=== PATIENT | male | born 1935 | race Caucasian/White ===

== ENCOUNTER 2016-06-30 10:50 | Emergency (ER) | payer MEDICARE, OTHER ==
[~2016-06-30] VITALS: Wt 84.5 kg
[~2016-06-30 10:50] MED LIST: AMLO-147 PO; ATOR80TA75 PO; BIMA2.5D BOTH EYES; CARV25TA79 PO; CITROMA PO; CLOP75TA27 PO; GLYB5TAB3 PO; ISOS40TA15 PO; LANT3I SC; LISI20TA11 PO; NAPR-688 PO; POLY17PO6 PO; REPA2TAB8 PO; SITA100T8 PO; TAMS-14 PO
[2016-06-30] MEDS ORDERED: morphine 2 MG INJ IV STA (13:06)
[2016-06-30] MEDS ORDERED: ONDANSETRON 4 MG INJ IV STA (13:06)
[2016-06-30 13:45] LABS: ADD SCAN DIFF NO
[2016-06-30 13:47] LABS: BASOPHILS % 0.5 % (0.0-2.0); EOSINOPHILS # 0.3 10^3/ul (0.0-0.5); EOSINOPHILS % 4.3 % (0.0-7.0); HEMATOCRIT 39.4 % (42.0-52.0); HEMOGLOBIN 12.3 g/dl (14.0-18.0); LYMPHOCYTES % 26.3 % (15.0-51.0); MEAN CORPUSCULAR HEMOGLOBIN 29.1 pg (29.0-33.0); MEAN CORPUSCULAR HGB CONC 31.2 g/dl (32.0-37.0); MEAN CORPUSCULAR VOLUME 93.4 fl (82.0-101.0); MEAN PLATELET VOLUME 11.1 fl (7.4-10.4); MONOCYTE # 0.8 10^3/ul (0.3-0.9); MONOCYTES % 9.8 % (0.0-11.0); NEUTROPHIL # 4.5 10^3/ul (1.6-7.5); NEUTROPHILS % 58.7 % (39.0-77.0); PLATELET COUNT 240 10^3/UL (140-415); RED BLOOD COUNT 4.22 10^6/ul (4.70-6.10); RED CELL DISTRIBUTION WIDTH 14.3 % (11.5-14.5); WHITE BLOOD COUNT 7.7 10^3/ul (4.8-10.8)
[2016-06-30] MEDS ORDERED: NOVO3I SC (13:54)
[2016-06-30] MEDS ORDERED: FURO-110 PO (13:54)
[2016-06-30 14:05] LABS: ALBUMIN 3.4 g/dl (3.3-4.9); ALBUMIN/GLOBULIN RATIO 0.85; BILIRUBIN,INDIRECT 0.1 mg/dl (0-1.1); BILIRUBIN,TOTAL 0.1 mg/dl (0.2-1.3); CALCIUM 8.7 mg/dl (8.4-10.2); CREATININE 3.29 mg/dl (0.61-1.24); TOTAL PROTEIN 7.4 g/dl (6.1-8.1)
[2016-06-30 14:06] LABS: POTASSIUM 4.3 mmol/L (3.5-5.1)
--- NOTE | 2016-06-30 14:38 | RADRPT ---
PROCEDURE: CT Abdomen and Pelvis without contrast. CLINICAL INDICATION: Right lower quadrant pain with nausea and vomiting. TECHNIQUE: CT scan of the abdomen and pelvis without contrast was performed on a multidetector hig h-resolution CT scanner. The patient was scanned without intravenous contrast. Coronal and sagittal reformatted images were obtained from the axial source images. Images were reviewed on a high-resol [employer] PACS workstation. The total exam CTDI equals 16.33 mGy and the total exam DLP equals 998.05 mG y-cm. One or more of the following dose reduction techniques were used: Automated exposure control. Adjustment of the mA and/or kV according to patient size. Use of iterative reconstruction technique. COMPARISON: CT abdomen and pelvis 08/17/2014 FINDINGS: CT abdomen: The lung bases are remarkable for mild fibrotic changes in the periphery of the lungs, not significa ntly changed. The heart size is mildly enlarged without pericardial thickening or effusion. AICD de vice is in place. The liver is normal in size and density without focal mass or intrahepatic biliary dilatation. The spleen is normal in size and homogeneous in density. The stomach is partially collapsed, but is daina ssly unremarkable. The pancreas as visualized is normal. The gallbladder is unremarkable. There is no evidence for biliary dilatation. The adrenal glands are symmetric and normal. The kidneys are symmetrically unremarkable as well. No renal calculus or obstructive uropathy or mass lesion is see n. The aorta is of normal caliber. Aortic vascular calcifications are present. There is no retroperit guerrero lymphadenopathy. The leon hepatis region is clear. There are scattered colonic diverticula without evidence of acute diverticulitis. CT pelvis: There is a left inguinal hernia containing a portion of the proximal sigmoid colon without bowel obs truction or strangulation. There is a small fat containing right inguinal hernia. The small bowel lo ops situated within the pelvis are unremarkable. There is a normal appendix. There is moderate prost atomegaly with median lobe hypertrophy. The pelvic sidewalls and inguinal regions are clear. The s igmoid colon and rectum are remarkable for sigmoid diverticulosis. No mass, lymphadenopathy, or jesenia e fluid is seen. No acute inflammation is seen. The surrounding osseous structures are remarkable for degenerative spondylosis of the spine. No osteolytic or osteoblastic lesion is detected. IMPRESSION: 1. No mass, lymphadenopathy, or focal acute inflammatory process is identified. 2. Left inguinal hernia containing portion of the proximal sigmoid colon without evidence of bowel obstruction or strangulation. 3. Scattered colonic diverticula without evidence of acute diverticulitis. 4. Moderate prostatomegaly with median lobe hypertrophy. 5. Diffuse atherosclerosis. 6. Fat containing small right inguinal hernia. RPTAT: BB .Emir Beard MD, Date Time Electronically viewed and signed by .Emir Beard MD, on 06/30/2016 14:38 .O/
--- NOTE | 2016-06-30 14:40 | ERA ---
ER Documentation Chief Complaint Date/Time DATE: 06/30/16 TIME: 14:39 Chief Complaint RLQ PAIN 1 WEEK WITH N/V HPI This is an 81-year-old male who is here for right lower quadrant pain off and on for the past week. Family states he has had this pain before on several occasions. The patient has no nausea vomiting diarrhea no fever. No radiation of pain. Says sometimes when he urinates the pain gets worse or starts. He has no hematuria or dysuria. No pain in the back no chest pain or shortness of breath. Described as sharp and nonradiating ROS All systems reviewed and are negative except as per history of present illness. Medications Home Meds Active Scripts Naproxen* (Naproxen*) 500 Mg Tablet, 500 MG PO BID Y for PAIN, #14 TAB Prov:CAROLINE ODEN DO 04/14/15 Magnesium Citrate* (Citroma*) 300 Ml Soln, 300 ML PO ONCE, #1 BOTTLE Prov:CAROLINE ODEN DO 04/14/15 Polyethylene Glycol* (Miralax*) 17 Gm Powd.pack, 17 GM PO DAILY, #7 Prov:CAROLINE ODEN DO 04/14/15 Clopidogrel Bisulfate (Clopidogrel) 75 Mg Tab, 75 MG PO DAILY for 30 Days Prov:SHREE HAYES MD 05/19/14 Tamsulosin Hcl* (Flomax*) 0.4 Mg Capsr, 0.4 MG PO HS for 30 Days Prov:SHREE HAYES MD 05/19/14 Reported Medications Insulin Aspart* (Novolog Insulin Pen*) 100 Unit/Ml Soln, 0-10 SC .SLIDING SCALE AC, EA 06/30/16 Furosemide* (Lasix*) 20 Mg Tablet, 20 MG PO DAILY, TAB 06/30/16 Isosorbide Dinitrate* (Isordil*) 40 Mg Tablet, 40 MG PO BID, TAB 08/17/14 Insulin Glargine* (Lantus*) 100 Unit/Ml Soln, 40 UNIT SC HS, EA 08/17/14 Atorvastatin* (Atorvastatin*) 80 Mg Tablet, 80 MG PO HS, TAB 05/18/14 Bimatoprost* (Lumigan*) 0.01%-2.5 Ml Opht Drops, 1 DROP BOTH EYES HS, EA 05/18/14 Carvedilol* (Carvedilol*) 25 Mg Tablet, 25 MG PO BID, TAB 05/18/14 Repaglinide* (Repaglinide*) 2 Mg Tablet, 2 MG PO AC BREAKFAST DINNER, TAB 05/18/14 Discontinued Reported Medications Glyburide* (Glyburide*) 5 Mg Tablet, 5 MG PO BID, TAB 08/17/14 Amlodipine Besylate* (Amlodipine Besylate*) 10 Mg Tablet, 10 MG PO DAILY, TAB 08/17/14 Lisinopril* (Lisinopril*) 20 Mg Tablet, 20 MG PO DAILY, TAB 05/18/14 Sitagliptin* (Januvia*) 100 Mg Tablet, 100 MG PO daily 12/12/12 Allergies Allergies: Coded Allergies: No Known Allergy (Verified , 08/17/14) PMhx/Soc History of Surgery: No Anesthesia Reaction: No Hx Neurological Disorder: No Hx Respiratory Disorders: No Hx Cardiac Disorders: No Hx Psychiatric Problems: No Hx Miscellaneous Medical Probl: Yes Hx Alcohol Use: No Hx Substance Use: No Hx Tobacco Use: No Smoking Status: Never smoker FmHx Family History: No coronary disease Physical Exam Vitals Vital Signs Date Time Temp Pulse Resp B/P Pulse Ox O2 Delivery O2 Flow Rate FiO2 06/30/16 10:57 98.0 75 18 194/102 99 Physical Exam Const: Well-developed, well-nourished Head: Atraumatic, normocephalic Eyes: Normal Conjunctiva, PERRLA, EOMI, normal sclera, no nystagmus ENT: Normal External Ears, Nose and Mouth, moist mucus membranes. Neck: Full range of motion. No meningismus, no lymphadenopathy. Resp: Clear to auscultation bilaterally, no wheezing, rhonchi, rales Cardio: Regular rate and rhythm, no murmurs, S1 S2 present Abd: Soft, very mild right lower quadrant tenderness, most of the pain is located in the right inguinal region, non distended. Normal bowel sounds, no guarding or rebound, no pulsitile abdominal masses or bruits Skin: No petechiae or rashes, no ecchymosis , no maculopapular rash Back: No midline or flank tenderness Ext: No cyanosis, or edema, FROM x 4, normal inspection, neurovascularly intact x 4 Neur: Awake and alert, STR 5/5 x 4, sensation intact x 4, no focal findings, cerebellum intact Psych: Normal Mood and Affect Result Diagram: 06/30/16 1323 06/30/16 1323 Results 24 hrs Laboratory Tests Test 06/30/16 13:23 White Blood Count 7.710^3/ul Red Blood Count 4.2210^6/ul Hemoglobin 12.3g/dl Hematocrit 39.4% Mean Corpuscular Volume 93.4fl Mean Corpuscular Hemoglobin 29.1pg Mean Corpuscular Hemoglobin Concent 31.2g/dl Red Cell Distribution Width 14.3% Platelet Count 48812^3/UL Mean Platelet Volume 11.1fl Neutrophils % 58.7% Lymphocytes % 26.3% Monocytes % 9.8% Eosinophils % 4.3% Basophils % 0.5% Nucleated Red Blood Cells % 0.0/100WBC Neutrophils # 4.510^3/ul Lymphocytes # 2.010^3/ul Monocytes # 0.810^3/ul Eosinophils # 0.310^3/ul Basophils # 0.010^3/ul Nucleated Red Blood Cells # 0.010^3/ul Sodium Level 139mmol/L Potassium Level 4.3mmol/L Chloride Level 108mmol/L Carbon Dioxide Level 24mmol/L Anion Gap 11 Blood Urea Nitrogen 38mg/dl Creatinine 3.29mg/dl Glucose Level 102mg/dl Calcium Level 8.7mg/dl Total Bilirubin 0.1mg/dl Direct Bilirubin 0.00mg/dl Indirect Bilirubin 0.1mg/dl Aspartate Amino Transf (AST/SGOT) 20IU/L Alanine Aminotransferase (ALT/SGPT) 34IU/L Alkaline Phosphatase 125IU/L Total Protein 7.4g/dl Albumin 3.4g/dl Globulin 4.00g/dl Albumin/Globulin Ratio 0.85 Lipase 145U/L Current Medications Medications (Trade) Dose Ordered Sig/Lurdes Route PRN Reason Start Time Stop Time Status Last Admin Dose Admin Morphine Sulfate (morphine) 2 mg ONCE STAT IV 06/30/16 13:06 06/30/16 13:09 DC 06/30/16 13:36 Ondansetron HCl (Zofran Inj) 4 mg ONCE STAT IV 06/30/16 13:06 06/30/16 13:09 DC 06/30/16 13:36 Procedures/MDM Patient has chronic renal insufficiency with a baseline creatinine 3.1 PROCEDURE: CT Abdomen and Pelvis without contrast. CLINICAL INDICATION: Right lower quadrant pain with nausea and vomiting. TECHNIQUE: CT scan of the abdomen and pelvis without contrast was performed on a multidetector high-resolution CT scanner. The patient was scanned without intravenous contrast. Coronal and sagittal reformatted images were obtained from the axial source images. Images were reviewed on a high-resolution PACS workstation. The total exam CTDI equals 16.33 mGy and the total exam DLP equals 998.05 mGy-cm. One or more of the following dose reduction techniques were used: Automated exposure control. Adjustment of the mA and/or kV according to patient size. Use of iterative reconstruction technique. COMPARISON: CT abdomen and pelvis 08/17/2014 FINDINGS: CT abdomen: The lung bases are remarkable for mild fibrotic changes in the periphery of the lungs, not significantly changed. The heart size is mildly enlarged without pericardial thickening or effusion. AICD device is in place. The liver is normal in size and density without focal mass or intrahepatic biliary dilatation. The spleen is normal in size and homogeneous in density. The stomach is partially collapsed, but is grossly unremarkable. The pancreas as visualized is normal. The gallbladder is unremarkable. There is no evidence for biliary dilatation. The adrenal glands are symmetric and normal. The kidneys are symmetrically unremarkable as well. No renal calculus or obstructive uropathy or mass lesion is seen. The aorta is of normal caliber. Aortic vascular calcifications are present. There is no retroperitoneal lymphadenopathy. The leon hepatis region is clear. There are scattered colonic diverticula without evidence of acute diverticulitis. CT pelvis: There is a left inguinal hernia containing a portion of the proximal sigmoid colon without bowel obstruction or strangulation. There is a small fat containing right inguinal hernia. The small bowel loops situated within the pelvis are unremarkable. There is a normal appendix. There is moderate prostatomegaly with median lobe hypertrophy. The pelvic sidewalls and inguinal regions are clear. The sigmoid colon and rectum are remarkable for sigmoid diverticulosis. No mass, lymphadenopathy, or free fluid is seen. No acute inflammation is seen. The surrounding osseous structures are remarkable for degenerative spondylosis of the spine. No osteolytic or osteoblastic lesion is detected. IMPRESSION: 1. No mass, lymphadenopathy, or focal acute inflammatory process is identified. 2. Left inguinal hernia containing portion of the proximal sigmoid colon without evidence of bowel obstruction or strangulation. 3. Scattered colonic diverticula without evidence of acute diverticulitis. 4. Moderate prostatomegaly with median lobe hypertrophy. 5. Diffuse atherosclerosis. 6. Fat containing small right inguinal hernia. RPTAT: BB .Emir Beard MD, Date Time Electronically viewed and signed by .Emir Beard MD, on 06/30/2016 14:38 .O/ CC: ETELVINA NEGRO DO We will refer the patient to general surgery and provide him some pain meds. I think his pain is from his hernia Departure Diagnosis: Primary Impression: Right inguinal hernia Additional Impression: Abdominal pain Qualified Code: R10.31 - Right lower quadrant abdominal pain Condition: Stable ETELVINA NEGRO DO June 30, 2016 14:40
[2016-06-30] MEDS ORDERED: HYDR-906 PO (14:51)
[2016-06-30 15:17] VITALS: BP 180/98; PULSE 75; RESP 17; TEMP 98.4
[2016-06-30 15:47] LABS: ADD UMIC YES; URINE BILIRUBIN (Dip) NEGATIVE (NEGATIVE); URINE BLOOD (Dip) 1+ (NEGATIVE); URINE COLOR LT. YELLOW (YELLOW); URINE GLUCOSE (Dip) NEGATIVE (NEGATIVE); URINE KETONES (Dip) NEGATIVE (NEGATIVE); URINE LEUKOCYTE ESTERASE (Dip) NEGATIVE (NEGATIVE); URINE NITRITE (Dip) NEGATIVE (NEGATIVE); URINE TOTAL PROTEIN (Dip) 2+ (NEGATIVE); URINE UROBILINOGEN (Dip) 0.2 E.U./dL (0.1-1.0)
== END 2016-06-30 15:23 | disposition home or self-care (01) ==
LOC: E/R 10:50
DX: K40.90 Unilateral inguinal hernia, without obstruction or gangrene, not specified as recurrent (principal); R11.2 Nausea with vomiting, unspecified; Z79.4 Long term (current) use of insulin; Z79.01 Long term (current) use of anticoagulants
CPT/HCPCS: 74176; 80053; 81001; 83690; 85025; 96374; 96375; 99285; J2270; J2405

== ENCOUNTER 2017-02-28 10:06 | Emergency (ER) | END 2017-02-28 16:16 | disposition short-term general hospital (02) ==

== ENCOUNTER 2017-07-15 04:08 | Emergency (ER) | END 2017-07-15 08:27 | disposition home or self-care (01) ==

== ENCOUNTER 2017-09-12 11:04 | Inpatient (IN) | END 2017-09-18 16:20 | disposition home or self-care (01) | DRG 286 ==

== ENCOUNTER 2018-01-19 00:05 | Emergency (ER) | END 2018-01-19 03:34 | disposition home or self-care (01) ==

== ENCOUNTER 2018-02-19 22:26 | Emergency (ER) | payer MEDICARE, OTHER ==
[~2018-02-19] VITALS: Ht 175.3 cm; Wt 72.0 kg
[~2018-02-19 22:26] MED LIST changes: -AMLO-147 PO; +ATOR-2 PO; -ATOR80TA75 PO; -BIMA2.5D BOTH EYES; -CARV25TA79 PO; -CITROMA PO; +DOCU-216 PO; +FAMO20TA18 PO; +FURO40TA4 PO; -GLYB5TAB3 PO; +INSU100I33 SC; +ISOS10TA2 PO; -ISOS40TA15 PO; -LANT3I SC; -LISI20TA11 PO; -NAPR-688 PO; -POLY17PO6 PO; -REPA2TAB8 PO; -SITA100T8 PO
[2018-02-19 22:31] VITALS: BP 173/81; PULSE 88; RESP 20; Ht 175.3 cm; Wt 72.0 kg
== END 2018-02-20 00:04 | disposition left against medical advice (07) ==
LOC: E/R 22:26
DX: Z53.21 Procedure and treatment not carried out due to patient leaving prior to being seen by health care provider (principal)

== ENCOUNTER 2018-04-25 14:09 | Inpatient (IN) | payer MEDICARE, OTHER ==
[~2018-04-25] VITALS: Ht 175.3 cm; Wt 71.1 kg
[2018-04-25] MEDS ORDERED: morphine 2 MG INJ IV STA (15:13)
[2018-04-25] MEDS ORDERED: ALBUTEROL 0.5% (NEB) 2.5 MG/0.5 ML AMP NEB STA (15:13)
[2018-04-25] MEDS ORDERED: IPRATROPIUM (NEB) 0.5 MG/2.5 ML AMP NEB STA (15:13)
[2018-04-25] MEDS ORDERED: ONDANSETRON 4 MG INJ IV STA (15:13)
[2018-04-25] MEDS ORDERED: APIX2.5T PO (15:27)
[2018-04-25] MEDS ORDERED: CARV3.1260 PO (15:27)
[2018-04-25] MEDS ORDERED: ASPI81TA52 PO (15:27)
[2018-04-25] MEDS ORDERED: FAMO20TA18 PO (15:27)
[2018-04-25] MEDS ORDERED: TAMS0.4C2 PO (15:28)
[2018-04-25] MEDS ORDERED: FURO40TA4 PO (15:28)
--- NOTE | 2018-04-25 15:37 | ERD ---
ER Documentation Chief Complaint Chief Complaint SOB WITH COUGH/FEVER & DIFFICULTY SLEEPING FLAT, DIALYSIS T, R, & SAT HPI This is an 83-year-old male with a history of end-stage renal disease on hemodialysis every Thursday and Thursday. The patient a full run of dialysis yesterday. His bookmaker map is Dr. Sanchez. The patient has a pacemaker placed and is on Eliquis. He also has a known history of congestive heart failure. The patient indicates that weeks he has been experiencing a dry cough. His symptoms have progressively worsened. He indicates that yesterday evening he developed shortness of breath while lying supine. He also indicated he had a tactile fever with shaking and chills. He states his symptoms improve when he sits upright. He also complains of mild abdominal pain. He states the pain is more prominent of the right upper quadrant does not radiate to his back. This is also been present for the past 3 weeks. There is no alleviating or exacerbating factors to the abdominal pain. He had a previous hernia repair for surgical history CABG. The patient is been compliant with all his medications. No recent travel. No recent hospitalizations. ROS All systems reviewed and are negative except as per history of present illness. Medications Home Meds Reported Medications Insulin Glargine,Hum.rec.anlog (Basaglar Kwikpen U-100) 100 Unit/1 Ml Insuln.pen, 0 SC QHS, EA SLIDING SCALE 04/25/18 Furosemide* (Furosemide*) 40 Mg Tablet, 40 MG PO BID, TAB 04/25/18 Tamsulosin Hcl* (Tamsulosin Hcl*) 0.4 Mg Cap.er.24h, 0.4 MG PO DAILY, CAP 04/25/18 Famotidine* (Famotidine*) 20 Mg Tablet, 20 MG PO BID, #60 TAB 04/25/18 Aspirin (Low Dose Aspirin) 81 Mg Tablet., 81 MG PO DAILY, #30 TAB 04/25/18 Carvedilol* (Carvedilol*) 3.125 Mg Tablet, 3.125 MG PO BID, #60 TAB 04/25/18 Apixaban* (Eliquis*) 2.5 Mg Tablet, 2.5 MG PO BID, TAB 04/25/18 Discontinued Reported Medications Atorvastatin* (Atorvastatin*) 80 Mg Tablet, 80 MG PO HS, TAB 05/18/14 Discontinued Scripts Insulin Glargine,Hum.rec.anlog (Basaglar Kwikpen U-100) 100 Unit/1 Ml Insuln.pen, 6 UNIT SC DAILY for 30 Days, EA Prov:HAI SHEA MD- 09/18/17 Famotidine* (Famotidine*) 20 Mg Tablet, 10 MG PO DAILY for 90 Days, #90 TAB Prov:HAI SHEA 09/18/17 Docusate Sodium (Dok) 100 Mg Capsule, 100 MG PO BID for 30 Days, #60 CAP Prov:HAI SHEA 09/18/17 Furosemide* (Furosemide*) 40 Mg Tablet, 40 MG PO BID DIURETICS for 90 Days, #180 TAB Prov:HAI SHEA 09/18/17 Isosorbide Dinitrate* (Isordil*) 10 Mg Tablet, 10 MG PO BID for 90 Days, #180 TAB Prov:HAI SEHA 09/18/17 Clopidogrel Bisulfate (Clopidogrel) 75 Mg Tab, 75 MG PO DAILY for 30 Days Prov:SHREE HAYES MD 05/19/14 Tamsulosin Hcl* (Flomax*) 0.4 Mg Capsr, 0.4 MG PO HS for 30 Days Prov:SHREE HAYES MD 05/19/14 Allergies Allergies: Coded Allergies: No Known Allergy (Verified , 04/25/18) PMhx/Soc History of Surgery: Yes (CABG,abd hernia repair,Permacath insertion Right chest) Anesthesia Reaction: No Hx Neurological Disorder: Yes (Neuropathy,CVA w/ mild right side deficit) Hx Respiratory Disorders: No Hx Cardiac Disorders: Yes (HTN,CHF,AMI) Hx Psychiatric Problems: No Hx Miscellaneous Medical Probl: Yes (diabetes,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 Well-nourished. HEENT:Normocephalic. Atraumatic.Pupils were equal round reactive to light. Moist mucous membranes.No tonsillar exudates. Neck: No nuchal rigidity. No lymphadenopathy. No posterior cervical spine tenderness or step-offs. Respiratory: Not using accessory muscles of respiration.Lungs were clear to auscultation bilaterally. No rhonchi. No rales. Mild wheezing bilaterally Cardiovascular: Regular rate regular rhythm.No murmurs. No rubs were appreciated.S1, S2 normal. Distal pulses are palpable 2+ bilaterally. GI: Abdomen was soft. Right upper quadrant tenderness with negative Trimble sign. Non Distended. No pulsatile abdominal masses or bruits. No rebound. No guarding. Bowel sounds were present and normal. Muscle skeletal: Full range of motion of both the upper and lower extremities bilaterally.Normal muscle tone.No assymetrical calf tenderness or swelling. Skin: No petechia, no purpura. No lesions on the palms or the soles of the feet. No maculopapular rash. NEURO: Patient was alert, awake, orientated x3.No facial droop. Gait observed and normal with no ataxia.Speech had regular rate and rhythm. No focal neurological deficits. Result Diagram: 04/25/18 1525 04/25/18 1525 Results 24 hrs Laboratory Tests Test 04/25/18 15:25 04/25/18 16:15 White Blood Count 5.8 10^3/ul Red Blood Count 3.82 10^6/ul Hemoglobin 11.8 g/dl Hematocrit 36.8 % Mean Corpuscular Volume 96.3 fl Mean Corpuscular Hemoglobin 30.9 pg Mean Corpuscular Hemoglobin Concent 32.1 g/dl Red Cell Distribution Width 16.4 % Platelet Count 166 10^3/UL Mean Platelet Volume 11.5 fl Immature Granulocytes % 0.300 % Neutrophils % 73.3 % Lymphocytes % 12.5 % Monocytes % 10.1 % Eosinophils % 3.3 % Basophils % 0.5 % Nucleated Red Blood Cells % 0.0 /100WBC Immature Granulocytes # 0.020 10^3/ul Neutrophils # 4.2 10^3/ul Lymphocytes # 0.7 10^3/ul Monocytes # 0.6 10^3/ul Eosinophils # 0.2 10^3/ul Basophils # 0.0 10^3/ul Nucleated Red Blood Cells # 0.0 10^3/ul Prothrombin Time 16.8 Sec Prothrombin Time Ratio 1.3 INR International Normalized Ratio 1.35 Activated Partial Thromboplast Time 34.2 Sec Sodium Level 138 mmol/L Potassium Level 4.3 mmol/L Chloride Level 98 mmol/L Carbon Dioxide Level 29 mmol/L Anion Gap 11 Blood Urea Nitrogen 37 mg/dl Creatinine 3.57 mg/dl Est Glomerular Filtrat Rate mL/min mL/min Glucose Level 278 mg/dl Calcium Level 9.2 mg/dl Total Bilirubin 0.5 mg/dl Direct Bilirubin 0.00 mg/dl Indirect Bilirubin 0.5 mg/dl Aspartate Amino Transf (AST/SGOT) 19 IU/L Alanine Aminotransferase (ALT/SGPT) 15 IU/L Alkaline Phosphatase 162 IU/L Creatine Kinase 32 IU/L Creatine Kinase Index 1.5 Creatinine Kinase MB (Mass) 0.48 ng/ml Troponin I 0.044 ng/ml B-Type Natriuretic Peptide 28213 PG/ML Total Protein 7.9 g/dl Albumin 3.8 g/dl Globulin 4.10 g/dl Albumin/Globulin Ratio 0.92 Lipase 156 U/L Urine Color PHAN Urine Clarity SLIGHTLY CLOUDY Urine pH 7.0 Urine Specific [place] 1.016 Urine Ketones NEGATIVE mg/dL Urine Nitrite NEGATIVE mg/dL Urine Bilirubin NEGATIVE mg/dL Urine Urobilinogen 2+ mg/dL Urine Leukocyte Esterase NEGATIVE Efren/ul Urine Microscopic RBC 5 /HPF Urine Microscopic WBC 3 /HPF Urine Hemoglobin NEGATIVE mg/dL Urine Glucose 2+ mg/dL Urine Total Protein 3+ mg/dl Current Medications Medications Dose Sig/Lurdes Start Time Status Last (Trade) Ordered Route PRN Stop Time Admin Dose Reason Admin Albuterol 10 mg ONCE STAT 04/25/18 DC 04/25/18 (Proventil NEB 15:13 16:05 0.5% (Neb)) 04/25/18 15:16 Ipratropium 0.5 mg ONCE STAT 04/25/18 DC 04/25/18 Superior NEB 15:13 16:05 (Atrovent 04/25/18 15:16 0.02% (Neb)) Morphine 2 mg ONCE STAT 04/25/18 DC 04/25/18 Sulfate IV 15:13 15:34 (morphine) 04/25/18 15:16 Ondansetron 4 mg ONCE STAT 04/25/18 DC 04/25/18 HCl (Zofran IV 15:13 15:34 Inj) 04/25/18 15:16 Azithromycin 250 ml @ ONCE STAT 04/25/18 DC 04/25/18 250 mls/hr IV 16:33 17:59 04/25/18 17:32 Ceftriaxone 50 ml @ ONCE STAT 04/25/18 DC 04/25/18 Sodium 100 mls/hr IVPB 16:33 17:16 04/25/18 17:02 Ibuprofen 800 mg ONCE ONCE 04/25/18 DC 04/25/18 (Motrin) PO 17:00 17:15 04/25/18 17:01 1,000 mg ONCE STAT 04/25/18 DC 04/25/18 Acetaminophen PO 16:33 17:16 (Tylenol 04/25/18 16:43 Tab) Furosemide 40 mg ONCE ONCE 04/25/18 DC 04/25/18 (Lasix) IV 17:00 17:16 04/25/18 17:01 Procedures/[facility] The patient presented to the emergency department with dyspnea. My differential diagnosis included but was not limited to upper airway obstruction, CHF, pulmonary embolism, cardiac ischemia, pneumonia, pneumothorax, anemia, drug overdose, pulmonary edema, COPD or asthma. The patient was placed on leasing manager continuous pulse oximetry and IV access was established by nursing staff. 12 Lead EKG tracing ordered and reviewed by myself showed: Normal sinus rhythm of 88 bpm and no arrhythmia. SC interval normal. QRS duration normal. No ST segment elevation No ST segment depression. No changes consistent with acute ischemia. I obtained a chest radiograph due to the patient's physical exam findings which was reviewed by the radiologist and indicated following: Diffuse coarse reticular nodular and interstitial markings with bibasilar confluent infiltrate and small effusions. Rule out failure versus pneumonia. Patient was febrile when he arrived. He received blood cultures and urine cultures. There is no evidence of urinary tract infection. He was treated for community-acquired pneumonia given azithromycin and ceftriaxone. The patient also complained of abdominal pain that was localized to the right upper quadrant therefore obtained an ultrasound of the gallbladder. There is no evidence of cholecystitis However I also felt the patient's symptoms could be result of congestive heart failure. He did receive IV Lasix and continue continuous nebulizer treatments of albuterol and Atrovent with significant improvement of his symptoms. He will be admitted under the care of his primary care physician Dr. Shea. I spoke with Dr. Roberson who kindly came to the bedside to evaluate the patient as she was taking call for Dr. Shea. 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
[2018-04-25] MEDS ORDERED: INSU100I33 SC (15:43)
[2018-04-25] MEDS ORDERED: ACETAMINOPHEN 500 MG TAB PO STA (16:33)
[2018-04-25] MEDS ORDERED: AZITHROMYCIN 500MG/NS (PMX) 250 ML IV STA (16:33)
[2018-04-25] MEDS ORDERED: CEFTRIAXONE 1 GM/50 ML (PMX) 50 ML IVPB STA (16:33)
[2018-04-25] MEDS ORDERED: FUROSEMIDE 40 MG INJ IV ONE (17:00)
[2018-04-25] MEDS ORDERED: IBUPROFEN 800 MG TAB PO ONE (17:00)
[2018-04-25] MEDS ORDERED: ACETAMINOPHEN 325 MG TAB PO PRN (17:30)
[2018-04-25] MEDS ORDERED: ONDANSETRON 4 MG INJ IV PRN (17:30)
[2018-04-25 18:26] VITALS: PULSE 77
[2018-04-25 18:27] VITALS: BP 122/60; PULSE 77; RESP 18
--- NOTE | 2018-04-25 18:29 | HP ---
Date/Time of Note Date/Time of Note DATE: 04/25/18 TIME: 18:29 Assessment/Plan VTE Prophylaxis SCD applied (from Nsg): Yes Pharmacological prophylaxis: apixaban Lines/Catheters IV Catheter Type (from Nrsg): Saline Lock Assessment/Plan Problems: (1) Pneumonia Status: Acute Comment: Check blood cultures , procalcitonin level and start IV antibiotics. Qualifiers: Pneumonia type: due to unspecified organism Laterality: bilateral Lung location: unspecified part of lung Qualified Codes: J18.9 - Pneumonia, unspecified organism (2) Congestive heart failure (CHF) Status: Chronic Comment: Check serial troponins, change furosemide to 40mg IV bid, monitor proBNP . Check 2D echo and call his last scourer in am. Qualifiers: Heart failure type: combined systolic and diastolic Heart failure chroni city: acute Qualified Codes: I50.41 - Acute combined systolic (congestive) and diastolic (congestive) heart failure (3) Chronic kidney disease Status: Chronic Comment: Patient just got dialysis on Thursday. Due for his next hemodialysis on Thursday but apprears to be fluid overloaded. Contact Dr. Sanchez in am. (4) Diabetes mellitus Status: Chronic Comment: ADA diet . Use LOOKK for coverage. Result Diagram: 04/25/18 1525 04/25/18 1525 Results 24hrs Laboratory Tests Test 04/25/18 15:25 04/25/18 16:15 White Blood Count 5.8 # Red Blood Count 3.82 L Hemoglobin 11.8 L Hematocrit 36.8 L Mean Corpuscular Volume 96.3 Mean Corpuscular Hemoglobin 30.9 Mean Corpuscular Hemoglobin Concent 32.1 Red Cell Distribution Width 16.4 H Platelet Count 166 Mean Platelet Volume 11.5 H Immature Granulocytes % 0.300 Neutrophils % 73.3 Lymphocytes % 12.5 L Monocytes % 10.1 Eosinophils % 3.3 Basophils % 0.5 Nucleated Red Blood Cells % 0.0 Immature Granulocytes # 0.020 Neutrophils # 4.2 Lymphocytes # 0.7 L Monocytes # 0.6 Eosinophils # 0.2 Basophils # 0.0 Nucleated Red Blood Cells # 0.0 Prothrombin Time 16.8 #H Prothrombin Time Ratio 1.3 INR International Normalized Ratio 1.35 Activated Partial Thromboplast Time 34.2 Sodium Level 138 Potassium Level 4.3 Chloride Level 98 Carbon Dioxide Level 29 Anion Gap 11 Blood Urea Nitrogen 37 H Creatinine 3.57 H Est Glomerular Filtrat Rate mL/min Glucose Level 278 H Calcium Level 9.2 Total Bilirubin 0.5 Direct Bilirubin 0.00 Indirect Bilirubin 0.5 Aspartate Amino Transf (AST/SGOT) 19 Alanine Aminotransferase (ALT/SGPT) 15 Alkaline Phosphatase 162 H Creatine Kinase 32 Creatine Kinase Index 1.5 Creatinine Kinase MB (Mass) 0.48 Troponin I 0.044 B-Type Natriuretic Peptide 14203 H Total Protein 7.9 Albumin 3.8 Globulin 4.10 H Albumin/Globulin Ratio 0.92 Lipase 156 Urine Color PHAN Urine Clarity SLIGHTLY CLOUDY A Urine pH 7.0 Urine Specific [place] 1.016 Urine Ketones NEGATIVE Urine Nitrite NEGATIVE Urine Bilirubin NEGATIVE Urine Urobilinogen 2+ H Urine Leukocyte Esterase NEGATIVE Urine Microscopic RBC 5 Urine Microscopic WBC 3 Urine Hemoglobin NEGATIVE Urine Glucose 2+ H Urine Total Protein 3+ H HPI/ROS Admit Date/Time Admit Date/Time Apr 25, 2018 at 17:28 Hx of Present Illness 83 year old with chronic renal failure on hemodialysis , and Thursday presents with progressive cough for 1 week and shortness of breath over the past day. Patient was noted to have fever of 100.3 on arrival in the ER. His proBNP was elevated and his chest xays shows bilateral basilar consolidation vs effusion. He is admitted for pneumonia and chf exacerbation. Patient also complains of right upper quadrant pain increase with cough. Abdominal ultrasound shows nonobstructive gallstone, sludge and moderate right pleural effusion. Other medical problems include coronary artery disease with ischemic cardiomyopathy, status post myocardial infarction, status post pacemaker and AICD placement, temporal arteritis diagnosed in 03/2014, hypertension, type 2 diabetes, end stage renal failure, cervical spondylosis, history of CVA, peripheral neuropathy, chronic rhinitis, benign prostatic hypertrophy. PMH/Family/Social Past Medical History Medical History: congestive heart failure, coronary artery disease, diabetes, high cholesterol, hypertension Medications Current Medications Ondansetron HCl (Zofran Inj) 4 mg ER BRIDGE PRN IV NAUSEA/VOMITING; Start 04/25/18 at 17:30; Stop 04/26/18 at 17:29 Acetaminophen (Tylenol Tab) 650 mg ER BRIDGE PRN PO .MILD PAIN 1-3 OR TEMP; Start 04/25/18 at 17:30; Stop 04/26/18 at 17:29 Coded Allergies: No Known Allergy (Verified , 04/25/18) Past Surgical History Past Surgical Hx: coronary bypass surgery, other (pacemaker and AICD placement) Family History Significant Family History: cancer Social History Alcohol Use: rarely Smoking Status: Current every day smoker Drug Use: none Exam/Review of Systems Vital Signs Vitals Vital Signs Date Temp Pulse Resp B/P (MAP) Pulse Ox O2 O2 Flow FiO2 Time Delivery Rate 04/25/18 98.5 77 18 122/60 97 18:27 (80) 04/25/18 Room Air 2.0 17:42 Nasal Cannula 04/25/18 28 16:09 Exam Constitutional: alert, oriented Head: normocephalic, atraumatic ENMT: nl external ears & nose Neck: supple Respiratory: diminished breath sounds Cardiovascular: regular rate and rhythm Gastrointestinal: soft, bowel sounds, tender Musculoskeletal: nl extremities to inspection SHREE HAEYS MD Apr 25, 2018 18:29
[2018-04-25] MEDS: FUROSEMIDE 40 MG INJ IV SCH (19:00)
[2018-04-25 19:55] VITALS: BP 125/69; PULSE 72; RESP 20
[2018-04-25 20:00] VITALS: PULSE 75; Ht 175.3 cm; Wt 71.1 kg
[2018-04-25] MEDS ORDERED: DEXTROSE 50% 50 ML SYRINGE IV PRN ×2 (21:30)
[2018-04-25] MEDS ORDERED: GLUCOSE GEL 15 GRAM TUBE PO PRN ×2 (21:30)
[2018-04-25] MEDS ORDERED: GLUCOSE GEL 15 GRAM TUBE BUCCAL PRN (21:30)
[2018-04-25] MEDS ORDERED: GLUCAGON 1 MG INJ IM PRN (21:30)
[2018-04-25] MEDS: APIXABAN 5 MG TABLET PO SCH (21:34)
[2018-04-25] MEDS: FAMOTIDINE 20 MG TAB PO SCH (21:34)
[2018-04-25 23:34] VITALS: BP 133/65; PULSE 75; RESP 20
[2018-04-26] VITALS (26 sets, daily range): BP systolic 135–166; BP diastolic 65–86; PULSE 68–99; RESP 16–20
[2018-04-26] MEDS: ACCU-CHEK XX SCH (02:00)
[2018-04-26] MEDS: PIPER-TAZO 2.25 GM (PMX) 50 ML IVPB SCH ×3 (05:19→21:11)
[2018-04-26] MEDS: FUROSEMIDE 40 MG INJ IV SCH (05:20)
[2018-04-26] MEDS: INSULIN ASPART [NOVOLOG] 3 ML PEN SC SCH ×4 (07:39→21:00)
[2018-04-26] MEDS: ASPIRIN (EC) 81 MG TAB PO SCH (08:35)
[2018-04-26] MEDS: TAMSULOSIN (SR) 0.4 MG CAP PO SCH (08:35)
[2018-04-26] MEDS: APIXABAN 5 MG TABLET PO SCH ×2 (08:36→20:58)
--- NOTE | 2018-04-26 08:54 | PN ---
DATE: 04/26/2018 SUBJECTIVE: The patient complains of cough, shortness of breath. OBJECTIVE: VITAL SIGNS: T-max 100.3, now 97.5, pulse 75, respirations 20, blood pressure 135/67, oxygen saturat ion 92% on 2 liter nasal cannula oxygen. GENERAL: Well-developed, ill-appearing male in no acute distress, sitting up in bed. CHEST: Decreased breath sounds bilaterally with diffuse rhonchi and expiratory wheeze and crackles. HEART: Regular rate and rhythm. ABDOMEN: Soft, nontender. EXTREMITIES: No cyanosis, clubbing. There is 1+ bilateral lower extremity edema. LABORATORY DATA: Sedimentation rate is 49. White blood cell count 3.6, hemoglobin 11.1, hematocrit 35.4, blood sugar 140, creatinine 4.09, BUN of 41. Sodium 141, potassium 4.9, chloride 96, bicarbona te 32. Brain natriuretic peptide of 51,400. Albumin of 3.0. ASSESSMENT AND PLAN: 1. Congestive heart failure, acute on chronic combined. The patient will need probably dialysis tod ay and will have nephrology assist in this. We will not give IV diuretics as the patient has end-sta ge renal disease. 2. End-stage renal disease. The patient was dialyzed on Thursday, but seems to be in heart failure at this point. We will have nephrology evaluate the patient and likely get dialysis today. 3. Diabetes. Continue sliding scale. 4. Pneumonia. We will continue the patient on IV antibiotics, breathing treatments, supplemental ox ygen as the patient likely has pneumonitis superimposed on congestive heart failure. Dictated By: HAI CHRISTIANSON MD SR/NTS Conf#: [id number] DID#: [id number] CC: NATASHA SCHNEIDER MD; HAI CHRISTIANSON MD;*EndCC*
--- NOTE | 2018-04-26 10:55 | CONS ---
Assessment/Plan Assessment/Plan Problems: (1) ESRD (end stage renal disease) on dialysis Comment: Due to mild CHF, will do dialysis today, not Tues (2) Coronary arteriosclerosis Status: Chronic Comment: s/p CABG w Iscemic CM (3) Hypertension Status: Chronic Comment: controlled (4) Congestive heart failure (CHF) Status: Chronic Comment: mild.. exac by PNA.. so will dialyze today for UF Qualifiers: Qualified Codes: I50.41 - Acute combined systolic (congestive) and diastolic (congestive) heart failure (5) Diabetes mellitus Status: Chronic Comment: per Darrick (6) Pneumonia Status: Acute Comment: on abx...CXR noted Qualifiers: Qualified Codes: J18.9 - Pneumonia, unspecified organism Consultation Date/Type/Reason Admit Date/Time Apr 25, 2018 at 17:28 Type of Consult Nephrology Date/Time of Note DATE: 04/26/18 TIME: 10:47 Hx of Present Illness This gentleman has ESRD due to DM/HTN, and has been on dialysis for approx 6 months. He dialyzes q TTS, last dialysis 2d ago. He was admitted with cough, SOB and fever, and found on CXR to have fluid overload + PNA. He has been cultured, and placed on abx. Renal consult is requested for cont inued ESRD care. Co morbidities include ASHD, s/p CABG w Ischemic CM, in addition to DM, HTN Constitutional: no complaints Eyes: no complaints Respiratory: cough Cardiovascular: chest pain (denies any) Gastrointestinal: no complaints Genitourinary: no complaints Musculoskeletal: no complaints Past Medical History Home Meds Reported Medications Insulin Glargine,Hum.rec.anlog (Basaglar Kwikpen U-100) 100 Unit/1 Ml Insuln.pen, 0 SC QHS, EA SLIDING SCALE 04/25/18 Furosemide* (Furosemide*) 40 Mg Tablet, 40 MG PO BID, TAB 04/25/18 Tamsulosin Hcl* (Tamsulosin Hcl*) 0.4 Mg Cap.er.24h, 0.4 MG PO DAILY, CAP 04/25/18 Famotidine* (Famotidine*) 20 Mg Tablet, 20 MG PO BID, #60 TAB 04/25/18 Aspirin (Low Dose Aspirin) 81 Mg Tablet.dr, 81 MG PO DAILY, #30 TAB 04/25/18 Carvedilol* (Carvedilol*) 3.125 Mg Tablet, 3.125 MG PO BID, #60 TAB 04/25/18 Apixaban* (Eliquis*) 2.5 Mg Tablet, 2.5 MG PO BID, TAB 04/25/18 Discontinued Reported Medications Atorvastatin* (Atorvastatin*) 80 Mg Tablet, 80 MG PO HS, TAB 05/18/14 Discontinued Scripts Insulin Glargine,Hum.rec.anlog (Basaglar Kwikpen U-100) 100 Unit/1 Ml Insuln.pen, 6 UNIT SC DAILY for 30 Days, EA Prov:HAI CHRISTIANSON 09/18/17 Famotidine* (Famotidine*) 20 Mg Tablet, 10 MG PO DAILY for 90 Days, #90 TAB Prov:HAI CHRISTIANSON 09/18/17 Docusate Sodium (Dok) 100 Mg Capsule, 100 MG PO BID for 30 Days, #60 CAP Prov:HAI CHRISTIANSON 09/18/17 Furosemide* (Furosemide*) 40 Mg Tablet, 40 MG PO BID DIURETICS for 90 Days, #180 TAB Prov:HAI CHRISTIANSON 09/18/17 Isosorbide Dinitrate* (Isordil*) 10 Mg Tablet, 10 MG PO BID for 90 Days, #180 TAB Prov:HAI CHRISTIANSON 09/18/17 Clopidogrel Bisulfate (Clopidogrel) 75 Mg Tab, 75 MG PO DAILY for 30 Days Prov:SHREE HAYES MD 05/19/14 Tamsulosin Hcl* (Flomax*) 0.4 Mg Capsr, 0.4 MG PO HS for 30 Days Prov:SHREE HAYES MD 05/19/14 Medications Current Medications Ondansetron HCl (Zofran Inj) 4 mg ER BRIDGE PRN IV NAUSEA/VOMITING; Start 04/25/18 at 17:30; Stop 04/26/18 at 17:29 Acetaminophen (Tylenol Tab) 650 mg ER BRIDGE PRN PO .MILD PAIN 1-3 OR TEMP; Start 04/25/18 at 17:30; Stop 04/26/18 at 17:29 Apixaban (Eliquis) 2.5 mg BID PO Last administered on 04/26/18at 08:36; Admin Dose 2.5 MG; Start 04/25/18 at 21:00 Aspirin (Halfprin) 81 mg DAILY PO Last administered on 04/26/18at 08:35; Admin Dose 81 MG; Start 04/26/18 at 09:00 Carvedilol (Coreg) 3.125 mg BID PO Last administered on 04/26/18at 08:35; Admin Dose 3.125 MG; Start 04/25/18 at 21:00 Famotidine (Pepcid) 20 mg HS PO Last administered on 04/25/18at 21:34; Admin Dose 20 MG; Start 04/25/18 at 21:00 Tamsulosin HCl (Flomax) 0.4 mg DAILY PO Last administered on 04/26/18at 08:35; Admin Dose 0.4 MG; Start 04/26/18 at 09:00 Furosemide (Lasix) 40 mg BID DIURETICS IV Last administered on 04/26/18at 05:20; Admin Dose 40 MG; Start 04/25/18 at 19:00 Diagnostic Test (Pha) (Accu-Chek) 1 ea 02 XX ; Start 04/26/18 at 02:00 Insulin Aspart (Novolog Insulin Pen) NOVOLOG *MODERATE* ALGORITHM WITH MEALS BEDTIME SC ; Start 04/26/18 at 08:00 Miscellaneous Information 1 ea NOTE XX ; Start 04/25/18 at 21:30 Glucose (Glutose) 15 gm Q15M PRN PO DECREASED GLUCOSE; Start 04/25/18 at 21:30 Glucose (Glutose) 22.5 gm Q15M PRN PO DECREASED GLUCOSE; Start 04/25/18 at 21:30 Dextrose (D50w Syringe) 25 ml Q15M PRN IV DECREASED GLUCOSE; Start 04/25/18 at 21:30 Dextrose (D50w Syringe) 50 ml Q15M PRN IV DECREASED GLUCOSE; Start 04/25/18 at 21:30 Glucagon (Glucagen) 1 mg Q15M PRN IM DECREASED GLUCOSE; Start 04/25/18 at 21:30 Glucose (Glutose) 15 gm Q15M PRN BUCCAL DECREASED GLUCOSE; Start 04/25/18 at 21:30 Piperacillin Sod/ Tazobactam Sod 50 ml @ 100 mls/hr Q8 IVPB Last administered on 04/26/18at 05:19; Admin Dose 100 MLS/HR; Start 04/26/18 at 06:00 Allergies: Coded Allergies: No Known Allergy (Verified , 04/25/18) Past Surgical History Past Surgical Hx: coronary bypass surgery, other (pacemaker and AICD placement) Social History Alcohol Use: rarely Smoking Status: Former smoker Drug Use: none Exam/Review of Systems Vital Signs Vitals Vital Signs Date Temp Pulse Resp B/P (MAP) Pulse Ox O2 O2 Flow FiO2 Time Delivery Rate 04/26/18 75 08:55 04/26/18 97.5 20 135/67 92 Nasal 08:04 (89) Cannula 04/26/18 2.0 04:00 04/25/18 28 16:09 Intake and Output 04/25/18 04/25/18 04/26/18 1515:00 23:00 07:00 IntakeIntake Total 50 ml 170 ml BalanceBalance 50 ml 170 ml Exam Constitutional: alert, oriented Psych: no complaints Head: normocephalic, atraumatic Eyes: nl conjunctiva ENMT: nl external ears & nose Neck: supple, non-tender Respiratory: congested cough, diminished breath sounds (at the bases) Cardiovascular: regular rate and rhythm Gastrointestinal: soft, nl liver, spleen Extremities: edema (1-2+ bilat.. has fxn AVF in his RUE) Skin: nl turgor Labs Result Diagram: 04/26/18 0453 04/26/18 0453 Results 24hrs Laboratory Tests Test 04/25/18 15:25 04/25/18 16:15 04/25/18 21:42 04/25/18 23:31 White Blood Count 5.8 # Red Blood Count 3.82 L Hemoglobin 11.8 L Hematocrit 36.8 L Mean Corpuscular 96.3 Volume Mean Corpuscular 30.9 Hemoglobin Mean Corpuscular 32.1 Hemoglobin Concen t Red Cell 16.4 H Distribution Width Platelet Count 166 Mean Platelet 11.5 H Volume Immature 0.300 Granulocytes % Neutrophils % 73.3 Lymphocytes % 12.5 L Monocytes % 10.1 Eosinophils % 3.3 Basophils % 0.5 Nucleated Red 0.0 Blood Cells % Immature 0.020 Granulocytes # Neutrophils # 4.2 Lymphocytes # 0.7 L Monocytes # 0.6 Eosinophils # 0.2 Basophils # 0.0 Nucleated Red 0.0 Blood Cells # Prothrombin Time 16.8 #H Prothrombin Time 1.3 Ratio INR International 1.35 Normalized Ratio Activated 34.2 Partial Thrombopl ast Time Sodium Level 138 Potassium Level 4.3 Chloride Level 98 Carbon Dioxide 29 Level Anion Gap 11 Blood Urea 37 H Nitrogen Creatinine 3.57 H Est Glomerular Filtrat Rate mL/min Glucose Level 278 H Calcium Level 9.2 Total Bilirubin 0.5 Direct Bilirubin 0.00 Indirect 0.5 Bilirubin Aspartate Amino 19 Transf (AST/SGOT) Alanine 15 Aminotransferase (ALT/SGPT) Alkaline 162 H Phosphatase Creatine Kinase 32 Creatine Kinase 1.5 Index Creatinine Kinase 0.48 MB (Mass) Troponin I 0.044 0.083 B-Type 40332 H Natriuretic Peptide Total Protein 7.9 Albumin 3.8 Globulin 4.10 H Albumin/Globulin 0.92 Ratio Lipase 156 Urine Color PHAN Urine Clarity SLIGHTLY CLOUDY A Urine pH 7.0 Urine Specific 1.016 [place] Urine Ketones NEGATIVE Urine Nitrite NEGATIVE Urine Bilirubin NEGATIVE Urine 2+ H Urobilinogen Urine Leukocyte NEGATIVE Esterase Urine Microscopic 5 RBC Urine Microscopic 3 WBC Urine Hemoglobin NEGATIVE Urine Glucose 2+ H Urine Total 3+ H Protein Bedside Glucose 186 Test 04/26/18 04:53 04/26/18 07:38 White Blood Count 3.6 #L Red Blood Count 3.62 L Hemoglobin 11.1 L Hematocrit 35.4 L Mean Corpuscular 97.8 Volume Mean Corpuscular 30.7 Hemoglobin Mean Corpuscular 31.4 L Hemoglobin Concen t Red Cell 16.7 H Distribution Width Platelet Count 148 Mean Platelet 11.0 H Volume Immature 0.300 Granulocytes % Neutrophils % 53.5 Lymphocytes % 22.4 Monocytes % 13.3 H Eosinophils % 9.7 H Basophils % 0.8 Nucleated Red 0.0 Blood Cells % Immature 0.010 Granulocytes # Neutrophils # 1.9 Lymphocytes # 0.8 Monocytes # 0.5 Eosinophils # 0.4 Basophils # 0.0 Nucleated Red 0.0 Blood Cells # Erythrocyte 49 H Sedimentation Rate Sodium Level 141 Potassium Level 4.9 Chloride Level 96 L Carbon Dioxide 32 H Level Anion Gap 13 Blood Urea 41 H Nitrogen Creatinine 4.09 H Est Glomerular Filtrat Rate mL/min Glucose Level 140 # Calcium Level 9.0 Total Bilirubin 0.3 Direct Bilirubin 0.00 Indirect 0.3 Bilirubin Aspartate Amino 14 L Transf (AST/SGOT) Alanine 21 Aminotransferase (ALT/SGPT) Alkaline 126 H Phosphatase Troponin I 0.080 B-Type 56865 H Natriuretic Peptide Total Protein 6.3 # Albumin 3.0 L Globulin 3.30 H Albumin/Globulin 0.90 Ratio Bedside Glucose 126 Medications Medications Current Medications Ondansetron HCl (Zofran Inj) 4 mg ER BRIDGE PRN IV NAUSEA/VOMITING; Start 04/25/18 at 17:30; Stop 04/26/18 at 17:29 Acetaminophen (Tylenol Tab) 650 mg ER BRIDGE PRN PO .MILD PAIN 1-3 OR TEMP; Start 04/25/18 at 17:30; Stop 04/26/18 at 17:29 Apixaban (Eliquis) 2.5 mg BID PO Last administered on 04/26/18at 08:36; Admin Dose 2.5 MG; Start 04/25/18 at 21:00 Aspirin (Halfprin) 81 mg DAILY PO Last administered on 04/26/18at 08:35; Admin Dose 81 MG; Start 04/26/18 at 09:00 Carvedilol (Coreg) 3.125 mg BID PO Last administered on 04/26/18at 08:35; Admin Dose 3.125 MG; Start 04/25/18 at 21:00 Famotidine (Pepcid) 20 mg HS PO Last administered on 04/25/18at 21:34; Admin Dos e 20 MG; Start 04/25/18 at 21:00 Tamsulosin HCl (Flomax) 0.4 mg DAILY PO Last administered on 04/26/18at 08:35; Admin Dose 0.4 MG; Start 04/26/18 at 09:00 Furosemide (Lasix) 40 mg BID DIURETICS IV Last administered on 04/26/18at 05:20; Admin Dose 40 MG; Start 04/25/18 at 19:00 Diagnostic Test (Pha) (Accu-Chek) 1 ea 02 XX ; Start 04/26/18 at 02:00 Insulin Aspart (Novolog Insulin Pen) NOVOLOG *MODERATE* ALGORITHM WITH MEALS BEDTIME SC ; Start 04/26/18 at 08:00 Miscellaneous Information 1 ea NOTE XX ; Start 04/25/18 at 21:30 Glucose (Glutose) 15 gm Q15M PRN PO DECREASED GLUCOSE; Start 04/25/18 at 21:30 Glucose (Glutose) 22.5 gm Q15M PRN PO DECREASED GLUCOSE; Start 04/25/18 at 21:30 Dextrose (D50w Syringe) 25 ml Q15M PRN IV DECREASED GLUCOSE; Start 04/25/18 at 21:30 Dextrose (D50w Syringe) 50 ml Q15M PRN IV DECREASED GLUCOSE; Start 04/25/18 at 21:30 Glucagon (Glucagen) 1 mg Q15M PRN IM DECREASED GLUCOSE; Start 04/25/18 at 21:30 Glucose (Glutose) 15 gm Q15M PRN BUCCAL DECREASED GLUCOSE; Start 04/25/18 at 21:30 Piperacillin Sod/ Tazobactam Sod 50 ml @ 100 mls/hr Q8 IVPB Last administered on 04/26/18at 05:19; Admin Dose 100 MLS/HR; Start 04/26/18 at 06:00 DAVONTE MIKE MD Apr 26, 2018 10:55
[2018-04-26] MEDS: FAMOTIDINE 20 MG TAB PO SCH (20:58)
[2018-04-27] VITALS (10 sets, daily range): BP systolic 130–158; BP diastolic 63–72; PULSE 74–88; RESP 17–19
[2018-04-27] MEDS: ACCU-CHEK XX SCH (02:00)
[2018-04-27] MEDS: PIPER-TAZO 2.25 GM (PMX) 50 ML IVPB SCH ×3 (05:54→20:45)
[2018-04-27] MEDS: INSULIN ASPART [NOVOLOG] 3 ML PEN SC SCH ×4 (07:50→20:45)
--- NOTE | 2018-04-27 08:06 | PN ---
DATE: 04/27/2018 SUBJECTIVE: The patient is feeling a little bit better, but complains of abdominal pain. The patien t has not had a bowel movement in 3 days. No nausea and appetite is good. OBJECTIVE: VITAL SIGNS: Temperature 98.0, pulse 74, respirations 18, blood pressure 143/64, oxygen saturation 9 6% on 2 liter nasal cannula oxygen. I's and O's; 3000 mL removed by ultrafiltration hemodialysis. CHEST: Diffuse rhonchi with decreased breath sounds at bilateral bases, crackles and scant wheeze. HEART: Regular rate and rhythm. ABDOMEN: Moderate tenderness to palpation in the lower abdomen. No masses palpable. Normoactive he wel sounds. LABORATORY DATA: Sodium 141, potassium 4.3, chloride 98, bicarbonate 31, BUN of 31, creatinine 3.74, glucose 132, magnesium 2.1, phosphorus 4.8. Brain natriuretic peptide 38,500, hemoglobin of 10.9, h ematocrit 34.6, platelets 148. White blood cell count 4.6. ASSESSMENT AND PLAN: 1. Congestive heart failure, acute on chronic combined heart failure/coronary disease/ischemic cardi omyopathy/hypertension. The patient improved clinically with yesterday's removal of 3000 mL. Unclea r if patient will receive hemodialysis ultrafiltration again today, but will defer to Dr. Renuka dickey nephrology. 2. Pneumonitis. The patient is now afebrile. We will continue with antibiotics, supplemental oxyge n, breathing treatments. 3. Abdominal pain, unclear etiology. We will do an abdominal ultrasound to evaluate further. The p atient has not had a bowel movement in 3 days, but does not seem to be related to that, but will foll ow. 4. Diabetes, stable. Continue with sliding scale and diet. Dictated By: HAI CHRISTIANSON MD SR/NTS Conf#: [id number] DID#: [id number] CC: HAI CHRISTIANSON MD; NATASHA SCHNEIDER MD;*End*
[2018-04-27] MEDS: TAMSULOSIN (SR) 0.4 MG CAP PO SCH (09:01)
[2018-04-27] MEDS: APIXABAN 5 MG TABLET PO SCH ×2 (09:01→20:44)
[2018-04-27] MEDS: DOCUSATE SODIUM 100 MG CAP PO SCH ×2 (09:01→20:45)
[2018-04-27] MEDS: ASPIRIN (EC) 81 MG TAB PO SCH (09:01)
--- NOTE | 2018-04-27 10:21 | CONS ---
Assessment/Plan Assessment/Plan Assessment/Plan (Daily) 1. CKD with next hd planned tomm 2. Pneumonia 3. DM 4. ASHD today without clinical chf Consultation Date/Type/Reason Admit Date/Time Apr 25, 2018 at 17:28 Initial Consult Date Date/Time of Note DATE: 04/27/18 TIME: 10:19 24 HR Interval Summary Constitutional: other (daughter at bedside) Detailed Summary Respiratory: cough (is less but still productive) Cardiovascular: No chest pain Gastrointestinal: no complaints Genitourinary: no complaints Exam/Review of Systems Exam Vitals Vital Signs Date Temp Pulse Resp B/P (MAP) Pulse Ox O2 O2 Flow FiO2 Time Delivery Rate 04/27/18 75 08:32 04/27/18 Nasal 2.0 07:56 Cannula 04/27/18 98.0 18 143/64 96 04:12 (90) 04/25/18 28 16:09 Intake and Output 04/26/18 04/26/18 04/27/18 1515:00 23:00 07:00 IntakeIntake Total 50 ml 50 ml OutputOutput Total 200 ml 3400 ml BalanceBalance -200 ml -3350 ml 50 ml Neck: No jvd Respiratory: diminished breath sounds (with rhonchi present and no rales) Cardiovascular: regular rate and rhythm, S3 Gastrointestinal: soft Extremities: No edema Results Result Diagram: 04/27/18 0518 04/27/18 0518 Results 24hrs Laboratory Tests Test 04/26/18 11:42 04/26/18 16:58 04/26/18 21:02 04/27/18 05:18 Bedside Glucose 161 111 170 White Blood Count 4.6 #L Red Blood Count 3.57 L Hemoglobin 10.9 L Hematocrit 34.6 L Mean Corpuscular 96.9 Volume Mean Corpuscular 30.5 Hemoglobin Mean Corpuscular 31.5 L Hemoglobin Concent Red Cell 16.5 H Distribution Width Platelet Count 148 Mean Platelet Volume 10.8 H Immature 0.200 Granulocytes % Neutrophils % 48.7 Lymphocytes % 24.5 Monocytes % 21.4 H Eosinophils % 4.1 Basophils % 1.1 Nucleated Red Blood 0.0 Cells % Immature 0.010 Granulocytes # Neutrophils # 2.2 Lymphocytes # 1.1 Monocytes # 1.0 H Eosinophils # 0.2 Basophils # 0.1 Nucleated Red Blood 0.0 Cells # Sodium Level 141 Potassium Level 4.3 Chloride Level 98 Carbon Dioxide Level 31 Anion Gap 12 Blood Urea Nitrogen 31 H Creatinine 3.74 H Est Glomerular Filtrat Rate mL/min Glucose Level 132 Calcium Level 8.7 Phosphorus Level 4.8 Magnesium Level 2.1 B-Type Natriuretic 47039 H Peptide Test 04/27/18 07:45 Bedside Glucose 112 Medications Medication Current Medications Apixaban (Eliquis) 2.5 mg BID PO Last administered on 04/27/18 09:01; Admin Dose 2.5 MG; Start 04/25/18 at 21:00 Aspirin (Halfprin) 81 mg DAILY PO Last administered on 04/27/18 09:01; Admin Dose 81 MG; Start 04/26/18 at 09:00 Carvedilol (Coreg) 3.125 mg BID PO Last administered on 04/27/18 09:09; Admin Dose 3.125 MG; Start 04/25/18 at 21:00 Famotidine (Pepcid) 20 mg HS PO Last administered on 04/26/18at 20:58; Admin Dose 20 MG; Start 04/25/18 at 21:00 Tamsulosin HCl (Flomax) 0.4 mg DAILY PO Last administered on 04/27/18 09:01; Admin Dose 0.4 MG; Start 04/26/18 at 09:00 Diagnostic Test (Pha) (Accu-Chek) 1 ea 02 XX ; Start 04/26/18 at 02:00 Insulin Aspart (Novolog Insulin Pen) NOVOLOG *MODERATE* ALGORITHM WITH MEALS BEDTIME SC Last administered on 04/26/18at 11:48; Admin Dose 2 UNIT; Start 04/26/18 at 08:00 Miscellaneous Information 1 ea NOTE XX ; Start 04/25/18 at 21:30 Glucose (Glutose) 15 gm Q15M PRN PO DECREASED GLUCOSE; Start 04/25/18 at 21:30 Glucose (Glutose) 22.5 gm Q15M PRN PO DECREASED GLUCOSE; Start 04/25/18 at 21:30 Dextrose (D50w Syringe) 25 ml Q15M PRN IV DECREASED GLUCOSE; Start 04/25/18 at 21:30 Dextrose (D50w Syringe) 50 ml Q15M PRN IV DECREASED GLUCOSE; Start 04/25/18 at 21:30 Glucagon (Glucagen) 1 mg Q15M PRN IM DECREASED GLUCOSE; Start 04/25/18 at 21:30 Glucose (Glutose) 15 gm Q15M PRN BUCCAL DECREASED GLUCOSE; Start 04/25/18 at 21:30 Piperacillin Sod/ Tazobactam Sod 50 ml @ 100 mls/hr Q8 IVPB Last administered on 04/27/18at 05:54; Admin Dose 100 MLS/HR; Start 04/26/18 at 06:00 Docusate Sodium (Colace) 100 mg BID PO Last administered on 04/27/18at 09:01; Admin Dose 100 MG; Start 04/27/18 at 09:00 NAIDA COHN MD Apr 27, 2018 10:21
[2018-04-27] MEDS ORDERED: PENDING SANTYL ORDER FOR WOUND CARE XX PRN (11:00)
[2018-04-27] MEDS: FAMOTIDINE 20 MG TAB PO SCH (20:45)
[2018-04-28] VITALS (25 sets, daily range): BP systolic 117–156; BP diastolic 45–74; PULSE 74–168; RESP 17–19
[2018-04-28] MEDS: ACCU-CHEK XX SCH (02:00)
[2018-04-28] MEDS: PIPER-TAZO 2.25 GM (PMX) 50 ML IVPB SCH ×3 (05:37→21:28)
[2018-04-28] MEDS: INSULIN ASPART [NOVOLOG] 3 ML PEN SC SCH ×4 (08:05→20:18)
[2018-04-28] MEDS: APIXABAN 5 MG TABLET PO SCH ×2 (08:36→20:13)
[2018-04-28] MEDS: TAMSULOSIN (SR) 0.4 MG CAP PO SCH (08:36)
[2018-04-28] MEDS: DOCUSATE SODIUM 100 MG CAP PO SCH ×2 (08:36→20:12)
[2018-04-28] MEDS: ASPIRIN (EC) 81 MG TAB PO SCH (08:37)
--- NOTE | 2018-04-28 08:52 | PN ---
DATE: 04/28/2018 SUBJECTIVE: The patient is feeling a little bit better, with less cough and shortness of breath but does have some back pain when sitting in the bed but better when he sits up in the chair. OBJECTIVE: VITAL SIGNS: Temperature 97.7, pulse 75, respirations 18, blood pressure 145/69, oxygen saturation i s 100% on 2 liter nasal cannula oxygen. GENERAL: Well-developed, well-nourished male, in no acute distress, sitting up in bed. LUNGS: Bilateral coarse rhonchi with basilar crackles. HEART: Regular rate and rhythm. ABDOMEN: Soft, nontender. EXTREMITIES: No cyanosis or clubbing. Trace bilateral lower extremity edema. LABORATORY DATA: Sodium 142, potassium 5.3, chloride 100, bicarbonate 29, BUN of 47, creatinine 5.02 , glucose 158. Phosphorus 5.9, magnesium 2.3, hemoglobin 11.4, hematocrit 36.3, platelets of 155. W gladis blood cell count 4.9. IMPRESSION AND PLAN: 1. 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 We will continue with current treatment plan. The patient will receive d ialysis today to get more fluid off. 2. Pneumonia, improved. We will continue with supplemental oxygen, antibiotics and breathing treatm ents. 3. Diabetes, stable. Continue with medicines and diet. 4. End-stage renal disease, stable. The patient is to receive dialysis today. Dictated By: HAI CHRISTIANSON MD SR/NTS Conf#: [id number] DID#: [id number] CC: ELIZABETH ISSA MD;*EndCC*
--- NOTE | 2018-04-28 10:10 | CONS ---
Assessment/Plan Assessment/Plan Assessment/Plan (Daily) 1. CKD now being dialyzed. 2. Pneumonia clinically improved, cxr ordered 3. ASHD, without angina 4. Elev P, P binder ordered 5. DC ? tomm, with po abx and next HD Sat pending course Consultation Date/Type/Reason Admit Date/Time Apr 25, 2018 at 17:28 Initial Consult Date Date/Time of Note DATE: 04/28/18 TIME: 10:08 24 HR Interval Summary Subjective hx not possible: other (daughter in room, he is breathing better today, less cough and not sob) Detailed Summary Cardiovascular: No chest pain Gastrointestinal: no complaints Genitourinary: no complaints Exam/Review of Systems Exam Vitals Vital Signs Date Temp Pulse Resp B/P (MAP) Pulse Ox O2 O2 Flow FiO2 Time Delivery Rate 04/28/18 97.7 75 18 145/69 100 07:08 (94) 04/27/18 Nasal 2.0 19:46 Cannula 04/25/18 28 16:09 Intake and Output 04/27/18 04/27/18 04/28/18 1515:00 23:00 07:00 IntakeIntake Total 600 ml 450 ml BalanceBalance 600 ml 450 ml Neck: No jvd Respiratory: diminished breath sounds (few rhonchi bilat) Cardiovascular: regular rate and rhythm Gastrointestinal: soft Extremities: No edema Results Result Diagram: 04/28/18 0534 04/28/18 0534 Results 24hrs Laboratory Tests Test 04/27/18 11:56 04/27/18 17:26 04/27/18 20:43 04/28/18 05:34 Bedside Glucose 158 179 144 White Blood Count 4.9 Red Blood Count 3.72 L Hemoglobin 11.4 L Hematocrit 36.3 L Mean Corpuscular 97.6 Volume Mean Corpuscular 30.6 Hemoglobin Mean Corpuscular 31.4 L Hemoglobin Concent Red Cell 16.7 H Distribution Width Platelet Count 155 Mean Platelet Volume 11.1 H Immature 0.200 Granulocytes % Neutrophils % 48.3 Lymphocytes % 23.3 Monocytes % 17.1 H Eosinophils % 10.5 H Basophils % 0.6 Nucleated Red Blood 0.0 Cells % Immature 0.010 Granulocytes # Neutrophils # 2.4 Lymphocytes # 1.1 Monocytes # 0.8 Eosinophils # 0.5 Basophils # 0.0 Nucleated Red Blood 0.0 Cells # Sodium Level 142 Potassium Level 5.3 H Chloride Level 100 Carbon Dioxide Level 29 Anion Gap 13 Blood Urea Nitrogen 47 #H Creatinine 5.02 H Est Glomerular Filtrat Rate mL/min Glucose Level 158 Calcium Level 8.9 Phosphorus Level 5.9 H Magnesium Level 2.3 Test 04/28/18 08:00 Bedside Glucose 144 Medications Medication Current Medications Apixaban (Eliquis) 2.5 mg BID PO Last administered on 04/28/18 08:36; Admin Dose 2.5 MG; Start 04/25/18 at 21:00 Aspirin (Halfprin) 81 mg DAILY PO Last administered on 04/28/18at 08:37; Admin Dose 81 MG; Start 04/26/18 at 09:00 Carvedilol (Coreg) 3.125 mg BID PO Last administered on 04/28/18 08:37; Admin Dose 3.125 MG; Start 04/25/18 at 21:00 Famotidine (Pepcid) 20 mg HS PO Last administered on 04/27/18at 20:45; Admin Dose 20 MG; Start 04/25/18 at 21:00 Tamsulosin HCl (Flomax) 0.4 mg DAILY PO Last administered on 04/28/18at 08:36; Admin Dose 0.4 MG; Start 04/26/18 at 09:00 Diagnostic Test (Pha) (Accu-Chek) 1 ea 02 XX ; Start 04/26/18 at 02:00 Insulin Aspart (Novolog Insulin Pen) NOVOLOG *MODERATE* ALGORITHM WITH MEALS BEDTIME SC Last administered on 04/28/18at 08:05; Admin Dose 2 UNIT; Start 04/26/18 at 08:00 Miscellaneous Information 1 ea NOTE XX ; Start 04/25/18 at 21:30 Glucose (Glutose) 15 gm Q15M PRN PO DECREASED GLUCOSE; Start 04/25/18 at 21:30 Glucose (Glutose) 22.5 gm Q15M PRN PO DECREASED GLUCOSE; Start 04/25/18 at 21:30 Dextrose (D50w Syringe) 25 ml Q15M PRN IV DECREASED GLUCOSE; Start 04/25/18 at 21:30 Dextrose (D50w Syringe) 50 ml Q15M PRN IV DECREASED GLUCOSE; Start 04/25/18 at 21:30 Glucagon (Glucagen) 1 mg Q15M PRN IM DECREASED GLUCOSE; Start 04/25/18 at 21:30 Glucose (Glutose) 15 gm Q15M PRN BUCCAL DECREASED GLUCOSE; Start 04/25/18 at 21:30 Piperacillin Sod/ Tazobactam Sod 50 ml @ 100 mls/hr Q8 IVPB Last administered on 04/28/18at 05:37; Admin Dose 100 MLS/HR; Start 04/26/18 at 06:00 Docusate Sodium (Colace) 100 mg BID PO Last administered on 04/28/18at 08:36; Admin Dose 100 MG; Start 04/27/18 at 09:00 Miscellaneous Information (Pending Santyl Order For Wound Care) This patient bray... PRN PRN XX WOUND CARE; Start 04/27/18 at 11:00 NAIDA COHN MD Apr 28, 2018 10:10
[2018-04-28] MEDS: CALCIUM ACETATE 667 MG CAP PO SCH ×2 (11:45→17:17)
[2018-04-28] MEDS: FAMOTIDINE 20 MG TAB PO SCH (20:12)
[2018-04-29] VITALS (11 sets, daily range): BP systolic 134–176; BP diastolic 57–79; PULSE 73–80; RESP 19–20
[2018-04-29] MEDS: ACCU-CHEK XX SCH (02:00)
[2018-04-29] MEDS: PIPER-TAZO 2.25 GM (PMX) 50 ML IVPB SCH ×3 (05:51→21:49)
[2018-04-29] MEDS: INSULIN ASPART [NOVOLOG] 3 ML PEN SC SCH ×4 (07:44→20:52)
[2018-04-29] MEDS: CALCIUM ACETATE 667 MG CAP PO SCH ×3 (08:14→17:30)
[2018-04-29] MEDS: DOCUSATE SODIUM 100 MG CAP PO SCH ×2 (08:14→20:53)
[2018-04-29] MEDS: APIXABAN 5 MG TABLET PO SCH ×2 (08:14→20:53)
[2018-04-29] MEDS: TAMSULOSIN (SR) 0.4 MG CAP PO SCH (08:15)
[2018-04-29] MEDS: ASPIRIN (EC) 81 MG TAB PO SCH (08:15)
--- NOTE | 2018-04-29 08:45 | PN ---
DATE: 04/29/2018 SUBJECTIVE: The patient feels very weak. Cough is slightly better. No chest pain, no abdominal pain . OBJECTIVE: VITAL SIGNS: Temperature 97.5, pulse 74, respirations 19, blood pressure 176/79, oxygen saturation 9 9% on 2 liter nasal cannula oxygen. GENERAL: Well-developed, ill-appearing male in no acute distress, sitting up in bed. LUNGS: Bilateral rhonchi, decreased minimally with cough and slight crackles in the bases. HEART: Regular rate and rhythm. ABDOMEN: Soft, nontender. EXTREMITIES: Trace bilateral lower extremity edema. NEUROLOGIC: Nonfocal. LABORATORY DATA: Sodium 140, potassium 3.8, chloride 96, bicarbonate 31, BUN 32, creatinine 4.11, bl ood sugar of 102, calcium of 8.7, hemoglobin of 11.3, hematocrit 34.8, platelets 151 and white blood cell count 4.6. Chest x-ray dated 04/28/2018 shows cardiomegaly with calcified atherosclerosis in th e aorta, central pulmonary vascular congestion and interstitial prominence in both lungs. Stable pat archie infiltrates in both lungs with small to moderate bilateral pleural effusions and hypoinflated dwayne gs. ASSESSMENT AND PLAN 1. Acute on chronic combined congestive heart failure/ischemic cardiomyopathy/coronary artery diseas e/hypertension slightly improved and the patient received dialysis yesterday. We will continue with current measures and adjust meds as necessary. No need for dialysis today as patient had this yester day. 2. Pneumonia, improved. Patient continues to remain weak, coughing and on oxygen. We will continue with IV antibiotics and if patient continues to improve, possible discharge in the next day or two. 3. Diabetes, stable. Continue with sliding scale and diet. 4. End-stage renal disease, improved status post dialysis yesterday. The patient may need 1 more di alysis prior to discharge, but he is scheduled for his routine on Thursday if he is out of the hospit al by then. Dictated By: HAI CHRISTIANSON MD SR/NTS Conf#: [id number] DID#: [id number] CC: NATASHA SCHNEIDER MD;*EndCC*
--- NOTE | 2018-04-29 10:52 | CONS ---
Assessment/Plan Assessment/Plan Assessment/Plan (Daily) 1. CKD with next HD planned tomm 2. Clinically improved-CHF/Pneumonia- last cxr noted 3. ASHD, stable Consultation Date/Type/Reason Admit Date/Time Apr 25, 2018 at 17:28 Initial Consult Date Date/Time of Note DATE: 04/29/18 TIME: 10:50 Detailed Summary Respiratory: cough (is less); No shortness of breath Cardiovascular: No chest pain Gastrointestinal: No pain Exam/Review of Systems Exam Vitals Vital Signs Date Temp Pulse Resp B/P (MAP) Pulse Ox O2 O2 Flow FiO2 Time Delivery Rate 04/29/18 Nasal 2.0 07:50 Cannula 04/29/18 97.5 74 19 176/79 99 07:40 (111) 04/25/18 28 16:09 Intake and Output 04/28/18 04/28/18 04/29/18 1515:00 23:00 07:00 IntakeIntake Total 400 ml 200 ml OutputOutput Total 1900 ml BalanceBalance -1900 ml 400 ml 200 ml Neck: No jvd Respiratory: diminished breath sounds (few rhonchi bilat) Cardiovascular: regular rate and rhythm Gastrointestinal: soft Extremities: No edema Results Result Diagram: 04/29/18 0502 04/29/18 0502 Results 24hrs Laboratory Tests Test 04/28/18 11:42 04/28/18 17:16 04/28/18 20:17 04/29/18 05:02 Bedside Glucose 116 241 H 125 White Blood Count 4.6 L Red Blood Count 3.67 L Hemoglobin 11.3 L Hematocrit 34.8 L Mean Corpuscular 94.8 Volume Mean Corpuscular 30.8 Hemoglobin Mean Corpuscular 32.5 Hemoglobin Concent Red Cell 16.2 H Distribution Width Platelet Count 151 Mean Platelet Volume 11.2 H Immature 0.200 Granulocytes % Neutrophils % 45.9 Lymphocytes % 27.2 Monocytes % 14.9 H Eosinophils % 11.2 H Basophils % 0.6 Nucleated Red Blood 0.0 Cells % Immature 0.010 Granulocytes # Neutrophils # 2.1 Lymphocytes # 1.3 Monocytes # 0.7 Eosinophils # 0.5 Basophils # 0.0 Nucleated Red Blood 0.0 Cells # Sodium Level 140 Potassium Level 3.8 Chloride Level 96 L Carbon Dioxide Level 31 Anion Gap 13 Blood Urea Nitrogen 32 #H Creatinine 4.11 H Est Glomerular Filtrat Rate mL/min Glucose Level 102 # Calcium Level 8.7 Test 04/29/18 07:41 Bedside Glucose 92 Medications Medication Current Medications Apixaban (Eliquis) 2.5 mg BID PO Last administered on 04/29/18at 08:14; Admin Dose 2.5 MG; Start 04/25/18 at 21:00 Aspirin (Halfprin) 81 mg DAILY PO Last administered on 04/29/18at 08:15; Admin Dose 81 MG; Start 04/26/18 at 09:00 Carvedilol (Coreg) 3.125 mg BID PO Last administered on 04/29/18at 08:15; Admin Dose 3.125 MG; Start 04/25/18 at 21:00 Famotidine (Pepcid) 20 mg HS PO Last administered on 04/28/18at 20:12; Admin Dose 20 MG; Start 04/25/18 at 21:00 Tamsulosin HCl (Flomax) 0.4 mg DAILY PO Last administered on 04/29/18at 08:15; Admin Dose 0.4 MG; Start 04/26/18 at 09:00 Diagnostic Test (Pha) (Accu-Chek) 1 ea 02 XX ; Start 04/26/18 at 02:00 Insulin Aspart (Novolog Insulin Pen) NOVOLOG *MODERATE* ALGORITHM WITH MEALS BEDTIME SC Last administered on 04/28/18at 17:45; Admin Dose 6 UNIT; Start 04/26/18 at 08:00 Miscellaneous Information 1 ea NOTE XX ; Start 04/25/18 at 21:30 Glucose (Glutose) 15 gm Q15M PRN PO DECREASED GLUCOSE; Start 04/25/18 at 21:30 Glucose (Glutose) 22.5 gm Q15M PRN PO DECREASED GLUCOSE; Start 04/25/18 at 21:30 Dextrose (D50w Syringe) 25 ml Q15M PRN IV DECREASED GLUCOSE; Start 04/25/18 at 21:30 Dextrose (D50w Syringe) 50 ml Q15M PRN IV DECREASED GLUCOSE; Start 04/25/18 at 21:30 Glucagon (Glucagen) 1 mg Q15M PRN IM DECREASED GLUCOSE; Start 04/25/18 at 21:30 Glucose (Glutose) 15 gm Q15M PRN BUCCAL DECREASED GLUCOSE; Start 04/25/18 at 21:30 Piperacillin Sod/ Tazobactam Sod 50 ml @ 100 mls/hr Q8 IVPB Last administered on 04/29/18at 05:51; Admin Dose 100 MLS/HR; Start 04/26/18 at 06:00 Docusate Sodium (Colace) 100 mg BID PO Last administered on 04/29/18at 08:14; Admin Dose 100 MG; Start 04/27/18 at 09:00 Miscellaneous Information (Pending Santyl Order For Wound Care) This patient bray... PRN PRN XX WOUND CARE; Start 04/27/18 at 11:00 Calcium Acetate (Phoslo) 667 mg WITH MEALS PO Last administered on 04/29/18at 08:14; Admin Dose 667 MG; Start 04/28/18 at 12:00 NAIDA COHN MD Apr 29, 2018 10:52
[2018-04-29] MEDS: FAMOTIDINE 20 MG TAB PO SCH (20:53)
[2018-04-30] VITALS (24 sets, daily range): BP systolic 118–175; BP diastolic 62–90; PULSE 74–80; RESP 18–20
[2018-04-30] MEDS: ACCU-CHEK XX SCH (02:00)
[2018-04-30] MEDS: PIPER-TAZO 2.25 GM (PMX) 50 ML IVPB SCH ×3 (05:49→22:11)
[2018-04-30] MEDS: CALCIUM ACETATE 667 MG CAP PO SCH ×3 (07:43→17:21)
[2018-04-30] MEDS: INSULIN ASPART [NOVOLOG] 3 ML PEN SC SCH ×4 (07:45→21:00)
--- NOTE | 2018-04-30 09:04 | PN ---
DATE: 04/30/2018 SUBJECTIVE: The patient still has significant shortness of breath, weakness and cough, no chest pain , no abdominal pain. OBJECTIVE: VITAL SIGNS: Temperature 98.3, pulse 74, respirations 20, blood pressure 164/74, oxygen saturation 1 00% on 2 liter nasal cannula oxygen. GENERAL: Well-developed, ill-appearing male sitting up in bed with mild respiratory distress. CHEST: Diffuse rhonchi with crackles bilaterally. LUNGS: Increased from yesterday. HEART: Regular rate and rhythm. ABDOMEN: Soft, nontender. EXTREMITIES: Trace edema. LABORATORY DATA: Brain natriuretic peptide 40,200, hemoglobin 12.6, hematocrit 38.4, white blood marli l count 4.7, platelets 171. IMPRESSION AND PLAN: 1. Acute on chronic combined congestive heart failure/coronary disease/ischemic cardiomyopathy/hyper tension. The patient seems to be worse today with increased brain natriuretic peptide and increased crackles on examination. The patient is to get ultrafiltration with hemodialysis today. Hopefully, this will improve his overall condition. The patient will likely need dialysis over the weekend as w ell for further removal of fluid as congestive heart failure seems to be worsening. We will continue with blood pressure medications and adjust as necessary. 2. Pneumonitis stable, but symptomatically patient is more short of breath, but likely related to th e heart failure. We will continue with IV antibiotics, supplemental oxygen, and breathing treatments . 3. Diabetes, stable. Continue with sliding scale and diet. 4. End-stage renal disease. The patient is to receive dialysis today. Dictated By: HAI CHRISTIANSON MD SR/NTS Conf#: [id number] DID#: [id number] CC: HAI CHRISTIANSON MD; NATASHA SCHNEIDER MD;*EndCC*
--- NOTE | 2018-04-30 10:03 | CONS ---
Assessment/Plan Assessment/Plan Assessment/Plan 1. CKD, now n being HD, next HD Thursday (OP HD tts) 2. CHF resolving 3. Pneumonia improving 4. BP inc, will rev meds again Consultation Date/Type/Reason Admit Date/Time Apr 25, 2018 at 17:28 Type of Consult Nephrology Date/Time of Note DATE: 04/30/18 TIME: 10:01 Respiratory: cough (is less); No shortness of breath Cardiovascular: No chest pain Gastrointestinal: no complaints Genitourinary: no complaints Exam/Review of Systems Vital Signs Vitals Vital Signs Date Temp Pulse Resp B/P (MAP) Pulse Ox O2 O2 Flow FiO2 Time Delivery Rate 04/30/18 79 08:00 04/30/18 98.3 20 164/74 100 07:31 (104) 04/29/18 Nasal 2.0 20:00 Cannula Intake and Output 04/29/18 04/29/18 04/30/18 1414:59 22:59 06:59 IntakeIntake Total 470 ml 350 ml BalanceBalance 470 ml 350 ml Exam Neck: No jvd Respiratory: diminished breath sounds, other (few rhonchi bilat) Cardiovascular: regular rate and rhythm; No S3 Gastrointestinal: soft Extremities: No edema Labs Result Diagram: 04/30/18 0514 04/30/18 0514 Results 24hrs Laboratory Tests Test 04/29/18 11:25 04/29/18 17:21 04/29/18 20:51 04/30/18 05:14 Bedside Glucose 127 172 178 White Blood Count 4.7 L Red Blood Count 4.09 L Hemoglobin 12.6 L Hematocrit 38.4 L Mean Corpuscular 93.9 Volume Mean Corpuscular 30.8 Hemoglobin Mean Corpuscular 32.8 Hemoglobin Concent Red Cell 16.0 H Distribution Width Platelet Count 171 Mean Platelet Volume 11.4 H Immature 0.400 Granulocytes % Neutrophils % 49.2 Lymphocytes % 26.9 Monocytes % 15.8 H Eosinophils % 7.1 H Basophils % 0.6 Nucleated Red Blood 0.0 Cells % Immature 0.020 Granulocytes # Neutrophils # 2.3 Lymphocytes # 1.3 Monocytes # 0.7 Eosinophils # 0.3 Basophils # 0.0 Nucleated Red Blood 0.0 Cells # Sodium Level 140 Potassium Level 4.3 Chloride Level 98 Carbon Dioxide Level 24 Anion Gap 18 H Blood Urea Nitrogen 44 #H Creatinine 5.26 H Est Glomerular Filtrat Rate mL/min Glucose Level 159 Calcium Level 9.2 Phosphorus Level 4.9 Magnesium Level 2.1 B-Type Natriuretic 87909 H Peptide Test 04/30/18 07:39 Bedside Glucose 185 Medications Medications Current Medications Apixaban (Eliquis) 2.5 mg BID PO Last administered on 04/29/18at 20:53; Admin Dose 2.5 MG; Start 04/25/18 at 21:00 Aspirin (Halfprin) 81 mg DAILY PO Last administered on 04/29/18at 08:15; Admin Dose 81 MG; Start 04/26/18 at 09:00 Carvedilol (Coreg) 3.125 mg BID PO Last administered on 04/29/18at 20:55; Admin Dose 3.125 MG; Start 04/25/18 at 21:00 Famotidine (Pepcid) 20 mg HS PO Last administered on 04/29/18at 20:53; Admin Dose 20 MG; Start 04/25/18 at 21:00 Tamsulosin HCl (Flomax) 0.4 mg DAILY PO Last administered on 04/29/18at 08:15; Admin Dose 0.4 MG; Start 04/26/18 at 09:00 Diagnostic Test (Pha) (Accu-Chek) 1 ea 02 XX ; Start 04/26/18 at 02:00 Insulin Aspart (Novolog Insulin Pen) NOVOLOG *MODERATE* ALGORITHM WITH MEALS BEDTIME SC Last administered on 04/30/18at 07:45; Admin Dose 4 UNIT; Start 04/26/18 at 08:00 Miscellaneous Information 1 ea NOTE XX ; Start 04/25/18 at 21:30 Glucose (Glutose) 15 gm Q15M PRN PO DECREASED GLUCOSE; Start 04/25/18 at 21:30 Glucose (Glutose) 22.5 gm Q15M PRN PO DECREASED GLUCOSE; Start 04/25/18 at 21:30 Dextrose (D50w Syringe) 25 ml Q15M PRN IV DECREASED GLUCOSE; Start 04/25/18 at 21:30 Dextrose (D50w Syringe) 50 ml Q15M PRN IV DECREASED GLUCOSE; Start 04/25/18 at 21:30 Glucagon (Glucagen) 1 mg Q15M PRN IM DECREASED GLUCOSE; Start 04/25/18 at 21:30 Glucose (Glutose) 15 gm Q15M PRN BUCCAL DECREASED GLUCOSE; Start 04/25/18 at 21:30 Piperacillin Sod/ Tazobactam Sod 50 ml @ 100 mls/hr Q8 IVPB Last administered on 04/30/18at 05:49; Admin Dose 100 MLS/HR; Start 04/26/18 at 06:00 Docusate Sodium (Colace) 100 mg BID PO Last administered on 04/29/18at 20:53; Admin Dose 100 MG; Start 04/27/18 at 09:00 [facility] This patient bray... PRN PRN XX WOUND CARE; Start 04/27/18 at 11:00 Calcium Acetate (Phoslo) 667 mg WITH MEALS PO Last administered on 04/30/18at 07:43; Admin Dose 667 MG; Start 04/28/18 at 12:00 NAIDA COHN MD Apr 30, 2018 10:03
[2018-04-30] MEDS: APIXABAN 5 MG TABLET PO SCH ×2 (14:08→20:41)
[2018-04-30] MEDS: DOCUSATE SODIUM 100 MG CAP PO SCH ×2 (14:08→20:41)
[2018-04-30] MEDS: ASPIRIN (EC) 81 MG TAB PO SCH (14:09)
[2018-04-30] MEDS: TAMSULOSIN (SR) 0.4 MG CAP PO SCH (14:11)
[2018-04-30] MEDS: AMLODIPINE 2.5 MG TAB PO SCH ×2 (14:16→20:42)
[2018-04-30] MEDS: FAMOTIDINE 20 MG TAB PO SCH (20:41)
[2018-05-01] VITALS (13 sets, daily range): BP systolic 133–157; BP diastolic 60–73; PULSE 74–76; RESP 18–20
[2018-05-01] MEDS: ACCU-CHEK XX SCH (02:00)
[2018-05-01] MEDS: PIPER-TAZO 2.25 GM (PMX) 50 ML IVPB SCH ×3 (06:19→22:06)
[2018-05-01] MEDS: INSULIN ASPART [NOVOLOG] 3 ML PEN SC SCH ×4 (08:00→21:00)
[2018-05-01] MEDS: CALCIUM ACETATE 667 MG CAP PO SCH ×3 (08:45→17:14)
[2018-05-01] MEDS: DOCUSATE SODIUM 100 MG CAP PO SCH ×2 (08:45→21:19)
[2018-05-01] MEDS: APIXABAN 5 MG TABLET PO SCH ×2 (08:46→21:19)
[2018-05-01] MEDS: ASPIRIN (EC) 81 MG TAB PO SCH (08:46)
[2018-05-01] MEDS: TAMSULOSIN (SR) 0.4 MG CAP PO SCH (08:46)
[2018-05-01] MEDS: AMLODIPINE 2.5 MG TAB PO SCH ×2 (08:47→21:20)
--- NOTE | 2018-05-01 16:25 | CONS ---
Assessment/Plan Assessment/Plan Assessment/Plan (Daily) * ESRD: s/p hd yesterday for volume overload. looks better today with stable lytes and o2 sats. plan hd in am * pneumonitis; improving * chf: better. 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 less sob, less cough. afebrile. tolerated hd yesterday Exam/Review of Systems Exam Vitals Vital Signs Date Temp Pulse Resp B/P (MAP) Pulse Ox O2 O2 Flow FiO2 Time Delivery Rate 05/01/18 75 16:08 05/01/18 98.3 20 142/63 99 15:38 (89) 05/01/18 2.0 14:52 05/01/18 Nasal 08:10 Cannula Intake and Output 04/30/18 04/30/18 05/01/18 1515:00 23:00 07:00 IntakeIntake Total 500 ml 300 ml OutputOutput Total 200 ml BalanceBalance -200 ml 500 ml 300 ml Constitutional: alert, oriented Head: normocephalic Eyes: nl conjunctiva Neck: supple, non-tender Respiratory: diminished breath sounds Cardiovascular: regular rate and rhythm, edema Results Result Diagram: 05/01/18 0508 04/30/18 0514 Results 24hrs Laboratory Tests Test 04/30/18 17:19 04/30/18 21:04 05/01/18 05:08 05/01/18 08:00 Bedside Glucose 287 H 92 101 White Blood Count 4.2 L Red Blood Count 3.82 L Hemoglobin 11.6 L Hematocrit 36.0 L Mean Corpuscular 94.2 Volume Mean Corpuscular 30.4 Hemoglobin Mean Corpuscular 32.2 Hemoglobin Concent Red Cell 16.1 H Distribution Width Platelet Count 174 Mean Platelet Volume 11.0 H Immature 0.200 Granulocytes % Neutrophils % 41.7 Lymphocytes % 36.4 Monocytes % 15.2 H Eosinophils % 6.0 Basophils % 0.5 Nucleated Red Blood 0.0 Cells % Immature 0.010 Granulocytes # Neutrophils # 1.8 Lymphocytes # 1.5 Monocytes # 0.6 Eosinophils # 0.3 Basophils # 0.0 Nucleated Red Blood 0.0 Cells # Phosphorus Level 3.9 Magnesium Level 2.1 B-Type Natriuretic 09775 H Peptide Test 05/01/18 12:00 Bedside Glucose 181 Medications Medication Current Medications Apixaban (Eliquis) 2.5 mg BID PO Last administered on 05/01/18 08:46; Admin Dose 2.5 MG; Start 04/25/18 at 21:00 Aspirin (Halfprin) 81 mg DAILY PO Last administered on 05/01/18 08:46; Admin Dose 81 MG; Start 04/26/18 at 09:00 Carvedilol (Coreg) 3.125 mg BID PO Last administered on 05/01/18 08:47; Admin Dose 3.125 MG; Start 04/25/18 at 21:00 Famotidine (Pepcid) 20 mg HS PO Last administered on 04/30/18at 20:41; Admin Dose 20 MG; Start 04/25/18 at 21:00 Tamsulosin HCl (Flomax) 0.4 mg DAILY PO Last administered on 05/01/18 08:46; Admin Dose 0.4 MG; Start 04/26/18 at 09:00 Diagnostic Test (Pha) (Accu-Chek) 1 ea 02 XX ; Start 04/26/18 at 02:00 Insulin Aspart (Novolog Insulin Pen) NOVOLOG *MODERATE* ALGORITHM WITH MEALS BEDTIME SC Last administered on 05/01/18 12:29; Admin Dose 4 UNIT; Start 04/26/18 at 08:00 Miscellaneous Information 1 ea NOTE XX ; Start 04/25/18 at 21:30 Glucose (Glutose) 15 gm Q15M PRN PO DECREASED GLUCOSE; Start 04/25/18 at 21:30 Glucose (Glutose) 22.5 gm Q15M PRN PO DECREASED GLUCOSE; Start 04/25/18 at 21:30 Dextrose (D50w Syringe) 25 ml Q15M PRN IV DECREASED GLUCOSE; Start 04/25/18 at 21:30 Dextrose (D50w Syringe) 50 ml Q15M PRN IV DECREASED GLUCOSE; Start 04/25/18 at 21:30 Glucagon (Glucagen) 1 mg Q15M PRN IM DECREASED GLUCOSE; Start 04/25/18 at 21:30 Glucose (Glutose) 15 gm Q15M PRN BUCCAL DECREASED GLUCOSE; Start 04/25/18 at 21:30 Piperacillin Sod/ Tazobactam Sod 50 ml @ 100 mls/hr Q8 IVPB Last administered on 05/01/18at 15:14; Admin Dose 100 MLS/HR; Start 04/26/18 at 06:00 Docusate Sodium (Colace) 100 mg BID PO Last administered on 05/01/18 08:45; Admin Dose 100 MG; Start 04/27/18 at 09:00 [facility] This patient h a... PRN PRN XX WOUND CARE; Start 04/27/18 at 11:00 Calcium Acetate (Phoslo) 667 mg WITH MEALS PO Last administered on 05/01/18 12:03; Admin Dose 667 MG; Start 04/28/18 at 12:00 Amlodipine Besylate (Norvasc) 2.5 mg BID PO Last administered on 05/01/18at 08:47; Admin Dose 2.5 MG; Start 04/30/18 at 10:30 ATUL HUI MD May 01, 2018 16:25
[2018-05-01] MEDS: FAMOTIDINE 20 MG TAB PO SCH (21:20)
[2018-05-02] VITALS (12 sets, daily range): BP systolic 117–135; BP diastolic 53–62; PULSE 71–78; RESP 18–20
--- NOTE | 2018-05-02 01:30 | PN ---
DATE: 05/01/2018 SUBJECTIVE: Patient is feeling better, less cough, less shortness of breath, but still feels very we [place]. OBJECTIVE: VITAL SIGNS: Temperature 98.2, pulse 75, respirations 19, blood pressure 139/64, oxygen saturation 9 8% on 2 liters nasal cannula oxygen. GENERAL: Well-developed male in no acute distress, sitting up in bed. LUNGS: Bilateral rhonchi with basilar crackles. HEART: Regular rate and rhythm. ABDOMEN: Soft, nontender. EXTREMITIES: No cyanosis, clubbing. Trace bilateral lower extremity edema. LABORATORY DATA: Brain natriuretic peptide is 33,600. Magnesium 2.1, phosphorus 3.9, white blood ce ll count 4.2, hemoglobin 11.6, hematocrit 36.0, platelets 174. ASSESSMENT AND PLAN 1. Pneumonitis continues to improve. Will continue with antibiotics, supplemental oxygen, and breat navin treatments. 2. Acute on chronic congestive heart failure/ischemic cardiomyopathy/coronary disease/hypertension, improved. The patient is status post hemodialysis again yesterday with more ultrafiltration. Patien t continues to improve clinically, with improving brain natriuretic peptide. The patient is schedule d for dialysis again tomorrow, and will continue with current regimen and treatment plan. 3. End-stage renal disease, improved. The patient to get another course of hemodialysis tomorrow. Will continue to monitor. 4. Diabetes, stable. Continue with sliding scale and diet. 5. Anemia, stable. No need for Epogen. We will continue to monitor. Dictated By: HAI CHRISTIANSON MD, SR/ALLISON Conf#: [id number] DID#: [id number]
[2018-05-02] MEDS: ACCU-CHEK XX SCH (02:00)
[2018-05-02] MEDS: PIPER-TAZO 2.25 GM (PMX) 50 ML IVPB SCH ×3 (05:47→21:31)
[2018-05-02] MEDS: INSULIN ASPART [NOVOLOG] 3 ML PEN SC SCH ×4 (08:00→21:36)
[2018-05-02] MEDS: CALCIUM ACETATE 667 MG CAP PO SCH ×3 (08:47→17:29)
[2018-05-02] MEDS: DOCUSATE SODIUM 100 MG CAP PO SCH ×2 (08:48→21:15)
[2018-05-02] MEDS: ASPIRIN (EC) 81 MG TAB PO SCH (08:49)
[2018-05-02] MEDS: APIXABAN 5 MG TABLET PO SCH ×2 (08:49→21:17)
[2018-05-02] MEDS: TAMSULOSIN (SR) 0.4 MG CAP PO SCH (08:49)
[2018-05-02] MEDS: AMLODIPINE 2.5 MG TAB PO SCH ×2 (08:50→21:16)
--- NOTE | 2018-05-02 17:11 | CONS ---
Assessment/Plan Assessment/Plan Assessment/Plan (Daily) * ESRD: s/p hd thursday for volume overload. hd again today. will repeat cxr after hd today to see if he needs additional hd in am * pneumonitis; improving * chf: better. 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 some sob. weak. at bedside Exam/Review of Systems Exam Vitals Vital Signs Date Temp Pulse Resp B/P (MAP) Pulse Ox O2 O2 Flow FiO2 Time Delivery Rate 05/02/18 98.0 74 20 135/61 98 16:05 (85) 05/02/18 Nasal 2.0 08:30 Cannula Intake and Output 05/01/18 05/01/18 05/02/18 1515:00 23:00 07:00 IntakeIntake Total 550 ml 350 ml BalanceBalance 550 ml 350 ml Constitutional: alert, oriented Head: normocephalic Eyes: nl conjunctiva Neck: supple, jvd Respiratory: diminished breath sounds Cardiovascular: regular rate and rhythm, edema Results Result Diagram: 05/02/18 0505 05/02/18 0505 Results 24hrs Laboratory Tests Test 05/01/18 17:20 05/01/18 21:23 05/02/18 05:05 05/02/18 07:37 Bedside Glucose 229 H 155 139 White Blood Count 6.0 # Red Blood Count 3.79 L Hemoglobin 11.4 L Hematocrit 35.6 L Mean Corpuscular 93.9 Volume Mean Corpuscular 30.1 Hemoglobin Mean Corpuscular 32.0 Hemoglobin Concent Red Cell 15.9 H Distribution Width Platelet Count 182 Mean Platelet Volume 11.3 H Immature 0.200 Granulocytes % Neutrophils % 59.1 Lymphocytes % 22.7 Monocytes % 11.3 H Eosinophils % 6.2 Basophils % 0.5 Nucleated Red Blood 0.0 Cells % Immature 0.010 Granulocytes # Neutrophils # 3.6 Lymphocytes # 1.4 Monocytes # 0.7 Eosinophils # 0.4 Basophils # 0.0 Nucleated Red Blood 0.0 Cells # Sodium Level 139 Potassium Level 4.9 Chloride Level 98 Carbon Dioxide Level 30 Anion Gap 11 # Blood Urea Nitrogen 52 H Creatinine 6.01 H Est Glomerular Filtrat Rate mL/min Glucose Level 151 Calcium Level 9.0 Phosphorus Level 4.4 Total Bilirubin 0.2 Direct Bilirubin 0.00 Indirect Bilirubin 0.2 Aspartate Amino 32 Transf (AST/SGOT) Alanine 25 Aminotransferase (AL T/SGPT) Alkaline Phosphatase 136 H Total Protein 6.9 Albumin 3.3 Globulin 3.60 H Albumin/Globulin 0.91 Ratio Test 05/02/18 11:55 Bedside Glucose 146 Medications Medication Current Medications Apixaban (Eliquis) 2.5 mg BID PO Last administered on 05/02/18 08:49; Admin Dose 2.5 MG; Start 04/25/18 at 21:00 Aspirin (Halfprin) 81 mg DAILY PO Last administered on 05/02/18 08:49; Admin Dose 81 MG; Start 04/26/18 at 09:00 Carvedilol (Coreg) 3.125 mg BID PO Last administered on 05/02/18 08:48; Admin Dose 3.125 MG; Start 04/25/18 at 21:00 Famotidine (Pepcid) 20 mg HS PO Last administered on 05/01/18 21:20; Admin Dose 20 MG; Start 04/25/18 at 21:00 Tamsulosin HCl (Flomax) 0.4 mg DAILY PO Last administered on 05/02/18 08:49; Admin Dose 0.4 MG; Start 04/26/18 at 09:00 Diagnostic Test (Pha) (Accu-Chek) 1 ea 02 XX ; Start 04/26/18 at 02:00 Insulin Aspart (Novolog Insulin Pen) NOVOLOG *MODERATE* ALGORITHM WITH MEALS BEDTIME SC Last administered on 05/02/18 12:01; Admin Dose 2 UNIT; Start 04/26/18 at 08:00 Miscellaneous Information 1 ea NOTE XX ; Start 04/25/18 at 21:30 Glucose (Glutose) 15 gm Q15M PRN PO DECREASED GLUCOSE; Start 04/25/18 at 21:30 Glucose (Glutose) 22.5 gm Q15M PRN PO DECREASED GLUCOSE; Start 04/25/18 at 21:30 Dextrose (D50w Syringe) 25 ml Q15M PRN IV DECREASED GLUCOSE; Start 04/25/18 at 21:30 Dextrose (D50w Syringe) 50 ml Q15M PRN IV DECREASED GLUCOSE; Start 04/25/18 at 21:30 Glucagon (Glucagen) 1 mg Q15M PRN IM DECREASED GLUCOSE; Start 04/25/18 at 21:30 Glucose (Glutose) 15 gm Q15M PRN BUCCAL DECREASED GLUCOSE; Start 04/25/18 at 2 1:30 Piperacillin Sod/ Tazobactam Sod 50 ml @ 100 mls/hr Q8 IVPB Last administered on 05/02/18at 15:00; Admin Dose 100 MLS/HR; Start 04/26/18 at 06:00 Docusate Sodium (Colace) 100 mg BID PO Last administered on 05/02/18 08:48; Admin Dose 100 MG; Start 04/27/18 at 09:00 Miscellaneous Information [facility] This patient bray... PRN PRN XX WOUND CARE; Start 04/27/18 at 11:00 Calcium Acetate (Phoslo) 667 mg WITH MEALS PO Last administered on 05/02/18 11:49; Admin Dose 667 MG; Start 04/28/18 at 12:00 Amlodipine Besylate (Norvasc) 2.5 mg BID PO Last administered on 05/02/18 08:50; Admin Dose 2.5 MG; Start 04/30/18 at 10:30 ATUL HUI MD May 02, 2018 17:11
[2018-05-02] MEDS: FAMOTIDINE 20 MG TAB PO SCH (21:15)
[2018-05-03] VITALS (24 sets, daily range): BP systolic 115–197; BP diastolic 43–83; PULSE 74–77; RESP 18–22
--- NOTE | 2018-05-03 00:38 | PN ---
DATE: 05/02/2018 SUBJECTIVE: The patient is feeling better, still has shortness of breath. Cough is better. No ches t pain, no abdominal pain. OBJECTIVE: VITAL SIGNS: Temperature 97.8, pulse 75 and regular, respirations 18, blood pressure 130/54, oxygen saturation 98% on 2-liter nasal cannula oxygen. GENERAL: Well-developed male in no acute distress, sitting up in bed. LUNGS: Bilateral crackles and rhonchi, right greater than left. HEART: Regular rate and rhythm. ABDOMEN: Soft, nontender. EXTREMITIES: No cyanosis or clubbing. Trace edema. LABORATORY AND DIAGNOSTIC DATA: Sodium 139, potassium 4.9, chloride 98, bicarbonate 30, BUN 52, crea tinine 6.01, glucose 151, phosphorus 4.4, alkaline phosphatase 136, ALT 25, AST 32, albumin 3.3. Whi te blood cell count 6.0, hematocrit 35.6, hemoglobin 11.4, platelets 182,000. Chest x-ray pending at the time of this dictation. ASSESSMENT AND PLAN 1. Pneumonitis, improved. We will continue with IV antibiotics and switch to oral antibiotics for p erhaps tomorrow. We will continue with supplemental oxygen, breathing treatments. 2. Acute on chronic congestive heart failure, combined/ischemic cardiomyopathy/coronary disease/hype rtension. The patient is improved but still remains in congestive heart failure. The patient is sti ll to receive hemodialysis with ultrafiltration tonight. The mathematical technician has not arrived yet. 3. End-stage renal disease, stable. The patient still needs dialysis with ultrafiltration, still aw aiting dialysis tonight, even though it is 10:45 p.m. 4. Diabetes, stable with sliding scale and diet. 5. Anemia, stable. Continue to monitor. No need for transfusion or Neupogen at this time. Dictated By: HAI CHRISTIANSON MD SR/NTS Conf#: [id number] DID#: [id number]
[2018-05-03] MEDS: ACCU-CHEK XX SCH (02:00)
[2018-05-03] MEDS: PIPER-TAZO 2.25 GM (PMX) 50 ML IVPB SCH ×3 (06:30→20:12)
[2018-05-03] MEDS: INSULIN ASPART [NOVOLOG] 3 ML PEN SC SCH ×4 (07:50→20:12)
[2018-05-03] MEDS: CALCIUM ACETATE 667 MG CAP PO SCH ×3 (08:34→17:42)
[2018-05-03] MEDS: TAMSULOSIN (SR) 0.4 MG CAP PO SCH (08:35)
[2018-05-03] MEDS: DOCUSATE SODIUM 100 MG CAP PO SCH ×2 (08:35→21:00)
[2018-05-03] MEDS: AMLODIPINE 2.5 MG TAB PO SCH ×2 (08:35→20:07)
[2018-05-03] MEDS: APIXABAN 5 MG TABLET PO SCH ×2 (08:35→20:07)
[2018-05-03] MEDS: ASPIRIN (EC) 81 MG TAB PO SCH (08:35)
--- NOTE | 2018-05-03 08:36 | PN ---
DATE: 05/03/2018 SUBJECTIVE: The patient is feeling better, especially after dialysis last night. OBJECTIVE: VITAL SIGNS: Temperature 98.4, pulse 75, respirations 20, blood pressure 197/81, oxygen saturation 9 8% on 2 liters nasal cannula oxygen. GENERAL: Well-developed male in no acute distress, sitting up in bed. LUNGS: Scant rhonchi with bibasilar crackles approximately 1/4 to 1/3 up. HEART: Regular rate and rhythm. ABDOMEN: Soft, nontender. EXTREMITIES: No cyanosis, clubbing or edema. LABORATORY DATA: Sodium 140, potassium 3.4, chloride 95, BUN 24, creatinine 3.23, carbon dioxide 30, glucose 107. Alkaline phosphatase 137. Albumin 3.7, hemoglobin 12.5, hematocrit 37.7, white blood cell count 6.1, platelets 197. IMAGING STUDIES: Chest x-ray shows increased pulmonary vascularity and increased interstitial markin gs consistent with pulmonary edema, small bilateral pleural effusions. ASSESSMENT AND PLAN: 1. Acute on chronic combined congestive heart failure/ischemic cardiomyopathy/coronary arteries/hype rtension. The patient is slightly improved with removal of 2500 mL of fluid through ultrafiltration and hemodialysis yesterday, but this was done at 3 o'clock this morning. The patient continued to be in heart failure and not ready for discharge to home. We would expect the patient to need at least 1 more hemodialysis with ultrafiltration prior to discharge to improve his overall condition. 2. End-stage renal disease, improved. The patient continues to be in heart failure. We would expec t patient to get more dialysis with ultrafiltration prior to discharge to home. 3. Pneumonitis, improved. We will continue with antibiotics. 4. Diabetes, stable. Continue sliding scale and diet. 5. Anemia, stable. Continue to monitor, but no need for transfusion or Epogen. Dictated By: HAI CHRISTIANSON MD SR/NTS Conf#: [id number] DID#: [id number] CC: HAI CHRISTIANSON MD; NATASHA SCHNEIDER MD;*End*
[2018-05-03] MEDS ORDERED: POTASSIUM CHLORIDE (SR) 20 MEQ TAB PO STA (08:40)
--- NOTE | 2018-05-03 09:04 | CONS ---
Assessment/Plan Assessment/Plan Hospital Course (Demo Recall) 1. End-stage renal disease on maintenance hemodialysis. He was last dialyzed early this morning. 2500 cc of fluid was removed. I will order 2 hours of dry ultrafiltration tomorrow. The patient is usually a Thursday dialysis patient , as an outpatient. 2. Congestive heart failure. He still has a cough but seems otherwise without shortness of breath. He is very weak. He has physical therapy ordered. He has an ischemic cardiomyopathy. 3. type 2 diabetes mellitus 4. hypertension 5. history of postural hypotension Consultation Date/Type/Reason Admit Date/Time Apr 25, 2018 at 17:28 Initial Consult Date Type of Consult Nephrology Date/Time of Note DATE: 05/03/18 TIME: 08:57 24 HR Interval Summary Free Text/Dictation He is awake and alert this morning. He does have some cough but is not complaining of shortness of breath. His daughter is in the room with him. He had a hemodialysis treatment that finished early this morning. Constitutional: no complaints Exam/Review of Systems Exam Vitals Vital Signs Date Temp Pulse Resp B/P (MAP) Pulse Ox O2 O2 Flow FiO2 Time Delivery Rate 05/03/18 75 08:53 05/03/18 163/68 08:36 (99) 05/03/18 98.4 20 98 Nasal 07:20 Cannula 05/03/18 2.0 03:52 Intake and Output 05/02/18 05/02/18 05/03/18 1515:00 23:00 07:00 IntakeIntake Total 900 ml 400 ml OutputOutput Total 5400 ml BalanceBalance 900 ml -5000 ml Constitutional: alert, oriented, frail Respiratory: congested cough, diminished breath sounds Cardiovascular: regular rate and rhythm Gastrointestinal: soft, non-tender Musculoskeletal: nl extremities to inspection Results Result Diagram: 05/03/18 0459 05/03/18 0459 Results 24hrs Laboratory Tests Test 05/02/18 11:55 05/02/18 17:41 05/02/18 21:13 05/03/18 02:51 Bedside Glucose 146 175 203 98 Test 05/03/18 04:59 05/03/18 07:42 White Blood Count 6.1 Red Blood Count 4.12 L Hemoglobin 12.5 L Hematocrit 37.7 L Mean Corpuscular 91.5 Volume Mean Corpuscular 30.3 Hemoglobin Mean Corpuscular 33.2 Hemoglobin Concent Red Cell 15.7 H Distribution Width Platelet Count 197 Mean Platelet Volume 11.5 H Immature 0.500 H Granulocytes % Neutrophils % 64.0 Lymphocytes % 17.8 Monocytes % 11.6 H Eosinophils % 5.6 Basophils % 0.5 Nucleated Red Blood 0.0 Cells % Immature 0.030 Granulocytes # Neutrophils # 3.9 Lymphocytes # 1.1 Monocytes # 0.7 Eosinophils # 0.3 Basophils # 0.0 Nucleated Red Blood 0.0 Cells # Sodium Level 140 Potassium Level 3.4 L Chloride Level 95 L Carbon Dioxide Level 30 Anion Gap 15 H Blood Urea Nitrogen 24 #H Creatinine 3.23 #H Est Glomerular Filtrat Rate mL/min Glucose Level 107 # Calcium Level 9.0 Phosphorus Level 3.0 Total Bilirubin 0.4 Direct Bilirubin 0.00 Indirect Bilirubin 0.4 Aspartate Amino 28 Transf (AST/SGOT) Alanine 21 Aminotransferase (AL T/SGPT) Alkaline Phosphatase 137 H Total Protein 7.7 Albumin 3.7 Globulin 4.00 H Albumin/Globulin 0.92 Ratio Bedside Glucose 121 Medications Medication Current Medications Apixaban (Eliquis) 2.5 mg BID PO Last administered on 05/03/18 08:35; Admin Dose 2.5 MG; Start 04/25/18 at 21:00 Aspirin (Halfprin) 81 mg DAILY PO Last administered on 05/03/18 08:35; Admin Dose 81 MG; Start 04/26/18 at 09:00 Carvedilol (Coreg) 3.125 mg BID PO Last administered on 05/03/18 08:35; Admin Dose 3.125 MG; Start 04/25/18 at 21:00 Famotidine (Pepcid) 20 mg HS PO Last administered on 05/02/18 21:15; Admin Dose 20 MG; Start 04/25/18 at 21:00 Tamsulosin HCl (Flomax) 0.4 mg DAILY PO Last administered on 05/03/18 08:35; Admin Dose 0.4 MG; Start 04/26/18 at 09:00 Diagnostic Test (Pha) (Accu-Chek) 1 ea 02 XX ; Start 04/26/18 at 02:00 Insulin Aspart (Novolog Insulin Pen) NOVOLOG *MODERATE* ALGORITHM WITH MEALS B EDTIME SC Last administered on 05/02/18 21:36; Admin Dose 1 UNIT; Start 04/26/18 at 08:00 Miscellaneous Information 1 ea NOTE XX ; Start 04/25/18 at 21:30 Glucose (Glutose) 15 gm Q15M PRN PO DECREASED GLUCOSE; Start 04/25/18 at 21:30 Glucose (Glutose) 22.5 gm Q15M PRN PO DECREASED GLUCOSE; Start 04/25/18 at 21:30 Dextrose (D50w Syringe) 25 ml Q15M PRN IV DECREASED GLUCOSE; Start 04/25/18 at 21:30 Dextrose (D50w Syringe) 50 ml Q15M PRN IV DECREASED GLUCOSE; Start 04/25/18 at 21:30 Glucagon (Glucagen) 1 mg Q15M PRN IM DECREASED GLUCOSE; Start 04/25/18 at 21:30 Glucose (Glutose) 15 gm Q15M PRN BUCCAL DECREASED GLUCOSE; Start 04/25/18 at 21:30 Piperacillin Sod/ Tazobactam Sod 50 ml @ 100 mls/hr Q8 IVPB Last administered on 05/03/18 06:30; Admin Dose 100 MLS/HR; Start 04/26/18 at 06:00 Docusate Sodium (Colace) 100 mg BID PO Last administered on 05/03/18 08:35; Admin Dose 100 MG; Start 04/27/18 at 09:00 Miscellaneous Information (Pending [facility] Order For Wound Care) This patient bray... PRN PRN XX WOUND CARE; Start 04/27/18 at 11:00 Calcium Acetate (Phoslo) 667 mg WITH MEALS PO Last administered on 05/03/18 08:34; Admin Dose 667 MG; Start 04/28/18 at 12:00 Amlodipine Besylate (Norvasc) 2.5 mg BID PO Last administered on 05/03/18 08:35; Admin Dose 2.5 MG; Start 04/30/18 at 10:30 NATASHA SCHNEIDER MD May 03, 2018 09:04
[2018-05-03] MEDS: FAMOTIDINE 20 MG TAB PO SCH (20:07)
--- NOTE | 2018-05-03 23:30 | RADRPT ---
Echocardiogram Report Patient Name: Kristi MEItient ID: [id number] : 1935 (83y 3m)Study Date: 04/26/2018 7:29:42 AM Gender: MAccession #: [id number] Tech: Myesha Wilson RANDAL Location: [facility] Ref.Physician: SHREE HAYES Height(Cm): BSA: Weight(Kg): Quality: AdequateAccount #: Procedures: Echocardiographic Report: Transthoracic echocardiogram with complete 2D, M-Mode, and doppler examination. Indications: Congestive Heart Failure. Measurements: 2D/M Mode Doppler Measurement Value Normal Range Measurement Value Normal Range LVIDd 2D 4.8 [ 4.2 - 5.8 ] cm NEREIDA VTI 1.8 [ 2.0 - 4.0 ] cm2 LVIDs 2D 4.6 [ 2.5 - 4.0 ] cm AV Mean Alexandre 1.2 [ 70.0 - 90.0 ] cm/sec LVPWd 2D 1.2 [ 0.6 - 1.0 ] cm AV Mean PG 6.0 [ 2.0 - 4.0 ] mmHg IVSd 2D 1.4 [ 0.6 - 1.0 ] cm AV Peak Alexandre 1.5 [ 100.0 - 170.0 ] cm/sec AoR Diam 2D 3.0 [ 2.6 - 3.4 ] cm AV Peak PG 10.0 [ 2.0 - 9.0 ] mmHg EDV 2D 110.0 [ 62.0 - 150.0 ] ml AV VTI 37.9 cm ESV 2D 97.3 [ 21.0 - 61.0 ] ml LVOT Mean Alexandre 0.6 [ 60.0 - 80.0 ] cm/sec EF 2D 11.5 [ 52.0 - 72.0 ] percent LVOT Mean PG 2.0 [ 1.0 - 3.0 ] mmHg LA Dimen 2D 3.9 [ 3.0 - 4.0 ] cm LVOT Peak Alexandre 1.0 [ 70.0 - 110.0 ] cm/sec LVOT Diam 2.1 [ 2.3 - 2.9 ] cm LVOT Peak PG 4.0 [ 2.0 - 6.0 ] mmHg LVOT VTI 19.8 [ 20.0 - 30.0 ] cm MV E Peak Alexandre 1.0 [ 60.0 - 130.0 ] cm/sec MV A Peak Alexandre 0.4 [ 100.0 - 120.0 ] cm/sec MV E/A 2.8 [ 0.8 - 1.5 ] ratio MV Decel Time 165 [ 104 - 258 ] msec Lat E` Alexandre 0.1 [ 10.0 - 15.0 ] cm/sec Lateral E/E` 20.5 [ 1.0 - 2.0 ] ratio MV E/A 2.8 [ 0.8 - 1.5 ] ratio TR Peak Alexandre 3.8 [ 100.0 - 280.0 ] cm/sec TR Peak PG 57.0 mmHg RVSP 72.0 [ 10.0 - 36.0 ] mmHg RA Pressure 15.0 mmHg Findings: Left Ventricle: Normal left ventricular cavity size. Mild concentric left ventricular hypertrophy. Severe global left ventricular systolic dysfunction. Ejection fraction is visually estimated at 30 %. Tissue Doppler/Mitral Doppler indices are consistent with restrictive physiology with markedly elevated left atrial pressure (Stage III-IV diastolic dysfunction). Right Ventricle: Normal right ventricular size. Normal right ventricular systolic function. Pacemaker right heart. Left Atrium: There is mild enlargement of left atrium. Right Atrium: The right atrium is normal in size. Mitral Valve: Mitral valve leaflets appear mildly thickened. Mild mitral annular calcification. Mild mitral valve regurgitation. Aortic Valve: No significant aortic stenosis or insufficiency. Aortic cusps appear mildly calcified. Trace aortic valve regurgitation. Tricuspid Valve: Normal appearance of the tricuspid valve. Estimated peak PA systolic pressure 72 mmHg. There is moderate to severe tricuspid regurgitation. Pulmonic Valve: Normal pulmonic valve appearance. There is trace pulmonic regurgitation. Pericardium: Normal pericardium with no significant pericardial effusion. Pleural effusion seen. Aorta: Normal aortic root. IVC: Dilated IVC without respiratory collapse consistent with elevated right atrial pressure. Conclusions: Normal left ventricular cavity size. Mild concentric left ventricular hypertrophy. Severe global left ventricular systolic dysfunction. Ejection fraction is visually estimated at 30 %. Tissue Doppler/Mitral Doppler indices are consistent with restrictive physiology with markedly elevated left atrial pressure (Stage III-IV diastolic dysfunction). Normal right ventricular size. Normal right ventricular systolic function. Linear artifact in right ventricle suggestive of catheter, pacer lead, or ICD lead. There is mild enlargement of left atrium. No significant aortic stenosis or insufficiency. Aortic cusps appear mildly calcified. Trace aortic valve regurgitation. Normal appearance of the tricuspid valve. Estimated peak PA systolic pressure 72 mmHg. There is moderate to severe tricuspid regurgitation. Normal pericardium with no significant pericardial effusion. Pleural effusion seen. Normal aortic root. Dilated IVC without respiratory collapse consistent with elevated right atrial pressure. No Vegetation, masses, or thrombi seen. Electronically Signed By: Julio Carmichael 2018-05-03 23:29:33 PDT
[2018-05-04] VITALS (23 sets, daily range): BP systolic 99–182; BP diastolic 44–85; PULSE 70–79; RESP 18–22
[2018-05-04] MEDS: ACCU-CHEK XX SCH (02:00)
[2018-05-04] MEDS: PIPER-TAZO 2.25 GM (PMX) 50 ML IVPB SCH ×3 (06:03→21:25)
[2018-05-04] MEDS: INSULIN ASPART [NOVOLOG] 3 ML PEN SC SCH ×4 (07:50→20:26)
--- NOTE | 2018-05-04 08:07 | CONS ---
Assessment/Plan Assessment/Plan Hospital Course (Demo Recall) 1. End-stage renal disease on maintenance hemodialysis. He was last dialyzed early this morning. 2500 cc of fluid was removed. I have ordered 2 hours of dry ultrafiltration for today. The patient is usually on a Thursday dialysis schedule. 2. Congestive heart failure. He still has less cough but seems otherwise without shortness of breath. He is very weak. He has physical therapy ordered. He has an ischemic cardiomyopathy. 3. type 2 diabetes mellitus 4. hypertension 5. history of postural hypotension , I instructed the nurse that he should have orthostatic blood pressures done and to let me know if his blood pressure dropped significantly. Consultation Date/Type/Reason Admit Date/Time Apr 25, 2018 at 17:28 Initial Consult Date Type of Consult Nephrology Date/Time of Note DATE: 05/04/18 TIME: 08:02 24 HR Interval Summary Free Text/Dictation He is awake and alert this morning. He is with his daughter who is helping him eat breakfast. He is scheduled to have 2 hours of dry ultrafiltration today. He says that he is feeling better with less shortness of breath. Constitutional: no complaints, improved Exam/Review of Systems Exam Vitals Vital Signs Date Temp Pulse Resp B/P (MAP) Pulse Ox O2 O2 Flow FiO2 Time Delivery Rate 05/04/18 97.5 75 20 134/58 98 07:49 (83) 05/04/18 2.0 04:18 05/03/18 Nasal 20:28 Cannula Intake and Output 05/03/18 05/03/18 05/04/18 1515:00 23:00 07:00 IntakeIntake Total 950 ml 600 ml BalanceBalance 950 ml 600 ml Constitutional: alert, oriented, frail Respiratory: crackles/rales, diminished breath sounds Cardiovascular: regular rate and rhythm Gastrointestinal: soft, non-tender Musculoskeletal: nl extremities to inspection Results Result Diagram: 05/04/18 0507 05/03/18 0459 Results 24hrs Laboratory Tests Test 05/03/18 11:45 05/03/18 17:23 05/03/18 20:10 05/04/18 05:07 Bedside Glucose 177 235 H 191 White Blood Count 5.7 Red Blood Count 3.72 L Hemoglobin 11.3 L Hematocrit 34.4 L Mean Corpuscular 92.5 Volume Mean Corpuscular 30.4 Hemoglobin Mean Corpuscular 32.8 Hemoglobin Concent Red Cell 15.9 H Distribution Width Platelet Count 210 Mean Platelet Volume 11.2 H Immature 0.400 Granulocytes % Neutrophils % 51.0 Lymphocytes % 27.9 Monocytes % 12.9 H Eosinophils % 6.9 Basophils % 0.9 Nucleated Red Blood 0.0 Cells % Immature 0.020 Granulocytes # Neutrophils # 2.9 Lymphocytes # 1.6 Monocytes # 0.7 Eosinophils # 0.4 Basophils # 0.1 Nucleated Red Blood 0.0 Cells # Sodium Level Pending Potassium Level Pending Chloride Level Pending Carbon Dioxide Level Pending Anion Gap Pending Blood Urea Nitrogen Pending Creatinine Pending Est Glomerular Pending Filtrat Rate mL/min Glucose Level Pending Calcium Level Pending Phosphorus Level Pending Magnesium Level Pending B-Type Natriuretic 51931 H Peptide Test 05/04/18 07:48 Bedside Glucose 96 Medications Medication Current Medications Apixaban (Eliquis) 2.5 mg BID PO Last administered on 05/03/18 20:07; Admin Dose 2.5 MG; Start 04/25/18 at 21:00 Aspirin (Halfprin) 81 mg DAILY PO Last administered on 05/03/18 08:35; Admin Dose 81 MG; Start 04/26/18 at 09:00 Carvedilol (Coreg) 3.125 mg BID PO Last administered on 05/03/18 20:08; Admin Dose 3.125 MG; Start 04/25/18 at 21:00 Famotidine (Pepcid) 20 mg HS PO Last administered on 05/03/18at 20:07; Admin Dose 20 MG; Start 04/25/18 at 21:00 Tamsulosin HCl (Flomax) 0.4 mg DAILY PO Last administered on 05/03/18 08:35; Admin Dose 0.4 MG; Start 04/26/18 at 09:00 Diagnostic Test (Pha) (Accu-Chek) 1 ea 02 XX ; Start 04/26/18 at 02:00 Insulin Aspart (Novolog Insulin Pen) NOVOLOG *MODERATE* ALGORITHM WITH MEALS BEDTIME SC Last administered on 05/03/18 17:34; Admin Dose 6 UNIT; Start 04/26/18 at 08:00 Miscellaneous Information 1 ea NOTE XX ; Start 04/25/18 at 21:30 Glucose (Glutose) 15 gm Q15M PRN PO DECREASED GLUCOSE; Start 04/25/18 at 21:30 Glucose (Glutose) 22.5 gm Q15M PRN PO DECREASED GLUCOSE; Start 04/25/18 at 21:30 Dextrose (D50w Syringe) 25 ml Q15M PRN IV DECREASED GLUCOSE; Start 04/25/18 at 21:30 Dextrose (D50w Syringe) 50 ml Q15M PRN IV DECREASED GLUCOSE; Start 04/25/18 at 21:30 Glucagon (Glucagen) 1 mg Q15M PRN IM DECREASED GLUCOSE; Start 04/25/18 at 21:30 Glucose (Glutose) 15 gm Q15M PRN BUCCAL DECREASED GLUCOSE; Start 04/25/18 at 21:30 Piperacillin Sod/ Tazobactam Sod 50 ml @ 100 mls/hr Q8 IVPB Last administered on 05/04/18at 06:03; Admin Dose 100 MLS/HR; Start 04/26/18 at 06:00 Docusate Sodium (Colace) 100 mg BID PO Last administered on 05/03/18at 08:35; Admin Dose 100 MG; Start 04/27/18 at 09:00 Miscellaneous Information (Pending [facility] Order For Wound Care) This patient bray... PRN PRN XX WOUND CARE; Start 04/27/18 at 11:00 Calcium Acetate (Phoslo) 667 mg WITH MEALS PO Last administered on 05/03/18at 17:42; Admin Dose 667 MG; Start 04/28/18 at 12:00 Amlodipine Besylate (Norvasc) 2.5 mg BID PO Last administered on 05/03/18at 20:07; Admin Dose 2.5 MG; Start 04/30/18 at 10:30 NATASHA SCHNEIDER MD May 04, 2018 08:07
[2018-05-04] MEDS: DOCUSATE SODIUM 100 MG CAP PO SCH ×2 (08:25→20:40)
[2018-05-04] MEDS: ASPIRIN (EC) 81 MG TAB PO SCH (08:25)
[2018-05-04] MEDS: TAMSULOSIN (SR) 0.4 MG CAP PO SCH (08:25)
[2018-05-04] MEDS: AMLODIPINE 2.5 MG TAB PO SCH ×2 (08:25→20:22)
[2018-05-04] MEDS: CALCIUM ACETATE 667 MG CAP PO SCH ×3 (08:25→17:41)
[2018-05-04] MEDS: APIXABAN 5 MG TABLET PO SCH ×2 (08:25→20:21)
--- NOTE | 2018-05-04 09:05 | PN ---
DATE: 05/04/2018 SUBJECTIVE: The patient is feeling better but still feels weak, still has cough, no chest pain. OBJECTIVE VITAL SIGNS: Temperature 97.5, pulse 75 and regular, respirations 20, blood pressure 134/58, oxygen saturation 98% on 2 liter nasal cannula oxygen. GENERAL: Well-developed male in no acute distress, sitting up in bed. LUNGS: Bilateral crackles with scant rhonchi. HEART: Regular rate and rhythm. ABDOMEN: Soft, nontender. EXTREMITIES: No cyanosis, clubbing or edema. LABORATORY DATA: Brain natriuretic peptide of 29,200. Chemistry panel pending. Hemoglobin 11.3, he matocrit 34.4, platelets 210. White blood cell count 5.7. ASSESSMENT AND PLAN: 1. Acute combined systolic, diastolic heart failure/ischemic cardiomyopathy/coronary disease/hyperte nsion, improved but persists. We will continue with ultrafiltration. The patient will receive dialy sis with ultrafiltration today. The patient is not stable for discharge. We will continue to monito r on telemetry. 2. End-stage renal disease, improved. We will continue with current treatment with hemodialysis tod ay with ultrafiltration. 3. Pneumonitis continues to improve. Continue antibiotics and the patient likely will complete cour se of antibiotics during this hospitalization. 4. Diabetes, stable. Continue with sliding scale and diet. Dictated By: HAI CHRISTIANSON MD SR/NTS Conf#: [id number] DID#: [id number] CC: HAI CHRISTIANSON MD; NATASHA SCHNEIDER MD;*EndCC*
[2018-05-04] MEDS: FAMOTIDINE 20 MG TAB PO SCH (20:23)
[2018-05-05] VITALS (9 sets, daily range): BP systolic 146–178; BP diastolic 70–81; PULSE 71–79; RESP 19–20
[2018-05-05] MEDS: ACCU-CHEK XX SCH (02:00)
[2018-05-05] MEDS: PIPER-TAZO 2.25 GM (PMX) 50 ML IVPB SCH ×3 (05:10→20:09)
[2018-05-05] MEDS: CALCIUM ACETATE 667 MG CAP PO SCH ×3 (07:37→17:47)
[2018-05-05] MEDS: INSULIN ASPART [NOVOLOG] 3 ML PEN SC SCH ×4 (07:44→20:22)
--- NOTE | 2018-05-05 08:03 | CONS ---
Assessment/Plan Assessment/Plan Hospital Course (Demo Recall) 1. End-stage renal disease on maintenance hemodialysis. He had 2 hours of dry ultrafiltration for yesterday. The patient is usually on a Thursday dialysis schedule. I have ordered dialysis for him tomorrow. 2. Congestive heart failure. He is less congested today. I will order a chest x-ray today. He has an ischemic cardiomyopathy. 3. type 2 diabetes mellitus 4. hypertension 5. history of postural hypotension , I instructed the nurse that he should have orthostatic blood pressures done and to let me know if his blood pressure drops significantly. Consultation Date/Type/Reason Admit Date/Time Apr 25, 2018 at 17:28 Initial Consult Date Type of Consult Nephrology Date/Time of Note DATE: 05/05/18 TIME: 08:00 24 HR Interval Summary Free Text/Dictation This patient is being seen in nephrologic follow-up. He is sitting in a chair awake and alert. His daughter is in the room with him. He says that he feels better. Constitutional: no complaints, improved Exam/Review of Systems Exam Vitals Vital Signs Date Temp Pulse Resp B/P (MAP) Pulse Ox O2 O2 Flow FiO2 Time Delivery Rate 05/05/18 99.4 75 19 158/74 94 04:00 (102) 05/04/18 Room Air 18:37 05/04/18 2.0 04:18 Intake and Output 05/04/18 05/04/18 05/05/18 1515:00 23:00 07:00 IntakeIntake Total 850 ml 800 ml OutputOutput Total 2400 ml BalanceBalance -1550 ml 800 ml Constitutional: alert, oriented, frail Respiratory: diminished breath sounds Cardiovascular: regular rate and rhythm Gastrointestinal: soft, non-tender Musculoskeletal: nl extremities to inspection Results Result Diagram: 05/05/18 0506 05/05/18 0506 Results 24hrs Laboratory Tests Test 05/04/18 12:14 05/04/18 17:40 05/04/18 20:18 05/05/18 01:46 Bedside Glucose 215 204 197 146 Test 05/05/18 05:06 05/05/18 07:36 White Blood Count 6.2 Red Blood Count 3.87 L Hemoglobin 11.8 L Hematocrit 35.3 L Mean Corpuscular 91.2 Volume Mean Corpuscular 30.5 Hemoglobin Mean Corpuscular 33.4 Hemoglobin Concent Red Cell 15.7 H Distribution Width Platelet Count 239 Mean Platelet Volume 11.0 H Immature 0.300 Granulocytes % Neutrophils % 58.4 Lymphocytes % 21.6 Monocytes % 12.7 H Eosinophils % 6.0 Basophils % 1.0 Nucleated Red Blood 0.0 Cells % Immature 0.020 Granulocytes # Neutrophils # 3.6 Lymphocytes # 1.3 Monocytes # 0.8 Eosinophils # 0.4 Basophils # 0.1 Nucleated Red Blood 0.0 Cells # Sodium Level 137 Potassium Level 4.0 Chloride Level 96 L Carbon Dioxide Level 27 Anion Gap 14 H Blood Urea Nitrogen 58 H Creatinine 7.23 H Est Glomerular Filtrat Rate mL/min Glucose Level 131 Calcium Level 9.4 Phosphorus Level 4.1 Magnesium Level 2.3 Bedside Glucose 164 Medications Medication Current Medications Apixaban (Eliquis) 2.5 mg BID PO Last administered on 05/04/18at 20:21; Admin Dose 2.5 MG; Start 04/25/18 at 21:00 Aspirin (Halfprin) 81 mg DAILY PO Last administered on 05/04/18at 08:25; Admin Dose 81 MG; Start 04/26/18 at 09:00 Carvedilol (Coreg) 3.125 mg BID PO Last administered on 05/04/18at 20:23; Admin Dose 3.125 MG; Start 04/25/18 at 21:00 Famotidine (Pepcid) 20 mg HS PO Last administered on 05/04/18at 20:23; Admin Dose 20 MG; Start 04/25/18 at 21:00 Tamsulosin HCl (Flomax) 0.4 mg DAILY PO Last administered on 05/04/18at 08:25; Admin Dose 0.4 MG; Start 04/26/18 at 09:00 Diagnostic Test (Pha) (Accu-Chek) 1 ea 02 XX ; Start 04/26/18 at 02:00 Insulin Aspart (Novolog Insulin Pen) NOVOLOG *MODERATE* ALGORITHM WITH MEALS BEDTIME SC Last administered on 05/05/18at 07:44; Admin Dose 2 UNIT; Start 04/26/18 at 08:00 Miscellaneous Information 1 ea NOTE XX ; Start 04/25/18 at 21:30 Glucose (Glutose) 15 gm Q15M PRN PO DECREASED GLUCOSE; Start 04/25/18 at 21:30 Glucose (Glutose) 22.5 gm Q15M PRN PO DECREASED GLUCOSE; Start 04/25/18 at 21:30 Dextrose (D50w Syringe) 25 ml Q15M PRN IV DECREASED GLUCOSE; Start 04/25/18 at 21:30 Dextrose (D50w Syringe) 50 ml Q15M PRN IV DECREASED GLUCOSE; Start 04/25/18 at 21:30 Glucagon (Glucagen) 1 mg Q15M PRN IM DECREASED GLUCOSE; Start 04/25/18 at 21:30 Glucose (Glutose) 15 gm Q15M PRN BUCCAL DECREASED GLUCOSE; Start 04/25/18 at 21:30 Piperacillin Sod/ Tazobactam Sod 50 ml @ 100 mls/hr Q8 IVPB Last administered on 05/05/18at 05:10; Admin Dose 100 MLS/HR; Start 04/26/18 at 06:00; Stop 05/05/18 at 23:45 Docusate Sodium (Colace) 100 mg BID PO Last administered on 05/04/18at 08:25; Admin Dose 100 MG; Start 04/27/18 at 09:00 Miscellaneous Information (Pending [facility] Order For Wound Care) This patient bray... PRN PRN XX WOUND CARE; Start 04/27/18 at 11:00 Calcium Acetate (Phoslo) 667 mg WITH MEALS PO Last administered on 05/05/18at 07:37; Admin Dose 667 MG; Start 04/28/18 at 12:00 Amlodipine Besylate (Norvasc) 2.5 mg BID PO Last administered on 05/04/18at 20:22; Admin Dose 2.5 MG; Start 04/30/18 at 10:30 NATASHA SCHNEIDER MD May 05, 2018 08:03
[2018-05-05] MEDS: ASPIRIN (EC) 81 MG TAB PO SCH (08:30)
[2018-05-05] MEDS: AMLODIPINE 2.5 MG TAB PO SCH ×2 (08:30→20:07)
[2018-05-05] MEDS: DOCUSATE SODIUM 100 MG CAP PO SCH ×2 (08:30→21:00)
[2018-05-05] MEDS: APIXABAN 5 MG TABLET PO SCH ×2 (08:30→20:08)
[2018-05-05] MEDS: TAMSULOSIN (SR) 0.4 MG CAP PO SCH (08:31)
--- NOTE | 2018-05-05 08:48 | PN ---
DATE: 05/05/2018 SUBJECTIVE: The patient is feeling better, but still weak, less cough and minimal shortness of breat h. OBJECTIVE: VITAL SIGNS: Temperature T-max 99.4, now 97.7, pulse 77, respirations 20, blood pressure 177/74, oxy gen saturation 100% on 2 liters nasal cannula oxygen. GENERAL: Well-developed, thin male, in no acute distress, sitting up in chair. LUNGS: Decreased breath sounds at bilateral bases with scant basilar crackles, no rhonchi. HEART: Regular rate and rhythm. ABDOMEN: Soft, nontender. EXTREMITIES: No cyanosis, clubbing or edema. LABORATORY DATA: Sodium 137, potassium 4.0, chloride 96, bicarbonate 27, BUN of 58, creatinine 7.23, glucose of 131, magnesium 2.3, phosphorus 4.1. Hemoglobin 11.8, hematocrit 35.3, platelets 239. Wh ite blood cell count 6.2. ASSESSMENT AND PLAN: 1. Acute combined systolic, diastolic congestive heart failure/ischemic cardiomyopathy/coronary mitul ry disease/hypertension. The patient continues to improve, but still remains in heart failure. The patient will receive more dialysis tomorrow and likely discharged home either tomorrow afternoon or e ven or by Thursday at the latest. 2. Pneumonitis, improves. The patient did complete antibiotics today for a 10-day course of Zosyn. Chest x-ray ordered for today to reevaluate his heart failure as well as his pneumonitis. 3. End-stage renal disease, improved with dialysis. The patient will receive dialysis tomorrow as w ell and likely home later tomorrow if remains stable. 4. Diabetes, stable. Continue with medications and diet. Dictated By: HAI CHRISTIANSON MD SR/NTS Conf#: [id number] DID#: [id number] CC: NATASHA SCHNEIDER MD; HAI CHRISTIANSON MD;*End*
[2018-05-05] MEDS: FAMOTIDINE 20 MG TAB PO SCH (20:08)
[2018-05-06] VITALS (25 sets, daily range): BP systolic 121–177; BP diastolic 50–79; PULSE 75–90; RESP 16–19
[2018-05-06] MEDS: ACCU-CHEK XX SCH (02:00)
[2018-05-06] MEDS: CALCIUM ACETATE 667 MG CAP PO SCH ×3 (07:38→17:14)
[2018-05-06] MEDS: INSULIN ASPART [NOVOLOG] 3 ML PEN SC SCH ×4 (07:39→21:00)
[2018-05-06] MEDS: APIXABAN 5 MG TABLET PO SCH ×2 (08:26→20:49)
[2018-05-06] MEDS: AMLODIPINE 2.5 MG TAB PO SCH ×2 (08:26→20:47)
[2018-05-06] MEDS: TAMSULOSIN (SR) 0.4 MG CAP PO SCH (08:26)
[2018-05-06] MEDS: ASPIRIN (EC) 81 MG TAB PO SCH (08:26)
[2018-05-06] MEDS: DOCUSATE SODIUM 100 MG CAP PO SCH ×2 (08:29→20:49)
--- NOTE | 2018-05-06 08:47 | PN ---
DATE: 05/06/2018 SUBJECTIVE: The patient is feeling better but has increased cough, shortness of breath since last ni ght. OBJECTIVE: VITAL SIGNS: Temperature is 98.4, pulse of 79, respirations 16, oxygen saturation 100% on 2 liters n mark cannula oxygen, blood pressure 136/62. GENERAL: Well-developed, thin male in no acute distress, sitting up in bed with a rhonchorous cough. CHEST: Decreased breath sounds at bilateral bases with scant crackles. HEART: Regular rate and rhythm. ABDOMEN: Soft, nontender. EXTREMITIES: No cyanosis, clubbing or edema. LABORATORY DATA: Sodium 138, potassium 4.2, chloride 95, bicarbonate 25, BUN 73, creatinine 8.87, ca lcium 9.2. Chest x-ray from 05/05/2018 shows changes consistent with pulmonary congestion or edema. ASSESSMENT AND PLAN: 1. Acute combined congestive heart failure/ischemic cardiomyopathy/coronary artery disease/hypertens ion. The patient continues to improve slowly, but remains in heart failure. The patient is to under go dialysis again today with more ultrafiltration. We will continue telemetry monitoring and anticip ate probable discharge to home tomorrow if patient remains stable. We will try to get the patient of f of oxygen today. 2. Pneumonitis, improved. The patient with no infiltrates on chest x-ray suggestive of remaining pn eumonia. The patient is still on oxygen. We will try to get patient off oxygen. We will determine if he needs it as outpatient. 3. End-stage renal disease, stable. The patient is to get dialysis today. We will continue with cu rrent measures. 4. Diabetes, stable with sliding scale and diet. 5. Discharge planning. The patient is not ready for discharge to home today. We will continue tele metry monitoring. Hopefully, discharged to home tomorrow with home health. Dictated By: HAI CHRISTIANSON MD SR/NTS Conf#: [id number] DID#: [id number] CC: HAI CHRISTIANSON MD; NATASHA SCHNEIDER MD;*EndCC*
--- NOTE | 2018-05-06 09:00 | CONS ---
Assessment/Plan Assessment/Plan Hospital Course (Demo Recall) 1. End-stage renal disease on maintenance hemodialysis. He is usually dialyzed Thursday. He has dialysis ordered for today being which will get him back on his regular schedule. He could be discharged to home after dialysis.; However, he still seems very weak. I did bring up the option of going to the acute rehab unit with him and his daughter; however, he seems to want to go home. 2. Congestive heart failure. He has diminished breath sounds and a congested cough. The chest x-ray seems to show some improvement in pulmonary edema. He has an ischemic cardiomyopathy. His ejection fraction is low at 30%. 3. type 2 diabetes mellitus 4. hypertension 5. history of postural hypotension , I instructed the nurse that he should have orthostatic blood pressures done and to let me know if his blood pressure drops significantly. Consultation Date/Type/Reason Admit Date/Time Apr 25, 2018 at 17:28 Initial Consult Date Type of Consult Nephrology Date/Time of Note DATE: 05/06/18 TIME: 08:56 24 HR Interval Summary Free Text/Dictation This patient is being seen in nephrologic follow-up. He is awake and alert. He is lying in bed. He has a slight cough. His daughter is in the room with him to translate. Constitutional: no complaints Exam/Review of Systems Exam Vitals Vital Signs Date Temp Pulse Resp B/P (MAP) Pulse Ox O2 O2 Flow FiO2 Time Delivery Rate 05/06/18 90 08:43 05/06/18 98.4 16 136/62 100 Room Air 07:59 (86) 05/04/18 2.0 04:18 Intake and Output 05/05/18 05/05/18 05/06/18 1515:00 23:00 07:00 IntakeIntake Total 1290 ml BalanceBalance 1290 ml Constitutional: alert, oriented, frail Respiratory: congested cough Cardiovascular: regular rate and rhythm Gastrointestinal: soft, non-tender Musculoskeletal: nl extremities to inspection Results Result Diagram: 05/05/18 0506 05/06/18 0428 Results 24hrs Laboratory Tests Test 05/05/18 11:42 05/05/18 17:46 05/05/18 20:10 05/06/18 02:14 Bedside Glucose 146 161 199 154 Test 05/06/18 04:28 05/06/18 07:37 Sodium Level 138 Potassium Level 4.2 Chloride Level 95 L Carbon Dioxide Level 25 Anion Gap 18 H Blood Urea Nitrogen 73 H Creatinine 8.87 H Est Glomerular Filtrat Rate mL/min Glucose Level 138 Calcium Level 9.2 Bedside Glucose 134 Medications Medication Current Medications Apixaban (Eliquis) 2.5 mg BID PO Last administered on 05/06/18 08:26; Admin Dose 2.5 MG; Start 04/25/18 at 21:00 Aspirin (Halfprin) 81 mg DAILY PO Last administered on 05/06/18 08:26; Admin Dose 81 MG; Start 04/26/18 at 09:00 Carvedilol (Coreg) 3.125 mg BID PO Last administered on 05/06/18 08:27; Admin Dose 3.125 MG; Start 04/25/18 at 21:00 Famotidine (Pepcid) 20 mg HS PO Last administered on 05/05/18 20:08; Admin D ose 20 MG; Start 04/25/18 at 21:00 Tamsulosin HCl (Flomax) 0.4 mg DAILY PO Last administered on 05/06/18 08:26; Admin Dose 0.4 MG; Start 04/26/18 at 09:00 Diagnostic Test (Pha) (Accu-Chek) 1 ea 02 XX ; Start 04/26/18 at 02:00 Insulin Aspart (Novolog Insulin Pen) NOVOLOG *MODERATE* ALGORITHM WITH MEALS BEDTIME SC Last administered on 05/05/18 20:22; Admin Dose 1 UNIT; Start 04/26/18 at 08:00 Miscellaneous Information 1 ea NOTE XX ; Start 04/25/18 at 21:30 Glucose (Glutose) 15 gm Q15M PRN PO DECREASED GLUCOSE; Start 04/25/18 at 21:30 Glucose (Glutose) 22.5 gm Q15M PRN PO DECREASED GLUCOSE; Start 04/25/18 at 21:30 Dextrose (D50w Syringe) 25 ml Q15M PRN IV DECREASED GLUCOSE; Start 04/25/18 at 21:30 Dextrose (D50w Syringe) 50 ml Q15M PRN IV DECREASED GLUCOSE; Start 04/25/18 at 21:30 Glucagon (Glucagen) 1 mg Q15M PRN IM DECREASED GLUCOSE; Start 04/25/18 at 21:30 Glucose (Glutose) 15 gm Q15M PRN BUCCAL DECREASED GLUCOSE; Start 04/25/18 at 21:30 Docusate Sodium (Colace) 100 mg BID PO Last administered on 05/04/18 08:25; Admin Dose 100 MG; Start 04/27/18 at 09:00 Miscellaneous Information (Pending Santyl Order For Wound Care) This patient bray... PRN PRN XX WOUND CARE; Start 04/27/18 at 11:00 Calcium Acetate (Phoslo) 667 mg WITH MEALS PO Last administered on 05/06/18at 07:38; Admin Dose 667 MG; Start 04/28/18 at 12:00 Amlodipine Besylate (Norvasc) 2.5 mg BID PO Last administered on 05/06/18at 08:26; Admin Dose 2.5 MG; Start 04/30/18 at 10:30 Guaifenesin/ Codeine Phosphate (Robitussin Ac Liquid Cup) 5 ml Q6 PRN PO COUGH; Start 05/06/18 at 09:00; Status NATASHA RILEY MD May 06, 2018 09:00
[2018-05-06] MEDS: GUAIFENESIN/CODEINE 5ML CUP PO PRN ×2 (17:22→23:57)
[2018-05-06] MEDS: BENZONATATE 100 MG CAP PO SCH (20:47)
[2018-05-06] MEDS: FAMOTIDINE 20 MG TAB PO SCH (20:54)
[2018-05-07] VITALS (10 sets, daily range): BP systolic 133–177; BP diastolic 68–93; PULSE 75–85; RESP 17–21
[2018-05-07] MEDS: ACCU-CHEK XX SCH (02:00)
[2018-05-07] MEDS: INSULIN ASPART [NOVOLOG] 3 ML PEN SC SCH ×4 (07:37→21:00)
--- NOTE | 2018-05-07 08:42 | CONS ---
Assessment/Plan Assessment/Plan Hospital Course (Demo Recall) 1. End-stage renal disease on maintenance hemodialysis. He is usually dialyzed Thursday and he is back on his regular schedule. I will order hemodialysis for him tomorrow. He will be evaluated for the acute rehab unit. 2. Congestive heart failure. He has diminished breath sounds and a congested cough. The chest x-ray seems to show some improvement in pulmonary edema. He has an ischemic cardiomyopathy. His ejection fraction is low at 30%. 3. type 2 diabetes mellitus 4. hypertension 5. history of postural hypotension , I instructed the nurse that he should have orthostatic blood pressures done and to let me know if his blood pressure drops significantly. Consultation Date/Type/Reason Admit Date/Time Apr 25, 2018 at 17:28 Initial Consult Date Type of Consult Nephrology Date/Time of Note DATE: 05/07/18 TIME: 08:38 24 HR Interval Summary Free Text/Dictation This patient is being seen in nephrologic follow-up. He is sitting up in a chair. He says he feels well although he looks quite weak and still has a cough. Constitutional: no complaints Exam/Review of Systems Exam Vitals Vital Signs Date Temp Pulse Resp B/P (MAP) Pulse Ox O2 O2 Flow FiO2 Time Delivery Rate 05/07/18 79 08:12 05/07/18 97.8 21 177/78 95 07:54 (111) 05/06/18 Room Air 15:50 05/06/18 3.0 10:49 Intake and Output 05/06/18 05/06/18 05/07/18 1515:00 23:00 07:00 IntakeIntake Total 1000 ml 250 ml OutputOutput Total 2600 ml BalanceBalance -2600 ml 1000 ml 250 ml Constitutional: alert, oriented, frail Respiratory: diminished breath sounds Cardiovascular: regular rate and rhythm Musculoskeletal: nl extremities to inspection Results Result Diagram: 05/05/18 0506 05/06/18 0428 Results 24hrs Laboratory Tests Test 05/06/18 12:25 05/06/18 17:13 05/06/18 20:59 05/07/18 07:36 Bedside Glucose 100 228 H 167 120 Medications Medication Current Medications Apixaban (Eliquis) 2.5 mg BID PO Last administered on 05/06/18at 20:49; Admin Dose 2.5 MG; Start 04/25/18 at 21:00 Aspirin (Halfprin) 81 mg DAILY PO Last administered on 05/06/18 08:26; Admin Dose 81 MG; Start 04/26/18 at 09:00 Carvedilol (Coreg) 3.125 mg BID PO Last administered on 05/06/18 20:49; Admin Dose 3.125 MG; Start 04/25/18 at 21:00 Famotidine (Pepcid) 20 mg HS PO Last administered on 05/06/18 20:54; Admin Dose 20 MG; Start 04/25/18 at 21:00 Tamsulosin HCl (Flomax) 0.4 mg DAILY PO Last administered on 05/06/18 08:26; Admin Dose 0.4 MG; Start 04/26/18 at 09:00 Diagnostic Test (Pha) (Accu-Chek) 1 ea 02 XX ; Start 04/26/18 at 02:00 Insulin Aspart (Novolog Insulin Pen) NOVOLOG *MODERATE* ALGORITHM WITH MEALS BEDTIME SC Last administered on 05/06/18 17:19; Admin Dose 6 UNIT; Start 04/26/18 at 08:00 Miscellaneous Information 1 ea NOTE XX ; Start 04/25/18 at 21:30 Glucose (Glutose) 15 gm Q15M PRN PO DECREASED GLUCOSE; Start 04/25/18 at 21:30 Glucose (Glutose) 22.5 gm Q15M PRN PO DECREASED GLUCOSE; Start 04/25/18 at 21:30 Dextrose (D50w Syringe) 25 ml Q15M PRN IV DECREASED GLUCOSE; Start 04/25/18 at 21:30 Dextrose (D50w Syringe) 50 ml Q15M PRN IV DECREASED GLUCOSE; Start 04/25/18 at 21:30 Glucagon (Glucagen) 1 mg Q15M PRN IM DECREASED GLUCOSE; Start 04/25/18 at 21:30 Glucose (Glutose) 15 gm Q15M PRN BUCCAL DECREASED GLUCOSE; Start 04/25/18 at 21:30 Docusate Sodium (Colace) 100 mg BID PO Last administered on 05/06/18 20:49; Admin Dose 100 MG; Start 04/27/18 at 09:00 Miscellaneous Information (Pending [facility] Order For Wound Care) This patient bray... PRN PRN XX WOUND CARE; Start 04/27/18 at 11:00 Calcium Acetate (Phoslo) 667 mg WITH MEALS PO Last administered on 05/06/18 17:14; Admin Dose 667 MG; Start 04/28/18 at 12:00 Amlodipine Besylate (Norvasc) 2.5 mg BID PO Last administered on 05/06/18 20:47; Admin Dose 2.5 MG; Start 04/30/18 at 10:30 Guaifenesin/ Codeine Phosphate (Robitussin Ac Liquid Cup) 5 ml Q6H PRN PO COUGH Last administered on 05/06/18at 23:57; Admin Dose 5 ML; Start 05/06/18 at 09:00 Benzonatate (Tessalon) 100 mg TID PO Last administered on 05/06/18 20:47; Admin Dose 100 MG; Start 05/06/18 at 21:00 NATASHA SCHNEIDER MD May 07, 2018 08:42
[2018-05-07] MEDS: CALCIUM ACETATE 667 MG CAP PO SCH ×3 (08:50→17:19)
[2018-05-07] MEDS: ASPIRIN (EC) 81 MG TAB PO SCH (08:50)
[2018-05-07] MEDS: TAMSULOSIN (SR) 0.4 MG CAP PO SCH (08:51)
[2018-05-07] MEDS: APIXABAN 5 MG TABLET PO SCH ×2 (08:51→21:08)
[2018-05-07] MEDS: AMLODIPINE 2.5 MG TAB PO SCH ×2 (08:51→21:08)
[2018-05-07] MEDS: BENZONATATE 100 MG CAP PO SCH ×3 (08:51→21:07)
[2018-05-07] MEDS: DOCUSATE SODIUM 100 MG CAP PO SCH ×2 (08:54→21:08)
--- NOTE | 2018-05-07 09:51 | PN ---
DATE: 05/07/2018 SUBJECTIVE: The patient continues to feel weak. Cough is better, mild shortness of breath with exer tion. OBJECTIVE VITAL SIGNS: Temperature 97.8, pulse 79, blood pressure 177/78, respirations 21, oxygen saturation 9 5% on room air. GENERAL: Well-developed, ill-appearing, thin male in no acute distress. LUNGS: Decreased breath sounds at bilateral bases with bilateral crackles, no rhonchi. HEART: Regular rate and rhythm. ABDOMEN: Soft, nontender. EXTREMITIES: No cyanosis, clubbing or edema. ASSESSMENT AND PLAN: 1. Acute combined congestive heart failure/ischemic cardiomyopathy/coronary artery disease/hypertens ion. The patient remains in mild heart failure. We will plan for dialysis tomorrow. The patient sh ould remain inpatient and hopefully get acute rehabilitation. 2. Pneumonitis, improved with antibiotics. Will repeat chest x-ray to follow up, but the patient ne eds no further antibiotics. 3. End-stage renal disease, stable. Continue with dialysis and hope for dialysis tomorrow. 4. Diabetes remains stable. Continue with sliding scale medications and diet. 5. Debility. The patient is too weak to go home and would benefit from acute rehabilitation. We wi ll have acute rehab evaluate the patient for possible transfer to acute rehab for further care and re habilitation. Dictated By: HAI CHRISTIANSON MD SR/NTS Conf#: [id number] DID#: [id number] CC: NATASHA SCHNEIDER MD; HAI CHRISTIANSON MD;*EndCC*
[2018-05-07] MEDS: FAMOTIDINE 20 MG TAB PO SCH (21:08)
== END 2018-05-07 22:35 | DRG 291 ==
LOC: E/R 14:09 → 6WM 17:28
PROVIDERS: ADMIT Internal Medicine; ATTEND Internal Medicine
PROC: 5A1D70Z Performance of Urinary Filtration, Intermittent, Less than 6 Hours Per Day (ICD-10-PCS; principal; 2018-04-26)
DX: I13.2 Hypertensive heart and chronic kidney disease with heart failure and with stage 5 chronic kidney disease, or end stage renal disease (principal); N18.6 End stage renal disease; I50.43 Acute on chronic combined systolic (congestive) and diastolic (congestive) heart failure; J18.9 Pneumonia, unspecified organism; E11.22 Type 2 diabetes mellitus with diabetic chronic kidney disease; E11.40 Type 2 diabetes mellitus with diabetic neuropathy, unspecified; I25.2 Old myocardial infarction; F17.200 Nicotine dependence, unspecified, uncomplicated; I25.10 Atherosclerotic heart disease of native coronary artery without angina pectoris; I25.5 Ischemic cardiomyopathy; Z99.2 Dependence on renal dialysis; Z95.810 Presence of automatic (implantable) cardiac defibrillator; Z86.73 Personal history of transient ischemic attack (TIA), and cerebral infarction without residual deficits; Z95.1 Presence of aortocoronary bypass graft
CPT/HCPCS: 71045; 76705; 80048; 80053; 81001; 82550; 82553; 82962; 83690; 83735; 83880; 84100; 84145; 84484; 85025; 85610; 85651; 85730; 86706; 87040; 87081; 87086; 87340; 87400; 90935; 93005; 93306; 93970; 94664; 96365; 96375; 97110; 97116; 97162; 97530; J0456; J0696; J1815; J1940; J2270; J2405; J2543

== ENCOUNTER 2018-05-07 22:39 | Inpatient (IN) | payer MEDICARE, OTHER ==
[~2018-05-07] VITALS: Ht 170.2 cm; Wt 70.5 kg
[~2018-05-07 22:39] MED LIST changes: +APIX2.5T PO; +ASPI81TA52 PO; -ATOR-2 PO; +CARV3.1260 PO; -CLOP75TA27 PO; -DOCU-216 PO; -ISOS10TA2 PO; -TAMS-14 PO; +TAMS0.4C2 PO
[2018-05-07 22:40] VITALS: BP 176/76; PULSE 78; RESP 18
[2018-05-07] MEDS ORDERED: GLUCOSE GEL 15 GRAM TUBE PO PRN ×2 (23:18)
[2018-05-07] MEDS ORDERED: GLUCAGON 1 MG INJ IM PRN (23:18)
[2018-05-07] MEDS ORDERED: DEXTROSE 50% 50 ML SYRINGE IV PRN ×2 (23:18)
[2018-05-07] MEDS ORDERED: GLUCOSE GEL 15 GRAM TUBE BUCCAL PRN (23:18)
[2018-05-07] MEDS ORDERED: GUAIFENESIN/CODEINE 5ML CUP PO PRN (23:18)
[2018-05-07] MEDS ORDERED: PENDING SANTYL ORDER FOR WOUND CARE XX PRN ×2 (23:18→23:30)
[2018-05-08] VITALS (23 sets, daily range): BP systolic 116–188; BP diastolic 54–99; PULSE 74–88; RESP 16–20; Ht 170.2 cm; Wt 70.5 kg
[2018-05-08] MEDS ORDERED: MAGNESIUM HYDROXIDE 30ML CUP PO PRN (01:30)
[2018-05-08] MEDS ORDERED: BISACODYL 10 MG SUPP PR PRN (01:30)
[2018-05-08] MEDS: ACCU-CHEK XX SCH (02:00)
[2018-05-08] MEDS: INSULIN ASPART [NOVOLOG] 3 ML PEN SC SCH ×4 (07:35→21:00)
[2018-05-08] MEDS: CALCIUM ACETATE 667 MG CAP PO SCH ×3 (08:21→17:35)
[2018-05-08] MEDS: AMLODIPINE 2.5 MG TAB PO SCH ×2 (09:32→20:52)
[2018-05-08] MEDS: ASPIRIN (EC) 81 MG TAB PO SCH (09:32)
[2018-05-08] MEDS: APIXABAN 5 MG TABLET PO SCH ×2 (09:32→20:50)
[2018-05-08] MEDS: BENZONATATE 100 MG CAP PO SCH ×3 (09:32→20:50)
[2018-05-08] MEDS: DOCUSATE SODIUM 100 MG CAP PO SCH ×2 (09:38→21:00)
[2018-05-08] MEDS: TAMSULOSIN (SR) 0.4 MG CAP PO SCH (09:38)
--- NOTE | 2018-05-08 10:25 | CONS ---
DATE OF ADMISSION: 05/07/2018 DATE OF CONSULTATION: 05/08/2018 REHABILITATION IMPAIRMENT CATEGORY: Debility secondary to congestive heart failure and pneumonia. ACTIVE COMORBIDITIES: 1. Acute combined congestive heart failure, ischemic cardiomyopathy. 2. End-stage renal disease on hemodialysis. 3. Hypertension. 4. History of coronary artery disease and coronary artery bypass graft. 5. Impairments in self-care, mobility, and mild cognition. 6. Mild toxic metabolic encephalopathy. HISTORY OF PRESENT ILLNESS: The patient is a pleasant 83-year-old gentleman with a history of multiple medical comorbidities including chronic end-stage renal disease on hemodialysis, diabetes mellitus, hypertension, coronary artery disease and coronary artery bypass graft, who was admitted with increased cough, shortness of breath and generalized weakness. The patient was noted to have pneumonia in addition to congestive heart failure. The patient was also treated during the course of hospitalization with hemodialysis. The patient noted to have significant impairments in self-care and mobility as compared to baseline, and has been cleared to transfer to the rehabilitation unit for comprehensive interdisciplinary rehab care. FUNCTIONAL HISTORY: Prior to recent events, he was independent in self-care tasks and mobility. Currently, requires moderate to maximal assist for self- care and mobility tasks. Family and Social History: Patient lives at home and hopes to return upon discharge PAST MEDICAL HISTORY: 1. End-stage renal disease on hemodialysis. 2. Coronary artery disease with history of coronary artery bypass graft. 3. Diabetes mellitus. 4. Hypertension. 5. History of pacemaker and AICD placement. 6. History of temporal arteritis. 7. History of cervical spondylosis. 8. History of cerebrovascular accident. 9. History of peripheral polyneuropathy. 10. Benign prostatic hypertrophy. CURRENT MEDICATIONS: 1. Norvasc 2.5 mg p.o. b.i.d. 2. Eliquis 2.5 mg p.o. b.i.d. 3. Aspirin 81 mg p.o. daily. 4. Tessalon 100 mg p.o. t.i.d. 5. PhosLo 667 mg with meals. 6. Coreg 3.125 mg p.o. b.i.d. 7. Pepcid 20 mg p.o. at bedtime. 8. Insulin sliding scale. 9. Flomax 0.4 mg p.o. daily. ALLERGIES: THE PATIENT WITH NO KNOWN DRUG ALLERGIES. PHYSICAL EXAMINATION: VITAL SIGNS: The patient is currently afebrile with stable vital signs. HEENT: Extraocular motions are intact. Oropharynx is clear. NECK: Supple. LUNGS: Clear anteriorly. CARDIAC: S1, S2. ABDOMEN: Soft, nontender, positive bowel sounds. NEUROLOGIC: He is awake and alert. He is oriented to person. He will follow simple 1-step commands. He demonstrates antigravity strength in bilateral upper extremity and lower extremity. He does have impaired dynamic balance. The sacral area does appear to be healing stage II. PLAN: The patient was admitted for comprehensive interdisciplinary acute rehab and is anticipated to tolerate 3 hours of daily therapy in divided doses for at least 5/7 days a week. The treatment plan will include: 1. Physical therapy to focus on bed mobility, transfers, and household ambulation with the goal of having the patient reach a standby assist level. 2. Occupational therapy to focus on hygiene, grooming, dressing, bathing, and toileting activities with goal of having patient reach standby assist level. 3. Rehabilitation nursing for carryover of therapeutic interventions, the goal of continent of bowel and continue with current dialysis management and the goal of patient and family education with regard to the aforementioned issues. 4. Given the mild cognitive impairments as compared to baseline we will have neuro-psych psychology for cognitive evaluation and physical therapy and occupational therapy for functional cognitive retraining with the goal of having patient return to baseline cognition. ESTIMATED LENGTH OF STAY: 14 days. DISPOSITION GOAL: Home with family. REHABILITATION BARRIER: End-stage renal disease. INTERVENTION FOR BARRIER: Dialysis. I acknowledge that I performed a full physical examination on this patient within 24 hours of admission to the rehabilitation unit. I believe the patient is a good candidate for comprehensive interdisciplinary rehab care and is anticipated to make reasonable goals in a reasonable period of time as outlined above. Dictated By: TOMMIE CARDENAS MD LY/NTS Conf#: [id number] DID#: [id number] CC: HAI CHRISTIANSON MD; TOMMIE CARDENAS MD;*EndCC* MTDD
[2018-05-08] MEDS ORDERED: SODIUM CHLORIDE 0.9% 1L BAG IV PRN (15:30)
[2018-05-08] MEDS ORDERED: ALBUMIN HUMAN 25% 100 ML IV PRN (15:30)
[2018-05-08] MEDS: FAMOTIDINE 20 MG TAB PO SCH (20:50)
[2018-05-08] MEDS: SENNA TAB PO SCH (21:00)
--- NOTE | 2018-05-08 21:29 | CONS ---
DATE OF ADMISSION: 05/07/2018 DATE OF CONSULTATION: 05/08/2018 REASON FOR CONSULTATION: End-stage renal disease. HISTORY OF PRESENT ILLNESS: This 83-year-old man who was well known to me is now transferred to the acute rehabilitation unit. The patient has multiple medical problems including end-stage renal disea se and is on maintenance hemodialysis. He has a history of recent acute exacerbation of congestive h eart failure and pneumonia, and was admitted to the acute hospital. He has a history of type 2 diabe nader mellitus and has diabetic nephropathy. He has been on hemodialysis for at least a year as an out patient in the [facility]. PAST MEDICAL HSITORY: He has other medical problems as follows, coronary artery disease, ischemic ca rdiomyopathy, myocardial infarction, pacemaker and AICD placement, temporal arteritis, hypertension, type 2 diabetes mellitus, cervical spondylosis, history of CVA, peripheral neuropathy, benign prostat ic hypertrophy and orthostatic hypotension CURRENT MEDICATIONS: Include the followin. Senokot daily. 2. Albumin as needed with dialysis. 3. Magnesium hydroxide for constipation, which I will discontinue. 4. Lactulose p.r.n. constipation. 5. Dulcolax suppository p.r.n. 6. Eliquis 2.5 mg twice a day. 7. Aspirin 81 mg a day. 8. Carvedilol 3.125 twice a day. 9. Famotidine 20 mg at bedtime. 10. Tamsulosin 0.4 mg daily. 11. Sliding scale insulin. 12. Colace 100 mg twice a day. 13. PhosLo 1 tablet with each meal. 14. Amlodipine 2.5 mg twice a day. 15. Robitussin with codeine p.r.n. cough. 16. Tessalon Perles 100 mg 3 times a day p.r.n. cough. PHYSICAL EXAMINATION: GENERAL: At this time reveals an ill-appearing, frail man, in no apparent distress. VITAL SIGNS: Temperature 98, pulse is 79, respirations 17, blood pressure 138/64, O2 saturation 97% on room air. HEENT: Head normocephalic. Eyes: Extraocular muscles intact. NOSE AND MOUTH: Normal. NECK: Supple. No neck vein distention. LUNGS: Decreased breath sounds bilaterally but no rales or wheezes. HEART: Regular rhythm. No murmurs, gallops or rubs. ABDOMEN: Soft, nontender, no masses or megaly. EXTREMITIES: No peripheral edema. IMPRESSION: 1. End-stage renal disease on maintenance hemodialysis Thursday, , Thursday. Today being Sat urday, he has dialysis ordered and is about to start. He has a right upper arm AV fistula, which wor ks well. 2. Orthostatic hypotension. Must be careful with treating blood pressure as he does get dizzy and s ymptomatic with this. 3. Type 2 diabetes mellitus. 4. Congestive heart failure, which has improved. PLAN: 1. Hemodialysis today and then every Thursday, and Thursday. 2. Continue current medications. 3. I will follow the patient along with you. Dictated By: NATASHA SCHNEIDER MD ND/NTS Conf#: [id number] DID#: [id number] CC: HAI CHRISTIANSON MD; TOMMIE CARDENAS MD;*EndCC*
[2018-05-09] MEDS: ACCU-CHEK XX SCH (02:00)
[2018-05-09 02:39] VITALS: BP 117/56; PULSE 86; RESP 18
[2018-05-09 07:00] VITALS: BP 112/74; PULSE 92; RESP 18
[2018-05-09] MEDS: CALCIUM ACETATE 667 MG CAP PO SCH ×3 (08:04→17:36)
[2018-05-09] MEDS: INSULIN ASPART [NOVOLOG] 3 ML PEN SC SCH ×4 (08:07→21:00)
[2018-05-09] MEDS: AMLODIPINE 2.5 MG TAB PO SCH ×2 (09:00→21:10)
[2018-05-09] MEDS: DOCUSATE SODIUM 100 MG CAP PO SCH ×2 (09:12→21:00)
[2018-05-09] MEDS: ASPIRIN (EC) 81 MG TAB PO SCH (09:12)
[2018-05-09] MEDS: BENZONATATE 100 MG CAP PO SCH ×3 (09:12→21:01)
[2018-05-09] MEDS: TAMSULOSIN (SR) 0.4 MG CAP PO SCH (09:13)
[2018-05-09] MEDS: APIXABAN 5 MG TABLET PO SCH ×2 (09:13→21:01)
[2018-05-09 14:00] VITALS: BP 101/50; PULSE 85; RESP 18
[2018-05-09 15:00] VITALS: BP 101/50; PULSE 86; RESP 18
[2018-05-09] MEDS: ACETAMINOPHEN 325 MG TAB PO PRN ×2 (15:11→21:26)
--- NOTE | 2018-05-09 16:15 | CONS ---
Assessment/Plan Assessment/Plan Assessment/Plan (Daily) 1. cm/ htn/ chf/ pace maker 2. esrd--dialysis 3. dm 4. depression 5. worsening debility ---per cards ---per renal ---awaiting aru transfer to [facility] ---cont all supportive cares Consultation Date/Type/Reason Admit Date/Time May 07, 2018 at 22:39 Initial Consult Date Type of Consult int med Reason for Consultation multi medical problems care Date/Time of Note DATE: 05/08/18 TIME: 20:15 24 HR Interval Summary Free Text/Dictation cadiac vss, afebrile, just finished dialysis Exam/Review of Systems Exam Vitals Vital Signs Date Temp Pulse Resp B/P (MAP) Pulse Ox O2 O2 Flow FiO2 Time Delivery Rate 05/08/18 100.4 87 18 135/67 95 ra 16:03 Intake and Output 05/08/18 05/08/18 1414:59 22:59 IntakeIntake Total 600 ml OutputOutput Total 2700 ml BalanceBalance -2100 ml Exam in bed, speaks macedonian, thin, dark skin complex, rr, cta, no e Results Result Diagram: 05/08/18 0642 05/08/18 0642 Results 24hrs Laboratory Tests Test 05/08/18 20:48 05/09/18 07:38 05/09/18 11:49 Bedside Glucose 152 179 156 Medications Medication Current Medications Miscellaneous Information (Pending [facility] Order For Wound Care) This patient bray... PRN PRN XX WOUND CARE; Start 05/07/18 at 23:30 Apixaban (Eliquis) 2.5 mg BID PO Last administered on 05/09/18at 09:13; Admin Dose 2.5 MG; Start 05/07/18 at 23:18 Aspirin (Halfprin) 81 mg DAILY PO Last administered on 05/09/18 09:12; Admin Dose 81 MG; Start 05/07/18 at 23:18 Carvedilol (Coreg) 3.125 mg BID PO Last administered on 05/09/18at 09:13; Admin Dose 3.125 MG; Start 05/07/18 at 23:18 Famotidine (Pepcid) 20 mg HS PO Last administered on 05/08/18at 20:50; Admin Dose 20 MG; Start 05/07/18 at 23:18 Tamsulosin HCl (Flomax) 0.4 mg DAILY PO Last administered on 05/09/18 09:13; Admin Dose 0.4 MG; Start 05/07/18 at 23:18 Diagnostic Test (Pha) (Accu-Chek) 1 ea 02 XX ; Start 05/07/18 at 23:18 Insulin Aspart (Novolog Insulin Pen) NOVOLOG *MODERATE* ALGORITHM WITH MEALS BEDTIME SC Last administered on 05/09/18 12:18; Admin Dose 2 UNIT; Start 05/07/18 at 23:18 Miscellaneous Information 1 ea NOTE XX ; Start 05/07/18 at 23:18 Glucose (Glutose) 15 gm Q15M PRN PO DECREASED GLUCOSE; Start 05/07/18 at 23:18 Glucose (Glutose) 22.5 gm Q15M PRN PO DECREASED GLUCOSE; Start 05/07/18 at 23:18 Dextrose (D50w Syringe) 25 ml Q15M PRN IV DECREASED GLUCOSE; Start 05/07/18 at 23:18 Dextrose (D50w Syringe) 50 ml Q15M PRN IV DECREASED GLUCOSE; Start 05/07/18 at 23:18 Glucagon (Glucagen) 1 mg Q15M PRN IM DECREASED GLUCOSE; Start 05/07/18 at 23:18 Glucose (Glutose) 15 gm Q15M PRN BUCCAL DECREASED GLUCOSE; Start 05/07/18 at 23:18 Docusate Sodium (Colace) 100 mg BID PO Last administered on 05/09/18 09:12; Admin Dose 100 MG; Start 05/07/18 at 23:18 Calcium Acetate (Phoslo) 667 mg WITH MEALS PO Last administered on 05/09/18 12:13; Admin Dose 667 MG; Start 05/07/18 at 23:18 Amlodipine Besylate (Norvasc) 2.5 mg BID PO Last administered on 05/08/18 20:52; Admin Dose 2.5 MG; Start 05/07/18 at 23:18 Guaifenesin/ Codeine Phosphate (Robitussin Ac Liquid Cup) 5 ml Q6H PRN PO COUGH; Start 05/07/18 at 23:18 Benzonatate (Tessalon) 100 mg TID PO Last administered on 05/09/18 12:13; Admin Dose 100 MG; Start 05/07/18 at 23:18 Senna (Senokot) 1 tab HS PO ; Start 05/08/18 at 21:00 Lactulose (Enulose) 20 gm DAILY PRN PO CONSTIPATION; Start 05/08/18 at 01:30 Bisacodyl (Dulcolax Supp) 10 mg DAILY PRN [place] CONSTIPATION; Start 05/08/18 at 01:30 Albumin Human 100 ml @ 100 mls/hr WITH DIALYSIS PRN IV SBP <90 DURING DIALYSIS; Start 05/08/18 at 15:30 Sodium Chloride (NS) -To prime the dialy... DIRECTED FOR HD PRN IV HD; Start 05/08/18 at 15:30 Acetaminophen (Tylenol Tab) 650 mg Q6H PRN PO MILD PAIN(1-3)OR ELEVATED TEMP Last administered on 05/09/18at 15:11; Admin Dose 650 MG; Start 05/09/18 at 15:00 JUDY REEVES MD May 09, 2018 16:15
--- NOTE | 2018-05-09 16:16 | CONS ---
Assessment/Plan Assessment/Plan Assessment/Plan (Daily) 1. Fever ? origin 2. debility weakness worsening/ depression 3. esrd--dialysis 4. cm/ htn/ pace maker 5. dm ---colin culture, ---xr of chest/ pelvis/ hips ---per cards ---per renal ---cont all supportive cares ---tyl prn ---cooling measures ---shade room Consultation Date/Type/Reason Admit Date/Time May 07, 2018 at 22:39 Initial Consult Date 05/08/2018 Type of Consult int med Date/Time of Note DATE: 05/09/18 TIME: 16:16 24 HR Interval Summary Free Text/Dictation fever, c/o hip pain Exam/Review of Systems Exam Vitals Vital Signs Date Temp Pulse Resp B/P (MAP) Pulse Ox O2 O2 Flow FiO2 Time Delivery Rate 05/09/18 100.4 16:03 05/09/18 85 18 101/50 95 Room Air 14:00 (67) Intake and Output 05/08/18 05/08/18 05/09/18 1414:59 22:59 06:59 IntakeIntake Total 600 ml 200 ml OutputOutput Total 2700 ml BalanceBalance -2100 ml 200 ml Exam in bed, hot temp room, frowning, warm to touch, rr, cta, no edema, dark skin complex, thin Results Result Diagram: 05/08/18 0642 05/08/18 0642 Results 24hrs Laboratory Tests Test 05/08/18 20:48 05/09/18 07:38 05/09/18 11:49 Bedside Glucose 152 179 156 Medications Medication Current Medications Miscellaneous Information (Pending [facility] Order For Wound Care) This patient bray... PRN PRN XX WOUND CARE; Start 05/07/18 at 23:30 Apixaban (Eliquis) 2.5 mg BID PO Last administered on 05/09/18at 09:13; Admin Dose 2.5 MG; Start 05/07/18 at 23:18 Aspirin (Halfprin) 81 mg DAILY PO Last administered on 05/09/18at 09:12; Admin Dose 81 MG; Start 05/07/18 at 23:18 Carvedilol (Coreg) 3.125 mg BID PO Last administered on 05/09/18at 09:13; Admin Dose 3.125 MG; Start 05/07/18 at 23:18 Famotidine (Pepcid) 20 mg HS PO Last administered on 05/08/18at 20:50; Admin Dose 20 MG; Start 05/07/18 at 23:18 Tamsulosin HCl (Flomax) 0.4 mg DAILY PO Last administered on 05/09/18at 09:13; Admin Dose 0.4 MG; Start 05/07/18 at 23:18 Diagnostic Test (Pha) (Accu-Chek) 1 ea 02 XX ; Start 05/07/18 at 23:18 Insulin Aspart (Novolog Insulin Pen) NOVOLOG *MODERATE* ALGORITHM WITH MEALS BEDTIME SC Last administered on 05/09/18 12:18; Admin Dose 2 UNIT; Start 05/07/18 at 23:18 Miscellaneous Information 1 ea NOTE XX ; Start 05/07/18 at 23:18 Glucose (Glutose) 15 gm Q15M PRN PO DECREASED GLUCOSE; Start 05/07/18 at 23:18 Glucose (Glutose) 22.5 gm Q15M PRN PO DECREASED GLUCOSE; Start 05/07/18 at 23:18 Dextrose (D50w Syringe) 25 ml Q15M PRN IV DECREASED GLUCOSE; Start 05/07/18 at 23:18 Dextrose (D50w Syringe) 50 ml Q15M PRN IV DECREASED GLUCOSE; Start 05/07/18 at 23:18 Glucagon (Glucagen) 1 mg Q15M PRN IM DECREASED GLUCOSE; Start 05/07/18 at 23:18 Glucose (Glutose) 15 gm Q15M PRN BUCCAL DECREASED GLUCOSE; Start 05/07/18 at 23:18 Docusate Sodium (Colace) 100 mg BID PO Last administered on 05/09/18at 09:12; Admin Dose 100 MG; Start 05/07/18 at 23:18 Calcium Acetate (Phoslo) 667 mg WITH MEALS PO Last administered on 05/09/18at 12:13; Admin Dose 667 MG; Start 05/07/18 at 23:18 Amlodipine Besylate (Norvasc) 2.5 mg BID PO Last administered on 05/08/18at 20:52; Admin Dose 2.5 MG; Start 05/07/18 at 23:18 Guaifenesin/ Codeine Phosphate (Robitussin Ac Liquid Cup) 5 ml Q6H PRN PO COUGH; Start 05/07/18 at 23:18 Benzonatate (Tessalon) 100 mg TID PO Last administered on 05/09/18at 12:13; Admin Dose 100 MG; Start 05/07/18 at 23:18 Senna (Senokot) 1 tab HS PO ; Start 05/08/18 at 21:00 Lactulose (Enulose) 20 gm DAILY PRN PO CONSTIPATION; Start 05/08/18 at 01:30 Bisacodyl (Dulcolax Supp) 10 mg DAILY PRN [place] CONSTIPATION; Start 05/08/18 at 01:30 Albumin Human 100 ml @ 100 mls/hr WITH DIALYSIS PRN IV SBP <90 DURING DIALYSIS; Start 05/08/18 at 15:30 Sodium Chloride (NS) -To prime the dialy... DIRECTED FOR HD PRN IV HD; Start 05/08/18 at 15:30 Acetaminophen (Tylenol Tab) 650 mg Q6H PRN PO MILD PAIN(1-3)OR ELEVATED TEMP Last administered on 05/09/18at 15:11; Admin Dose 650 MG; Start 05/09/18 at 15:00 JUDY REEVES MD May 09, 2018 16:16
--- NOTE | 2018-05-09 18:39 | CONS ---
Assessment/Plan Assessment/Plan Hospital Course (Demo Recall) 1. End-stage renal disease on maintenance hemodialysis Thursday. He was last dialyzed yesterday. 2. Fever. He had a fever today of 102.1. He is not coughing and denies dysu [place]. Blood cultures have been done and he had a urinalysis done yesterday and a urine culture. The urine culture has no growth thus far . Chest x-ray has been ordered. 3. CHF 4. Hypertension 5. Type 2 diabetes mellitus 6. Right hip pain Consultation Date/Type/Reason Admit Date/Time May 07, 2018 at 22:39 Initial Consult Date Type of Consult Nephrology Date/Time of Note DATE: 05/09/18 TIME: 18:33 24 HR Interval Summary Free Text/Dictation This patient is being seen in nephrologic follow-up. He is awake and alert. He had a fever earlier of 102.1. He is lethargic but does arouse easily to verbal stimuli. He is not coughing now. He has no other complaints other than some right hip joint pain. Constitutional: febrile Exam/Review of Systems Exam Vitals Vital Signs Date Temp Pulse Resp B/P (MAP) Pulse Ox O2 O2 Flow FiO2 Time Delivery Rate 05/09/18 100.4 16:03 05/09/18 85 18 101/50 95 Room Air 14:00 (67) Intake and Output 05/08/18 05/08/18 05/09/18 1515:00 23:00 07:00 IntakeIntake Total 600 ml 200 ml OutputOutput Total 2700 ml BalanceBalance -2100 ml 200 ml Constitutional: alert, oriented, frail Respiratory: clear to auscultation, diminished breath sounds Cardiovascular: regular rate and rhythm Gastrointestinal: soft, non-tender Musculoskeletal: nl extremities to inspection Results Result Diagram: 05/09/18 1710 05/09/18 1710 Results 24hrs Laboratory Tests Test 05/08/18 20:48 05/09/18 07:38 05/09/18 11:49 05/09/18 17:10 Bedside Glucose 152 179 156 White Blood Count 6.4 Red Blood Count 3.77 L Hemoglobin 11.3 L Hematocrit 34.4 L Mean Corpuscular 91.2 Volume Mean Corpuscular 30.0 Hemoglobin Mean Corpuscular 32.8 Hemoglobin Concent Red Cell 15.3 H Distribution Width Platelet Count 282 Mean Platelet Volume 10.1 Immature 0.500 H Granulocytes % Neutrophils % Segmented 60 Neutrophils % (Manual) Band Neutrophils % 1 (Manual) Lymphocytes % Lymphocytes % 15 (Manual) Reactive Lymphocytes 4 H % (Manual) Monocytes % Monocytes % (Manual) 15 H Eosinophils % Eosinophils % 4 (Manual) Basophils % Basophils % (Manual) 1 Nucleated Red Blood 0.0 Cells % Immature 0.030 Granulocytes # Neutrophils # Neutrophils # 3.8 (Manual) Band Neutrophils # 0.0 Lymphocytes (Manual) 0.9 Lymphocytes # Reactive Lymphocytes 0.2 H # Monocytes # Monocytes # (Manual) 0.9 Eosinophils # Basophils # Basophils # (Manual) 0.0 Nucleated Red Blood Cells # Platelet Estimate NORMAL Giant Platelets 12 H Poikilocytosis 1+ Ovalocytes 1+ Sodium Level 137 Potassium Level 3.9 Chloride Level 98 Carbon Dioxide Level 27 Anion Gap 12 Blood Urea Nitrogen 48 #H Creatinine 6.87 H Est Glomerular Filtrat Rate mL/min Glucose Level 266 #H Calcium Level 9.1 Test 05/09/18 17:26 Bedside Glucose 242 H Medications Medication Current Medications Miscellaneous Information [facility] This patient bray... PRN PRN XX WOUND CARE; Start 05/07/18 at 23:30 Apixaban (Eliquis) 2.5 mg BID PO Last administered on 05/09/18 09:13; Admin Dose 2.5 MG; Start 05/07/18 at 23:18 Aspirin (Halfprin) 81 mg DAILY PO Last administered on 05/09/18 09:12; Admin Dose 81 MG; Start 05/07/18 at 23:18 Carvedilol (Coreg) 3.125 mg BID PO Last administered on 05/09/18 09:13; Admin Dose 3.125 MG; Start 05/07/18 at 23:18 Famotidine (Pepcid) 20 mg HS PO Last administered on 05/08/18at 20:50; Admin Dose 20 MG; Start 05/07/18 at 23:18 Tamsulosin HCl (Flomax) 0.4 mg DAILY PO Last administered on 05/09/18 09:13; Admin Dose 0.4 MG; Start 05/07/18 at 23:18 Diagnostic Test (Pha) (Accu-Chek) 1 ea 02 XX ; Start 05/07/18 at 23:18 Insulin Aspart (Novolog Insulin Pen) NOVOLOG *MODERATE* ALGORITHM WITH MEALS BEDTIME SC Last administered on 05/09/18at 17:39; Admin Dose 6 UNIT; Start 05/07/18 at 23:18 Miscellaneous Information 1 ea NOTE XX ; Start 05/07/18 at 23:18 Glucose (Glutose) 15 gm Q15M PRN PO DECREASED GLUCOSE; Start 05/07/18 at 23:18 Glucose (Glutose) 22.5 gm Q15M PRN PO DECREASED GLUCOSE; Start 05/07/18 at 23:18 Dextrose (D50w Syringe) 25 ml Q15M PRN IV DECREASED GLUCOSE; Start 05/07/18 at 23:18 Dextrose (D50w Syringe) 50 ml Q15M PRN IV DECREASED GLUCOSE; Start 05/07/18 at 23:18 Glucagon (Glucagen) 1 mg Q15M PRN IM DECREASED GLUCOSE; Start 05/07/18 at 23:18 Glucose (Glutose) 15 gm Q15M PRN BUCCAL DECREASED GLUCOSE; Start 05/07/18 at 23:18 Docusate Sodium (Colace) 100 mg BID PO Last administered on 05/09/18at 09:12; Admin Dose 100 MG; Start 05/07/18 at 23:18 Calcium Acetate (Phoslo) 667 mg WITH MEALS PO Last administered on 05/09/18at 17:36; Admin Dose 667 MG; Start 05/07/18 at 23:18 Amlodipine Besylate (Norvasc) 2.5 mg BID PO Last administered on 05/08/18at 20:52; Admin Dose 2.5 MG; Start 05/07/18 at 23:18 Guaifenesin/ Codeine Phosphate (Robitussin Ac Liquid Cup) 5 ml Q6H PRN PO COUGH; Start 05/07/18 at 23:18 Benzonatate (Tessalon) 100 mg TID PO Last administered on 05/09/18at 12:13; Admin Dose 100 MG; Start 05/07/18 at 23:18 Senna (Senokot) 1 tab HS PO ; Start 05/08/18 at 21:00 Lactulose (Enulose) 20 gm DAILY PRN PO CONSTIPATION; Start 05/08/18 at 01:30 Bisacodyl (Dulcolax Supp) 10 mg DAILY PRN [place] CONSTIPATION; Start 05/08/18 at 01:30 Albumin Human 100 ml @ 100 mls/hr WITH DIALYSIS PRN IV SBP <90 DURING DIALYSIS; Start 05/08/18 at 15:30 Sodium Chloride (NS) -To prime the dialy... DIRECTED FOR HD PRN IV HD; Start 05/08/18 at 15:30 Acetaminophen (Tylenol Tab) 650 mg Q6H PRN PO MILD PAIN(1-3)OR ELEVATED TEMP Last administered on 05/09/18at 15:11; Admin Dose 650 MG; Start 05/09/18 at 15:00 NATASHA SCHNEIDER MD May 09, 2018 18:39
[2018-05-09 20:00] VITALS: BP 107/51; PULSE 75; RESP 18
[2018-05-09] MEDS: SENNA TAB PO SCH (21:00)
[2018-05-09] MEDS: FAMOTIDINE 20 MG TAB PO SCH (21:02)
[2018-05-09 21:10] VITALS: BP 133/88; PULSE 76
[2018-05-10 02:00] VITALS: BP 123/56; PULSE 74; RESP 18
[2018-05-10] MEDS: ACCU-CHEK XX SCH ×2 (02:00→21:49)
[2018-05-10 07:00] VITALS: BP 117/55; PULSE 77; RESP 18
[2018-05-10] MEDS: ACETAMINOPHEN 325 MG TAB PO PRN (07:52)
[2018-05-10] MEDS: CALCIUM ACETATE 667 MG CAP PO SCH ×3 (07:59→17:33)
[2018-05-10] MEDS: INSULIN ASPART [NOVOLOG] 3 ML PEN SC SCH ×4 (08:03→20:37)
--- NOTE | 2018-05-10 08:33 | CONS ---
Assessment/Plan Assessment/Plan Hospital Course (Demo Recall) 1. End-stage renal disease on maintenance hemodialysis Thursday. He is due for hemodialysis tomorrow which has been ordered. 2. Fever. He had a fever yesterday of 102.1. He is not coughing and denies dysuria. Blood cultures have been done and he had a urinalysis done 2 days ago and a urine culture. The urine culture has no growth thus far . Chest x-ray does not show a new infiltrate. 3. CHF 4. Hypertension 5. Type 2 diabetes mellitus 6. Right hip pain Consultation Date/Type/Reason Admit Date/Time May 07, 2018 at 22:39 Initial Consult Date Type of Consult Nephrology Date/Time of Note DATE: 05/10/18 TIME: 08:29 24 HR Interval Summary Free Text/Dictation This patient is being seen in nephrologic follow-up. He is sitting up eating breakfast. He has not had a fever since yesterday afternoon when he had a temperature of 102.1. He continues to have some right hip pain. Constitutional: no complaints, improved Exam/Review of Systems Exam Vitals Vital Signs Date Temp Pulse Resp B/P (MAP) Pulse Ox O2 O2 Flow FiO2 Time Delivery Rate 05/10/18 98.8 74 18 123/56 97 Room Air 02:00 (78) Intake and Output 05/09/18 05/09/18 05/10/18 1515:00 23:00 07:00 IntakeIntake Total 800 ml 200 ml OutputOutput Total 200 ml 400 ml BalanceBalance 600 ml -200 ml Constitutional: alert, oriented, frail Respiratory: clear to auscultation, diminished breath sounds Cardiovascular: regular rate and rhythm Gastrointestinal: soft, non-tender Musculoskeletal: nl extremities to inspection Results Result Diagram: 05/09/18 1710 05/09/18 1710 Results 24hrs Laboratory Tests Test 05/09/18 11:49 05/09/18 17:10 05/09/18 17:26 05/09/18 21:01 Bedside Glucose 156 242 H 137 White Blood Count 6.4 Red Blood Count 3.77 L Hemoglobin 11.3 L Hematocrit 34.4 L Mean Corpuscular 91.2 Volume Mean Corpuscular 30.0 Hemoglobin Mean Corpuscular 32.8 Hemoglobin Concent Red Cell 15.3 H Distribution Width Platelet Count 282 Mean Platelet Volume 10.1 Immature 0.500 H Granulocytes % Neutrophils % Segmented 60 Neutrophils % (Manual) Band Neutrophils % 1 (Manual) Lymphocytes % Lymphocytes % 15 (Manual) Reactive Lymphocytes 4 H % (Manual) Monocytes % Monocytes % (Manual) 15 H Eosinophils % Eosinophils % 4 (Manual) Basophils % Basophils % (Manual) 1 Nucleated Red Blood 0.0 Cells % Immature 0.030 Granulocytes # Neutrophils # Neutrophils # 3.8 (Manual) Band Neutrophils # 0.0 Lymphocytes (Manual) 0.9 Lymphocytes # Reactive Lymphocytes 0.2 H # Monocytes # Monocytes # (Manual) 0.9 Eosinophils # Basophils # Basophils # (Manual) 0.0 Nucleated Red Blood Cells # Platelet Estimate NORMAL Giant Platelets 12 H Poikilocytosis 1+ Ovalocytes 1+ Sodium Level 137 Potassium Level 3.9 Chloride Level 98 Carbon Dioxide Level 27 Anion Gap 12 Blood Urea Nitrogen 48 #H Creatinine 6.87 H Est Glomerular Filtrat Rate mL/min Glucose Level 266 #H Calcium Level 9.1 Test 05/10/18 07:57 Bedside Glucose 141 Medications Medication Current Medications Miscellaneous Information [facility] This patient bray... PRN PRN XX WOUND CARE; Start 05/07/18 at 23:30 Apixaban (Eliquis) 2.5 mg BID PO Last administered on 05/09/18 21:01; Admin Dose 2.5 MG; Start 05/07/18 at 23:18 Aspirin (Halfprin) 81 mg DAILY PO Last administered on 05/09/18 09:12; Admin Dose 81 MG; Start 05/07/18 at 23:18 Carvedilol (Coreg) 3.125 mg BID PO Last administered on 05/09/18 21:10; Admin Dose 3.125 MG; Start 05/07/18 at 23:18 Famotidine (Pepcid) 20 mg HS PO Last administered on 05/09/18 21:02; Admin Dose 20 MG; Start 05/07/18 at 23:18 Tamsulosin HCl (Flomax) 0.4 mg DAILY PO Last administered on 05/09/18 09:13; Admin Dose 0.4 MG; Start 05/07/18 at 23:18 Diagnostic Test (Pha) (Accu-Chek) 1 ea 02 XX ; Start 05/07/18 at 23:18 Insulin Aspart (Novolog Insulin Pen) NOVOLOG *MODERATE* ALGORITHM WITH MEALS BEDTIME SC Last administered on 05/10/18at 08:03; Admin Dose 2 UNIT; Start 05/07/18 at 23:18 Miscellaneous Information 1 ea NOTE XX ; Start 05/07/18 at 23:18 Glucose (Glutose) 15 gm Q15M PRN PO DECREASED GLUCOSE; Start 05/07/18 at 23:18 Glucose (Glutose) 22.5 gm Q15M PRN PO DECREASED GLUCOSE; Start 05/07/18 at 23:18 Dextrose (D50w Syringe) 25 ml Q15M PRN IV DECREASED GLUCOSE; Start 05/07/18 at 23:18 Dextrose (D50w Syringe) 50 ml Q15M PRN IV DECREASED GLUCOSE; Start 05/07/18 at 23:18 Glucagon (Glucagen) 1 mg Q15M PRN IM DECREASED GLUCOSE; Start 05/07/18 at 23:18 Glucose (Glutose) 15 gm Q15M PRN BUCCAL DECREASED GLUCOSE; Start 05/07/18 at 23:18 Docusate Sodium (Colace) 100 mg BID PO Last administered on 05/09/18at 09:12; A dmin Dose 100 MG; Start 05/07/18 at 23:18 Calcium Acetate (Phoslo) 667 mg WITH MEALS PO Last administered on 05/10/18at 07:59; Admin Dose 667 MG; Start 05/07/18 at 23:18 Amlodipine Besylate (Norvasc) 2.5 mg BID PO Last administered on 05/09/18at 21:10; Admin Dose 2.5 MG; Start 05/07/18 at 23:18 Guaifenesin/ Codeine Phosphate (Robitussin Ac Liquid Cup) 5 ml Q6H PRN PO COUGH; Start 05/07/18 at 23:18 Benzonatate (Tessalon) 100 mg TID PO Last administered on 05/09/18at 21:01; Admin Dose 100 MG; Start 05/07/18 at 23:18 Senna (Senokot) 1 tab HS PO ; Start 05/08/18 at 21:00 Lactulose (Enulose) 20 gm DAILY PRN PO CONSTIPATION; Start 05/08/18 at 01:30 Bisacodyl (Dulcolax Supp) 10 mg DAILY PRN [place] CONSTIPATION; Start 05/08/18 at 01:30 Albumin Human 100 ml @ 100 mls/hr WITH DIALYSIS PRN IV SBP <90 DURING DIALYSIS; Start 05/08/18 at 15:30 Sodium Chloride (NS) -To prime the dialy... DIRECTED FOR HD PRN IV HD; Start 05/08/18 at 15:30 Acetaminophen (Tylenol Tab) 650 mg Q6H PRN PO MILD PAIN(1-3)OR ELEVATED TEMP Last administered on 05/10/18at 07:52; Admin Dose 650 MG; Start 05/09/18 at 15:00 NATASHA SCHNEIDER MD May 10, 2018 08:33
[2018-05-10] MEDS: AMLODIPINE 2.5 MG TAB PO SCH ×2 (09:00→20:26)
[2018-05-10] MEDS: APIXABAN 5 MG TABLET PO SCH ×2 (09:25→20:25)
[2018-05-10] MEDS: TAMSULOSIN (SR) 0.4 MG CAP PO SCH (09:26)
[2018-05-10] MEDS: ASPIRIN (EC) 81 MG TAB PO SCH (09:26)
[2018-05-10] MEDS: DOCUSATE SODIUM 100 MG CAP PO SCH (09:26)
[2018-05-10] MEDS: BENZONATATE 100 MG CAP PO SCH ×2 (09:26→12:32)
--- NOTE | 2018-05-10 12:50 | PN ---
Date/Time of Note Date/Time of Note DATE: 05/10/18 TIME: 12:48 Objective Vital Signs Date Temp Pulse Resp B/P (MAP) Pulse Ox O2 O2 Flow FiO2 Time Delivery Rate 05/10/18 98.2 77 18 117/55 98 Room Air 07:00 (75) Intake and Output 05/09/18 05/09/18 05/10/18 1515:00 23:00 07:00 IntakeIntake Total 800 ml 200 ml OutputOutput Total 200 ml 400 ml BalanceBalance 600 ml -200 ml Exam INTERDISCIPLINARY TEAM CONFERENCE Physical Exam: Pulm- cta Abd-soft BOWEL- Cont BLADDER- ESRD- HD SKIN- stage II improving OT- DRESSING- mod/max BATHING-mod/max TOILETING-max PT- BED MOBILITY-max TRANSFERS-max AMBULATION-max 25 feet A/P- Interdisciplinary team conference held today. Please see interdisciplinary sheet. Working toward d.c. on 05/24 with post discharge follow up of physical therapy, occupational therapy. Results/Medications Result Diagram: 05/09/18 1710 05/09/18 1710 Results 24 hrs Laboratory Tests Test 05/09/18 17:10 05/09/18 17:26 05/09/18 21:01 05/10/18 07:57 White Blood Count 6.4 Red Blood Count 3.77 L Hemoglobin 11.3 L Hematocrit 34.4 L Mean Corpuscular 91.2 Volume Mean Corpuscular 30.0 Hemoglobin Mean Corpuscular 32.8 Hemoglobin Concent Red Cell Distribution 15.3 H Width Platelet Count 282 Mean Platelet Volume 10.1 Immature Granulocytes 0.500 H % Neutrophils % Segmented Neutrophils 60 % (Manual) Band Neutrophils % 1 (Manual) Lymphocytes % Lymphocytes % 15 (Manual) Reactive Lymphocytes 4 H % (Manual) Monocytes % Monocytes % (Manual) 15 H Eosinophils % Eosinophils % 4 (Manual) Basophils % Basophils % (Manual) 1 Nucleated Red Blood 0.0 Cells % Immature Granulocytes 0.030 # Neutrophils # Neutrophils # 3.8 (Manual) Band Neutrophils # 0.0 Lymphocytes (Manual) 0.9 Lymphocytes # Reactive Lymphocytes 0.2 H # Monocytes # Monocytes # (Manual) 0.9 Eosinophils # Basophils # Basophils # (Manual) 0.0 Nucleated Red Blood Cells # Platelet Estimate NORMAL Giant Platelets 12 H Poikilocytosis 1+ Ovalocytes 1+ Sodium Level 137 Potassium Level 3.9 Chloride Level 98 Carbon Dioxide Level 27 Anion Gap 12 Blood Urea Nitrogen 48 #H Creatinine 6.87 H Est Glomerular Filtrat Rate mL/min Glucose Level 266 #H Calcium Level 9.1 Bedside Glucose 242 H 137 141 Test 05/10/18 11:51 Bedside Glucose 166 Medications Current Medications Miscellaneous Information (Pending [facility] Order For Wound Care) This patient bray... PRN PRN XX WOUND CARE; Start 05/07/18 at 23:30 Apixaban (Eliquis) 2.5 mg BID PO Last administered on 05/10/18 09:25; Admin Dose 2.5 MG; Start 05/07/18 at 23:18 Aspirin (Halfprin) 81 mg DAILY PO Last administered on 05/10/18 09:26; Admin Dose 81 MG; Start 05/07/18 at 23:18 Carvedilol (Coreg) 3.125 mg BID PO Last administered on 05/10/18 09:26; Admin Dose 3.125 MG; Start 05/07/18 at 23:18 Famotidine (Pepcid) 20 mg HS PO Last administered on 05/09/18at 21:02; Admin Dose 20 MG; Start 05/07/18 at 23:18 Tamsulosin HCl (Flomax) 0.4 mg DAILY PO Last administered on 05/10/18 09:26; Admin Dose 0.4 MG; Start 05/07/18 at 23:18 Diagnostic Test (Pha) (Accu-Chek) 1 ea 02 XX ; Start 05/07/18 at 23:18 Insulin Aspart (Novolog Insulin Pen) NOVOLOG *MODERATE* ALGORITHM WITH MEALS BEDTIME SC Last administered on 05/10/18at 11:53; Admin Dose 2 UNIT; Start 05/07/18 at 23:18 Miscellaneous Information 1 ea NOTE XX ; Start 05/07/18 at 23:18 Glucose (Glutose) 15 gm Q15M PRN PO DECREASED GLUCOSE; Start 05/07/18 at 23:18 Glucose (Glutose) 22.5 gm Q15M PRN PO DECREASED GLUCOSE; Start 05/07/18 at 23:18 Dextrose (D50w Syringe) 25 ml Q15M PRN IV DECREASED GLUCOSE; Start 05/07/18 at 23:18 Dextrose (D50w Syringe) 50 ml Q15M PRN IV DECREASED GLUCOSE; Start 05/07/18 at 23:18 Glucagon (Glucagen) 1 mg Q15M PRN IM DECREASED GLUCOSE; Start 05/07/18 at 23:18 Glucose (Glutose) 15 gm Q15M PRN BUCCAL DECREASED GLUCOSE; Start 05/07/18 at 23:18 Docusate Sodium (Colace) 100 mg BID PO Last administered on 05/10/18at 09:26; Admin Dose 100 MG; Start 05/07/18 at 23:18 Calcium Acetate (Phoslo) 667 mg WITH MEALS PO Last administered on 05/10/18at 12:31; Admin Dose 667 MG; Start 05/07/18 at 23:18 Amlodipine Besylate (Norvasc) 2.5 mg BID PO Last administered on 05/09/18at 21:10; Admin Dose 2.5 MG; Start 05/07/18 at 23:18 Guaifenesin/ Codeine Phosphate (Robitussin Ac Liquid Cup) 5 ml Q6H PRN PO COUGH; Start 05/07/18 at 23:18 Benzonatate (Tessalon) 100 mg TID PO Last administered on 05/10/18at 12:32; Admin Dose 100 MG; Start 05/07/18 at 23:18 Senna (Senokot) 1 tab HS PO ; Start 05/08/18 at 21:00 Lactulose (Enulose) 20 gm DAILY PRN PO CONSTIPATION; Start 05/08/18 at 01:30 Bisacodyl (Dulcolax Supp) 10 mg DAILY PRN [place] CONSTIPATION; Start 05/08/18 at 01:30 Albumin Human 100 ml @ 100 mls/hr WITH DIALYSIS PRN IV SBP <90 DURING DIALYSIS; Start 05/08/18 at 15:30 Sodium Chloride (NS) -To prime the dialy... DIRECTED FOR HD PRN IV HD; Start 05/08/18 at 15:30 Acetaminophen (Tylenol Tab) 650 mg Q6H PRN PO MILD PAIN(1-3)OR ELEVATED TEMP Last administered on 05/10/18at 07:52; Admin Dose 650 MG; Start 05/09/18 at 15:00 TOMMIE CARDENAS MD May 10, 2018 12:50
--- NOTE | 2018-05-10 13:20 | CONS ---
Consult Date/Type/Reason Admit Date/Time May 07, 2018 at 22:39 Initial Consult Date 05/08/2018 Reason for Consultation multi med probs Date/Time of Note DATE: 05/10/18 TIME: 13:20 Subjective no more fever, depressed Objective Vitals Vital Signs Date Temp Pulse Resp B/P (MAP) Pulse Ox O2 O2 Flow FiO2 Time Delivery Rate 05/10/18 98.2 77 18 117/55 98 Room Air 07:00 (75) Intake and Output 05/09/18 05/09/18 05/10/18 1515:00 23:00 07:00 IntakeIntake Total 800 ml 200 ml OutputOutput Total 200 ml 400 ml BalanceBalance 600 ml -200 ml Exam in bed, dark skin complex, thin, rr, cta, no e Results/Medications Result Diagram: 05/09/18 1710 05/09/18 1710 Results 24 hrs Laboratory Tests Test 05/09/18 17:10 05/09/18 17:26 05/09/18 21:01 05/10/18 07:57 White Blood Count 6.4 Red Blood Count 3.77 L Hemoglobin 11.3 L Hematocrit 34.4 L Mean Corpuscular 91.2 Volume Mean Corpuscular 30.0 Hemoglobin Mean Corpuscular 32.8 Hemoglobin Concent Red Cell Distribution 15.3 H Width Platelet Count 282 Mean Platelet Volume 10.1 Immature Granulocytes 0.500 H % Neutrophils % Segmented Neutrophils 60 % (Manual) Band Neutrophils % 1 (Manual) Lymphocytes % Lymphocytes % 15 (Manual) Reactive Lymphocytes 4 H % (Manual) Monocytes % Monocytes % (Manual) 15 H Eosinophils % Eosinophils % 4 (Manual) Basophils % Basophils % (Manual) 1 Nucleated Red Blood 0.0 Cells % Immature Granulocytes 0.030 # Neutrophils # Neutrophils # 3.8 (Manual) Band Neutrophils # 0.0 Lymphocytes (Manual) 0.9 Lymphocytes # Reactive Lymphocytes 0.2 H # Monocytes # Monocytes # (Manual) 0.9 Eosinophils # Basophils # Basophils # (Manual) 0.0 Nucleated Red Blood Cells # Platelet Estimate NORMAL Giant Platelets 12 H Poikilocytosis 1+ Ovalocytes 1+ Sodium Level 137 Potassium Level 3.9 Chloride Level 98 Carbon Dioxide Level 27 Anion Gap 12 Blood Urea Nitrogen 48 #H Creatinine 6.87 H Est Glomerular Filtrat Rate mL/min Glucose Level 266 #H Calcium Level 9.1 Bedside Glucose 242 H 137 141 Test 4/1/19 11:51 Bedside Glucose 166 Home Meds Reported Medications Insulin Glargine,Hum.rec.anlog (Basaglar Indiraikpen U-100) 100 Unit/1 Ml Insuln.pen, 0 SC QHS, EA SLIDING SCALE 04/25/18 Furosemide* (Furosemide*) 40 Mg Tablet, 40 MG PO BID, TAB 04/25/18 Tamsulosin Hcl* (Tamsulosin Hcl*) 0.4 Mg Cap.er.24h, 0.4 MG PO DAILY, CAP 04/25/18 Famotidine* (Famotidine*) 20 Mg Tablet, 20 MG PO BID, #60 TAB 04/25/18 Aspirin (Low Dose Aspirin) 81 Mg Tablet.dr, 81 MG PO DAILY, #30 TAB 04/25/18 Carvedilol* (Carvedilol*) 3.125 Mg Tablet, 3.125 MG PO BID, #60 TAB 04/25/18 Apixaban* (Eliquis*) 2.5 Mg Tablet, 2.5 MG PO BID, TAB 04/25/18 Medications Current Medications Miscellaneous Information (Pending [facility] Order For Wound Care) This patient bray... PRN PRN XX WOUND CARE; Start 05/07/18 at 23:30 Apixaban (Eliquis) 2.5 mg BID PO Last administered on 05/10/18at 09:25; Admin Dose 2.5 MG; Start 05/07/18 at 23:18 Aspirin (Halfprin) 81 mg DAILY PO Last administered on 05/10/18 09:26; Admin Dose 81 MG; Start 05/07/18 at 23:18 Carvedilol (Coreg) 3.125 mg BID PO Last administered on 05/10/18 09:26; Admin Dose 3.125 MG; Start 05/07/18 at 23:18 Famotidine (Pepcid) 20 mg HS PO Last administered on 05/09/18at 21:02; Admin Dose 20 MG; Start 05/07/18 at 23:18 Tamsulosin HCl (Flomax) 0.4 mg DAILY PO Last administered on 05/10/18 09:26; Admin Dose 0.4 MG; Start 05/07/18 at 23:18 Diagnostic Test (Pha) (Accu-Chek) 1 ea 02 XX ; Start 05/07/18 at 23:18 Insulin Aspart (Novolog Insulin Pen) NOVOLOG *MODERATE* ALGORITHM WITH MEALS BEDTIME SC Last administered on 05/10/18at 11:53; Admin Dose 2 UNIT; Start 05/07/18 at 23:18 Miscellaneous Information 1 ea NOTE XX ; Start 05/07/18 at 23:18 Glucose (Glutose) 15 gm Q15M PRN PO DECREASED GLUCOSE; Start 05/07/18 at 23:18 Glucose (Glutose) 22.5 gm Q15M PRN PO DECREASED GLUCOSE; Start 05/07/18 at 23:18 Dextrose (D50w Syringe) 25 ml Q15M PRN IV DECREASED GLUCOSE; Start 05/07/18 at 23:18 Dextrose (D50w Syringe) 50 ml Q15M PRN IV DECREASED GLUCOSE; Start 05/07/18 at 23:18 Glucagon (Glucagen) 1 mg Q15M PRN IM DECREASED GLUCOSE; Start 05/07/18 at 23:18 Glucose (Glutose) 15 gm Q15M PRN BUCCAL DECREASED GLUCOSE; Start 05/07/18 at 23:18 Docusate Sodium (Colace) 100 mg BID PO Last administered on 05/10/18at 09:26; Admin Dose 100 MG; Start 05/07/18 at 23:18 Calcium Acetate (Phoslo) 667 mg WITH MEALS PO Last administered on 05/10/18at 12:31; Admin Dose 667 MG; Start 05/07/18 at 23:18 Amlodipine Besylate (Norvasc) 2.5 mg BID PO Last administered on 05/09/18at 21:10; Admin Dose 2.5 MG; Start 05/07/18 at 23:18 Guaifenesin/ Codeine Phosphate (Robitussin Ac Liquid Cup) 5 ml Q6H PRN PO COUGH; Start 05/07/18 at 23:18 Benzonatate (Tessalon) 100 mg TID PO Last administered on 05/10/18at 12:32; Admin Dose 100 MG; Start 05/07/18 at 23:18 Senna (Senokot) 1 tab HS PO ; Start 05/08/18 at 21:00 Lactulose (Enulose) 20 gm DAILY PRN PO CONSTIPATION; Start 05/08/18 at 01:30 Bisacodyl (Dulcolax Supp) 10 mg DAILY PRN [place] CONSTIPATION; Start 05/08/18 at 01:30 Albumin Human 100 ml @ 100 mls/hr WITH DIALYSIS PRN IV SBP <90 DURING DIALYSIS; Start 05/08/18 at 15:30 Sodium Chloride (NS) -To prime the dialy... DIRECTED FOR HD PRN IV HD; Start 05/08/18 at 15:30 Acetaminophen (Tylenol Tab) 650 mg Q6H PRN PO MILD PAIN(1-3)OR ELEVATED TEMP Last administered on 05/10/18at 07:52; Admin Dose 650 MG; Start 05/09/18 at 15:00 Assessment/Plan Assessment/Plan (Daily) 1. s/p fever ? origin--most like due to hot room temp? 2. hip pain? 3. esrd--dialysis 4. cm/ htn/ pvd 5. dm 6. debility ---per rehab ---per renal ---readjusting pain med, dilaudid prn trial ---oob & do all ot/pt exercises JUDY REEVES MD May 10, 2018 13:20
[2018-05-10 14:00] VITALS: BP 137/64; PULSE 79; RESP 18
[2018-05-10] MEDS ORDERED: HYDROmorphONE 4 MG TAB PO PRN (14:30)
[2018-05-10 20:00] VITALS: BP 174/72; PULSE 72; RESP 18
[2018-05-10] MEDS: FAMOTIDINE 20 MG TAB PO SCH (20:25)
[2018-05-10] MEDS: SENNA TAB PO SCH (20:26)
[2018-05-10 23:00] VITALS: BP 159/68; PULSE 74
[2018-05-11] VITALS (17 sets, daily range): BP systolic 100–174; BP diastolic 43–71; PULSE 74–76; RESP 18
[2018-05-11] MEDS: INSULIN ASPART [NOVOLOG] 3 ML PEN SC SCH ×4 (08:08→22:00)
[2018-05-11] MEDS: CALCIUM ACETATE 667 MG CAP PO SCH ×3 (08:09→17:30)
[2018-05-11] MEDS: TAMSULOSIN (SR) 0.4 MG CAP PO SCH (08:23)
[2018-05-11] MEDS: ASPIRIN (EC) 81 MG TAB PO SCH (08:23)
[2018-05-11] MEDS: AMLODIPINE 2.5 MG TAB PO SCH ×2 (08:23→22:09)
[2018-05-11] MEDS: APIXABAN 5 MG TABLET PO SCH ×2 (08:24→22:08)
--- NOTE | 2018-05-11 08:43 | CONS ---
Assessment/Plan Assessment/Plan Hospital Course (Demo Recall) 1. End-stage renal disease on maintenance hemodialysis Thursday. He he has dialysis scheduled for today. 2. Fever. He had a fever 2 days ago of 102.1. He is not coughing and denies dysuria. Urine and blood cultures are no growth thus far.. Chest x-ray does not show a new infiltrate. 3. CHF, compensated 4. Hypertension, controlled 5. Type 2 diabetes mellitus 6. Right hip pain, has resolved 7. He is now on the acute rehab floor and is participating in rehab. Consultation Date/Type/Reason Admit Date/Time May 07, 2018 at 22:39 Initial Consult Date Type of Consult Nephrology Date/Time of Note DATE: 05/11/18 TIME: 08:39 24 HR Interval Summary Free Text/Dictation Patient is being seen in nephrologic follow-up. Patient is awake and alert. His daughter and grandson are in the room with him. He has no new complaints. Constitutional: no complaints, improved Exam/Review of Systems Exam Vitals Vital Signs Date Temp Pulse Resp B/P (MAP) Pulse Ox O2 O2 Flow FiO2 Time Delivery Rate 05/11/18 98.0 74 18 107/51 94 Room Air 02:29 (69) Intake and Output 05/10/18 05/10/18 05/11/18 1515:00 23:00 07:00 IntakeIntake Total 1000 ml BalanceBalance 1000 ml Constitutional: alert, oriented, frail Respiratory: clear to auscultation, normal air movement Cardiovascular: regular rate and rhythm Gastrointestinal: soft, non-tender Musculoskeletal: nl extremities to inspection Results Result Diagram: 05/09/18 1710 05/09/18 1710 Results 24hrs Laboratory Tests Test 05/10/18 11:51 05/10/18 17:30 05/10/18 18:00 05/10/18 20:24 Bedside Glucose 166 240 H 150 Urine Color YELLOW Urine Clarity SLIGHTLY CLOUDY A Urine pH 5.0 Urine Specific 1.016 [place] Urine Ketones NEGATIVE Urine Nitrite NEGATIVE Urine Bilirubin NEGATIVE Urine Urobilinogen NEGATIVE Urine Leukocyte NEGATIVE Esterase Urine Microscopic 2 RBC Urine Microscopic 3 WBC Urine Bacteria FEW A Urine Mucus FEW A Urine Hemoglobin 1+ H Urine Glucose 1+ H Urine Total 3+ H Protein Test 05/11/18 08:06 Bedside Glucose 147 Medications Medication Current Medications Miscellaneous Information (Pending [facility] Order For Wound Care) This patient bray... PRN PRN XX WOUND CARE; Start 05/07/18 at 23:30 Apixaban (Eliquis) 2.5 mg BID PO Last administered on 05/11/18 08:24; Admin Dose 2.5 MG; Start 05/07/18 at 23:18 Aspirin (Halfprin) 81 mg DAILY PO Last administered on 05/11/18 08:23; Admin Dose 81 MG; Start 05/07/18 at 23:18 Carvedilol (Coreg) 3.125 mg BID PO Last administered on 05/11/18 08:24; Admin Dose 3.125 MG; Start 05/07/18 at 23:18 Famotidine (Pepcid) 20 mg HS PO Last administered on 05/10/18 20:25; Admin Dose 20 MG; Start 05/07/18 at 23:18 Tamsulosin HCl (Flomax) 0.4 mg DAILY PO Last administered on 05/11/18 08:23; Admin Dose 0.4 MG; Start 05/07/18 at 23:18 Insulin Aspart (Novolog Insulin Pen) NOVOLOG *MODERATE* ALGORITHM WITH MEALS BEDTIME SC Last administered on 05/11/18 08:08; Admin Dose 2 UNIT; Start 05/07/18 at 23:18 Miscellaneous Information 1 ea NOTE XX ; Start 05/07/18 at 23:18 Glucose (Glutose) 15 gm Q15M PRN PO DECREASED GLUCOSE; Start 05/07/18 at 23:18 Glucose (Glutose) 22.5 gm Q15M PRN PO DECREASED GLUCOSE; Start 05/07/18 at 23:18 Dextrose (D50w Syringe) 25 ml Q15M PRN IV DECREASED GLUCOSE; Start 05/07/18 at 23:18 Dextrose (D50w Syringe) 50 ml Q15M PRN IV DECREASED GLUCOSE; Start 05/07/18 at 23:18 Glucagon (Glucagen) 1 mg Q15M PRN IM DECREASED GLUCOSE; Start 05/07/18 at 23:18 Glucose (Glutose) 15 gm Q15M PRN BUCCAL DECREASED GLUCOSE; Start 05/07/18 at 23:18 Calcium Acetate (Phoslo) 667 mg WITH MEALS PO Last administered on 4/2/19at 08:09; Admin Dose 667 MG; Start 05/07/18 at 23:18 Amlodipine Besylate (Norvasc) 2.5 mg BID PO Last administered on 05/11/18 08:23; Admin Dose 2.5 MG; Start 05/07/18 at 23:18 Guaifenesin/ Codeine Phosphate (Robitussin Ac Liquid Cup) 5 ml Q6H PRN PO COUGH; Start 05/07/18 at 23:18 Senna (Senokot) 1 tab HS PO Last administered on 05/10/18at 20:26; Admin Dose 1 TAB; Start 05/08/18 at 21:00 Lactulose (Enulose) 20 gm DAILY PRN PO CONSTIPATION; Start 05/08/18 at 01:30 Albumin Human 100 ml @ 100 mls/hr WITH DIALYSIS PRN IV SBP <90 DURING DIALYSIS; Start 05/08/18 at 15:30 Sodium Chloride (NS) -To prime the dialy... DIRECTED FOR HD PRN IV HD; Start 05/08/18 at 15:30 Acetaminophen (Tylenol Tab) 650 mg Q6H PRN PO MILD PAIN(1-3)OR ELEVATED TEMP Last administered on 05/10/18at 07:52; Admin Dose 650 MG; Start 05/09/18 at 15:00 Diagnostic Test (Pha) (Accu-Chek) 1 ea BID XX Last administered on 05/10/18at 21:49; Admin Dose 1 EA; Start 05/10/18 at 21:00 Hydromorphone HCl (Dilaudid) 4 mg Q4H PRN PO SEVERE PAIN LEVEL 7-10; Start at 14:30 NATASHA SCHNEIDER MD May 11, 2018 08:43
[2018-05-11] MEDS: ACCU-CHEK XX SCH ×2 (09:00→22:00)
[2018-05-11] MEDS: ACETAMINOPHEN 325 MG TAB PO PRN (09:09)
[2018-05-11] MEDS: GABAPENTIN 100 MG CAP PO SCH (10:40)
--- NOTE | 2018-05-11 14:02 | PN ---
Date/Time of Note Date/Time of Note DATE: 05/11/18 TIME: 13:59 Subjective Family involved with care Objective Vital Signs Date Temp Pulse Resp B/P (MAP) Pulse Ox O2 O2 Flow FiO2 Time Delivery Rate 05/11/18 97.8 75 18 174/71 97 Room Air 07:30 (105) Intake and Output 05/10/18 05/10/18 05/11/18 1515:00 23:00 07:00 IntakeIntake Total 1000 ml BalanceBalance 1000 ml Exam mod ambulation 50 feet [id number] Results/Medications Result Diagram: 05/09/18 1710 05/09/18 1710 Results 24 hrs Laboratory Tests Test 05/10/18 17:30 05/10/18 18:00 05/10/18 20:24 05/11/18 08:06 Bedside Glucose 240 H 150 147 Urine Color YELLOW Urine Clarity SLIGHTLY CLOUDY A Urine pH 5.0 Urine Specific 1.016 [employer] Urine Ketones NEGATIVE Urine Nitrite NEGATIVE Urine Bilirubin NEGATIVE Urine Urobilinogen NEGATIVE Urine Leukocyte NEGATIVE Esterase Urine Microscopic 2 RBC Urine Microscopic 3 WBC Urine Bacteria FEW A Urine Mucus FEW A Urine Hemoglobin 1+ H Urine Glucose 1+ H Urine Total 3+ H Protein Test 05/11/18 11:39 Bedside Glucose 198 Medications Current Medications Miscellaneous Information (Pending [facility] Order For Wound Care) This patient bray... PRN PRN XX WOUND CARE; Start 05/07/18 at 23:30 Apixaban (Eliquis) 2.5 mg BID PO Last administered on 05/11/18 08:24; Admin Dose 2.5 MG; Start 05/07/18 at 23:18 Aspirin (Halfprin) 81 mg DAILY PO Last administered on 05/11/18 08:23; Admin Dose 81 MG; Start 05/07/18 at 23:18 Carvedilol (Coreg) 3.125 mg BID PO Last administered on 05/11/18 08:24; Admin Dose 3.125 MG; Start 05/07/18 at 23:18 Famotidine (Pepcid) 20 mg HS PO Last administered on 05/10/18 20:25; Admin Dose 20 MG; Start 05/07/18 at 23:18 Tamsulosin HCl (Flomax) 0.4 mg DAILY PO Last administered on 05/11/18 08:23; Admin Dose 0.4 MG; Start 05/07/18 at 23:18 Insulin Aspart (Novolog Insulin Pen) NOVOLOG *MODERATE* ALGORITHM WITH MEALS BEDTIME SC Last administered on 05/11/18at 11:43; Admin Dose 4 UNIT; Start 05/07/18 at 23:18 Miscellaneous Information 1 ea NOTE XX ; Start 05/07/18 at 23:18 Glucose (Glutose) 15 gm Q15M PRN PO DECREASED GLUCOSE; Start 05/07/18 at 23:18 Glucose (Glutose) 22.5 gm Q15M PRN PO DECREASED GLUCOSE; Start 05/07/18 at 23:18 Dextrose (D50w Syringe) 25 ml Q15M PRN IV DECREASED GLUCOSE; Start 05/07/18 at 23:18 Dextrose (D50w Syringe) 50 ml Q15M PRN IV DECREASED GLUCOSE; Start 05/07/18 at 23:18 Glucagon (Glucagen) 1 mg Q15M PRN IM DECREASED GLUCOSE; Start 05/07/18 at 23:18 Glucose (Glutose) 15 gm Q15M PRN BUCCAL DECREASED GLUCOSE; Start 05/07/18 at 23:18 Calcium Acetate (Phoslo) 667 mg WITH MEALS PO Last administered on 05/11/18at 12:56; Admin Dose 667 MG; Start 05/07/18 at 23:18 Amlodipine Besylate (Norvasc) 2.5 mg BID PO Last administered on 05/11/18at 08:23; Admin Dose 2.5 MG; Start 05/07/18 at 23:18 Guaifenesin/ Codeine Phosphate (Robitussin Ac Liquid Cup) 5 ml Q6H PRN PO COUGH; Start 05/07/18 at 23:18 Senna (Senokot) 1 tab HS PO Last administered on 05/10/18at 20:26; Admin Dose 1 TAB; Start 05/08/18 at 21:00 Lactulose (Enulose) 20 gm DAILY PRN PO CONSTIPATION; Start 05/08/18 at 01:30 Albumin Human 100 ml @ 100 mls/hr WITH DIALYSIS PRN IV SBP <90 DURING DIALYSIS; Start 05/08/18 at 15:30 Sodium Chloride (NS) -To prime the dialy... DIRECTED FOR HD PRN IV HD; Start 05/08/18 at 15:30 Acetaminophen (Tylenol Tab) 650 mg Q6H PRN PO MILD PAIN(1-3)OR ELEVATED TEMP L ast administered on 05/11/18at 09:09; Admin Dose 650 MG; Start 05/09/18 at 15:00 Diagnostic Test (Pha) (Accu-Chek) 1 ea BID XX Last administered on 05/10/18at 21:49; Admin Dose 1 EA; Start 05/10/18 at 21:00 Hydromorphone HCl (Dilaudid) 4 mg Q4H PRN PO SEVERE PAIN LEVEL 7-10; Start 05/10/18 at 14:30 Gabapentin (Neurontin) 100 mg DAILY PO Last administered on 05/11/18at 10:40; Admin Dose 100 MG; Start 05/11/18 at 10:30 Assessment/Plan Additional Assessment/Plan Rehab- Debility secondary to congestive heart failure and pneumonia, Mild toxic metabolic encephalopathy Case reviewed with speech and PT. OVerall with PT patient making progress, with improved ambulation status. Speech has noted impaired cognition, STM, which I presume is secondary to encephalopathy. Renal- End-stage renal disease on hemodialysis Integ- healing stage II. Continue optimizing nutrition, and offloading wound Acute combined congestive heart failure, ischemic cardiomyopathy. Hypertension. History of coronary artery disease and coronary artery bypass graft. . TOMMIE CARDENAS MD May 11, 2018 14:02
--- NOTE | 2018-05-11 19:28 | CONS ---
Consult Date/Type/Reason Admit Date/Time May 07, 2018 at 22:39 Initial Consult Date 05/08/2018 Date/Time of Note DATE: 05/11/18 TIME: 19:28 Subjective no complaints Objective Vitals Vital Signs Date Temp Pulse Resp B/P (MAP) Pulse Ox O2 O2 Flow FiO2 Time Delivery Rate 05/11/18 97.4 75 18 155/67 99 Room Air 14:00 (96) Intake and Output 05/10/18 05/10/18 05/11/18 1515:00 23:00 07:00 IntakeIntake Total 1000 ml BalanceBalance 1000 ml Exam in bed, thin, dark skin complex, rr, cta, no edema, no rt hip tender Results/Medications Result Diagram: 05/09/18 1710 05/09/18 1710 Results 24 hrs Laboratory Tests Test 05/10/18 20:24 05/11/18 08:06 05/11/18 11:39 05/11/18 17:27 Bedside Glucose 150 147 198 267 H Home Meds Reported Medications Insulin Glargine,Hum.rec.anlog (Jessicaaglar Kwelicia U-100) 100 Unit/1 Ml Insu ln.pen, 0 SC QHS, EA SLIDING SCALE 04/25/18 Furosemide* (Furosemide*) 40 Mg Tablet, 40 MG PO BID, TAB 04/25/18 Tamsulosin Hcl* (Tamsulosin Hcl*) 0.4 Mg Cap.er.24h, 0.4 MG PO DAILY, CAP 04/25/18 Famotidine* (Famotidine*) 20 Mg Tablet, 20 MG PO BID, #60 TAB 04/25/18 Aspirin (Low Dose Aspirin) 81 Mg Tablet.dr, 81 MG PO DAILY, #30 TAB 04/25/18 Carvedilol* (Carvedilol*) 3.125 Mg Tablet, 3.125 MG PO BID, #60 TAB 04/25/18 Apixaban* (Eliquis*) 2.5 Mg Tablet, 2.5 MG PO BID, TAB 04/25/18 Medications Current Medications Miscellaneous Information ([facility] This patient bray... PRN PRN XX WOUND CARE; Start 05/07/18 at 23:30 Apixaban (Eliquis) 2.5 mg BID PO Last administered on 05/11/18at 08:24; Admin Dose 2.5 MG; Start 05/07/18 at 23:18 Aspirin (Halfprin) 81 mg DAILY PO Last administered on 05/11/18 08:23; Admin Dose 81 MG; Start 05/07/18 at 23:18 Carvedilol (Coreg) 3.125 mg BID PO Last administered on 05/11/18 08:24; Admin Dose 3.125 MG; Start 05/07/18 at 23:18 Famotidine (Pepcid) 20 mg HS PO Last administered on 05/10/18 20:25; Admin Dose 20 MG; Start 05/07/18 at 23:18 Tamsulosin HCl (Flomax) 0.4 mg DAILY PO Last administered on 05/11/18 08:23; Admin Dose 0.4 MG; Start 05/07/18 at 23:18 Insulin Aspart (Novolog Insulin Pen) NOVOLOG *MODERATE* ALGORITHM WITH MEALS BEDTIME SC Last administered on 05/11/18 17:29; Admin Dose 8 UNIT; Start 05/07/18 at 23:18 Miscellaneous Information 1 ea NOTE XX ; Start 05/07/18 at 23:18 Glucose (Glutose) 15 gm Q15M PRN PO DECREASED GLUCOSE; Start 05/07/18 at 23:18 Glucose (Glutose) 22.5 gm Q15M PRN PO DECREASED GLUCOSE; Start 05/07/18 at 23:18 Dextrose (D50w Syringe) 25 ml Q15M PRN IV DECREASED GLUCOSE; Start 05/07/18 at 23:18 Dextrose (D50w Syringe) 50 ml Q15M PRN IV DECREASED GLUCOSE; Start 05/07/18 at 23:18 Glucagon (Glucagen) 1 mg Q15M PRN IM DECREASED GLUCOSE; Start 05/07/18 at 23:18 Glucose (Glutose) 15 gm Q15M PRN BUCCAL DECREASED GLUCOSE; Start 05/07/18 at 23:18 Calcium Acetate (Phoslo) 667 mg WITH MEALS PO Last administered on 05/11/18 17:30; Admin Dose 667 MG; Start 05/07/18 at 23:18 Amlodipine Besylate (Norvasc) 2.5 mg BID PO Last administered on 05/11/18 08:23; Admin Dose 2.5 MG; Start 05/07/18 at 23:18 Guaifenesin/ Codeine Phosphate (Robitussin Ac Liquid Cup) 5 ml Q6H PRN PO COUGH; Start 05/07/18 at 23:18 Senna (Senokot) 1 tab HS PO Last administered on 05/10/18at 20:26; Admin Dose 1 TAB; Start 05/08/18 at 21:00 Lactulose (Enulose) 20 gm DAILY PRN PO CONSTIPATION; Start 05/08/18 at 01:30 Albumin Human 100 ml @ 100 mls/hr WITH DIALYSIS PRN IV SBP <90 DURING DIALYSIS; Start 05/08/18 at 15:30 Sodium Chloride (NS) -To prime the dialy... DIRECTED FOR HD PRN IV HD; Start 05/08/18 at 15:30 Acetaminophen (Tylenol Tab) 650 mg Q6H PRN PO MILD PAIN(1-3)OR ELEVATED TEMP Last administered on 05/11/18at 09:09; Admin Dose 650 MG; Start 05/09/18 at 15:00 Diagnostic Test (Pha) (Accu-Chek) 1 ea BID XX Last administered on 05/10/18at 21:49; Admin Dose 1 EA; Start 05/10/18 at 21:00 Hydromorphone HCl (Dilaudid) 4 mg Q4H PRN PO SEVERE PAIN LEVEL 7-10; Start 05/10/18 at 14:30 Gabapentin (Neurontin) 100 mg DAILY PO Last administered on 05/11/18at 10:40; Admin Dose 100 MG; Start 05/11/18 at 10:30 Assessment/Plan Assessment/Plan (Daily) 1. debility 2. esrd--dialysis/ anemia 3. cm/ htn 4. dm ---per rehab ---per cards ---per renal ---must do full ot/ pt JUDY REEVES MD May 11, 2018 19:28
[2018-05-11] MEDS: FAMOTIDINE 20 MG TAB PO SCH (22:09)
[2018-05-11] MEDS: SENNA TAB PO SCH (22:09)
[2018-05-12 02:00] VITALS: BP 116/55; PULSE 75; RESP 18
[2018-05-12 07:30] VITALS: BP 150/66; PULSE 75; RESP 20
[2018-05-12] MEDS: INSULIN ASPART [NOVOLOG] 3 ML PEN SC SCH ×4 (07:35→21:52)
[2018-05-12] MEDS: CALCIUM ACETATE 667 MG CAP PO SCH ×3 (08:08→18:29)
[2018-05-12] MEDS: ACCU-CHEK XX SCH ×2 (09:00→21:00)
[2018-05-12] MEDS: GABAPENTIN 100 MG CAP PO SCH (09:20)
[2018-05-12] MEDS: APIXABAN 5 MG TABLET PO SCH ×2 (09:20→21:48)
[2018-05-12] MEDS: TAMSULOSIN (SR) 0.4 MG CAP PO SCH (09:20)
[2018-05-12] MEDS: ASPIRIN (EC) 81 MG TAB PO SCH (09:20)
[2018-05-12] MEDS: AMLODIPINE 2.5 MG TAB PO SCH ×2 (09:20→21:47)
--- NOTE | 2018-05-12 12:33 | CONS ---
Consult Date/Type/Reason Admit Date/Time May 07, 2018 at 22:39 Initial Consult Date 05/08/2018 Date/Time of Note DATE: 05/12/18 TIME: 12:33 Subjective no pain Objective Vitals Vital Signs Date Temp Pulse Resp B/P (MAP) Pulse Ox O2 O2 Flow FiO2 Time Delivery Rate 05/12/18 97.6 75 20 150/66 96 Room Air 07:30 (94) Intake and Output 05/11/18 05/11/18 05/12/18 1515:00 23:00 07:00 IntakeIntake Total 900 ml 200 ml OutputOutput Total 400 ml BalanceBalance 500 ml 200 ml Exam in bed, thin, dark skin complex, flat affect, rr, cta, no edema Results/Medications Result Diagram: 05/09/18 1710 05/09/18 1710 Results 24 hrs Laboratory Tests Test 05/11/18 17:27 05/11/18 22:12 05/12/18 08:03 05/12/18 12:19 Bedside Glucose 267 H 133 115 205 Home Meds Reported Medications Insulin Glargine,Hum.rec.anlog (Basaglar Kwikpen U-100) 100 Unit/1 Ml Insuln.pen, 0 SC QHS, EA SLIDING SCALE 04/25/18 Furosemide* (Furosemide*) 40 Mg Tablet, 40 MG PO BID, TAB 04/25/18 Tamsulosin Hcl* (Tamsulosin Hcl*) 0.4 Mg Cap.er.24h, 0.4 MG PO DAILY, CAP 04/25/18 Famotidine* (Famotidine*) 20 Mg Tablet, 20 MG PO BID, #60 TAB 04/25/18 Aspirin (Low Dose Aspirin) 81 Mg Tablet.dr, 81 MG PO DAILY, #30 TAB 04/25/18 Carvedilol* (Carvedilol*) 3.125 Mg Tablet, 3.125 MG PO BID, #60 TAB 04/25/18 Apixaban* (Eliquis*) 2.5 Mg Tablet, 2.5 MG PO BID, TAB 04/25/18 Medications Current Medications Miscellaneous Information ([facility] This patient bray... PRN PRN XX WOUND CARE; Start 05/07/18 at 23:30 Apixaban (Eliquis) 2.5 mg BID PO Last administered on 05/12/18 09:20; Admin Dose 2.5 MG; Start 05/07/18 at 23:18 Aspirin (Halfprin) 81 mg DAILY PO Last administered on 05/12/18 09:20; Admin Dose 81 MG; Start 05/07/18 at 23:18 Carvedilol (Coreg) 3.125 mg BID PO Last administered on 05/12/18 09:20; Admin Dose 3.125 MG; Start 05/07/18 at 23:18 Famotidine (Pepcid) 20 mg HS PO Last administered on 05/11/18 22:09; Admin Dose 20 MG; Start 05/07/18 at 23:18 Tamsulosin HCl (Flomax) 0.4 mg DAILY PO Last administered on 05/12/18 09:20; Admin Dose 0.4 MG; Start 05/07/18 at 23:18 Insulin Aspart (Novolog Insulin Pen) NOVOLOG *MODERATE* ALGORITHM WITH MEALS BEDTIME SC Last administered on 05/12/18 12:22; Admin Dose 4 UNIT; Start 05/07/18 at 23:18 Miscellaneous Information 1 ea NOTE XX ; Start 05/07/18 at 23:18 Glucose (Glutose) 15 gm Q15M PRN PO DECREASED GLUCOSE; Start 05/07/18 at 23:18 Glucose (Glutose) 22.5 gm Q15M PRN PO DECREASED GLUCOSE; Start 05/07/18 at 23:18 Dextrose (D50w Syringe) 25 ml Q15M PRN IV DECREASED GLUCOSE; Start 05/07/18 at 23:18 Dextrose (D50w Syringe) 50 ml Q15M PRN IV DECREASED GLUCOSE; Start 05/07/18 at 23:18 Glucagon (Glucagen) 1 mg Q15M PRN IM DECREASED GLUCOSE; Start 05/07/18 at 23:18 Glucose (Glutose) 15 gm Q15M PRN BUCCAL DECREASED GLUCOSE; Start 05/07/18 at 23:18 Calcium Acetate (Phoslo) 667 mg WITH MEALS PO Last administered on 05/12/18 12:20; Admin Dose 667 MG; Start 05/07/18 at 23:18 Amlodipine Besylate (Norvasc) 2.5 mg BID PO Last administered on 05/12/18 09:20; Admin Dose 2.5 MG; Start 05/07/18 at 23:18 Guaifenesin/ Codeine Phosphate (Robitussin Ac Liquid Cup) 5 ml Q6H PRN PO COUGH; Start 05/07/18 at 23:18 Senna (Senokot) 1 tab HS PO Last administered on 05/11/18at 22:09; Admin Dose 1 TAB; Start 05/08/18 at 21:00 Lactulose (Enulose) 20 gm DAILY PRN PO CONSTIPATION; Start 05/08/18 at 01:30 Albumin Human 100 ml @ 100 mls/hr WITH DIALYSIS PRN IV SBP <90 DURING DIALYSIS; Start 05/08/18 at 15:30 Sodium Chloride (NS) -To prime the dialy... DIRECTED FOR HD PRN IV HD; Start 05/08/18 at 15:30 Acetaminophen (Tylenol Tab) 650 mg Q6H PRN PO MILD PAIN(1-3)OR ELEVATED TEMP Last administered on 05/11/18at 09:09; Admin Dose 650 MG; Start 05/09/18 at 15:00 Diagnostic Test (Pha) (Accu-Chek) 1 ea BID XX Last administered on 05/11/18at 22:00; Admin Dose 1 EA; Start 05/10/18 at 21:00 Hydromorphone HCl (Dilaudid) 4 mg Q4H PRN PO SEVERE PAIN LEVEL 7-10; Start 05/10/18 at 14:30 Gabapentin (Neurontin) 100 mg DAILY PO Last administered on 05/12/18at 09:20; Admin Dose 100 MG; Start 05/11/18 at 10:30 Assessment/Plan Assessment/Plan (Daily) 1. debility 2. depression 3. esrd/ anemia 4. dm 5. cm/ htn ---per rehab ---per cards ---per renal ---inc ins dose ---must fully participate ot/ pt exercises JUDY REEVES MD May 12, 2018 12:33
--- NOTE | 2018-05-12 13:03 | PN ---
Date/Time of Note Date/Time of Note DATE: 05/12/18 TIME: 13:02 Subjective Comfortable Objective Vital Signs Date Temp Pulse Resp B/P (MAP) Pulse Ox O2 O2 Flow FiO2 Time Delivery Rate 05/12/18 97.6 75 20 150/66 96 Room Air 07:30 (94) Intake and Output 05/11/18 05/11/18 05/12/18 1515:00 23:00 07:00 IntakeIntake Total 900 ml 200 ml OutputOutput Total 400 ml BalanceBalance 500 ml 200 ml Exam pulm-cta mod assist 40 feet Results/Medications Result Diagram: 05/09/18 1710 05/09/18 1710 Results 24 hrs Laboratory Tests Test 05/11/18 17:27 05/11/18 22:12 05/12/18 08:03 05/12/18 12:19 Bedside Glucose 267 H 133 115 205 Medications Current Medications Miscellaneous Information (Pending [facility] Order For Wound Care) This patient bray... PRN PRN XX WOUND CARE; Start 05/07/18 at 23:30 Apixaban (Eliquis) 2.5 mg BID PO Last administered on 05/12/18 09:20; Admin Dose 2.5 MG; Start 05/07/18 at 23:18 Aspirin (Halfprin) 81 mg DAILY PO Last administered on 05/12/18 09:20; Admin Dose 81 MG; Start 05/07/18 at 23:18 Carvedilol (Coreg) 3.125 mg BID PO Last administered on 05/12/18 09:20; Admin Dose 3.125 MG; Start 05/07/18 at 23:18 Famotidine (Pepcid) 20 mg HS PO Last administered on 05/11/18 22:09; Admin Dose 20 MG; Start 05/07/18 at 23:18 Tamsulosin HCl (Flomax) 0.4 mg DAILY PO Last administered on 05/12/18 09:20; Admin Dose 0.4 MG; Start 05/07/18 at 23:18 Insulin Aspart (Novolog Insulin Pen) NOVOLOG *MODERATE* ALGORITHM WITH MEALS BEDTIME SC Last administered on 05/12/18 12:22; Admin Dose 4 UNIT; Start 05/07/18 at 23:18 Miscellaneous Information 1 ea NOTE XX ; Start 05/07/18 at 23:18 Glucose (Glutose) 15 gm Q15M PRN PO DECREASED GLUCOSE; Start 05/07/18 at 23:18 Glucose (Glutose) 22.5 gm Q15M PRN PO DECREASED GLUCOSE; Start 05/07/18 at 23:18 Dextrose (D50w Syringe) 25 ml Q15M PRN IV DECREASED GLUCOSE; Start 05/07/18 at 23:18 Dextrose (D50w Syringe) 50 ml Q15M PRN IV DECREASED GLUCOSE; Start 05/07/18 at 23:18 Glucagon (Glucagen) 1 mg Q15M PRN IM DECREASED GLUCOSE; Start 05/07/18 at 23:18 Glucose (Glutose) 15 gm Q15M PRN BUCCAL DECREASED GLUCOSE; Start 05/07/18 at 23:18 Calcium Acetate (Phoslo) 667 mg WITH MEALS PO Last administered on 05/12/18 12:20; Admin Dose 667 MG; Start 05/07/18 at 23:18 Amlodipine Besylate (Norvasc) 2.5 mg BID PO Last administered on 05/12/18 09:20; Admin Dose 2.5 MG; Start 05/07/18 at 23:18 Guaifenesin/ Codeine Phosphate (Robitussin Ac Liquid Cup) 5 ml Q6H PRN PO COUGH; Start 05/07/18 at 23:18 Senna (Senokot) 1 tab HS PO Last administered on 05/11/18 22:09; Admin Dose 1 TAB; Start 05/08/18 at 21:00 Lactulose (Enulose) 20 gm DAILY PRN PO CONSTIPATION; Start 05/08/18 at 01:30 Albumin Human 100 ml @ 100 mls/hr WITH DIALYSIS PRN IV SBP <90 DURING DIALYSIS; Start 05/08/18 at 15:30 Sodium Chloride (NS) -To prime the dialy... DIRECTED FOR HD PRN IV HD; Start 05/08/18 at 15:30 Acetaminophen (Tylenol Tab) 650 mg Q6H PRN PO MILD PAIN(1-3)OR ELEVATED TEMP Last administered on 05/11/18 09:09; Admin Dose 650 MG; Start 05/09/18 at 15:00 Diagnostic Test (Pha) (Accu-Chek) 1 ea BID XX Last administered on 05/11/18 22:00; Admin Dose 1 EA; Start 05/10/18 at 21:00 Hydromorphone HCl (Dilaudid) 4 mg Q4H PRN PO SEVERE PAIN LEVEL 7-10; Start 05/10/18 at 14:30 Gabapentin (Neurontin) 100 mg DAILY PO Last administered on 05/12/18at 09:20; Admin Dose 100 MG; Start 05/11/18 at 10:30 Assessment/Plan Additional Assessment/Plan Rehab- Debility secondary to congestive heart failure and pneumonia, Mild toxic metabolic encephalopathy Continued progress with treatment plan. Supportive family Renal- End-stage renal disease on hemodialysis Integ- healing stage II. Continue optimizing nutrition, and offloading wound Acute combined congestive heart failure, ischemic cardiomyopathy. Hypertension. History of coronary artery disease and coronary artery bypass graft. TOMMIE CARDENAS MD May 12, 2018 13:03
[2018-05-12 14:00] VITALS: BP 148/66; PULSE 75; RESP 18
--- NOTE | 2018-05-12 19:46 | CONS ---
Assessment/Plan Assessment/Plan Hospital Course (Demo Recall) 1. End-stage renal disease on maintenance hemodialysis Thursday. He he has dialysis scheduled for tomorrow. 2. Fever. He had a fever 3 days ago of 102.1. He is not coughing and denies dysuria. Urine and blood cultures are no growth thus far.. Chest x-ray does not show a new infiltrate. 3. CHF, compensated 4. Hypertension, controlled 5. Type 2 diabetes mellitus 6. Right hip pain, has resolved 7. He is now on the acute rehab floor and is participating in rehab. Consultation Date/Type/Reason Admit Date/Time May 07, 2018 at 22:39 Initial Consult Date Type of Consult Nephrology Date/Time of Note DATE: 05/12/18 TIME: 19:44 24 HR Interval Summary Free Text/Dictation Gera is awake and alert. He says that he feels fine. He has no new complaints. Constitutional: no complaints, improved Exam/Review of Systems Exam Vitals Vital Signs Date Temp Pulse Resp B/P (MAP) Pulse Ox O2 O2 Flow FiO2 Time Delivery Rate 05/12/18 97.8 75 18 148/66 97 Room Air 14:00 (93) Intake and Output 05/11/18 05/11/18 05/12/18 1515:00 23:00 07:00 IntakeIntake Total 900 ml 200 ml OutputOutput Total 400 ml BalanceBalance 500 ml 200 ml Constitutional: alert, oriented, frail Respiratory: clear to auscultation, normal air movement Cardiovascular: regular rate and rhythm Gastrointestinal: soft, non-tender Musculoskeletal: nl extremities to inspection Results Result Diagram: 05/09/18 1710 05/09/18 1710 Results 24hrs Laboratory Tests Test 05/11/18 22:12 05/12/18 08:03 05/12/18 12:19 05/12/18 18:27 Bedside Glucose 133 115 205 148 Medications Medication Current Medications Miscellaneous Information (Pending [facility] Order For Wound Care) This patient bray... PRN PRN XX WOUND CARE; Start 05/07/18 at 23:30 Apixaban (Eliquis) 2.5 mg BID PO Last administered on 05/12/18at 09:20; Admin Dose 2.5 MG; Start 05/07/18 at 23:18 Aspirin (Halfprin) 81 mg DAILY PO Last administered on 05/12/18 09:20; Admin Dose 81 MG; Start 05/07/18 at 23:18 Carvedilol (Coreg) 3.125 mg BID PO Last administered on 05/12/18 09:20; Admin Dose 3.125 MG; Start 05/07/18 at 23:18 Famotidine (Pepcid) 20 mg HS PO Last administered on 05/11/18 22:09; Admin Dose 20 MG; Start 05/07/18 at 23:18 Tamsulosin HCl (Flomax) 0.4 mg DAILY PO Last administered on 05/12/18 09:20; Admin Dose 0.4 MG; Start 05/07/18 at 23:18 Insulin Aspart (Novolog Insulin Pen) NOVOLOG *MODERATE* ALGORITHM WITH MEALS BEDTIME SC Last administered on 05/12/18 18:33; Admin Dose 2 UNIT; Start 05/07/18 at 23:18 Miscellaneous Information 1 ea NOTE XX ; Start 05/07/18 at 23:18 Glucose (Glutose) 15 gm Q15M PRN PO DECREASED GLUCOSE; Start 05/07/18 at 23:18 Glucose (Glutose) 22.5 gm Q15M PRN PO DECREASED GLUCOSE; Start 05/07/18 at 23:18 Dextrose (D50w Syringe) 25 ml Q15M PRN IV DECREASED GLUCOSE; Start 05/07/18 at 23:18 Dextrose (D50w Syringe) 50 ml Q15M PRN IV DECREASED GLUCOSE; Start 05/07/18 at 23:18 Glucagon (Glucagen) 1 mg Q15M PRN IM DECREASED GLUCOSE; Start 05/07/18 at 23:18 Glucose (Glutose) 15 gm Q15M PRN BUCCAL DECREASED GLUCOSE; Start 05/07/18 at 23:18 Calcium Acetate (Phoslo) 667 mg WITH MEALS PO Last administered on 05/12/18 18:29; Admin Dose 667 MG; Start 05/07/18 at 23:18 Amlodipine Besylate (Norvasc) 2.5 mg BID PO Last administered on 05/12/18 09:20; Admin Dose 2.5 MG; Start 05/07/18 at 23:18 Guaifenesin/ Codeine Phosphate (Robitussin Ac Liquid Cup) 5 ml Q6H PRN PO COUGH; Start 05/07/18 at 23:18 Senna (Senokot) 1 tab HS PO Last administered on 05/11/18at 22:09; Admin Dose 1 TAB; Start 05/08/18 at 21:00 Lactulose (Enulose) 20 gm DAILY PRN PO CONSTIPATION; Start 05/08/18 at 01:30 Albumin Human 100 ml @ 100 mls/hr WITH DIALYSIS PRN IV SBP <90 DURING DIALYSIS; Start 05/08/18 at 15:30 Sodium Chloride (NS) -To prime the dialy... DIRECTED FOR HD PRN IV HD; Start 05/08/18 at 15:30 Acetaminophen (Tylenol Tab) 650 mg Q6H PRN PO MILD PAIN(1-3)OR ELEVATED TEMP Last administered on 05/11/18at 09:09; Admin Dose 650 MG; Start 05/09/18 at 15:00 Diagnostic Test (Pha) (Accu-Chek) 1 ea BID XX Last administered on 05/11/18at 22:00; Admin Dose 1 EA; Start 05/10/18 at 21:00 Hydromorphone HCl (Dilaudid) 4 mg Q4H PRN PO SEVERE PAIN LEVEL 7-10; Start 05/10/18 at 14:30 Gabapentin (Neurontin) 100 mg DAILY PO Last administered on 05/12/18at 09:20; Admin Dose 100 MG; Start 05/11/18 at 10:30 NATASHA SCHNEIDER MD May 12, 2018 19:46
[2018-05-12 19:49] VITALS: BP 133/65; PULSE 74; RESP 18
[2018-05-12] MEDS ORDERED: HYDROCODONE/APAP (5/325) TAB PO PRN (20:00)
[2018-05-12] MEDS: SENNA TAB PO SCH (21:46)
[2018-05-12] MEDS: FAMOTIDINE 20 MG TAB PO SCH (21:46)
[2018-05-13] VITALS (18 sets, daily range): BP systolic 88–166; BP diastolic 39–70; PULSE 74–77; RESP 18
[2018-05-13] MEDS: INSULIN ASPART [NOVOLOG] 3 ML PEN SC SCH ×4 (07:35→20:30)
[2018-05-13] MEDS: CALCIUM ACETATE 667 MG CAP PO SCH ×3 (07:51→17:44)
[2018-05-13] MEDS: GABAPENTIN 100 MG CAP PO SCH (08:21)
[2018-05-13] MEDS: TAMSULOSIN (SR) 0.4 MG CAP PO SCH (08:21)
[2018-05-13] MEDS: ASPIRIN (EC) 81 MG TAB PO SCH (08:21)
[2018-05-13] MEDS: APIXABAN 5 MG TABLET PO SCH ×2 (08:21→20:20)
[2018-05-13] MEDS: ACCU-CHEK XX SCH ×2 (08:22→21:00)
[2018-05-13] MEDS: AMLODIPINE 2.5 MG TAB PO SCH ×2 (08:22→20:21)
--- NOTE | 2018-05-13 13:40 | CONS ---
Assessment/Plan Assessment/Plan Hospital Course (Demo Recall) 1. End-stage renal disease on maintenance hemodialysis Thursday. He has dialysis scheduled for today . 2. Fever. He had a fever 4 days ago of 102.1. He is not coughing and denies dysuria. Urine and blood cultures are no growth thus far.. Chest x-ray does not show a new infiltrate. 3. CHF, compensated 4. Hypertension, controlled 5. Type 2 diabetes mellitus 6. Right hip pain, has resolved 7. He is now on the acute rehab floor and is participating in rehab. Consultation Date/Type/Reason Admit Date/Time May 07, 2018 at 22:39 Initial Consult Date Type of Consult Nephrology Date/Time of Note DATE: 05/13/18 TIME: 13:32 24 HR Interval Summary Free Text/Dictation This patient is being seen in nephrologic follow-up. He has no new complaints. He is scheduled for dialysis this afternoon. Constitutional: no complaints, improved Exam/Review of Systems Exam Vitals Vital Signs Date Temp Pulse Resp B/P (MAP) Pulse Ox O2 O2 Flow FiO2 Time Delivery Rate 05/13/18 97.5 75 18 113/53 97 Room Air 07:00 (73) Intake and Output 05/12/18 05/12/18 05/13/18 1515:00 23:00 07:00 IntakeIntake Total 680 ml 750 ml BalanceBalance 680 ml 750 ml Constitutional: alert, oriented, frail Head: normocephalic Respiratory: clear to auscultation, normal air movement Cardiovascular: regular rate and rhythm Gastrointestinal: soft, non-tender Musculoskeletal: nl extremities to inspection Results Result Diagram: 05/13/18 0607 05/13/18 0607 Results 24hrs Laboratory Tests Test 05/12/18 18:27 05/12/18 21:44 05/13/18 02:49 05/13/18 06:07 Bedside Glucose 148 210 170 White Blood Count 4.8 # Red Blood Count 3.78 L Hemoglobin 11.4 L Hematocrit 34.8 L Mean Corpuscular Volume 92.1 Mean Corpuscular 30.2 Hemoglobin Mean Corpuscular 32.8 Hemoglobin Concent Red Cell Distribution 14.9 H Width Platelet Count 324 Mean Platelet Volume 10.4 Immature Granulocytes % 0.400 Neutrophils % 40.3 Lymphocytes % 27.5 Monocytes % 18.7 H Eosinophils % 11.8 H Basophils % 1.3 Nucleated Red Blood 0.0 Cells % Immature Granulocytes # 0.020 Neutrophils # 1.9 Lymphocytes # 1.3 Monocytes # 0.9 Eosinophils # 0.6 H Basophils # 0.1 Nucleated Red Blood 0.0 Cells # Sodium Level 134 L Potassium Level 4.2 Chloride Level 92 L Carbon Dioxide Level 29 Anion Gap 13 Blood Urea Nitrogen 63 H Creatinine 7.38 H Est Glomerular Filtrat Rate mL/min Glucose Level 129 Calcium Level 9.3 Phosphorus Level 5.6 H Magnesium Level 2.5 Test 05/13/18 07:50 05/13/18 12:03 Bedside Glucose 126 257 H Medications Medication Current Medications Miscellaneous Information (Pending [facility] Order For Wound Care) This patient bray... PRN PRN XX WOUND CARE; Start 05/07/18 at 23:30 Apixaban (Eliquis) 2.5 mg BID PO Last administered on 05/13/18 08:21; Admin Dose 2.5 MG; Start 05/07/18 at 23:18 Aspirin (Halfprin) 81 mg DAILY PO Last administered on 05/13/18 08:21; Admin Dose 81 MG; Start 05/07/18 at 23:18 Carvedilol (Coreg) 3.125 mg BID PO Last administered on 05/13/18 08:22; Admin Dose 3.125 MG; Start 05/07/18 at 23:18 Famotidine (Pepcid) 20 mg HS PO Last administered on 05/12/18 21:46; Admin Dose 20 MG; Start 05/07/18 at 23:18 Tamsulosin HCl (Flomax) 0.4 mg DAILY PO Last administered on 05/13/18 08:21; Admin Dose 0.4 MG; Start 05/07/18 at 23:18 Insulin Aspart (Novolog Insulin Pen) NOVOLOG *MODERATE* ALGORITHM WITH MEALS BEDTIME SC Last administered on 05/13/18 12:06; Admin Dose 6 UNIT; Start 05/07/18 at 23:18 Miscellaneous Information 1 ea NOTE XX ; Start 05/07/18 at 23:18 Glucose (Glutose) 15 gm Q15M PRN PO DECREASED GLUCOSE; Start 05/07/18 at 23:18 Glucose (Glutose) 22.5 gm Q15M PRN PO DECREASED GLUCOSE; Start 05/07/18 at 23:18 Dextrose (D50w Syringe) 25 ml Q15M PRN IV DECREASED GLUCOSE; Start 05/07/18 at 23:18 Dextrose (D50w Syringe) 50 ml Q15M PRN IV DECREASED GLUCOSE; Start 05/07/18 at 23:18 Glucagon (Glucagen) 1 mg Q15M PRN IM DECREASED GLUCOSE; Start 05/07/18 at 23:18 Glucose (Glutose) 15 gm Q15M PRN BUCCAL DECREASED GLUCOSE; Start 05/07/18 at 23:18 Calcium Acetate (Phoslo) 667 mg WITH MEALS PO Last administered on 05/13/18 12:10; Admin Dose 667 MG; Start 05/07/18 at 23:18 Amlodipine Besylate (Norvasc) 2.5 mg BID PO Last administered on 05/12/18 21:47; Admin Dose 2.5 MG; Start 05/07/18 at 23:18 Guaifenesin/ Codeine Phosphate (Robitussin Ac Liquid Cup) 5 ml Q6H PRN PO COUGH; Start 05/07/18 at 23:18 Senna (Senokot) 1 tab HS PO Last administered on 05/12/18 21:46; Admin Dose 1 TAB; Start 05/08/18 at 21:00 Lactulose (Enulose) 20 gm DAILY PRN PO CONSTIPATION; Start 05/08/18 at 01:30 Albumin Human 100 ml @ 100 mls/hr WITH DIALYSIS PRN IV SBP <90 DURING DIALYSIS; Start 05/08/18 at 15:30 Sodium Chloride (NS) -To prime the dialy... DIRECTED FOR HD PRN IV HD; Start 05/08/18 at 15:30 Acetaminophen (Tylenol Tab) 650 mg Q6H PRN PO MILD PAIN(1-3)OR ELEVATED TEMP Last administered on 05/11/18 09:09; Admin Dose 650 MG; Start 05/09/18 at 15:00 Diagnostic Test (Pha) (Accu-Chek) 1 ea BID XX Last administered on 05/11/18 22:00; Admin Dose 1 EA; Start 05/10/18 at 21:00 Gabapentin (Neurontin) 100 mg DAILY PO Last administered on 05/13/18 08:21; Admin Dose 100 MG; Start 05/11/18 at 10:30 Acetaminophen/ Hydrocodone Bitart ([place] (5/325)) 1 tab Q6H PRN PO MODERATE PAIN LEVEL 4-6; Start 05/12/18 at 20:00 NATASHA SCHNEIDER MD May 13, 2018 13:40
--- NOTE | 2018-05-13 14:14 | PN ---
Date/Time of Note Date/Time of Note DATE: 05/13/18 TIME: 14:09 Objective Vital Signs Date Temp Pulse Resp B/P (MAP) Pulse Ox O2 O2 Flow FiO2 Time Delivery Rate 05/13/18 97.5 75 18 113/53 97 Room Air 07:00 (73) Intake and Output 05/12/18 05/12/18 05/13/18 1515:00 23:00 07:00 IntakeIntake Total 680 ml 750 ml BalanceBalance 680 ml 750 ml Exam INTERDISCIPLINARY TEAM CONFERENCE Physical Exam: Pulm- cta Abd-soft BOWEL- Cont BLADDER-ESRD- HD SKIN- improving OT- DRESSING-min/mod BATHING-min/mod TOILETING-mod PT- BED MOBILITY-min TRANSFERS-min AMBULATION-min 70 feet SPEECH- COGNITION-mod A/P- Interdisciplinary team conference held today. Please see interdisciplinary sheet. Working toward d.c. on 04/23 with post discharge follow up of physical therapy, occupational therapy. Patient would like to leave earlier. Will review with family if they are able to provide necessary assistance earlier. Results/Medications Result Diagram: 05/13/18 0607 05/13/18 0607 Results 24 hrs Laboratory Tests Test 05/12/18 18:27 05/12/18 21:44 05/13/18 02:49 05/13/18 06:07 Bedside Glucose 148 210 170 White Blood Count 4.8 # Red Blood Count 3.78 L Hemoglobin 11.4 L Hematocrit 34.8 L Mean Corpuscular Volume 92.1 Mean Corpuscular 30.2 Hemoglobin Mean Corpuscular 32.8 Hemoglobin Concent Red Cell Distribution 14.9 H Width Platelet Count 324 Mean Platelet Volume 10.4 Immature Granulocytes % 0.400 Neutrophils % 40.3 Lymphocytes % 27.5 Monocytes % 18.7 H Eosinophils % 11.8 H Basophils % 1.3 Nucleated Red Blood 0.0 Cells % Immature Granulocytes # 0.020 Neutrophils # 1.9 Lymphocytes # 1.3 Monocytes # 0.9 Eosinophils # 0.6 H Basophils # 0.1 Nucleated Red Blood 0.0 Cells # Sodium Level 134 L Potassium Level 4.2 Chloride Level 92 L Carbon Dioxide Level 29 Anion Gap 13 Blood Urea Nitrogen 63 H Creatinine 7.38 H Est Glomerular Filtrat Rate mL/min Glucose Level 129 Calcium Level 9.3 Phosphorus Level 5.6 H Magnesium Level 2.5 Test 05/13/18 07:50 05/13/18 12:03 Bedside Glucose 126 257 H Medications Current Medications Miscellaneous Information ([facility]ending [facility] Order For [facility]ound Care) This patient bray. .. PRN PRN XX WOUND CARE; Start 05/07/18 at 23:30 Apixaban (Eliquis) 2.5 mg BID PO Last administered on 05/13/18 08:21; Admin Dose 2.5 MG; Start 05/07/18 at 23:18 Aspirin (Halfprin) 81 mg DAILY PO Last administered on 05/13/18 08:21; Admin Dose 81 MG; Start 05/07/18 at 23:18 Carvedilol (Coreg) 3.125 mg BID PO Last administered on 05/13/18 08:22; Admin Dose 3.125 MG; Start 05/07/18 at 23:18 Famotidine (Pepcid) 20 mg HS PO Last administered on 05/12/18 21:46; Admin Dose 20 MG; Start 05/07/18 at 23:18 Tamsulosin HCl (Flomax) 0.4 mg DAILY PO Last administered on 05/13/18 08:21; Admin Dose 0.4 MG; Start 05/07/18 at 23:18 Insulin Aspart (Novolog Insulin Pen) NOVOLOG *MODERATE* ALGORITHM WITH MEALS BEDTIME SC Last administered on 05/13/18 12:06; Admin Dose 6 UNIT; Start 05/07/18 at 23:18 Miscellaneous Information 1 ea NOTE XX ; Start 05/07/18 at 23:18 Glucose (Glutose) 15 gm Q15M PRN PO DECREASED GLUCOSE; Start 05/07/18 at 23:18 Glucose (Glutose) 22.5 gm Q15M PRN PO DECREASED GLUCOSE; Start 05/07/18 at 23:18 Dextrose (D50w Syringe) 25 ml Q15M PRN IV DECREASED GLUCOSE; Start 05/07/18 at 23:18 Dextrose (D50w Syringe) 50 ml Q15M PRN IV DECREASED GLUCOSE; Start 05/07/18 at 23:18 Glucagon (Glucagen) 1 mg Q15M PRN IM DECREASED GLUCOSE; Start 05/07/18 at 23:18 Glucose (Glutose) 15 gm Q15M PRN BUCCAL DECREASED GLUCOSE; Start 05/07/18 at 23:18 Calcium Acetate (Phoslo) 667 mg WITH MEALS PO Last administered on 05/13/18 12:10; Admin Dose 667 MG; Start 05/07/18 at 23:18 Amlodipine Besylate (Norvasc) 2.5 mg BID PO Last administered on 05/12/18 21:47; Admin Dose 2.5 MG; Start 05/07/18 at 23:18 Guaifenesin/ Codeine Phosphate (Robitussin Ac Liquid Cup) 5 ml Q6H PRN PO COUGH; Start 05/07/18 at 23:18 Senna (Senokot) 1 tab HS PO Last administered on 05/12/18 21:46; Admin Dose 1 TAB; Start 05/08/18 at 21:00 Lactulose (Enulose) 20 gm DAILY PRN PO CONSTIPATION; Start 05/08/18 at 01:30 Albumin Human 100 ml @ 100 mls/hr WITH DIALYSIS PRN IV SBP <90 DURING DIALYSIS; Start 05/08/18 at 15:30 Sodium Chloride (NS) -To prime the dialy... DIRECTED FOR HD PRN IV HD; Start 05/08/18 at 15:30 Acetaminophen (Tylenol Tab) 650 mg Q6H PRN PO MILD PAIN(1-3)OR ELEVATED TEMP Last administered on 05/11/18 09:09; Admin Dose 650 MG; Start 05/09/18 at 15:00 Diagnostic Test (Pha) (Accu-Chek) 1 ea BID XX Last administered on 05/11/18 22:00; Admin Dose 1 EA; Start 05/10/18 at 21:00 Gabapentin (Neurontin) 100 mg DAILY PO Last administered on 05/13/18 08:21; Admin Dose 100 MG; Start 05/11/18 at 10:30 Acetaminophen/ Hydrocodone Bitart ([place] (5/325)) 1 tab Q6H PRN PO MODERATE PAIN LEVEL 4-6; Start 05/12/18 at 20:00 TOMMIE CARDENAS MD May 13, 2018 14:14
--- NOTE | 2018-05-13 14:20 | CONS ---
Consult Date/Type/Reason Admit Date/Time May 07, 2018 at 22:39 Initial Consult Date 05/08/2018 Date/Time of Note DATE: 05/13/18 TIME: 14:20 Subjective quiet, in bed, no complaints Objective Vitals Vital Signs Date Temp Pulse Resp B/P (MAP) Pulse Ox O2 O2 Flow FiO2 Time Delivery Rate 05/13/18 97.5 75 18 113/53 97 Room Air 07:00 (73) Intake and Output 05/12/18 05/12/18 05/13/18 1515:00 23:00 07:00 IntakeIntake Total 680 ml 750 ml BalanceBalance 680 ml 750 ml Exam awake, thin, dark skin complex, rr, cta no edema Results/Medications Result Diagram: 05/13/1860605/13/18 06 Results 24 hrs Laboratory Tests Test 05/12/18 18:27 05/12/18 21:44 05/13/18 02:49 05/13/18 06:07 Bedside Glucose 148 210 170 White Blood Count 4.8 # Red Blood Count 3.78 L Hemoglobin 11.4 L Hematocrit 34.8 L Mean Corpuscular Volume 92.1 Mean Corpuscular 30.2 Hemoglobin Mean Corpuscular 32.8 Hemoglobin Concent Red Cell Distribution 14.9 H Width Platelet Count 324 Mean Platelet Volume 10.4 Immature Granulocytes % 0.400 Neutrophils % 40.3 Lymphocytes % 27.5 Monocytes % 18.7 H Eosinophils % 11.8 H Basophils % 1.3 Nucleated Red Blood 0.0 Cells % Immature Granulocytes # 0.020 Neutrophils # 1.9 Lymphocytes # 1.3 Monocytes # 0.9 Eosinophils # 0.6 H Basophils # 0.1 Nucleated Red Blood 0.0 Cells # Sodium Level 134 L Potassium Level 4.2 Chloride Level 92 L Carbon Dioxide Level 29 Anion Gap 13 Blood Urea Nitrogen 63 H Creatinine 7.38 H Est Glomerular Filtrat Rate mL/min Glucose Level 129 Calcium Level 9.3 Phosphorus Level 5.6 H Magnesium Level 2.5 Test 05/13/18 07:50 05/13/18 12:03 Bedside Glucose 126 257 H Home Meds Reported Medications Insulin Glargine,Hum.rec.anlog (Basaglar Kwikpen U-100) 100 Unit/1 Ml Insuln.pen, 0 SC QHS, EA SLIDING SCALE 04/25/18 Furosemide* (Furosemide*) 40 Mg Tablet, 40 MG PO BID, TAB 04/25/18 Tamsulosin Hcl* (Tamsulosin Hcl*) 0.4 Mg Cap.er.24h, 0.4 MG PO DAILY, CAP 04/25/18 Famotidine* (Famotidine*) 20 Mg Tablet, 20 MG PO BID, #60 TAB 04/25/18 Aspirin (Low Dose Aspirin) 81 Mg Tablet.dr, 81 MG PO DAILY, #30 TAB 04/25/18 Carvedilol* (Carvedilol*) 3.125 Mg Tablet, 3.125 MG PO BID, #60 TAB 04/25/18 Apixaban* (Eliquis*) 2.5 Mg Tablet, 2.5 MG PO BID, TAB 04/25/18 Medications Current Medications Miscellaneous Information (Pending [facility] Order For Wound Care) This patient bray... PRN PRN XX WOUND CARE; Start 05/07/18 at 23:30 Apixaban (Eliquis) 2.5 mg BID PO Last administered on 05/13/18 08:21; Admin Dose 2.5 MG; Start 05/07/18 at 23:18 Aspirin (Halfprin) 81 mg DAILY PO Last administered on 05/13/18 08:21; Admin Dose 81 MG; Start 05/07/18 at 23:18 Carvedilol (Coreg) 3.125 mg BID PO Last administered on 05/13/18 08:22; Admin Dose 3.125 MG; Start 05/07/18 at 23:18 Famotidine (Pepcid) 20 mg HS PO Last administered on 05/12/18 21:46; Admin Dose 20 MG; Start 05/07/18 at 23:18 Tamsulosin HCl (Flomax) 0.4 mg DAILY PO Last administered on 05/13/18 08:21; Admin Dose 0.4 MG; Start 05/07/18 at 23:18 Insulin Aspart (Novolog Insulin Pen) NOVOLOG *MODERATE* ALGORITHM WITH MEALS BEDTIME SC Last administered on 05/13/18 12:06; Admin Dose 6 UNIT; Start 05/07/18 at 23:18 Miscellaneous Information 1 ea NOTE XX ; Start 05/07/18 at 23:18 Glucose (Glutose) 15 gm Q15M PRN PO DECREASED GLUCOSE; Start 05/07/18 at 23:18 Glucose (Glutose) 22.5 gm Q15M PRN PO DECREASED GLUCOSE; Start 05/07/18 at 23:18 Dextrose (D50w Syringe) 25 ml Q15M PRN IV DECREASED GLUCOSE; Start 05/07/18 at 23:18 Dextrose (D50w Syringe) 50 ml Q15M PRN IV DECREASED GLUCOSE; Start 05/07/18 at 23:18 Glucagon (Glucagen) 1 mg Q15M PRN IM DECREASED GLUCOSE; Start 05/07/18 at 23:18 Glucose (Glutose) 15 gm Q15M PRN BUCCAL DECREASED GLUCOSE; Start 05/07/18 at 23:18 Calcium Acetate (Phoslo) 667 mg WITH MEALS PO Last administered on 05/13/18at 12:10; Admin Dose 667 MG; Start 05/07/18 at 23:18 Amlodipine Besylate (Norvasc) 2.5 mg BID PO Last administered on 05/12/18at 21:47; Admin Dose 2.5 MG; Start 05/07/18 at 23:18 Guaifenesin/ Codeine Phosphate (Robitussin Ac Liquid Cup) 5 ml Q6H PRN PO CO UGH; Start 05/07/18 at 23:18 Senna (Senokot) 1 tab HS PO Last administered on 05/12/18at 21:46; Admin Dose 1 TAB; Start 05/08/18 at 21:00 Lactulose (Enulose) 20 gm DAILY PRN PO CONSTIPATION; Start 05/08/18 at 01:30 Albumin Human 100 ml @ 100 mls/hr WITH DIALYSIS PRN IV SBP <90 DURING DIALYSIS; Start 05/08/18 at 15:30 Sodium Chloride (NS) -To prime the dialy... DIRECTED FOR HD PRN IV HD; Start 05/08/18 at 15:30 Acetaminophen (Tylenol Tab) 650 mg Q6H PRN PO MILD PAIN(1-3)OR ELEVATED TEMP Last administered on 05/11/18at 09:09; Admin Dose 650 MG; Start 05/09/18 at 15:00 Diagnostic Test (Pha) (Accu-Chek) 1 ea BID XX Last administered on 05/11/18at 22:00; Admin Dose 1 EA; Start 05/10/18 at 21:00 Gabapentin (Neurontin) 100 mg DAILY PO Last administered on 05/13/18at 08:21; Admin Dose 100 MG; Start 05/11/18 at 10:30 Acetaminophen/ Hydrocodone Bitart ([place] (5)) 1 tab Q6H PRN PO MODERATE JAYDEN N LEVEL 4-6; Start 05/12/18 at 20:00 Assessment/Plan Assessment/Plan (Daily) 1. debility/ weakness/ unsteadiness 2. esrd--dialysis 3. dm 4. cm/ htn ---per rehab ---per renal ---improve po chago intake ---do all ot/pt strengthening exercises JUDY REEVES MD May 13, 2018 14:20
[2018-05-13] MEDS: SENNA TAB PO SCH (20:19)
[2018-05-13] MEDS: FAMOTIDINE 20 MG TAB PO SCH (20:20)
[2018-05-14 02:00] VITALS: BP 125/67; PULSE 74; RESP 18
[2018-05-14 07:30] VITALS: BP 157/67; PULSE 76; RESP 20
[2018-05-14] MEDS: INSULIN ASPART [NOVOLOG] 3 ML PEN SC SCH ×4 (07:35→20:59)
[2018-05-14] MEDS: CALCIUM ACETATE 667 MG CAP PO SCH ×3 (07:41→17:10)
[2018-05-14] MEDS: ACCU-CHEK XX SCH ×2 (09:00→21:00)
[2018-05-14] MEDS: AMLODIPINE 2.5 MG TAB PO SCH ×2 (09:00→20:58)
[2018-05-14] MEDS: GABAPENTIN 100 MG CAP PO SCH (09:00)
[2018-05-14] MEDS: APIXABAN 5 MG TABLET PO SCH ×2 (09:00→20:58)
[2018-05-14] MEDS: ASPIRIN (EC) 81 MG TAB PO SCH (09:00)
[2018-05-14] MEDS: TAMSULOSIN (SR) 0.4 MG CAP PO SCH (09:01)
--- NOTE | 2018-05-14 10:07 | CONS ---
Assessment/Plan Assessment/Plan Hospital Course (Demo Recall) 1. End-stage renal disease on maintenance hemodialysis Thursday. He has dialysis scheduled for . 2. Fever. He had a fever 5 days ago of 102.1. He is not coughing and denies dysuria. Urine and blood cultures are no growth thus far.. Chest x-ray does not show a new infiltrate. 3. CHF, compensated 4. Hypertension, controlled 5. Type 2 diabetes mellitus 6. Right hip pain, has resolved 7. He is now on the acute rehab floor and is participating in rehab. Consultation Date/Type/Reason Admit Date/Time May 07, 2018 at 22:39 Initial Consult Date Type of Consult Nephrology Date/Time of Note DATE: 05/14/18 TIME: 10:04 24 HR Interval Summary Free Text/Dictation Gera is awake and alert this morning. He has no complaints. His daughter is in the room with him. Constitutional: no complaints, improved Exam/Review of Systems Exam Vitals Vital Signs Date Temp Pulse Resp B/P (MAP) Pulse Ox O2 O2 Flow FiO2 Time Delivery Rate 05/14/18 98.0 76 20 157/67 96 Room Air 07:30 (97) Intake and Output 05/13/18 05/13/18 05/14/18 1515:00 23:00 07:00 IntakeIntake Total 1100 ml 500 ml OutputOutput Total 2400 ml BalanceBalance -1300 ml 500 ml Constitutional: alert, oriented, frail Respiratory: clear to auscultation Cardiovascular: regular rate and rhythm Gastrointestinal: soft, non-tender Musculoskeletal: nl extremities to inspection Results Result Diagram: 05/13/18 0607 05/13/18 0607 Results 24hrs Laboratory Tests Test 05/13/18 12:03 05/13/18 17:43 05/13/18 20:18 05/14/18 02:18 Bedside Glucose 257 H 128 250 H 200 Test 05/14/18 07:38 Bedside Glucose 118 Medications Medication Current Medications Miscellaneous Information (Pending [facility] Order For Wound Care) This patient bray... PRN PRN XX WOUND CARE; Start 05/07/18 at 23:30 Apixaban (Eliquis) 2.5 mg BID PO Last administered on 05/14/18at 09:00; Admin Dose 2.5 MG; Start 05/07/18 at 23:18 Aspirin (Halfprin) 81 mg DAILY PO Last administered on 05/14/18 09:00; Admin Dose 81 MG; Start 05/07/18 at 23:18 Carvedilol (Coreg) 3.125 mg BID PO Last administered on 05/14/18 09:00; Admin Dose 3.125 MG; Start 05/07/18 at 23:18 Famotidine (Pepcid) 20 mg HS PO Last administered on 05/13/18 20:20; Admin Dose 20 MG; Start 05/07/18 at 23:18 Tamsulosin HCl (Flomax) 0.4 mg DAILY PO Last administered on 05/14/18 09:01; Admin Dose 0.4 MG; Start 05/07/18 at 23:18 Insulin Aspart (Novolog Insulin Pen) NOVOLOG *MODERATE* ALGORITHM WITH MEALS BEDTIME SC Last administered on 05/13/18 20:30; Admin Dose 2 UNIT; Start 05/07/18 at 23:18 Miscellaneous Information 1 ea NOTE XX ; Start 05/07/18 at 23:18 Glucose (Glutose) 15 gm Q15M PRN PO DECREASED GLUCOSE; Start 05/07/18 at 23:18 Glucose (Glutose) 22.5 gm Q15M PRN PO DECREASED GLUCOSE; Start 05/07/18 at 23:18 Dextrose (D50w Syringe) 25 ml Q15M PRN IV DECREASED GLUCOSE; Start 05/07/18 at 23:18 Dextrose (D50w Syringe) 50 ml Q15M PRN IV DECREASED GLUCOSE; Start 05/07/18 at 23:18 Glucagon (Glucagen) 1 mg Q15M PRN IM DECREASED GLUCOSE; Start 05/07/18 at 23:18 Glucose (Glutose) 15 gm Q15M PRN BUCCAL DECREASED GLUCOSE; Start 05/07/18 at 23:18 Calcium Acetate (Phoslo) 667 mg WITH MEALS PO Last administered on 05/14/18 07:41; Admin Dose 667 MG; Start 05/07/18 at 23:18 Amlodipine Besylate (Norvasc) 2.5 mg BID PO Last administered on 05/14/18 09:00; Admin Dose 2.5 MG; Start 05/07/18 at 23:18 Guaifenesin/ Codeine Phosphate (Robitussin Ac Liquid Cup) 5 ml Q6H PRN PO COUGH; Start 05/07/18 at 23:18 Senna (Senokot) 1 tab HS PO Last administered on 05/13/18 20:19; Admin Dose 1 TAB; Start 05/08/18 at 21:00 Lactulose (Enulose) 20 gm DAILY PRN PO CONSTIPATION; Start 05/08/18 at 01:30 Albumin Human 100 ml @ 100 mls/hr WITH DIALYSIS PRN IV SBP <90 DURING DIALYSIS Last administered on 05/13/18 18:03; Admin Dose 100 MLS/HR; Start 05/08/18 at 15:30 Sodium Chloride (NS) -To prime the dialy... DIRECTED FOR HD PRN IV HD; Start 05/08/18 at 15:30 Acetaminophen (Tylenol Tab) 650 mg Q6H PRN PO MILD PAIN(1-3)OR ELEVATED TEMP Last administered on 05/11/18 09:09; Admin Dose 650 MG; Start 05/09/18 at 15:00 Diagnostic Test (Pha) (Accu-Chek) 1 ea BID XX Last administered on 05/11/18 22:00; Admin Dose 1 EA; Start 05/10/18 at 21:00 Gabapentin (Neurontin) 100 mg DAILY PO Last administered on 05/14/18 09:00; Admin Dose 100 MG; Start 05/11/18 at 10:30 Acetaminophen/ Hydrocodone Bitart ([place] (5/325)) 1 tab Q6H PRN PO MODERATE PAIN LEVEL 4-6; Start 05/12/18 at 20:00 NATASHA SCHNEIDER MD May 14, 2018 10:07
--- NOTE | 2018-05-14 12:34 | PN ---
Date/Time of Note Date/Time of Note DATE: 05/14/18 TIME: 12:33 Subjective Comfortable Objective Vital Signs Date Temp Pulse Resp B/P (MAP) Pulse Ox O2 O2 Flow FiO2 Time Delivery Rate 05/14/18 98.0 76 20 157/67 96 Room Air 07:30 (97) Intake and Output 05/13/18 05/13/18 05/14/18 1515:00 23:00 07:00 IntakeIntake Total 1100 ml 500 ml OutputOutput Total 2400 ml BalanceBalance -1300 ml 500 ml Exam pulm-cta abd-soft integ- improving min assist 125 feet Results/Medications Result Diagram: 05/13/18 0607 05/13/18 0607 Results 24 hrs Laboratory Tests Test 05/13/18 17:43 05/13/18 20:18 05/14/18 02:18 05/14/18 07:38 Bedside Glucose 128 250 H 200 118 Test 05/14/18 11:35 Bedside Glucose 181 Medications Current Medications Miscellaneous Information (Pending [facility] Order For Wound Care) This patient bray... PRN PRN XX WOUND CARE; Start 05/07/18 at 23:30 Apixaban (Eliquis) 2.5 mg BID PO Last administered on 05/14/18 09:00; Admin Dose 2.5 MG; Start 05/07/18 at 23:18 Aspirin (Halfprin) 81 mg DAILY PO Last administered on 05/14/18 09:00; Admin Dose 81 MG; Start 05/07/18 at 23:18 Carvedilol (Coreg) 3.125 mg BID PO Last administered on 05/14/18 09:00; Admin Dose 3.125 MG; Start 05/07/18 at 23:18 Famotidine (Pepcid) 20 mg HS PO Last administered on 05/13/18 20:20; Admin Dose 20 MG; Start 05/07/18 at 23:18 Tamsulosin HCl (Flomax) 0.4 mg DAILY PO Last administered on 05/14/18 09:01; Admin Dose 0.4 MG; Start 05/07/18 at 23:18 Insulin Aspart (Novolog Insulin Pen) NOVOLOG *MODERATE* ALGORITHM WITH MEALS BEDTIME SC Last administered on 05/14/18 12:02; Admin Dose 4 UNIT; Start 05/07/18 at 23:18 Miscellaneous Information 1 ea NOTE XX ; Start 05/07/18 at 23:18 Glucose (Glutose) 15 gm Q15M PRN PO DECREASED GLUCOSE; Start 05/07/18 at 23:18 Glucose (Glutose) 22.5 gm Q15M PRN PO DECREASED GLUCOSE; Start 05/07/18 at 23:18 Dextrose (D50w Syringe) 25 ml Q15M PRN IV DECREASED GLUCOSE; Start 05/07/18 at 23:18 Dextrose (D50w Syringe) 50 ml Q15M PRN IV DECREASED GLUCOSE; Start 05/07/18 at 23:18 Glucagon (Glucagen) 1 mg Q15M PRN IM DECREASED GLUCOSE; Start 05/07/18 at 23:18 Glucose (Glutose) 15 gm Q15M PRN BUCCAL DECREASED GLUCOSE; Start 05/07/18 at 23:18 Calcium Acetate (Phoslo) 667 mg WITH MEALS PO Last administered on 05/14/18at 12:02; Admin Dose 667 MG; Start 05/07/18 at 23:18 Amlodipine Besylate (Norvasc) 2.5 mg BID PO Last administered on 05/14/18 09:00; Admin Dose 2.5 MG; Start 05/07/18 at 23:18 Guaifenesin/ Codeine Phosphate (Robitussin Ac Liquid Cup) 5 ml Q6H PRN PO COUGH; Start 05/07/18 at 23:18 Senna (Senokot) 1 tab HS PO Last administered on 05/13/18at 20:19; Admin Dose 1 TAB; Start 05/08/18 at 21:00 Lactulose (Enulose) 20 gm DAILY PRN PO CONSTIPATION; Start 05/08/18 at 01:30 Albumin Human 100 ml @ 100 mls/hr WITH DIALYSIS PRN IV SBP <90 DURING DIALYSIS Last administered on 05/13/18at 18:03; Admin Dose 100 MLS/HR; Start 05/08/18 at 15:30 Sodium Chloride (NS) -To prime the dialy... DIRECTED FOR HD PRN IV HD; Start 05/08/18 at 15:30 Acetaminophen (Tylenol Tab) 650 mg Q6H PRN PO MILD PAIN(1-3)OR ELEVATED TEMP Last administered on 05/11/18 09:09; Admin Dose 650 MG; Start 05/09/18 at 15:00 Diagnostic Test (Pha) (Accu-Chek) 1 ea BID XX Last administered on 05/11/18at 22:00; Admin Dose 1 EA; Start 05/10/18 at 21:00 Gabapentin (Neurontin) 100 mg DAILY PO Last administered on 05/14/18at 09:00; A dmin Dose 100 MG; Start 05/11/18 at 10:30 Acetaminophen/ Hydrocodone Bitart ([place] (5/325)) 1 tab Q6H PRN PO MODERATE PAIN LEVEL 4-6; Start 05/12/18 at 20:00 Assessment/Plan Additional Assessment/Plan Rehab- Debility secondary to congestive heart failure and pneumonia, Mild toxic metabolic encephalopathy Good functional gains, continue treatment plan Renal- End-stage renal disease on hemodialysis Integ- healing stage II. Continue optimizing nutrition, and offloading wound Acute combined congestive heart failure, ischemic cardiomyopathy. Hypertension. History of coronary artery disease and coronary artery bypass graft. TOMMIE CARDENAS MD May 14, 2018 12:34
--- NOTE | 2018-05-14 13:56 | CONS ---
Consult Date/Type/Reason Admit Date/Time May 07, 2018 at 22:39 Initial Consult Date 05/08/2018 Date/Time of Note DATE: 05/14/18 TIME: 13:56 Subjective tired, ate a little more Objective Vitals Vital Signs Date Temp Pulse Resp B/P (MAP) Pulse Ox O2 O2 Flow FiO2 Time Delivery Rate 05/14/18 98.0 76 20 157/67 96 Room Air 07:30 (97) Intake and Output 05/13/18 05/13/18 05/14/18 1515:00 23:00 07:00 IntakeIntake Total 1100 ml 500 ml OutputOutput Total 2400 ml BalanceBalance -1300 ml 500 ml Exam in bed, less c/o pain everywhere, rr, cta, no edema Results/Medications Result Diagram: 05/13/18 0605/13/18 0607 Results 24 hrs Laboratory Tests Test 05/13/18 17:43 05/13/18 20:18 05/14/18 02:18 05/14/18 07:38 Bedside Glucose 128 250 H 200 118 Test 05/14/18 11:35 Bedside Glucose 181 Home Meds Reported Medications Insulin Glargine,Hum.rec.anlog (Basaglar Kwikpen U-100) 100 Unit/1 Ml Insuln.pen, 0 SC QHS, EA SLIDING SCALE 04/25/18 Furosemide* (Furosemide*) 40 Mg Tablet, 40 MG PO BID, TAB 04/25/18 Tamsulosin Hcl* (Tamsulosin Hcl*) 0.4 Mg Cap.er.24h, 0.4 MG PO DAILY, CAP 04/25/18 Famotidine* (Famotidine*) 20 Mg Tablet, 20 MG PO BID, #60 TAB 04/25/18 Aspirin (Low Dose Aspirin) 81 Mg Tablet.dr, 81 MG PO DAILY, #30 TAB 04/25/18 Carvedilol* (Carvedilol*) 3.125 Mg Tablet, 3.125 MG PO BID, #60 TAB 04/25/18 Apixaban* (Eliquis*) 2.5 Mg Tablet, 2.5 MG PO BID, TAB 04/25/18 Medications Current Medications Miscellaneous [facility] This patient bray... PRN PRN XX WOUND CARE; Start 05/07/18 at 23:30 Apixaban (Eliquis) 2.5 mg BID PO Last administered on 05/14/18 09:00; Admin Dose 2.5 MG; Start 05/07/18 at 23:18 Aspirin (Halfprin) 81 mg DAILY PO Last administered on 05/14/18 09:00; Admin Dose 81 MG; Start 05/07/18 at 23:18 Carvedilol (Coreg) 3.125 mg BID PO Last administered on 05/14/18 09:00; Admin Dose 3.125 MG; Start 05/07/18 at 23:18 Famotidine (Pepcid) 20 mg HS PO Last administered on 05/13/18 20:20; Admin Dose 20 MG; Start 05/07/18 at 23:18 Tamsulosin HCl (Flomax) 0.4 mg DAILY PO Last administered on 05/14/18 09:01; Admin Dose 0.4 MG; Start 05/07/18 at 23:18 Insulin Aspart (Novolog Insulin Pen) NOVOLOG *MODERATE* ALGORITHM WITH MEALS BEDTIME SC Last administered on 05/14/18 12:02; Admin Dose 4 UNIT; Start 05/07/18 at 23:18 Miscellaneous Information 1 ea NOTE XX ; Start 05/07/18 at 23:18 Glucose (Glutose) 15 gm Q15M PRN PO DECREASED GLUCOSE; Start 05/07/18 at 23:18 Glucose (Glutose) 22.5 gm Q15M PRN PO DECREASED GLUCOSE; Start 05/07/18 at 23:18 Dextrose (D50w Syringe) 25 ml Q15M PRN IV DECREASED GLUCOSE; Start 05/07/18 at 23:18 Dextrose (D50w Syringe) 50 ml Q15M PRN IV DECREASED GLUCOSE; Start 05/07/18 at 23:18 Glucagon (Glucagen) 1 mg Q15M PRN IM DECREASED GLUCOSE; Start 05/07/18 at 23:18 Glucose (Glutose) 15 gm Q15M PRN BUCCAL DECREASED GLUCOSE; Start 05/07/18 at 23:18 Calcium Acetate (Phoslo) 667 mg WITH MEALS PO Last administered on 05/14/18 12:02; Admin Dose 667 MG; Start 05/07/18 at 23:18 Amlodipine Besylate (Norvasc) 2.5 mg BID PO Last administered on 05/14/18 09:00; Admin Dose 2.5 MG; Start 05/07/18 at 23:18 Guaifenesin/ Codeine Phosphate (Robitussin Ac Liquid Cup) 5 ml Q6H PRN PO COUGH; Start 05/07/18 at 23:18 Senna (Senokot) 1 tab HS PO Last administered on 05/13/18 20:19; Admin Dose 1 TAB; Start 05/08/18 at 21:00 Lactulose (Enulose) 20 gm DAILY PRN PO CONSTIPATION; Start 05/08/18 at 01:30 Albumin Human 100 ml @ 100 mls/hr WITH DIALYSIS PRN IV SBP <90 DURING DIALYSIS Last administered on 05/13/18 18:03; Admin Dose 100 MLS/HR; Start 05/08/18 at 15:30 Sodium Chloride (NS) -To prime the dialy... DIRECTED FOR HD PRN IV HD; Start 05/08/18 at 15:30 Acetaminophen (Tylenol Tab) 650 mg Q6H PRN PO MILD PAIN(1-3)OR ELEVATED TEMP L ast administered on 05/11/18 09:09; Admin Dose 650 MG; Start 05/09/18 at 15:00 Diagnostic Test (Pha) (Accu-Chek) 1 ea BID XX Last administered on 05/11/18 22:00; Admin Dose 1 EA; Start 05/10/18 at 21:00 Gabapentin (Neurontin) 100 mg DAILY PO Last administered on 05/14/18 09:00; Admin Dose 100 MG; Start 05/11/18 at 10:30 Acetaminophen/ Hydrocodone Bitart ([place] (5/325)) 1 tab Q6H PRN PO MODERATE P AIN LEVEL 4-6; Start 05/12/18 at 20:00 Assessment/Plan Assessment/Plan (Daily) 1. debility/ weak/ unsteady 2. esrd 3. dm 4. cm/ htn 5. low na ---per rehab ---per renal ---no salt restrict ---inc ot/pt exercises ---inc po chago intake JUDY REEVES MD May 14, 2018 13:56
[2018-05-14 14:00] VITALS: BP 161/66; PULSE 75; RESP 18
[2018-05-14 20:00] VITALS: BP 150/74; PULSE 74; RESP 18
[2018-05-14] MEDS: FAMOTIDINE 20 MG TAB PO SCH (20:56)
[2018-05-14] MEDS: SENNA TAB PO SCH (20:56)
[2018-05-15] VITALS (18 sets, daily range): BP systolic 102–158; BP diastolic 50–68; PULSE 75–80; RESP 17–18
[2018-05-15] MEDS: CALCIUM ACETATE 667 MG CAP PO SCH ×3 (08:08→18:02)
[2018-05-15] MEDS: INSULIN ASPART [NOVOLOG] 3 ML PEN SC SCH ×4 (08:10→21:00)
[2018-05-15] MEDS: GABAPENTIN 100 MG CAP PO SCH (08:37)
[2018-05-15] MEDS: TAMSULOSIN (SR) 0.4 MG CAP PO SCH (08:37)
[2018-05-15] MEDS: ASPIRIN (EC) 81 MG TAB PO SCH (08:37)
[2018-05-15] MEDS: AMLODIPINE 2.5 MG TAB PO SCH ×2 (08:37→23:36)
[2018-05-15] MEDS: APIXABAN 5 MG TABLET PO SCH ×2 (08:38→23:39)
[2018-05-15] MEDS: ACCU-CHEK XX SCH ×2 (09:00→21:00)
--- NOTE | 2018-05-15 09:51 | PN ---
Date/Time of Note Date/Time of Note DATE: 05/15/18 TIME: 09:49 Subjective AWAKE ALERT NO C/O Objective Vital Signs Date Temp Pulse Resp B/P (MAP) Pulse Ox O2 O2 Flow FiO2 Time Delivery Rate 05/15/18 97.8 77 18 132/67 96 Room Air 02:00 (88) Ambu Bag Intake and Output 05/14/18 05/14/18 05/15/18 1515:00 23:00 07:00 IntakeIntake Total 420 ml 450 ml BalanceBalance 420 ml 450 ml Exam LUNGS CTA COR RR FAIR MOTOR CLOF XT AND GAIT MIN A Results/Medications Result Diagram: 05/13/18 0607 05/13/18 0607 Results 24 hrs Laboratory Tests Test 05/14/18 11:35 05/14/18 17:09 05/14/18 20:54 05/15/18 07:58 Bedside Glucose 181 163 169 142 Medications Current Medications Miscellaneous Information (Pending [facility] Order For Wound Care) This patient bray... PRN PRN XX WOUND CARE; Start 05/07/18 at 23:30 Apixaban (Eliquis) 2.5 mg BID PO Last administered on 05/15/18 08:38; Admin Dose 2.5 MG; Start 05/07/18 at 23:18 Aspirin (Halfprin) 81 mg DAILY PO Last administered on 05/15/18 08:37; Admin Dose 81 MG; Start 05/07/18 at 23:18 Carvedilol (Coreg) 3.125 mg BID PO Last administered on 05/15/18 08:37; Admin Dose 3.125 MG; Start 05/07/18 at 23:18 Famotidine (Pepcid) 20 mg HS PO Last administered on 05/14/18 20:56; Admin Dose 20 MG; Start 05/07/18 at 23:18 Tamsulosin HCl (Flomax) 0.4 mg DAILY PO Last administered on 05/15/18 08:37; Admin Dose 0.4 MG; Start 05/07/18 at 23:18 Insulin Aspart (Novolog Insulin Pen) NOVOLOG *MODERATE* ALGORITHM WITH MEALS BEDTIME SC Last administered on 05/15/18 08:10; Admin Dose 2 UNIT; Start 05/07/18 at 23:18 Miscellaneous Information 1 ea NOTE XX ; Start 05/07/18 at 23:18 Glucose (Glutose) 15 gm Q15M PRN PO DECREASED GLUCOSE; Start 05/07/18 at 23:18 Glucose (Glutose) 22.5 gm Q15M PRN PO DECREASED GLUCOSE; Start 05/07/18 at 23:18 Dextrose (D50w Syringe) 25 ml Q15M PRN IV DECREASED GLUCOSE; Start 05/07/18 at 23:18 Dextrose (D50w Syringe) 50 ml Q15M PRN IV DECREASED GLUCOSE; Start 05/07/18 at 23:18 Glucagon (Glucagen) 1 mg Q15M PRN IM DECREASED GLUCOSE; Start 05/07/18 at 23:18 Glucose (Glutose) 15 gm Q15M PRN BUCCAL DECREASED GLUCOSE; Start 05/07/18 at 23:18 Calcium Acetate (Phoslo) 667 mg WITH MEALS PO Last administered on 05/15/18 08:08; Admin Dose 667 MG; Start 05/07/18 at 23:18 Amlodipine Besylate (Norvasc) 2.5 mg BID PO Last administered on 05/15/18at 08:37; Admin Dose 2.5 MG; Start 05/07/18 at 23:18 Guaifenesin/ Codeine Phosphate (Robitussin Ac Liquid Cup) 5 ml Q6H PRN PO COUGH; Start 05/07/18 at 23:18 Senna (Senokot) 1 tab HS PO Last administered on 05/14/18at 20:56; Admin Dose 1 TAB; Start 05/08/18 at 21:00 Lactulose (Enulose) 20 gm DAILY PRN PO CONSTIPATION; Start 05/08/18 at 01:30 Albumin Human 100 ml @ 100 mls/hr WITH DIALYSIS PRN IV SBP <90 DURING DIALYSIS Last administered on 05/13/18 18:03; Admin Dose 100 MLS/HR; Start 05/08/18 at 15:30 Sodium Chloride (NS) -To prime the dialy... DIRECTED FOR HD PRN IV HD; Start 05/08/18 at 15:30 Acetaminophen (Tylenol Tab) 650 mg Q6H PRN PO MILD PAIN(1-3)OR ELEVATED TEMP Last administered on 05/11/18 09:09; Admin Dose 650 MG; Start 05/09/18 at 15:00 Diagnostic Test (Pha) (Accu-Chek) 1 ea BID XX Last administered on 05/11/18at 22:00; Admin Dose 1 EA; Start 05/10/18 at 21:00 Gabapentin (Neurontin) 100 mg DAILY PO Last administered on 05/15/18at 08:37; Admin Dose 100 MG; Start 05/11/18 at 10:30 Acetaminophen/ Hydrocodone Bitart ([place] (5/325)) 1 tab Q6H PRN PO MODERATE PAIN LEVEL 4-6; Start 05/12/18 at 20:00 Assessment/Plan Additional Assessment/Plan Rehab- Debility secondary to congestive heart failure and pneumonia, Mild toxic metabolic encephalopathy Good functional gains, continue treatment plan. CONT THERAPEUTIC INTERVENTIONS, ENERGY CONSERVATION TECHNIQUES Renal- End-stage renal disease on hemodialysis Integ- healing stage II. Continue optimizing nutrition, and offloading wound Acute combined congestive heart failure, ischemic cardiomyopathy. Hypertension. History of coronary artery disease and coronary artery bypass graft. FRANCES CARDENAS MD May 15, 2018 09:51
[2018-05-15] MEDS ORDERED: LIDOCAINE 4% CR TOP SCH (11:00)
--- NOTE | 2018-05-15 11:03 | PN ---
Date/Time of Note Date/Time of Note DATE: 05/15/18 TIME: 10:59 Assessment/Plan VTE Prophylaxis Risk score (from Nsg)>0 risk: 5 Pharmacological prophylaxis: apixaban Lines/Catheters IV Catheter Type (from Nrsg): [place] Lock Urinary Cath still in place: No Assessment/Plan Assessment/Plan 1. End-stage renal disease on maintenance hemodialysis Thursday. He has dialysis scheduled for . ---family requesting lidocaine cream to be placed on arm prior to dialysis. 2. Fever. stable 3. CHF, compensated 4. Hypertension, controlled 5. Type 2 diabetes mellitus 6. Right hip pain, has resolved 7. He is now on the acute rehab floor and is participating in rehab. Result Diagram: 05/13/18 0607 05/13/18 0607 Results 24hrs Laboratory Tests Test 05/14/18 11:35 05/14/18 17:09 05/14/18 20:54 05/15/18 07:58 Bedside Glucose 181 163 169 142 Subjective 24 Hr Interval Summary Free Text/Dictation feeling good. family reports pt cont to improve Exam/Review of Systems Exam Vitals Vital Signs Date Temp Pulse Resp B/P (MAP) Pulse Ox O2 O2 Flow FiO2 Time Delivery Rate 05/15/18 97.9 75 17 134/60 100 Room Air 07:00 (84) Intake and Output 05/14/18 05/14/18 05/15/18 1515:00 23:00 07:00 IntakeIntake Total 420 ml 450 ml BalanceBalance 420 ml 450 ml Exam LE no pitting edema Head: normocephalic, atraumatic, lacerations, hematomas, other Neck: supple, non-tender Cardiovascular: regular rate and rhythm Extremities: normal pulses; No calf tenderness, No cyanosis, No clubbing, No pitting pedal edema, No palpable cord, No tenderness, No other Results Results 24hrs Laboratory Tests Test 05/14/18 11:35 05/14/18 17:09 05/14/18 20:54 05/15/18 07:58 Bedside Glucose 181 163 169 142 Medications Medication Current Medications Miscellaneous Information ([facility] This patient bray... PRN PRN XX WOUND CARE; Start 05/07/18 at 23:30 Apixaban (Eliquis) 2.5 mg BID PO Last administered on 05/15/18 08:38; Admin Dose 2.5 MG; Start 05/07/18 at 23:18 Aspirin (Halfprin) 81 mg DAILY PO Last administered on 05/15/18 08:37; Admin Dose 81 MG; Start 05/07/18 at 23:18 Carvedilol (Coreg) 3.125 mg BID PO Last administered on 05/15/18 08:37; Admin Dose 3.125 MG; Start 05/07/18 at 23:18 Famotidine (Pepcid) 20 mg HS PO Last administered on 05/14/18 20:56; Admin Dose 20 MG; Start 05/07/18 at 23:18 Tamsulosin HCl (Flomax) 0.4 mg DAILY PO Last administered on 05/15/18 08:37; Admin Dose 0.4 MG; Start 05/07/18 at 23:18 Insulin Aspart (Novolog Insulin Pen) NOVOLOG *MODERATE* ALGORITHM WITH MEALS BEDTIME SC Last administered on 05/15/18 08:10; Admin Dose 2 UNIT; Start 05/07/18 at 23:18 Miscellaneous Information 1 ea NOTE XX ; Start 05/07/18 at 23:18 Glucose (Glutose) 15 gm Q15M PRN PO DECREASED GLUCOSE; Start 05/07/18 at 23:18 Glucose (Glutose) 22.5 gm Q15M PRN PO DECREASED GLUCOSE; Start 05/07/18 at 23:18 Dextrose (D50w Syringe) 25 ml Q15M PRN IV DECREASED GLUCOSE; Start 05/07/18 at 23:18 Dextrose (D50w Syringe) 50 ml Q15M PRN IV DECREASED GLUCOSE; Start 05/07/18 at 23:18 Glucagon (Glucagen) 1 mg Q15M PRN IM DECREASED GLUCOSE; Start 05/07/18 at 23:18 Glucose (Glutose) 15 gm Q15M PRN BUCCAL DECREASED GLUCOSE; Start 05/07/18 at 23:18 Calcium Acetate (Phoslo) 667 mg WITH MEALS PO Last administered on 05/15/18 08:08; Admin Dose 667 MG; Start 05/07/18 at 23:18 Amlodipine Besylate (Norvasc) 2.5 mg BID PO Last administered on 05/15/18 08:37; Admin Dose 2.5 MG; Start 05/07/18 at 23:18 Guaifenesin/ Codeine Phosphate (Robitussin Ac Liquid Cup) 5 ml Q6H PRN PO COUGH; Start 05/07/18 at 23:18 Senna (Senokot) 1 tab HS PO Last administered on 05/14/18at 20:56; Admin Dose 1 TAB; Start 05/08/18 at 21:00 Lactulose (Enulose) 20 gm DAILY PRN PO CONSTIPATION; Start 05/08/18 at 01:30 Albumin Human 100 ml @ 100 mls/hr WITH DIALYSIS PRN IV SBP <90 DURING DIALYSIS Last administered on 05/13/18 18:03; Admin Dose 100 MLS/HR; Start 05/08/18 at 15:30 Sodium Chloride (NS) -To prime the dialy... DIRECTED FOR HD PRN IV HD; Start 05/08/18 at 15:30 Acetaminophen (Tylenol Tab) 650 mg Q6H PRN PO MILD PAIN(1-3)OR ELEVATED TEMP Last administered on 05/11/18 09:09; Admin Dose 650 MG; Start 05/09/18 at 15:00 Diagnostic Test (Pha) (Accu-Chek) 1 ea BID XX Last administered on 05/11/18 22:00; Admin Dose 1 EA; Start 05/10/18 at 21:00 Gabapentin (Neurontin) 100 mg DAILY PO Last administered on 05/15/18 08:37; Admin Dose 100 MG; Start 05/11/18 at 10:30 Acetaminophen/ Hydrocodone Bitart ([place] (5/325)) 1 tab Q6H PRN PO MODERATE PAIN LEVEL 4-6; Start 05/12/18 at 20:00 FAHAD PATTERSON MD May 15, 2018 11:03
--- NOTE | 2018-05-15 13:55 | CONS ---
Assessment/Plan Assessment/Plan Assessment/Plan (Daily) # End stage renal disease For HD today # CHF, compensated # Hypertension, controlled # Type 2 diabetes mellitus Elevated blood sugar this am SSI #Debilitation Continue PT Consultation Date/Type/Reason Admit Date/Time May 07, 2018 at 22:39 Initial Consult Date Type of Consult Nephrology Date/Time of Note DATE: 05/15/18 TIME: 13:50 24 HR Interval Summary Free Text/Dictation Up in chair, alert, no complaints Exam/Review of Systems Exam Vitals Vital Signs Date Temp Pulse Resp B/P (MAP) Pulse Ox O2 O2 Flow FiO2 Time Delivery Rate 05/15/18 97.9 75 17 134/60 100 Room Air 07:00 (84) Intake and Output 05/14/18 05/14/18 05/15/18 1515:00 23:00 07:00 IntakeIntake Total 420 ml 450 ml BalanceBalance 420 ml 450 ml Constitutional: alert Neck: supple; No jvd Cardiovascular: regular rate and rhythm Extremities: other (AVF RUE good bruit); No edema Results Result Diagram: 05/13/18 0607 05/13/18 0607 Results 24hrs Laboratory Tests Test 05/14/18 17:09 05/14/18 20:54 05/15/18 07:58 05/15/18 12:10 Bedside Glucose 163 169 142 203 Medications Medication Current Medications Miscellaneous Information ([facility]) This patient bray... PRN PRN XX WOUND CARE; Start 05/07/18 at 23:30 Apixaban (Eliquis) 2.5 mg BID PO Last administered on 05/15/18 08:38; Admin Dose 2.5 MG; Start 05/07/18 at 23:18 Aspirin (Halfprin) 81 mg DAILY PO Last administered on 05/15/18 08:37; Admin Dose 81 MG; Start 05/07/18 at 23:18 Carvedilol (Coreg) 3.125 mg BID PO Last administered on 05/15/18 08:37; Admin Dose 3.125 MG; Start 05/07/18 at 23:18 Famotidine (Pepcid) 20 mg HS PO Last administered on 05/14/18 20:56; Admin Dose 20 MG; Start 05/07/18 at 23:18 Tamsulosin HCl (Flomax) 0.4 mg DAILY PO Last administered on 05/15/18 08:37; Admin Dose 0.4 MG; Start 05/07/18 at 23:18 Insulin Aspart (Novolog Insulin Pen) NOVOLOG *MODERATE* ALGORITHM WITH MEALS BEDTIME SC Last administered on 05/15/18 12:14; Admin Dose 4 UNIT; Start 05/07/18 at 23:18 Miscellaneous Information 1 ea NOTE XX ; Start 05/07/18 at 23:18 Glucose (Glutose) 15 gm Q15M PRN PO DECREASED GLUCOSE; Start 05/07/18 at 23:18 Glucose (Glutose) 22.5 gm Q15M PRN PO DECREASED GLUCOSE; Start 05/07/18 at 23:18 Dextrose (D50w Syringe) 25 ml Q15M PRN IV DECREASED GLUCOSE; Start 05/07/18 at 23:18 Dextrose (D50w Syringe) 50 ml Q15M PRN IV DECREASED GLUCOSE; Start 05/07/18 at 23:18 Glucagon (Glucagen) 1 mg Q15M PRN IM DECREASED GLUCOSE; Start 05/07/18 at 23:18 Glucose (Glutose) 15 gm Q15M PRN BUCCAL DECREASED GLUCOSE; Start 05/07/18 at 23:18 Calcium Acetate (Phoslo) 667 mg WITH MEALS PO Last administered on 05/15/18 12:43; Admin Dose 667 MG; Start 05/07/18 at 23:18 Amlodipine Besylate (Norvasc) 2.5 mg BID PO Last administered on 05/15/18 08:37; Admin Dose 2.5 MG; Start 05/07/18 at 23:18 Guaifenesin/ Codeine Phosphate (Robitussin Ac Liquid Cup) 5 ml Q6H PRN PO COUGH; Start 05/07/18 at 23:18 Senna (Senokot) 1 tab HS PO Last administered on 05/14/18 20:56; Admin Dose 1 TAB; Start 05/08/18 at 21:00 Lactulose (Enulose) 20 gm DAILY PRN PO CONSTIPATION; Start 05/08/18 at 01:30 Albumin Human 100 ml @ 100 mls/hr WITH DIALYSIS PRN IV SBP <90 DURING DIALYSIS Last administered on 05/13/18 18:03; Admin Dose 100 MLS/HR; Start 05/08/18 at 15:30 Sodium Chloride (NS) -To prime the dialy... DIRECTED FOR HD PRN IV HD; Start 05/08/18 at 15:30 Acetaminophen (Tylenol Tab) 650 mg Q6H PRN PO MILD PAIN(1-3)OR ELEVATED TEMP Last administered on 05/11/18at 09:09; Admin Dose 650 MG; Start 05/09/18 at 15:00 Diagnostic Test (Pha) (Accu-Chek) 1 ea BID XX Last administered on 05/11/18at 2 2:00; Admin Dose 1 EA; Start 05/10/18 at 21:00 Gabapentin (Neurontin) 100 mg DAILY PO Last administered on 05/15/18at 08:37; Admin Dose 100 MG; Start 05/11/18 at 10:30 Acetaminophen/ Hydrocodone Bitart ([place] (5/325)) 1 tab Q6H PRN PO MODERATE PAIN LEVEL 4-6; Start 05/12/18 at 20:00 Lidocaine (Lmx 4% Plus) 1 applic GIVE IF INDICATED TOP ; Start 05/15/18 at 11:00 FAHAD DUBOSE MD May 15, 2018 13:55
[2018-05-15] MEDS: FAMOTIDINE 20 MG TAB PO SCH (23:38)
[2018-05-15] MEDS: SENNA TAB PO SCH (23:39)
[2018-05-16 02:53] VITALS: BP 128/58; PULSE 75; RESP 18
[2018-05-16 07:00] VITALS: BP 113/49; PULSE 75; RESP 16
[2018-05-16] MEDS: INSULIN ASPART [NOVOLOG] 3 ML PEN SC SCH ×4 (07:56→21:07)
--- NOTE | 2018-05-16 08:05 | PN ---
Date/Time of Note Date/Time of Note DATE: 05/16/18 TIME: 08:03 Subjective AWAKE ALERT, NO C/O Objective Vital Signs Date Temp Pulse Resp B/P (MAP) Pulse Ox O2 O2 Flow FiO2 Time Delivery Rate 05/16/18 98.7 75 18 128/58 98 Room Air 02:53 (81) Intake and Output 05/15/18 05/15/18 05/16/18 1515:00 23:00 07:00 IntakeIntake Total 700 ml OutputOutput Total 2400 ml BalanceBalance 700 ml -2400 ml Exam LUNGS CTA COR RRR FIAR MOTOR CLOF XT AND GAIT MARTÍN Results/Medications Result Diagram: 05/13/18 0607 05/13/18 0607 Results 24 hrs Laboratory Tests Test 05/15/18 12:10 05/15/18 17:45 05/15/18 21:39 05/16/18 07:38 Bedside Glucose 203 196 131 164 Medications Current Medications Miscellaneous Information (Pending [facility] Order For Wound Care) This patient bray... PRN PRN XX WOUND CARE; Start 05/07/18 at 23:30 Apixaban (Eliquis) 2.5 mg BID PO Last administered on 05/15/18 23:39; Admin Dose 2.5 MG; Start 05/07/18 at 23:18 Aspirin (Halfprin) 81 mg DAILY PO Last administered on 05/15/18 08:37; Admin Dose 81 MG; Start 05/07/18 at 23:18 Carvedilol (Coreg) 3.125 mg BID PO Last administered on 05/15/18 23:38; Admin Dose 3.125 MG; Start 05/07/18 at 23:18 Famotidine (Pepcid) 20 mg HS PO Last administered on 05/15/18 23:38; Admin Dose 20 MG; Start 05/07/18 at 23:18 Tamsulosin HCl (Flomax) 0.4 mg DAILY PO Last administered on 05/15/18 08:37; Admin Dose 0.4 MG; Start 05/07/18 at 23:18 Insulin Aspart (Novolog Insulin Pen) NOVOLOG *MODERATE* ALGORITHM WITH MEALS BEDTIME SC Last administered on 05/16/18 07:56; Admin Dose 2 UNIT; Start 05/07 at 23:18 Miscellaneous Information 1 ea NOTE XX ; Start 05/07/18 at 23:18 Glucose (Glutose) 15 gm Q15M PRN PO DECREASED GLUCOSE; Start 05/07/18 at 23:18 Glucose (Glutose) 22.5 gm Q15M PRN PO DECREASED GLUCOSE; Start 05/07/18 at 23:18 Dextrose (D50w Syringe) 25 ml Q15M PRN IV DECREASED GLUCOSE; Start 05/07/18 at 23:18 Dextrose (D50w Syringe) 50 ml Q15M PRN IV DECREASED GLUCOSE; Start 05/07/18 at 23:18 Glucagon (Glucagen) 1 mg Q15M PRN IM DECREASED GLUCOSE; Start 05/07/18 at 23:18 Glucose (Glutose) 15 gm Q15M PRN BUCCAL DECREASED GLUCOSE; Start 05/07/18 at 23:18 Calcium Acetate (Phoslo) 667 mg WITH MEALS PO Last administered on 05/15/18at 18:02; Admin Dose 667 MG; Start 05/07/18 at 23:18 Amlodipine Besylate (Norvasc) 2.5 mg BID PO Last administered on 05/15/18at 08:37; Admin Dose 2.5 MG; Start 05/07/18 at 23:18 Guaifenesin/ Codeine Phosphate (Robitussin Ac Liquid Cup) 5 ml Q6H PRN PO COUGH; Start 05/07/18 at 23:18 Senna (Senokot) 1 tab HS PO Last administered on 05/15/18at 23:39; Admin Dose 1 TAB; Start 05/08/18 at 21:00 Lactulose (Enulose) 20 gm DAILY PRN PO CONSTIPATION; Start 05/08/18 at 01:30 Albumin Human 100 ml @ 100 mls/hr WITH DIALYSIS PRN IV SBP <90 DURING DIALYSIS Last administered on 05/13/18at 18:03; Admin Dose 100 MLS/HR; Start 05/08/18 at 15:30 Sodium Chloride (NS) -To prime the dialy... DIRECTED FOR HD PRN IV HD; Start 05/08/18 at 15:30 Acetaminophen (Tylenol Tab) 650 mg Q6H PRN PO MILD PAIN(1-3)OR ELEVATED TEMP Last administered on 05/11/18at 09:09; Admin Dose 650 MG; Start 3/31/19 at 15:00 Diagnostic Test (Pha) (Accu-Chek) 1 ea BID XX Last administered on 05/11/18at 22:00; Admin Dose 1 EA; Start 05/10/18 at 21:00 Gabapentin (Neurontin) 100 mg DAILY PO Last administered on 05/15/18at 08:37; Admin Dose 100 MG; Start 05/11/18 at 10:30 Acetaminophen/ Hydrocodone Bitart ([place] (5/325)) 1 tab Q6H PRN PO MODERATE PAIN LEVEL 4-6; Start 05/12/18 at 20:00 Lidocaine (Lmx 4% Plus) 1 applic GIVE IF INDICATED TOP Last administered on 05/15/18at 21:02; Admin Dose 1 APPLIC; Start 05/15/18 at 11:00 Assessment/Plan Additional Assessment/Plan Rehab- Debility secondary to congestive heart failure and pneumonia, Mild toxic metabolic encephalopathy Good functional gains, continue treatment plan. CONT THERAPEUTIC INTERVENTIONS, ENERGY CONSERVATION TECHNIQUES Renal- End-stage renal disease on hemodialysis Integ- healing stage II. Continue optimizing nutrition, and offloading wound Acute combined congestive heart failure, ischemic cardiomyopathy. Hypertension.MAINTIAN SBP <150 History of coronary artery disease and coronary artery bypass graft. FRANCES CARDENAS MD May 16, 2018 08:05
[2018-05-16] MEDS: GABAPENTIN 100 MG CAP PO SCH (08:30)
[2018-05-16] MEDS: ASPIRIN (EC) 81 MG TAB PO SCH (08:30)
[2018-05-16] MEDS: CALCIUM ACETATE 667 MG CAP PO SCH ×3 (08:30→17:45)
[2018-05-16] MEDS: AMLODIPINE 2.5 MG TAB PO SCH ×2 (08:31→21:08)
[2018-05-16] MEDS: TAMSULOSIN (SR) 0.4 MG CAP PO SCH (08:31)
[2018-05-16] MEDS: APIXABAN 5 MG TABLET PO SCH ×2 (08:31→21:09)
[2018-05-16] MEDS: ACCU-CHEK XX SCH ×2 (08:32→21:00)
[2018-05-16 14:00] VITALS: BP 120/56; PULSE 75; RESP 16
[2018-05-16 20:00] VITALS: BP 139/60; PULSE 77; RESP 18
[2018-05-16] MEDS: FAMOTIDINE 20 MG TAB PO SCH (21:07)
[2018-05-16] MEDS: SENNA TAB PO SCH (21:09)
[2018-05-17 02:00] VITALS: BP 159/69; PULSE 75; RESP 18
[2018-05-17 07:00] VITALS: BP 143/63; PULSE 77; RESP 18
[2018-05-17] MEDS: CALCIUM ACETATE 667 MG CAP PO SCH ×3 (07:42→17:43)
[2018-05-17] MEDS: INSULIN ASPART [NOVOLOG] 3 ML PEN SC SCH ×4 (07:45→21:00)
--- NOTE | 2018-05-17 08:31 | PN ---
DATE: 05/17/2018 SUBJECTIVE: The patient is feeling better and stronger, wants to go home. OBJECTIVE: VITAL SIGNS: Temperature 97.8, pulse 75, respirations 18, blood pressure 159/69, oxygen saturation 9 8% on room air. GENERAL: Well-developed, thin male in no acute distress, sitting up in wheelchair. CHEST: Decreased breath sounds bilateral bases with scant crackles bilaterally. No rhonchi. HEART: Regular rate and rhythm. ABDOMEN: Soft, nontender. EXTREMITIES: No cyanosis, clubbing. LABORATORY DATA: White blood cell count 7.4, hemoglobin of 12.0, hematocrit 37.6, platelets 354. So dium 138, potassium 4.2, chloride 97, bicarbonate 29, BUN 47, creatinine 6.8, glucose 144, hemoglobin A1c 7.4%. ASSESSMENT AND PLAN 1. Debility secondary to congestive heart failure and pneumonia. Patient continues to improve slowl y and is stronger but does want to go home and is refusing to stay further. We will try to arrange f or possible discharge on Thursday after receiving dialysis on Thursday. We will try to make these ar rangements with the rehab team. 2. End-stage renal disease, stable. Continue with dialysis 3 days a week and arrange for dialysis p rior to discharge to home. 3. Diabetes, stable with a hemoglobin A1c of 7.4%. Continue with sliding scale and diet. 4. Congestive heart failure, combined systolic diastolic/ischemic cardiomyopathy/coronary artery dis ease/hypertension, stable. Continue with medications and diet. Dictated By: HAI CHRISTIANSON MD SR/NTS Conf#: [id number] DID#: [id number] CC: TOMMIE CARDENAS MD;*EndCC*
[2018-05-17] MEDS: TAMSULOSIN (SR) 0.4 MG CAP PO SCH (08:46)
[2018-05-17] MEDS: APIXABAN 5 MG TABLET PO SCH ×2 (08:47→20:37)
[2018-05-17] MEDS: ASPIRIN (EC) 81 MG TAB PO SCH (08:47)
[2018-05-17] MEDS: GABAPENTIN 100 MG CAP PO SCH (08:47)
[2018-05-17] MEDS: AMLODIPINE 2.5 MG TAB PO SCH ×2 (08:48→20:36)
[2018-05-17] MEDS: ACCU-CHEK XX SCH ×2 (08:48→21:56)
--- NOTE | 2018-05-17 08:51 | CONS ---
Assessment/Plan Assessment/Plan Hospital Course (Demo Recall) 1. End-stage renal disease on maintenance hemodialysis Thursday. He has dialysis scheduled for tomorrow. 2. Fever. He had one fever elevation a week ago but has not had a recurrence. 3. CHF, compensated 4. Hypertension, controlled 5. Type 2 diabetes mellitus 6. Right hip pain, has resolved 7. He is now on the acute rehab floor and is participating in rehab. Consultation Date/Type/Reason Admit Date/Time May 07, 2018 at 22:39 Initial Consult Date Type of Consult Nephrology Date/Time of Note DATE: 05/17/18 TIME: 08:49 24 HR Interval Summary Free Text/Dictation He has no new complaints and is feeling better. He continues to want to go home. His daughter is in the room with him. He is still having difficulty walking without assistance. Constitutional: no complaints, improved Exam/Review of Systems Exam Vitals Vital Signs Date Temp Pulse Resp B/P (MAP) Pulse Ox O2 O2 Flow FiO2 Time Delivery Rate 05/17/18 98.2 77 18 143/63 99 Room Air 07:00 (89) Intake and Output 05/16/18 05/16/18 05/17/18 1515:00 23:00 07:00 IntakeIntake Total 550 ml 180 ml OutputOutput Total 300 ml BalanceBalance 250 ml 180 ml Constitutional: alert, oriented, frail Respiratory: clear to auscultation, normal air movement Cardiovascular: regular rate and rhythm Gastrointestinal: soft, non-tender Musculoskeletal: nl extremities to inspection Results Result Diagram: 05/17/18 0600 05/17/18 0600 Results 24hrs Laboratory Tests Test 05/16/18 11:54 05/16/18 17:40 05/16/18 21:04 05/17/18 02:02 Bedside Glucose 208 170 266 H 185 Test 05/17/18 06:00 05/17/18 07:41 White Blood Count 7.4 # Red Blood Count 4.04 L Hemoglobin 12.0 L Hematocrit 37.6 L Mean Corpuscular Volume 93.1 Mean Corpuscular 29.7 Hemoglobin Mean Corpuscular 31.9 L Hemoglobin Concent Red Cell Distribution 15.1 H Width Platelet Count 354 Mean Platelet Volume 10.4 Immature Granulocytes % 0.400 Neutrophils % 49.9 Lymphocytes % 23.8 Monocytes % 16.9 H Eosinophils % 7.6 H Basophils % 1.4 Nucleated Red Blood 0.0 Cells % Immature Granulocytes # 0.030 Neutrophils # 3.7 Lymphocytes # 1.8 Monocytes # 1.3 H Eosinophils # 0.6 H Basophils # 0.1 Nucleated Red Blood 0.0 Cells # Sodium Level 138 Potassium Level 4.2 Chloride Level 97 Carbon Dioxide Level 29 Anion Gap 12 Blood Urea Nitrogen 47 H Creatinine 6.80 H Est Glomerular Filtrat Rate mL/min Glucose Level 144 Hemoglobin A1c 7.4 H Calcium Level 9.8 Total Bilirubin 0.2 Direct Bilirubin 0.00 Indirect Bilirubin 0.2 Aspartate Amino 22 Transf (AST/SGOT) Alanine 13 Aminotransferase (ALT/SG PT) Alkaline Phosphatase 149 H Total Protein 8.3 H Albumin 4.0 Globulin 4.30 H Albumin/Globulin Ratio 0.93 Bedside Glucose 158 Medications Medication Current Medications Miscellaneous Information (Pending [facility] Order For Wound Care) This patient bray... PRN PRN XX WOUND CARE; Start 05/07/18 at 23:30 Apixaban (Eliquis) 2.5 mg BID PO Last administered on 05/16/18 21:09; Admin Dose 2.5 MG; Start 05/07/18 at 23:18 Aspirin (Halfprin) 81 mg DAILY PO Last administered on 05/16/18 08:30; Admin Dose 81 MG; Start 05/07/18 at 23:18 Carvedilol (Coreg) 3.125 mg BID PO Last administered on 05/16/18 21:08; Admin Dose 3.125 MG; Start 05/07/18 at 23:18 Famotidine (Pepcid) 20 mg HS PO Last administered on 05/16/18 21:07; Admin Dose 20 MG; Start 05/07/18 at 23:18 Tamsulosin HCl (Flomax) 0.4 mg DAILY PO Last administered on 05/16/18 08:31; Admin Dose 0.4 MG; Start 05/07/18 at 23:18 Insulin Aspart (Novolog Insulin Pen) NOVOLOG *MODERATE* ALGORITHM WITH MEALS BEDTIME SC Last administered on 05/17/18 07:45; Admin Dose 2 UNIT; Start 05/07/18 at 23:18 Miscellaneous Information 1 ea NOTE XX ; Start 05/07/18 at 23:18 Glucose (Glutose) 15 gm Q15M PRN PO DECREASED GLUCOSE; Start 05/07/18 at 23:18 Glucose (Glutose) 22.5 gm Q15M PRN PO DECREASED GLUCOSE; Start 05/07/18 at 23:18 Dextrose (D50w Syringe) 25 ml Q15M PRN IV DECREASED GLUCOSE; Start 05/07/18 at 23:18 Dextrose (D50w Syringe) 50 ml Q15M PRN IV DECREASED GLUCOSE; Start 05/07/18 at 23:18 Glucagon (Glucagen) 1 mg Q15M PRN IM DECREASED GLUCOSE; Start 05/07/18 at 23:18 Glucose (Glutose) 15 gm Q15M PRN BUCCAL DECREASED GLUCOSE; Start 05/07/18 at 23:18 Calcium Acetate (Phoslo) 667 mg WITH MEALS PO Last administered on 05/17/18at 07:42; Admin Dose 667 MG; Start 05/07/18 at 23:18 Amlodipine Besylate (Norvasc) 2.5 mg BID PO Last administered on 05/16/18at 21:08; Admin Dose 2.5 MG; Start 05/07/18 at 23:18 Guaifenesin/ Codeine Phosphate (Robitussin Ac Liquid Cup) 5 ml Q6H PRN PO COUGH; Start 05/07/18 at 23:18 Senna (Senokot) 1 tab HS PO Last administered on 05/16/18at 21:09; Admin Dose 1 TAB; Start 05/08/18 at 21:00 Lactulose (Enulose) 20 gm DAILY PRN PO CONSTIPATION; Start 05/08/18 at 01:30 Albumin Human 100 ml @ 100 mls/hr WITH DIALYSIS PRN IV SBP <90 DURING DIALYSIS Last administered on 05/13/18at 18:03; Admin Dose 100 MLS/HR; Start 05/08/18 at 15:30 Sodium Chloride (NS) -To prime the dialy... DIRECTED FOR HD PRN IV HD; Start 05/08/18 at 15:30 Acetaminophen (Tylenol Tab) 650 mg Q6H PRN PO MILD PAIN(1-3)OR ELEVATED TEMP Last administered on 05/11/18 09:09; Admin Dose 650 MG; Start 05/09/18 at 15:00 Diagnostic Test (Pha) (Accu-Chek) 1 ea BID XX Last administered on 05/16/18at 21:00; Admin Dose 1 EA; Start 05/10/18 at 21:00 Gabapentin (Neurontin) 100 mg DAILY PO Last administered on 05/16/18at 08:30; A dmin Dose 100 MG; Start 05/11/18 at 10:30 Acetaminophen/ Hydrocodone Bitart ([place] (5/325)) 1 tab Q6H PRN PO MODERATE PAIN LEVEL 4-6; Start 05/12/18 at 20:00 Lidocaine (Lmx 4% Plus) 1 applic GIVE IF INDICATED TOP Last administered on 05/15/18at 21:02; Admin Dose 1 APPLIC; Start 05/15/18 at 11:00 NATASHA SCHNEIDER MD May 17, 2018 08:51
[2018-05-17 14:00] VITALS: BP 121/52; PULSE 75; RESP 18
[2018-05-17 20:30] VITALS: BP 153/69; PULSE 73; RESP 18
[2018-05-17] MEDS: FAMOTIDINE 20 MG TAB PO SCH (20:35)
[2018-05-17] MEDS: SENNA TAB PO SCH (20:36)
[2018-05-18] VITALS (18 sets, daily range): BP systolic 100–168; BP diastolic 52–74; PULSE 74–80; RESP 18–20
[2018-05-18] MEDS: INSULIN ASPART [NOVOLOG] 3 ML PEN SC SCH ×4 (07:35→21:00)
[2018-05-18] MEDS: CALCIUM ACETATE 667 MG CAP PO SCH ×3 (07:46→17:33)
--- NOTE | 2018-05-18 08:41 | CONS ---
Assessment/Plan Assessment/Plan Hospital Course (Demo Recall) 1. End-stage renal disease on maintenance hemodialysis Thursday. He has dialysis scheduled for today. 2. Fever. He had one fever elevation a week ago but has not had a recurrence. 3. CHF, compensated 4. Hypertension, controlled 5. Type 2 diabetes mellitus 6. Right hip pain, has resolved 7. He is now on the acute rehab floor and is participating in rehab. Consultation Date/Type/Reason Admit Date/Time May 07, 2018 at 22:39 Initial Consult Date Type of Consult Nephrology Date/Time of Note DATE: 05/18/18 TIME: 08:39 24 HR Interval Summary Free Text/Dictation Gera is up and working with occupational therapy. He seems to be doing well. He has dialysis ordered for today. Constitutional: no complaints, improved Exam/Review of Systems Exam Vitals Vital Signs Date Temp Pulse Resp B/P (MAP) Pulse Ox O2 O2 Flow FiO2 Time Delivery Rate 05/18/18 98.0 75 18 155/70 97 Room Air 02:00 (98) Intake and Output 05/17/18 05/17/18 05/18/18 1515:00 23:00 07:00 IntakeIntake Total 1280 ml 180 ml OutputOutput Total 200 ml BalanceBalance 1080 ml 180 ml Constitutional: alert, oriented, frail Respiratory: clear to auscultation, normal air movement Cardiovascular: regular rate and rhythm Gastrointestinal: soft, non-tender Musculoskeletal: nl extremities to inspection Results Result Diagram: 05/17/18 0600 05/17/18 0600 Results 24hrs Laboratory Tests Test 05/17/18 12:22 05/17/18 17:14 05/17/18 20:34 05/18/18 07:44 Bedside Glucose 179 233 H 100 119 Medications Medication Current Medications Miscellaneous Information (Pending [facility] Order For Wound Care) This patient brya... PRN PRN XX WOUND CARE; Start 05/07/18 at 23:30 Apixaban (Eliquis) 2.5 mg BID PO Last administered on 05/17/18at 20:37; Admin Dose 2.5 MG; Start 05/07/18 at 23:18 Aspirin (Halfprin) 81 mg DAILY PO Last administered on 05/17/18at 08:47; Admin Dose 81 MG; Start 05/07/18 at 23:18 Carvedilol (Coreg) 3.125 mg BID PO Last administered on 05/17/18 20:37; Admin Dose 3.125 MG; Start 05/07/18 at 23:18 Famotidine (Pepcid) 20 mg HS PO Last administered on 05/17/18 20:35; Admin Dose 20 MG; Start 05/07/18 at 23:18 Tamsulosin HCl (Flomax) 0.4 mg DAILY PO Last administered on 05/17/18 08:46; Admin Dose 0.4 MG; Start 05/07/18 at 23:18 Insulin Aspart (Novolog Insulin Pen) NOVOLOG *MODERATE* ALGORITHM WITH MEALS BEDTIME SC Last administered on 05/17/18 17:16; Admin Dose 6 UNIT; Start 05/07/18 at 23:18 Miscellaneous Information 1 ea NOTE XX ; Start 05/07/18 at 23:18 Glucose (Glutose) 15 gm Q15M PRN PO DECREASED GLUCOSE; Start 05/07/18 at 23:18 Glucose (Glutose) 22.5 gm Q15M PRN PO DECREASED GLUCOSE; Start 05/07/18 at 23 :18 Dextrose (D50w Syringe) 25 ml Q15M PRN IV DECREASED GLUCOSE; Start 05/07/18 at 23:18 Dextrose (D50w Syringe) 50 ml Q15M PRN IV DECREASED GLUCOSE; Start 05/07/18 at 23:18 Glucagon (Glucagen) 1 mg Q15M PRN IM DECREASED GLUCOSE; Start 05/07/18 at 23:18 Glucose (Glutose) 15 gm Q15M PRN BUCCAL DECREASED GLUCOSE; Start 05/07/18 at 23:18 Calcium Acetate (Phoslo) 667 mg WITH MEALS PO Last administered on 05/18/18 07:46; Admin Dose 667 MG; Start 05/07/18 at 23:18 Amlodipine Besylate (Norvasc) 2.5 mg BID PO Last administered on 05/17/18 20:36; Admin Dose 2.5 MG; Start 05/07/18 at 23:18 Guaifenesin/ Codeine Phosphate (Robitussin Ac Liquid Cup) 5 ml Q6H PRN PO COUGH; Start 05/07/18 at 23:18 Senna (Senokot) 1 tab HS PO Last administered on 05/17/18 20:36; Admin Dose 1 TAB; Start 05/08/18 at 21:00 Lactulose (Enulose) 20 gm DAILY PRN PO CONSTIPATION; Start 05/08/18 at 01:30 Albumin Human 100 ml @ 100 mls/hr WITH DIALYSIS PRN IV SBP <90 DURING DIALYSIS Last administered on 05/13/18 18:03; Admin Dose 100 MLS/HR; Start 05/08/18 at 15:30 Sodium Chloride (NS) -To prime the dialy... DIRECTED FOR HD PRN IV HD; Start 05/08/18 at 15:30 Acetaminophen (Tylenol Tab) 650 mg Q6H PRN PO MILD PAIN(1-3)OR ELEVATED TEMP Last administered on 05/11/18 09:09; Admin Dose 650 MG; Start 05/09/18 at 15:00 Diagnostic Test (Pha) (Accu-Chek) 1 ea BID XX Last administered on 05/17/18 21:56; Admin Dose 1 EA; Start 05/10/18 at 21:00 Gabapentin (Neurontin) 100 mg DAILY PO Last administered on 05/17/18 08:47; Admin Dose 100 MG; Start 05/11/18 at 10:30 Acetaminophen/ Hydrocodone Bitart ([place] (5/325)) 1 tab Q6H PRN PO MODERATE PAIN LEVEL 4-6; Start 05/12/18 at 20:00 Lidocaine (Lmx 4% Plus) 1 applic GIVE IF INDICATED TOP Last administered on 05/15/18 21:02; Admin Dose 1 APPLIC; Start 05/15/18 at 11:00 Repaglinide (Prandin) 0.5 mg AC MEALS PO ; Start 05/18/18 at 11:30 Megestrol Acetate (Megace Susp) 200 mg BID PO ; Start 05/18/18 at 09:00 NATASHA SCHNEIDER MD May 18, 2018 08:41
--- NOTE | 2018-05-18 08:45 | PN ---
DATE: 05/18/2018 SUBJECTIVE: The patient is feeling okay, still weak and has poor appetite. OBJECTIVE: VITAL SIGNS: Temperature 98.0, pulse 75, respirations 18, blood pressure 155/70, oxygen saturation 9 7% on room air. GENERAL: Well-developed, thin male in no acute distress, sitting up in chair. CHEST: Bibasilar crackles, otherwise clear. HEART: Regular rate and rhythm. ABDOMEN: Soft, nontender. EXTREMITIES: No cyanosis, clubbing or edema. LABORATORY DATA: None available, but glucose from yesterday in the morning 158 then 179 and 233, at 17:14 and 100 and 119 this morning. ASSESSMENT AND PLAN: 1. Debility secondary to congestive heart failure and pneumonia. The patient slowly improved and re prasanth weak. The patient has agreed to stay until Thursday. We will plan for discharge on Thursday and c ontinue with physical and occupational therapy. 2. Diabetes, the patient is relatively stable, but has some lability to his blood sugars. We will a dd Prandin 0.5 mg q.a.c., and see how this does for him. 3. Congestive heart failure combined/ischemic cardiomyopathy/coronary disease/hypertension, stable. Continue with dialysis 3 days a week for removal of fluid and medications for blood pressure. 4. Poor appetite, we will add Megace 200 mg b.i.d. 5. End-stage renal disease. We will continue with dialysis 3 days a week. The patient is due for d ialysis today. Dictated By: HAI CHRISTIANSON MD SR/NTS Conf#: [id number] DID#: [id number] CC: HAI CHRISTIANSON MD; TOMMIE CARDENAS MD;*End*
[2018-05-18] MEDS: ACCU-CHEK XX SCH ×2 (09:00→21:39)
[2018-05-18] MEDS: TAMSULOSIN (SR) 0.4 MG CAP PO SCH (09:22)
[2018-05-18] MEDS: GABAPENTIN 100 MG CAP PO SCH (09:22)
[2018-05-18] MEDS: AMLODIPINE 2.5 MG TAB PO SCH ×2 (09:22→21:37)
[2018-05-18] MEDS: APIXABAN 5 MG TABLET PO SCH ×2 (09:22→21:37)
[2018-05-18] MEDS: MEGESTROL (40 MG/ML) 10ML CUP PO SCH ×2 (09:22→21:38)
[2018-05-18] MEDS: ASPIRIN (EC) 81 MG TAB PO SCH (09:23)
[2018-05-18] MEDS: REPAGLINIDE 1 MG TAB PO SCH ×2 (12:04→17:33)
--- NOTE | 2018-05-18 14:03 | PN ---
Date/Time of Note Date/Time of Note DATE: 05/18/18 TIME: 14:02 Objective Vital Signs Date Temp Pulse Resp B/P (MAP) Pulse Ox O2 O2 Flow FiO2 Time Delivery Rate 05/18/18 98.0 77 20 168/74 99 Room Air 07:30 (105) Intake and Output 05/17/18 05/17/18 05/18/18 1515:00 23:00 07:00 IntakeIntake Total 1280 ml 180 ml OutputOutput Total 200 ml BalanceBalance 1080 ml 180 ml Exam INTERDISCIPLINARY TEAM CONFERENCE Physical Exam: Pulm-cta Abd-soft BOWEL- Cont RHWSGRD-COZL-IM SKIN- improving OT- DRESSING-sba/cga BATHING-cga TOILETING-cga PT- BED MOBILITY-sba TRANSFERS-cga AMBULATION-min 125 feet SPEECH- COGNITION- improving A/P- Interdisciplinary team conference held today. Please see interdisciplinary sheet. Working toward d.c. on 05/21 with post discharge follow up of physical therapy, occupational therapy. Results/Medications Result Diagram: 05/17/18 0600 05/17/18 0600 Results 24 hrs Laboratory Tests Test 05/17/18 17:14 05/17/18 20:34 05/18/18 07:44 05/18/18 11:59 Bedside Glucose 233 H 100 119 297 H Medications Current Medications Miscellaneous Information (Pending [facility] Order For Wound Care) This patient bray... PRN PRN XX WOUND CARE; Start 05/07/18 at 23:30 Apixaban (Eliquis) 2.5 mg BID PO Last administered on 05/18/18at 09:22; Admin Dose 2.5 MG; Start 05/07/18 at 23:18 Aspirin (Halfprin) 81 mg DAILY PO Last administered on 05/18/18 09:23; Admin Dose 81 MG; Start 05/07/18 at 23:18 Carvedilol (Coreg) 3.125 mg BID PO Last administered on 05/18/18at 09:23; Admin Dose 3.125 MG; Start 05/07/18 at 23:18 Famotidine (Pepcid) 20 mg HS PO Last administered on 05/17/18at 20:35; Admin Dose 20 MG; Start 05/07/18 at 23:18 Tamsulosin HCl (Flomax) 0.4 mg DAILY PO Last administered on 05/18/18 09:22; Admin Dose 0.4 MG; Start 05/07/18 at 23:18 Insulin Aspart (Novolog Insulin Pen) NOVOLOG *MODERATE* ALGORITHM WITH MEALS BEDTIME SC Last administered on 05/18/18 12:03; Admin Dose 8 UNIT; Start 05/07/18 at 23:18 Miscellaneous Information 1 ea NOTE XX ; Start 05/07/18 at 23:18 Glucose (Glutose) 15 gm Q15M PRN PO DECREASED GLUCOSE; Start 05/07/18 at 23:18 Glucose (Glutose) 22.5 gm Q15M PRN PO DECREASED GLUCOSE; Start 05/07/18 at 23:18 Dextrose (D50w Syringe) 25 ml Q15M PRN IV DECREASED GLUCOSE; Start 05/07/18 at 23:18 Dextrose (D50w Syringe) 50 ml Q15M PRN IV DECREASED GLUCOSE; Start 05/07/18 at 23:18 Glucagon (Glucagen) 1 mg Q15M PRN IM DECREASED GLUCOSE; Start 05/07/18 at 23:18 Glucose (Glutose) 15 gm Q15M PRN BUCCAL DECREASED GLUCOSE; Start 05/07/18 at 23:18 Calcium Acetate (Phoslo) 667 mg WITH MEALS PO Last administered on 05/18/18 12:04; Admin Dose 667 MG; Start 05/07/18 at 23:18 Amlodipine Besylate (Norvasc) 2.5 mg BID PO Last administered on 05/18/18 09:22; Admin Dose 2.5 MG; Start 05/07/18 at 23:18 Guaifenesin/ Codeine Phosphate (Robitussin Ac Liquid Cup) 5 ml Q6H PRN PO COUGH; Start 05/07/18 at 23:18 Senna (Senokot) 1 tab HS PO Last administered on 05/17/18 20:36; Admin Dose 1 TAB; Start 05/08/18 at 21:00 Lactulose (Enulose) 20 gm DAILY PRN PO CONSTIPATION; Start 05/08/18 at 01:30 Albumin Human 100 ml @ 100 mls/hr WITH DIALYSIS PRN IV SBP <90 DURING DIALYSIS Last administered on 05/13/18 18:03; Admin Dose 100 MLS/HR; Start 05/08/18 at 15:30 Sodium Chloride (NS) -To prime the dialy... DIRECTED FOR HD PRN IV HD; Start 05/08/18 at 15:30 Acetaminophen (Tylenol Tab) 650 mg Q6H PRN PO MILD PAIN(1-3)OR ELEVATED TEMP Last administered on 05/11/18 09:09; Admin Dose 650 MG; Start 05/09/18 at 15:00 Diagnostic Test (Pha) (Accu-Chek) 1 ea BID XX Last administered on 05/17/18 21:56; Admin Dose 1 EA; Start 05/10/18 at 21:00 Gabapentin (Neurontin) 100 mg DAILY PO Last administered on 05/18/18 09:22; Admin Dose 100 MG; Start 05/11/18 at 10:30 Acetaminophen/ Hydrocodone Bitart ([place] (5/325)) 1 tab Q6H PRN PO MODERATE PAIN LEVEL 4-6; Start 05/12/18 at 20:00 Lidocaine (Lmx 4% Plus) 1 applic GIVE IF INDICATED TOP Last administered on 05/15/18 21:02; Admin Dose 1 APPLIC; Start 05/15/18 at 11:00 Repaglinide (Prandin) 0.5 mg AC MEALS PO Last administered on 05/18/18 12:04; Admin Dose 0.5 MG; Start 05/18/18 at 11:30 Megestrol Acetate (Megace Susp) 200 mg BID PO Last administered on 05/18/18 09 :22; Admin Dose 200 MG; Start 05/18/18 at 09:00 TOMMIE CARDENAS MD May 18, 2018 14:02
[2018-05-18] MEDS: LACTULOSE 30ML CUP PO PRN (15:15)
[2018-05-18] MEDS: SENNA TAB PO SCH (21:37)
[2018-05-18] MEDS: FAMOTIDINE 20 MG TAB PO SCH (21:37)
[2018-05-19 02:00] VITALS: BP 120/71; PULSE 82; RESP 18
[2018-05-19] MEDS: LACTULOSE 30ML CUP PO PRN (02:30)
[2018-05-19 07:30] VITALS: BP 166/72; PULSE 75; RESP 20
[2018-05-19] MEDS: INSULIN ASPART [NOVOLOG] 3 ML PEN SC SCH ×4 (07:35→20:47)
[2018-05-19] MEDS: REPAGLINIDE 1 MG TAB PO SCH ×3 (07:46→17:24)
[2018-05-19] MEDS: CALCIUM ACETATE 667 MG CAP PO SCH ×3 (07:47→17:24)
--- NOTE | 2018-05-19 08:56 | PN ---
DATE: 05/19/2018 SUBJECTIVE: The patient is without complaint. OBJECTIVE: VITAL SIGNS: Temperature 97.8, pulse 82, respirations 18, blood pressure 120/71, oxygen saturation 9 7% on room air. GENERAL: Well-developed, thin male in no acute distress, sitting up in wheelchair, eating breakfast. CHEST: Scant bibasilar crackles, otherwise clear. HEART: Regular rate and rhythm. ABDOMEN: Soft, nontender. EXTREMITIES: No cyanosis, clubbing or edema. ASSESSMENT AND PLAN: 1. Debility secondary to congestive heart failure/pneumonia. The patient continues to improve slowl y and continues to require physical and occupational therapy. Anticipate discharge on Thursday with fu rther therapy once home. 2. Congestive heart failure/coronary disease/ischemic cardiomyopathy/hypertension. Stable. Continu e with current medications and diet. 3. End-stage renal disease, stable. The patient is status post dialysis yesterday and to receive di alysis tomorrow prior to discharge. 4. Diabetes, stable. The patient is now on Prandin. We will continue to monitor blood sugars and u se sliding scale insulin to assist. Dictated By: HAI CHRISTIANSON MD SR/NTS Conf#: [id number] DID#: [id number] CC: HAI CHRISTIANSON MD; TOMMIE CARDENAS MD;*EndCC*
[2018-05-19] MEDS: APIXABAN 5 MG TABLET PO SCH ×2 (08:57→20:48)
[2018-05-19] MEDS: GABAPENTIN 100 MG CAP PO SCH (08:57)
[2018-05-19] MEDS: ASPIRIN (EC) 81 MG TAB PO SCH (08:57)
[2018-05-19] MEDS: MEGESTROL (40 MG/ML) 10ML CUP PO SCH ×2 (08:57→20:47)
[2018-05-19] MEDS: TAMSULOSIN (SR) 0.4 MG CAP PO SCH (08:57)
[2018-05-19] MEDS: AMLODIPINE 2.5 MG TAB PO SCH ×2 (08:58→20:49)
[2018-05-19] MEDS: ACCU-CHEK XX SCH ×2 (09:00→21:00)
--- NOTE | 2018-05-19 13:51 | PN ---
Date/Time of Note Date/Time of Note DATE: 05/19/18 TIME: 13:51 Subjective Comfortable Objective Vital Signs Date Temp Pulse Resp B/P (MAP) Pulse Ox O2 O2 Flow FiO2 Time Delivery Rate 05/19/18 97.4 75 20 166/72 100 Room Air 07:30 (103) Intake and Output 05/18/18 05/18/18 05/19/18 1515:00 23:00 07:00 IntakeIntake Total 760 ml OutputOutput Total 2400 ml BalanceBalance -1640 ml Exam pulm-cta min assist 75 feet Results/Medications Result Diagram: 05/17/18 0600 05/17/18 0600 Results 24 hrs Laboratory Tests Test 05/18/18 17:32 05/18/18 21:35 05/19/18 07:45 05/19/18 11:52 Bedside Glucose 146 135 116 169 Medications Current Medications Miscellaneous Information (Pending [facility] Order For Wound Care) This patient bray... PRN PRN XX WOUND CARE; Start 05/07/18 at 23:30 Apixaban (Eliquis) 2.5 mg BID PO Last administered on 05/19/18 08:57; Admin Dose 2.5 MG; Start 05/07/18 at 23:18 Aspirin (Halfprin) 81 mg DAILY PO Last administered on 05/19/18 08:57; Admin Dose 81 MG; Start 05/07/18 at 23:18 Carvedilol (Coreg) 3.125 mg BID PO Last administered on 05/19/18 08:58; Admin Dose 3.125 MG; Start 05/07/18 at 23:18 Famotidine (Pepcid) 20 mg HS PO Last administered on 05/18/18 21:37; Admin Dose 20 MG; Start 05/07/18 at 23:18 Tamsulosin HCl (Flomax) 0.4 mg DAILY PO Last administered on 05/19/18 08:57; Admin Dose 0.4 MG; Start 05/07/18 at 23:18 Insulin Aspart (Novolog Insulin Pen) NOVOLOG *MODERATE* ALGORITHM WITH MEALS BEDTIME SC Last administered on 05/19/18 11:55; Admin Dose 2 UNIT; Start 05/07/18 at 23:18 Miscellaneous Information 1 ea NOTE XX ; Start 05/07/18 at 23:18 Glucose (Glutose) 15 gm Q15M PRN PO DECREASED GLUCOSE; Start 05/07/18 at 23:18 Glucose (Glutose) 22.5 gm Q15M PRN PO DECREASED GLUCOSE; Start 05/07/18 at 23:18 Dextrose (D50w Syringe) 25 ml Q15M PRN IV DECREASED GLUCOSE; Start 05/07/18 at 23:18 Dextrose (D50w Syringe) 50 ml Q15M PRN IV DECREASED GLUCOSE; Start 05/07/18 at 23:18 Glucagon (Glucagen) 1 mg Q15M PRN IM DECREASED GLUCOSE; Start 05/07/18 at 23:18 Glucose (Glutose) 15 gm Q15M PRN BUCCAL DECREASED GLUCOSE; Start 05/07/18 at 23:18 Calcium Acetate (Phoslo) 667 mg WITH MEALS PO Last administered on 05/19/18 11:54; Admin Dose 667 MG; Start 05/07/18 at 23:18 Amlodipine Besylate (Norvasc) 2.5 mg BID PO Last administered on 05/19/18 08:58; Admin Dose 2.5 MG; Start 05/07/18 at 23:18 Guaifenesin/ Codeine Phosphate (Robitussin Ac Liquid Cup) 5 ml Q6H PRN PO COUGH; Start 05/07/18 at 23:18 Senna (Senokot) 1 tab HS PO Last administered on 05/18/18 21:37; Admin Dose 1 TAB; Start 05/08/18 at 21:00 Lactulose (Enulose) 20 gm DAILY PRN PO CONSTIPATION Last administered on 05/19/18 02:30; Admin Dose 20 GM; Start 05/08/18 at 01:30 Albumin Human 100 ml @ 100 mls/hr WITH DIALYSIS PRN IV SBP <90 DURING DIALYSIS Last administered on 05/13/18 18:03; Admin Dose 100 MLS/HR; Start 05/08/18 at 15:30 Sodium Chloride (NS) -To prime the dialy... DIRECTED FOR HD PRN IV HD; Start 05/08/18 at 15:30 Acetaminophen (Tylenol Tab) 650 mg Q6H PRN PO MILD PAIN(1-3)OR ELEVATED TEMP Last administered on 05/11/18 09:09; Admin Dose 650 MG; Start 05/09/18 at 15:00 Diagnostic Test (Pha) (Accu-Chek) 1 ea BID XX Last administered on 05/18/18 21:39; Admin Dose 1 EA; Start 05/10/18 at 21:00 Gabapentin (Neurontin) 100 mg DAILY PO Last administered on 05/19/18 08:57; Admin Dose 100 MG; Start 05/11/18 at 10:30 Acetaminophen/ Hydrocodone Bitart ([place] (5/325)) 1 tab Q6H PRN PO MODERATE PAIN LEVEL 4-6; Start 05/12/18 at 20:00 Lidocaine (Lmx 4% Plus) 1 applic GIVE IF INDICATED TOP Last administered on 05/15/18 21:02; Admin Dose 1 APPLIC; Start 05/15/18 at 11:00 Repaglinide (Prandin) 0.5 mg AC MEALS PO Last administered on 05/19/18 11:54; Admin Dose 0.5 MG; Start 05/18/18 at 11:30 Megestrol Acetate (Megace Susp) 200 mg BID PO Last administered on 05/19/18 08:57; Admin Dose 200 MG; Start 05/18/18 at 09:00 Assessment/Plan Additional Assessment/Plan Rehab- Debility secondary to congestive heart failure and pneumonia, Mild toxic metabolic encephalopathy Continue rehab program Renal- End-stage renal disease on hemodialysis Integ- healing stage II. Continue optimizing nutrition, and offloading wound Acute combined congestive heart failure, ischemic cardiomyopathy. Hypertension. History of coronary artery disease and coronary artery bypass graft. TOMMIE CARDENAS MD May 19, 2018 13:51
[2018-05-19 14:00] VITALS: BP 166/71; PULSE 75; RESP 18
--- NOTE | 2018-05-19 18:05 | CONS ---
Assessment/Plan Assessment/Plan Hospital Course (Demo Recall) 1. End-stage renal disease on maintenance hemodialysis Thursday. He has dialysis scheduled for tomorrow. 2. His vital signs have been stable and he has remained afebrile. 3. CHF, compensated 4. Hypertension, controlled as well as possible in view of his orthostatic hypotension. 5. Type 2 diabetes mellitus 6. Right hip pain, has resolved 7. He is now on the acute rehab floor and is participating in rehab. Consultation Date/Type/Reason Admit Date/Time May 07, 2018 at 22:39 Initial Consult Date Type of Consult Nephrology Date/Time of Note DATE: 05/19/18 TIME: 18:03 24 HR Interval Summary Free Text/Dictation Gera is lying in bed. He is sleeping but arouses easily to verbal stimuli. He says he feels well. Constitutional: no complaints, improved Exam/Review of Systems Exam Vitals Vital Signs Date Temp Pulse Resp B/P (MAP) Pulse Ox O2 O2 Flow FiO2 Time Delivery Rate 05/19/18 97.6 75 18 166/71 100 Room Air 14:00 (102) Intake and Output 05/18/18 05/18/18 05/19/18 1515:00 23:00 07:00 IntakeIntake Total 760 ml OutputOutput Total 2400 ml BalanceBalance -1640 ml Constitutional: alert, oriented, frail Respiratory: clear to auscultation, normal air movement Cardiovascular: regular rate and rhythm Gastrointestinal: soft, non-tender Musculoskeletal: nl extremities to inspection Results Result Diagram: 05/17/18 0600 05/17/18 0600 Results 24hrs Laboratory Tests Test 05/18/18 21:35 05/19/18 07:45 05/19/18 11:52 05/19/18 17:23 Bedside Glucose 135 116 169 136 Medications Medication Current Medications Miscellaneous Information (Pending [facility] Order For Wound Care) This patient bray... PRN PRN XX WOUND CARE; Start 05/07/18 at 23:30 Apixaban (Eliquis) 2.5 mg BID PO Last administered on 05/19/18at 08:57; Admin Dose 2.5 MG; Start 05/07/18 at 23:18 Aspirin (Halfprin) 81 mg DAILY PO Last administered on 05/19/18at 08:57; Admin Dose 81 MG; Start 05/07/18 at 23:18 Carvedilol (Coreg) 3.125 mg BID PO Last administered on 05/19/18 08:58; Admin Dose 3.125 MG; Start 05/07/18 at 23:18 Famotidine (Pepcid) 20 mg HS PO Last administered on 05/18/18at 21:37; Admin Dose 20 MG; Start 05/07/18 at 23:18 Tamsulosin HCl (Flomax) 0.4 mg DAILY PO Last administered on 05/19/18 08:57; Admin Dose 0.4 MG; Start 05/07/18 at 23:18 Insulin Aspart (Novolog Insulin Pen) NOVOLOG *MODERATE* ALGORITHM WITH MEALS BEDTIME SC Last administered on 05/19/18 11:55; Admin Dose 2 UNIT; Start 04/10 10/28 at 23:18 Miscellaneous Information 1 ea NOTE XX ; Start 05/07/18 at 23:18 Glucose (Glutose) 15 gm Q15M PRN PO DECREASED GLUCOSE; Start 05/07/18 at 23:18 Glucose (Glutose) 22.5 gm Q15M PRN PO DECREASED GLUCOSE; Start 05/07/18 at 23:18 Dextrose (D50w Syringe) 25 ml Q15M PRN IV DECREASED GLUCOSE; Start 05/07/18 at 23:18 Dextrose (D50w Syringe) 50 ml Q15M PRN IV DECREASED GLUCOSE; Start 05/07/18 at 23:18 Glucagon (Glucagen) 1 mg Q15M PRN IM DECREASED GLUCOSE; Start 05/07/18 at 23:18 Glucose (Glutose) 15 gm Q15M PRN BUCCAL DECREASED GLUCOSE; Start 05/07/18 at 23:18 Calcium Acetate (Phoslo) 667 mg WITH MEALS PO Last administered on 05/19/18 17:24; Admin Dose 667 MG; Start 05/07/18 at 23:18 Amlodipine Besylate (Norvasc) 2.5 mg BID PO Last administered on 05/19/18 08:58; Admin Dose 2.5 MG; Start 05/07/18 at 23:18 Guaifenesin/ Codeine Phosphate (Robitussin Ac Liquid Cup) 5 ml Q6H PRN PO COUGH; Start 05/07/18 at 23:18 Senna (Senokot) 1 tab HS PO Last administered on 05/18/18 21:37; Admin Dose 1 TAB; Start 05/08/18 at 21:00 Lactulose (Enulose) 20 gm DAILY PRN PO CONSTIPATION Last administered on 05/19/18 02:30; Admin Dose 20 GM; Start 05/08/18 at 01:30 Albumin Human 100 ml @ 100 mls/hr WITH DIALYSIS PRN IV SBP <90 DURING DIALYSIS Last administered on 05/13/18 18:03; Admin Dose 100 MLS/HR; Start 05/08/18 at 15:30 Sodium Chloride (NS) -To prime the dialy... DIRECTED FOR HD PRN IV HD; Start 05/08/18 at 15:30 Acetaminophen (Tylenol Tab) 650 mg Q6H PRN PO MILD PAIN(1-3)OR ELEVATED TEMP Last administered on 05/11/18 09:09; Admin Dose 650 MG; Start 05/09/18 at 15:00 Diagnostic Test (Pha) (Accu-Chek) 1 ea BID XX Last administered on 05/18/18 21:39; Admin Dose 1 EA; Start 05/10/18 at 21:00 Gabapentin (Neurontin) 100 mg DAILY PO Last administered on 05/19/18 08:57; Admin Dose 100 MG; Start 05/11/18 at 10:30 Acetaminophen/ Hydrocodone Bitart ([place] (5/325)) 1 tab Q6H PRN PO MODERATE PAIN LEVEL 4-6; Start 05/12/18 at 20:00 Lidocaine (Lmx 4% Plus) 1 applic GIVE IF INDICATED TOP Last administered on 05/15/18 21:02; Admin Dose 1 APPLIC; Start 05/15/18 at 11:00 Repaglinide (Prandin) 0.5 mg AC MEALS PO Last administered on 05/19/18 17:24; Admin Dose 0.5 MG; Start 05/18/18 at 11:30 Megestrol Acetate (Megace Susp) 200 mg BID PO Last administered on 05/19/18 08:57; Admin Dose 200 MG; Start 05/18/18 at 09:00 NATASHA SCHNEIDER MD May 19, 2018 18:05
[2018-05-19 19:58] VITALS: BP 153/68; PULSE 78; RESP 18
[2018-05-19] MEDS: SENNA TAB PO SCH (20:47)
[2018-05-19] MEDS: FAMOTIDINE 20 MG TAB PO SCH (20:47)
[2018-05-20] VITALS (18 sets, daily range): BP systolic 93–168; BP diastolic 53–71; PULSE 74–86; RESP 18
[2018-05-20] MEDS: INSULIN ASPART [NOVOLOG] 3 ML PEN SC SCH ×4 (07:35→20:14)
[2018-05-20] MEDS: REPAGLINIDE 1 MG TAB PO SCH ×3 (07:42→17:05)
[2018-05-20] MEDS: CALCIUM ACETATE 667 MG CAP PO SCH ×3 (07:42→17:35)
[2018-05-20] MEDS: GABAPENTIN 100 MG CAP PO SCH (08:52)
[2018-05-20] MEDS: AMLODIPINE 2.5 MG TAB PO SCH ×2 (08:52→20:13)
[2018-05-20] MEDS: TAMSULOSIN (SR) 0.4 MG CAP PO SCH (08:52)
[2018-05-20] MEDS: MEGESTROL (40 MG/ML) 10ML CUP PO SCH ×2 (08:53→20:08)
[2018-05-20] MEDS: ASPIRIN (EC) 81 MG TAB PO SCH (08:53)
[2018-05-20] MEDS: APIXABAN 5 MG TABLET PO SCH ×2 (08:53→20:10)
[2018-05-20] MEDS: ACCU-CHEK XX SCH ×2 (09:00→20:19)
--- NOTE | 2018-05-20 09:10 | PN ---
DATE: 05/20/2018 SUBJECTIVE: The patient is feeling well. The patient had some right anterior chest wall pain last n ight that was sharp in nature and lasted for under a minute with no associated symptoms and is comple tely gone now. The patient otherwise without complaint. OBJECTIVE: VITAL SIGNS: Temperature 97.8, pulse 74, respirations 18, blood pressure 132/62 and oxygen saturatio n 98% on room air. GENERAL: Well-developed, thin male in no acute distress, sitting up in bed. LUNGS: Scant bibasilar crackles, otherwise clear. HEART: Regular rate and rhythm. ABDOMEN: Soft, nontender. EXTREMITIES: No cyanosis, clubbing or edema. IMPRESSION AND PLAN: 1. Debility secondary to congestive heart failure/pneumonia. The patient continues to improve slowl y, but remains weak. Continue with ongoing therapy and anticipate discharge to home with home care t omorrow. 2. Congestive heart failure/ischemic cardiomyopathy/coronary artery disease/hypertension, stable. C ontinue with current medications and diet. 3. Diabetes, stable with sliding scale and the addition of the repaglinide. Will continue with this after discharge. 4. End-stage renal disease, stable. The patient to receive dialysis today and will continue on a 3 times a week dialysis after discharge. 5. Diabetic neuropathy, stable with Gabapentin. Will continue after discharge. 6. Discharge planning. The patient will likely be discharged home tomorrow with home health. Dictated By: HAI CHRISTIANSON MD SR/NTS Conf#: [id number] DID#: [id number] CC: TOMMIE CARDENAS MD;*EndCC*
--- NOTE | 2018-05-20 09:51 | CONS ---
Assessment/Plan Assessment/Plan Hospital Course (Demo Recall) 1. End-stage renal disease on maintenance hemodialysis Thursday. He has dialysis scheduled for today . 2. His vital signs have been stable and he has remained afebrile. 3. CHF, compensated 4. Hypertension, controlled as well as possible in view of his orthostatic hypotension. 5. Type 2 diabetes mellitus 6. Right hip pain, has resolved 7. He is now on the acute rehab floor and is participating in rehab. The plan is is for him to be discharged to home tomorrow . Consultation Date/Type/Reason Admit Date/Time May 07, 2018 at 22:39 Initial Consult Date Type of Consult Nephrology Date/Time of Note DATE: 05/20/18 TIME: 09:47 24 HR Interval Summary Free Text/Dictation He is feeling well . No new problems . He is scheduled for hemodialysis for today . Constitutional: no complaints, improved Exam/Review of Systems Exam Vitals Vital Signs Date Temp Pulse Resp B/P (MAP) Pulse Ox O2 O2 Flow FiO2 Time Delivery Rate 05/20/18 97.8 75 18 168/71 100 Room Air 07:00 (103) Intake and Output 05/19/18 05/19/18 05/20/18 1515:00 23:00 07:00 IntakeIntake Total 720 ml 180 ml BalanceBalance 720 ml 180 ml Constitutional: alert, oriented, frail Respiratory: clear to auscultation, normal air movement Cardiovascular: regular rate and rhythm Gastrointestinal: soft, non-tender Musculoskeletal: nl extremities to inspection Results Result Diagram: 05/17/18 0600 05/17/18 0600 Results 24hrs Laboratory Tests Test 05/19/18 11:52 05/19/18 17:23 05/19/18 20:36 05/20/18 02:15 Bedside Glucose 169 136 224 H 151 Test 05/20/18 07:41 Bedside Glucose 84 Medications Medication Current Medications Miscellaneous Information [facility] This patient bray... PRN PRN XX WOUND CARE; Start 05/07/18 at 23:30 Apixaban (Eliquis) 2.5 mg BID PO Last administered on 05/20/18at 08:53; Admin Dose 2.5 MG; Start 05/07/18 at 23:18 Aspirin (Halfprin) 81 mg DAILY PO Last administered on 05/20/18 08:53; Admin Dose 81 MG; Start 05/07/18 at 23:18 Carvedilol (Coreg) 3.125 mg BID PO Last administered on 05/20/18 08:53; Admin Dose 3.125 MG; Start 05/07/18 at 23:18 Famotidine (Pepcid) 20 mg HS PO Last administered on 05/19/18 20:47; Admin Dose 20 MG; Start 05/07/18 at 23:18 Tamsulosin HCl (Flomax) 0.4 mg DAILY PO Last administered on 05/20/18 08:52; Admin Dose 0.4 MG; Start 05/07/18 at 23:18 Insulin Aspart (Novolog Insulin Pen) NOVOLOG *MODERATE* ALGORITHM WITH MEALS BEDTIME SC Last administered on 05/19/18 20:47; Admin Dose 2 UNIT; Start 05/07/18 at 23:18 Miscellaneous Information 1 ea NOTE XX ; Start 05/07/18 at 23:18 Glucose (Glutose) 15 gm Q15M PRN PO DECREASED GLUCOSE; Start 05/07/18 at 23:18 Glucose (Glutose) 22.5 gm Q15M PRN PO DECREASED GLUCOSE; Start 05/07/18 at 23:18 Dextrose (D50w Syringe) 25 ml Q15M PRN IV DECREASED GLUCOSE; Start 05/07/18 at 23:18 Dextrose (D50w Syringe) 50 ml Q15M PRN IV DECREASED GLUCOSE; Start 05/07/18 at 23:18 Glucagon (Glucagen) 1 mg Q15M PRN IM DECREASED GLUCOSE; Start 05/07/18 at 23:18 Glucose (Glutose) 15 gm Q15M PRN BUCCAL DECREASED GLUCOSE; Start 05/07/18 at 23:18 Calcium Acetate (Phoslo) 667 mg WITH MEALS PO Last administered on 05/20/18 07:42; Admin Dose 667 MG; Start 05/07/18 at 23:18 Amlodipine Besylate (Norvasc) 2.5 mg BID PO Last administered on 05/20/18 08:52; Admin Dose 2.5 MG; Start 05/07/18 at 23:18 Guaifenesin/ Codeine Phosphate (Robitussin Ac Liquid Cup) 5 ml Q6H PRN PO COUGH; Start 05/07/18 at 23:18 Senna (Senokot) 1 tab HS PO Last administered on 05/19/18 20:47; Admin Dose 1 TAB; Start 05/08/18 at 21:00 Lactulose (Enulose) 20 gm DAILY PRN PO CONSTIPATION Last administered on 05/19/18 02:30; Admin Dose 20 GM; Start 05/08/18 at 01:30 Albumin Human 100 ml @ 100 mls/hr WITH DIALYSIS PRN IV SBP <90 DURING DIALYSIS Last administered on 05/13/18 18:03; Admin Dose 100 MLS/HR; Start 05/08/18 at 15:30 Sodium Chloride (NS) -To prime the dialy... DIRECTED FOR HD PRN IV HD; Start 05/08/18 at 15:30 Acetaminophen (Tylenol Tab) 650 mg Q6H PRN PO MILD PAIN(1-3)OR ELEVATED TEMP Last administered on 05/11/18 09:09; Admin Dose 650 MG; Start 05/09/18 at 15:00 Diagnostic Test (Pha) (Accu-Chek) 1 ea BID XX Last administered on 05/19/18 21:00; Admin Dose 1 EA; Start 05/10/18 at 21:00 Gabapentin (Neurontin) 100 mg DAILY PO Last administered on 05/20/18 08:52; Admin Dose 100 MG; Start 05/11/18 at 10:30 Acetaminophen/ Hydrocodone Bitart ([place] (5/325)) 1 tab Q6H PRN PO MODERATE PAIN LEVEL 4-6; Start 05/12/18 at 20:00 Lidocaine (Lmx 4% Plus) 1 applic GIVE IF INDICATED TOP Last administered on 05/15/18 21:02; Admin Dose 1 APPLIC; Start 05/15/18 at 11:00 Repaglinide (Prandin) 0.5 mg AC MEALS PO Last administered on 05/20/18 07:42; Admin Dose 0.5 MG; Start 05/18/18 at 11:30 Megestrol Acetate (Megace Susp) 200 mg BID PO Last administered on 05/20/18 08:53; Admin Dose 200 MG; Start 05/18/18 at 09:00 NATASHA SCHNEIDER MD May 20, 2018 09:51
--- NOTE | 2018-05-20 10:56 | PN ---
Date/Time of Note Date/Time of Note DATE: 05/20/18 TIME: 10:55 Subjective Comfortable Objective Vital Signs Date Temp Pulse Resp B/P (MAP) Pulse Ox O2 O2 Flow FiO2 Time Delivery Rate 05/20/18 97.8 75 18 168/71 100 Room Air 07:00 (103) Intake and Output 05/19/18 05/19/18 05/20/18 1515:00 23:00 07:00 IntakeIntake Total 720 ml 180 ml BalanceBalance 720 ml 180 ml Exam pulm-cta min assist 90 feet Results/Medications Result Diagram: 05/17/18 0600 05/17/18 0600 Results 24 hrs Laboratory Tests Test 05/19/18 11:52 05/19/18 17:23 05/19/18 20:36 05/20/18 02:15 Bedside Glucose 169 136 224 H 151 Test 05/20/18 07:41 Bedside Glucose 84 Medications Current Medications Miscellaneous Information (Pending [facility] Order For Wound Care) This patient bray... PRN PRN XX WOUND CARE; Start 05/07/18 at 23:30 Apixaban (Eliquis) 2.5 mg BID PO Last administered on 05/20/18 08:53; Admin Dose 2.5 MG; Start 05/07/18 at 23:18 Aspirin (Halfprin) 81 mg DAILY PO Last administered on 05/20/18 08:53; Admin Dose 81 MG; Start 05/07/18 at 23:18 Carvedilol (Coreg) 3.125 mg BID PO Last administered on 05/20/18 08:53; Admin Dose 3.125 MG; Start 05/07/18 at 23:18 Famotidine (Pepcid) 20 mg HS PO Last administered on 05/19/18 20:47; Admin Dose 20 MG; Start 05/07/18 at 23:18 Tamsulosin HCl (Flomax) 0.4 mg DAILY PO Last administered on 05/20/18 08:52; Admin Dose 0.4 MG; Start 05/07/18 at 23:18 Insulin Aspart (Novolog Insulin Pen) NOVOLOG *MODERATE* ALGORITHM WITH MEALS BEDTIME SC Last administered on 05/19/18 20:47; Admin Dose 2 UNIT; Start 05/07/18 at 23:18 Miscellaneous Information 1 ea NOTE XX ; Start 05/07/18 at 23:18 Glucose (Glutose) 15 gm Q15M PRN PO DECREASED GLUCOSE; Start 05/07/18 at 23:18 Glucose (Glutose) 22.5 gm Q15M PRN PO DECREASED GLUCOSE; Start 05/07/18 at 23:18 Dextrose (D50w Syringe) 25 ml Q15M PRN IV DECREASED GLUCOSE; Start 05/07/18 at 23:18 Dextrose (D50w Syringe) 50 ml Q15M PRN IV DECREASED GLUCOSE; Start 05/07/18 at 23:18 Glucagon (Glucagen) 1 mg Q15M PRN IM DECREASED GLUCOSE; Start 05/07/18 at 23:18 Glucose (Glutose) 15 gm Q15M PRN BUCCAL DECREASED GLUCOSE; Start 05/07/18 at 23:18 Calcium Acetate (Phoslo) 667 mg WITH MEALS PO Last administered on 05/20/18 07:42; Admin Dose 667 MG; Start 05/07/18 at 23:18 Amlodipine Besylate (Norvasc) 2.5 mg BID PO Last administered on 05/20/18at 0 8:52; Admin Dose 2.5 MG; Start 05/07/18 at 23:18 Guaifenesin/ Codeine Phosphate (Robitussin Ac Liquid Cup) 5 ml Q6H PRN PO COUGH; Start 05/07/18 at 23:18 Senna (Senokot) 1 tab HS PO Last administered on 05/19/18at 20:47; Admin Dose 1 TAB; Start 05/08/18 at 21:00 Lactulose (Enulose) 20 gm DAILY PRN PO CONSTIPATION Last administered on 05/19/18 02:30; Admin Dose 20 GM; Start 05/08/18 at 01:30 Albumin Human 100 ml @ 100 mls/hr WITH DIALYSIS PRN IV SBP <90 DURING DIALYSIS Last administered on 05/13/18 18:03; Admin Dose 100 MLS/HR; Start 05/08/18 at 15:30 Sodium Chloride (NS) -To prime the dialy... DIRECTED FOR HD PRN IV HD; Start 05/08/18 at 15:30 Acetaminophen (Tylenol Tab) 650 mg Q6H PRN PO MILD PAIN(1-3)OR ELEVATED TEMP Last administered on 05/11/18 09:09; Admin Dose 650 MG; Start 05/09/18 at 15:00 Diagnostic Test (Pha) (Accu-Chek) 1 ea BID XX Last administered on 05/19/18 21:00; Admin Dose 1 EA; Start 05/10/18 at 21:00 Gabapentin (Neurontin) 100 mg DAILY PO Last administered on 05/20/18 08:52; Admin Dose 100 MG; Start 05/11/18 at 10:30 Acetaminophen/ Hydrocodone Bitart ([place] (5/325)) 1 tab Q6H PRN PO MODERATE PAIN LEVEL 4-6; Start 05/12/18 at 20:00 Lidocaine (Lmx 4% Plus) 1 applic GIVE IF INDICATED TOP Last administered on 05/15/18 21:02; Admin Dose 1 APPLIC; Start 05/15/18 at 11:00 Repaglinide (Prandin) 0.5 mg AC MEALS PO Last administered on 05/20/18 07:42; Admin Dose 0.5 MG; Start 05/18/18 at 11:30 Megestrol Acetate (Megace Susp) 200 mg BID PO Last administered on 05/20/18 08:53; Admin Dose 200 MG; Start 05/18/18 at 09:00 Assessment/Plan Additional Assessment/Plan Rehab- Debility secondary to congestive heart failure and pneumonia, Mild toxic metabolic encephalopathy Good functional progress, continue treatment plan Renal- End-stage renal disease on hemodialysis Integ- healing stage II. Continue optimizing nutrition, and offloading wound Acute combined congestive heart failure, ischemic cardiomyopathy. Hypertension. History of coronary artery disease and coronary artery bypass graft. TOMMIE CARDENAS MD May 20, 2018 10:56
[2018-05-20] MEDS: SENNA TAB PO SCH (20:09)
[2018-05-20] MEDS: FAMOTIDINE 20 MG TAB PO SCH (20:12)
[2018-05-21 02:58] VITALS: BP 133/62; PULSE 75; RESP 19
[2018-05-21 07:00] VITALS: BP 124/56; PULSE 83; RESP 18
[2018-05-21] MEDS: INSULIN ASPART [NOVOLOG] 3 ML PEN SC SCH (07:35)
[2018-05-21] MEDS: CALCIUM ACETATE 667 MG CAP PO SCH ×2 (08:07→11:45)
[2018-05-21] MEDS: REPAGLINIDE 1 MG TAB PO SCH ×2 (08:07→11:45)
--- NOTE | 2018-05-21 08:45 | PN ---
DATE: 05/21/2018 SUBJECTIVE: The patient is feeling well without complaints. OBJECTIVE: VITAL SIGNS: Temperature 97.8, pulse 75, respirations 19, blood pressure 132/62, oxygen saturation 9 9% on room air. GENERAL: Well-developed, thin male in no acute distress, sitting up in chair. CHEST: Bibasilar crackles, otherwise clear. HEART: Regular rate and rhythm. ABDOMEN: Soft, nontender, normoactive bowel sounds. EXTREMITIES: No cyanosis, clubbing or edema. NEUROLOGIC: The patient has a right hemiparesis. ASSESSMENT AND PLAN: 1. Debility secondary to congestive heart failure/pneumonia. The patient is improved after receivin g acute rehabilitation and is stable for discharge to home, although he will need ongoing physical an d occupational therapy to be continued. 2. Diabetes, improved. We will continue with diet and Prandin but no insulin at this time. 3. Congestive heart failure/coronary artery disease/hypertension, improved. We will continue with c urrent medications including Eliquis, Coreg and amlodipine. 4. End-stage renal disease, improved. Patient will continue with dialysis 3 days a week and continu e on PhosLo. 5. Discharge planning. Patient stable for discharge to home with home health with physical and occu pational therapy. Dictated By: HAI CHRISTIANSON MD SR/NTS Conf#: [id number] DID#: [id number] CC: TOMMIE CARDENAS MD;*EndCC*
[2018-05-21] MEDS: MEGESTROL (40 MG/ML) 10ML CUP PO SCH (09:28)
[2018-05-21] MEDS: TAMSULOSIN (SR) 0.4 MG CAP PO SCH (09:28)
[2018-05-21] MEDS: ASPIRIN (EC) 81 MG TAB PO SCH (09:28)
[2018-05-21] MEDS: GABAPENTIN 100 MG CAP PO SCH (09:28)
[2018-05-21] MEDS: APIXABAN 5 MG TABLET PO SCH (09:29)
[2018-05-21] MEDS: AMLODIPINE 2.5 MG TAB PO SCH (09:30)
[2018-05-21] MEDS: ACCU-CHEK XX SCH (09:30)
--- NOTE | 2018-05-21 09:59 | CONS ---
Assessment/Plan Assessment/Plan Hospital Course (Demo Recall) 1. End-stage renal disease on maintenance hemodialysis Thursday. He is being discharged today to home. He will resume outpatient hemodialysis tomorrow in the [facility] dialysis unit. I will follow him there in the dialysis unit. 2. His vital signs have been stable and he has remained afebrile. 3. CHF, compensated 4. Hypertension, controlled as well as possible in view of his orthostatic hypotension. 5. Type 2 diabetes mellitus 6. Right hip pain, has resolved 7. He is now on the acute rehab floor and is participating in rehab. The plan is is for him to be discharged to home today Consultation Date/Type/Reason Admit Date/Time May 07, 2018 at 22:39 Initial Consult Date Type of Consult Nephrology Date/Time of Note DATE: 05/21/18 TIME: 09:56 24 HR Interval Summary Free Text/Dictation Gera is awake and alert. He has no complaints. Constitutional: no complaints, improved Exam/Review of Systems Exam Vitals Vital Signs Date Temp Pulse Resp B/P (MAP) Pulse Ox O2 O2 Flow FiO2 Time Delivery Rate 05/21/18 98.2 83 18 124/56 98 Room Air 07:00 (78) Intake and Output 05/20/18 05/20/18 05/21/18 1515:00 23:00 07:00 IntakeIntake Total 1000 ml OutputOutput Total 2400 ml BalanceBalance -1400 ml Constitutional: alert, oriented, frail Respiratory: clear to auscultation Cardiovascular: regular rate and rhythm Gastrointestinal: soft Musculoskeletal: nl extremities to inspection Results Result Diagram: 05/17/18 0600 05/17/18 0600 Results 24hrs Laboratory Tests Test 05/20/18 11:52 05/20/18 20:04 05/21/18 08:05 Bedside Glucose 97 89 98 Medications Medication Current Medications Misc[facility] This patient bray... PRN PRN XX WOUND CARE; Start 05/07/18 at 23:30 Apixaban (Eliquis) 2.5 mg BID PO Last administered on 05/21/18at 09:29; Admin Dose 2.5 MG; Start 05/07/18 at 23:18 Aspirin (Halfprin) 81 mg DAILY PO Last administered on 05/21/18 09:28; Admin Dose 81 MG; Start 05/07/18 at 23:18 Carvedilol (Coreg) 3.125 mg BID PO Last administered on 05/21/18 09:29; Admin Dose 3.125 MG; Start 05/07/18 at 23:18 Famotidine (Pepcid) 20 mg HS PO Last administered on 05/20/18 20:12; Admin Dose 20 MG; Start 05/07/18 at 23:18 Tamsulosin HCl (Flomax) 0.4 mg DAILY PO Last administered on 05/21/18 09:28; Admin Dose 0.4 MG; Start 05/07/18 at 23:18 Insulin Aspart (Novolog Insulin Pen) NOVOLOG *MODERATE* ALGORITHM WITH MEALS BE DTIME SC Last administered on 05/19/18 20:47; Admin Dose 2 UNIT; Start 05/07/18 at 23:18 Miscellaneous Information 1 ea NOTE XX ; Start 05/07/18 at 23:18 Glucose (Glutose) 15 gm Q15M PRN PO DECREASED GLUCOSE; Start 05/07/18 at 23:18 Glucose (Glutose) 22.5 gm Q15M PRN PO DECREASED GLUCOSE; Start 05/07/18 at 23:18 Dextrose (D50w Syringe) 25 ml Q15M PRN IV DECREASED GLUCOSE; Start 05/07/18 at 23:18 Dextrose (D50w Syringe) 50 ml Q15M PRN IV DECREASED GLUCOSE; Start 05/07/18 at 23:18 Glucagon (Glucagen) 1 mg Q15M PRN IM DECREASED GLUCOSE; Start 05/07/18 at 23:18 Glucose (Glutose) 15 gm Q15M PRN BUCCAL DECREASED GLUCOSE; Start 05/07/18 at 23:18 Calcium Acetate (Phoslo) 667 mg WITH MEALS PO Last administered on 05/21/18 08:07; Admin Dose 667 MG; Start 05/07/18 at 23:18 Amlodipine Besylate (Norvasc) 2.5 mg BID PO Last administered on 05/21/18 09:30; Admin Dose 2.5 MG; Start 05/07/18 at 23:18 Guaifenesin/ Codeine Phosphate (Robitussin Ac Liquid Cup) 5 ml Q6H PRN PO COUGH; Start 05/07/18 at 23:18 Senna (Senokot) 1 tab HS PO Last administered on 05/20/18 20:09; Admin Dose 1 TAB; Start 05/08/18 at 21:00 Lactulose (Enulose) 20 gm DAILY PRN PO CONSTIPATION Last administered on 02:30; Admin Dose 20 GM; Start 05/08/18 at 01:30 Albumin Human 100 ml @ 100 mls/hr WITH DIALYSIS PRN IV SBP <90 DURING DIALYSIS Last administered on 05/13/18 18:03; Admin Dose 100 MLS/HR; Start 05/08/18 at 15:30 Sodium Chloride (NS) -To prime the dialy... DIRECTED FOR HD PRN IV HD; Start 05/08/18 at 15:30 Acetaminophen (Tylenol Tab) 650 mg Q6H PRN PO MILD PAIN(1-3)OR ELEVATED TEMP L ast administered on 05/11/18 09:09; Admin Dose 650 MG; Start 05/09/18 at 15:00 Diagnostic Test (Pha) (Accu-Chek) 1 ea BID XX Last administered on 05/21/18 09:30; Admin Dose 1 EA; Start 05/10/18 at 21:00 Gabapentin (Neurontin) 100 mg DAILY PO Last administered on 05/21/18 09:28; Admin Dose 100 MG; Start 05/11/18 at 10:30 Lidocaine (Lmx 4% Plus) 1 applic GIVE IF INDICATED TOP Last administered on 05/15/18 21:02; Admin Dose 1 APPLIC; Start 05/15/18 at 11:00 Repaglinide (Prandin) 0.5 mg AC MEALS PO Last administered on 05/21/18 08:07; Admin Dose 0.5 MG; Start 05/18/18 at 11:30 Megestrol Acetate (Megace Susp) 200 mg BID PO Last administered on 05/21/18 09:28; Admin Dose 200 MG; Start 05/18/18 at 09:00 NATASHA SCHNEIDER MD May 21, 2018 09:59
--- NOTE | 2018-05-21 11:52 | DS ---
Date/Time of Note Date/Time of Note DATE: 05/21/18 TIME: 11:51 Discharge Summary Admission/Discharge Info Admit Date/Time May 07, 2018 at 22:39 Discharge Date/Time Discharge Diagnosis 1. Debility secondary to congestive heart failure and pneumonia;Mild toxic me tabolic encephalopathy. 2. End-stage renal disease on hemodialysis. 3. Hypertension. 4. History of coronary artery disease and coronary artery bypass graft; Acute combined congestive heart failure, ischemic cardiomyopathy 5. Improvements in self-care, mobility, and mild cognition. Patient Condition: Good Hospital Course The patient was admitted for comprehensive interdisciplinary rehabilitation and made steady functional gains from a Max level to a cga/min level for self care tasks and mobility including ambulating 150 feet with the use of a FWW. Patient is being discharged home with the recommendation of home health PT, OT and RN follow up. The DC meds are per the medication reconciliation sheet. The discharge equipment recommendations include: FWW, BSC, shower chair. The patient will follow up with PMD upon DC. Home Meds Reported Medications Insulin Glargine,Hum.rec.anlog (Basaglar Kwikpen U-100) 100 Unit/1 Ml Insuln.pen, 0 SC QHS, EA SLIDING SCALE 04/25/18 Furosemide* (Furosemide*) 40 Mg Tablet, 40 MG PO BID, TAB 04/25/18 Tamsulosin Hcl* (Tamsulosin Hcl*) 0.4 Mg Cap.er.24h, 0.4 MG PO DAILY, CAP 04/25/18 Famotidine* (Famotidine*) 20 Mg Tablet, 20 MG PO BID, #60 TAB 04/25/18 Aspirin (Low Dose Aspirin) 81 Mg Tablet.dr, 81 MG PO DAILY, #30 TAB 04/25/18 Carvedilol* (Carvedilol*) 3.125 Mg Tablet, 3.125 MG PO BID, #60 TAB 04/25/18 Apixaban* (Eliquis*) 2.5 Mg Tablet, 2.5 MG PO BID, TAB 04/25/18 Primary Care Provider Wicho Shea Pending Labs Laboratory Tests Test 05/20/18 11:52 05/20/18 20:04 05/21/18 08:05 05/21/18 11:36 Bedside 97 89 98 113 Glucose mg/dL (70-220) mg/dL (70-220) mg/dL (70-220) mg/dL (70-220) TOMMIE CARDENAS MD May 21, 2018 11:52
== END 2018-05-21 12:30 | disposition home health service (06) | DRG 291 ==
LOC: VRC 22:39
PROVIDERS: ADMIT Physical Medicine & Rehabilitation; ATTEND Internal Medicine
PROC: F07Z5ZZ Bed Mobility Treatment (ICD-10-PCS; principal; 2018-05-07)
PROC: F08Z2ZZ Grooming/Personal Hygiene Treatment (ICD-10-PCS; 2018-05-07)
PROC: 5A1D70Z Performance of Urinary Filtration, Intermittent, Less than 6 Hours Per Day (ICD-10-PCS; 2018-05-08)
PROC: 5A1D70Z Performance of Urinary Filtration, Intermittent, Less than 6 Hours Per Day (ICD-10-PCS; 2018-05-11)
PROC: 5A1D70Z Performance of Urinary Filtration, Intermittent, Less than 6 Hours Per Day (ICD-10-PCS; 2018-05-13)
PROC: 5A1D70Z Performance of Urinary Filtration, Intermittent, Less than 6 Hours Per Day (ICD-10-PCS; 2018-05-15)
PROC: 5A1D70Z Performance of Urinary Filtration, Intermittent, Less than 6 Hours Per Day (ICD-10-PCS; 2018-05-18)
PROC: 5A1D70Z Performance of Urinary Filtration, Intermittent, Less than 6 Hours Per Day (ICD-10-PCS; 2018-05-20)
DX: I13.2 Hypertensive heart and chronic kidney disease with heart failure and with stage 5 chronic kidney disease, or end stage renal disease (principal); I50.41 Acute combined systolic (congestive) and diastolic (congestive) heart failure; N18.6 End stage renal disease; J18.9 Pneumonia, unspecified organism; G92 Toxic encephalopathy; E11.22 Type 2 diabetes mellitus with diabetic chronic kidney disease; I25.10 Atherosclerotic heart disease of native coronary artery without angina pectoris; Z79.4 Long term (current) use of insulin; Z95.1 Presence of aortocoronary bypass graft; Z95.0 Presence of cardiac pacemaker; R53.81 Other malaise; I25.5 Ischemic cardiomyopathy; Z79.82 Long term (current) use of aspirin; M25.551 Pain in right hip; R50.9 Fever, unspecified
CPT/HCPCS: 71045; 72170; 73520; 80048; 80053; 81001; 82962; 83036; 83735; 84100; 85025; 87081; 87086; 90935; 92507; 92523; 93970; 97110; 97112; 97116; 97163; 97167; 97530; 97535; 97542; J1815; L1820; P9047

== ENCOUNTER 2018-06-03 07:57 | Observation (INO) | payer MEDICARE, OTHER ==
[2018-06-03] VITALS (15 sets, daily range): BP systolic 100–171; BP diastolic 56–89; PULSE 83–92; RESP 18; Ht 170.2 cm; Wt 64.5 kg
[~2018-06-03] VITALS: Ht 170.2 cm; Wt 64.5 kg
[2018-06-03] MEDS ORDERED: ASPIRIN 325 MG TAB PO STA (08:26)
[2018-06-03] MEDS ORDERED: AMLO5TAB4 PO (09:03)
[2018-06-03] MEDS ORDERED: PIOG15TA67 PO (09:03)
[2018-06-03] MEDS ORDERED: CALC1TAB32 PO (09:03)
[2018-06-03] MEDS ORDERED: NA BICARBONATE 8.4% 50 ML SYG IV STA (11:00)
[2018-06-03] MEDS ORDERED: CA CHLORIDE 10% 10 ML SYRINGE IV STA (11:00)
[2018-06-03] MEDS ORDERED: ONDANSETRON 4 MG INJ IV PRN (11:00)
[2018-06-03] MEDS ORDERED: ACETAMINOPHEN 325 MG TAB PO PRN ×2 (11:00→13:30)
--- NOTE | 2018-06-03 12:53 | ERD ---
ER Documentation Chief Complaint Chief Complaint sob and chest pain since last night, missed dialysis today HPI This is an 83-year-old male with a past medical history of congestive heart failure hypertension and end-stage renal disease on hemodialysis every Thursday and Thursday. The patient's cut lace machine operator is Dr. Breanne Baptiste. His primary care physician is Dr. Shea. The patient had a previous coronary artery disease with coronary artery bypass graft. The patient presents to the emergency department complaining of chest pain for 24 hours. He states the pain is been intermittent. The pain will last for roughly 30 minutes and then will spontaneously resolve. It worsened just prior to arrival and therefore the pa carlin missed dialysis and immediately was brought to the emergency department for further evaluation. He is complaining of mild difficulty breathing and shortness of breath. He states the dyspnea and shortness of breath is similar to previous episodes of his congestive heart failure. He was recently admitted to the hospital with a prolonged stay and treated for pneumonia. He denies a productive or nonproductive cough and has had no fevers or shaking or chills. ROS All systems reviewed and are negative except as per history of present illness. Medications Home Meds Reported Medications Pioglitazone Hcl* (Pioglitazone Hcl*) 15 Mg Tablet, 15 MG PO DAILY, TAB 06/03/18 Amlodipine Besylate* (Norvasc*) 5 Mg Tablet, 5 MG PO DAILY, TAB 06/03/18 Calcium Carbonate/Vitamin D3 (Os-[place] 500-Vit D3 200 Caplet) 1 Each Tablet, 1 CAP PO TID, TAB 06/03/18 Furosemide* (Furosemide*) 40 Mg Tablet, 40 MG PO BID, TAB 04/25/18 Tamsulosin Hcl* (Tamsulosin Hcl*) 0.4 Mg Cap.er.24h, 0.4 MG PO DAILY, CAP 04/25/18 Famotidine* (Famotidine*) 20 Mg Tablet, 20 MG PO BID, #60 TAB 04/25/18 Aspirin (Low Dose Aspirin) 81 Mg Tablet.dr, 81 MG PO DAILY, #30 TAB 04/25/18 Carvedilol* (Carvedilol*) 3.125 Mg Tablet, 3.125 MG PO BID, #60 TAB 04/25/18 Apixaban* (Eliquis*) 2.5 Mg Tablet, 2.5 MG PO BID, TAB 04/25/18 Discontinued Reported Medications Insulin Glargine,Hum.rec.anlog (Basaglar Indiraikpen U-100) 100 Unit/1 Ml Insuln.pen, 0 SC QHS, EA SLIDING SCALE 04/25/18 Allergies Allergies: Coded Allergies: No Known Allergy (Verified , 04/25/18) PMhx/Soc History of Surgery: Yes (see PT note) Anesthesia Reaction: No Hx Neurological Disorder: No (CVA, right side weakness, memory problem. Peripheral neuropathy. ) Hx Respiratory Disorders: Yes (Chronic rhinitis. ) Hx Cardiac Disorders: Yes (CHF. AMI. Pacemaker. AICD. HTN. ) Hx Psychiatric Problems: No Hx Miscellaneous Medical Probl: Yes (see PT note) Hx Alcohol Use: Yes (Hx ETOH. Quit Drinking many years ago. ) Hx Substance Use: No Hx Tobacco Use: No Smoking Status: Former smoker Physical Exam Vitals Vital Signs Date Temp Pulse Resp B/P (MAP) Pulse Ox O2 O2 Flow FiO2 Time Delivery Rate 06/03/18 94 18 162/75 95 Room Air 11:49 (104) 06/03/18 Nasal 2 08:45 Cannula 06/03/18 98.7 92 22 152/72 94 08:08 (98) Physical Exam Constitutional:Well-developed. Well-nourished. HEENT:Normocephalic. Atraumatic.Pupils were equal round reactive to light. Moist mucous membranes.No tonsillar exudates. Neck: No nuchal rigidity. No lymphadenopathy. No posterior cervical spine tenderness or step-offs. Respiratory: Not using accessory muscles of respiration.Lungs were clear to auscultation bilaterally. Bilateral rhonchi. No rales. No wheezing. Cardiovascular: Regular rate regular rhythm.No murmurs. No rubs were appreciated.S1, S2 normal. Distal pulses are palpable 2+ bilaterally. GI: Abdomen was soft. Nontender. Non Distended. No pulsatile abdominal masses or bruits. No rebound. No guarding. Bowel sounds were present and normal. Muscle skeletal: Full range of motion of both the upper and lower extremities bilaterally.Normal muscle tone.No assymetrical calf tenderness or swelling. Skin: Mild pallor no petechia, no purpura. No lesions on the palms or the soles of the feet. No maculopapular rash. Positive thrill and bruit to right upper extremity NEURO: Patient was alert, awake, orientated x3.No facial droop. Gait not observed due to weakness.Speech had regular rate and rhythm. No focal neurological deficits. Result Diagram: 06/03/18 0840 06/03/18 0936 Results 24 hrs Laboratory Tests Test 06/03/18 08:40 06/03/18 09:36 06/03/18 09:40 White Blood Count 7.7 10^3/ul Red Blood Count 3.79 10^6/ul Hemoglobin 11.2 g/dl Hematocrit 35.1 % Mean Corpuscular Volume 92.6 fl Mean Corpuscular Hemoglobin 29.6 pg Mean Corpuscular 31.9 g/dl Hemoglobin Concent Red Cell Distribution Width 16.0 % Platelet Count 270 10^3/UL Mean Platelet Volume 10.9 fl Immature Granulocytes % 0.400 % Neutrophils % 48.0 % Lymphocytes % 27.2 % Monocytes % 13.1 % Eosinophils % 10.3 % Basophils % 1.0 % Nucleated Red Blood Cells % 0.0 /100WBC Immature Granulocytes # 0.030 10^3/ul Neutrophils # 3.7 10^3/ul Lymphocytes # 2.1 10^3/ul Monocytes # 1.0 10^3/ul Eosinophils # 0.8 10^3/ul Basophils # 0.1 10^3/ul Nucleated Red Blood Cells # 0.0 10^3/ul Sodium Level 144 mmol/L Potassium Level 5.5 mmol/L Chloride Level 104 mmol/L Carbon Dioxide Level 29 mmol/L Anion Gap 11 Blood Urea Nitrogen 51 mg/dl Creatinine 5.06 mg/dl Est Glomerular Filtrat Rate mL/min mL/min Glucose Level 127 mg/dl Calcium Level 9.9 mg/dl Total Bilirubin 0.2 mg/dl Direct Bilirubin 0.00 mg/dl Indirect Bilirubin 0.2 mg/dl Aspartate Amino Transf (AST/SGOT) 28 IU/L Alanine 28 IU/L Aminotransferase (ALT/SGPT) Alkaline Phosphatase 159 IU/L Creatine Kinase 21 IU/L Creatine Kinase Index 2.2 Creatinine Kinase MB (Mass) 0.47 ng/ml Troponin I 0.036 ng/ml Total Protein 8.0 g/dl Albumin 3.6 g/dl Globulin 4.40 g/dl Albumin/Globulin Ratio 0.81 Prothrombin Time 14.8 Sec Prothrombin Time Ratio 1.2 INR International Normalized Ratio 1.15 Activated Partial Thromboplast 29.6 Sec Time Current Medications Medications Dose Sig/Lurdes Start Time Status Last (Trade) Ordered Route PRN Stop Time Admin Dose Reason Admin Aspirin 325 mg ONCE STAT 06/03/18 DC 06/03/18 (Aspirin) PO 08:26 09:18 06/03/18 08:28 Ondansetron 4 mg ER BRIDGE 06/03/18 HCl (Zofran PRN IV 11:00 Inj) NAUSEA/VOMITI 06/04/18 10:59 NG 650 mg ER BRIDGE 06/03/18 Acetaminophen PRN PO 11:00 (Tylenol .MILD PAIN 06/04/18 10:59 Tab) 1-3 OR TEMP Sodium 50 ml ONCE STAT 06/03/18 DC 06/03/18 Bicarbonate IV 11:00 11:29 (Na Bicarb 06/03/18 11:04 8.4% Syg) Calcium 1,000 mg ONCE STAT 06/03/18 DC 06/03/18 Chloride IV 11:00 11:29 (Ca Chloride 06/03/18 11:04 10% Syg) Procedures/MDM The patient presented to the emergency department with chest pain. My clinical evaluation and workup was to distinguish minor causes of chest pain from acute life threatening conditions such as myocardial infarction, pulmonary embolism, aortic dissection, esophageal rupture, cardiac tamponade. The patient was placed on a cutter barrel drum and continuous pulse oximetry. IV access established by nursing staff. The patient was given aspirin. 12 Lead EKG tracing ordered and reviewed by myself showed: Electronic pacemaker at 91 bpm and no arrhythmia. MT interval normal. QRS duration normal. No ST segment elevation No ST segment depression. No changes consistent with acute ischemia. One view chest reviewed myself the radiologist indicated the followin. Cardiomegaly with ongoing CHF and persistent small bilateral pleural effusions. 2. Atherosclerotic aortic calcification. 3. AICD. 4. Status post CABG The patient was hyperkalemic. Treated with an amp of calcium chloride and amp of bicarb and nebulizer treatments. The patient will undergo emergent hemodialysis and he spoke with his cut lace machine operator Dr. Breanne Baptiste. The patient will be admitted under the care of his primary care physician Dr. Shea who kindly came to the bedside to evaluate the patient Departure Diagnosis: Primary Impression: Chest pain Chest pain type: other chest pain Qualified Codes: R07.89 - Other chest pain Additional Impressions: Hyperkalemia Renal disease CHF (congestive heart failure) Heart failure type: unspecified Heart failure chronicity: acute on chronic Qualified Codes: I50.9 - Heart failure, unspecified Condition: Serious JAMILA NICHOLS MD Jun 03, 2018 12:53
[2018-06-03] MEDS ORDERED: ALBUTEROL 0.5% (NEB) 2.5 MG/0.5 ML AMP INH STA (12:59)
[2018-06-03] MEDS ORDERED: DEXTROSE 50% 50 ML SYRINGE IV PRN ×2 (13:30)
[2018-06-03] MEDS ORDERED: GLUCOSE GEL 15 GRAM TUBE BUCCAL PRN (13:30)
[2018-06-03] MEDS ORDERED: GLUCOSE GEL 15 GRAM TUBE PO PRN ×2 (13:30)
[2018-06-03] MEDS ORDERED: GLUCAGON 1 MG INJ IM PRN (13:30)
--- NOTE | 2018-06-03 14:14 | HP ---
DATE OF ADMISSION: 06/03/2018 ADMITTING DIAGNOSES: 1. Chest pain. 2. Congestive heart failure. HISTORY OF PRESENT ILLNESS: The patient is an 83-year-old male with ischemic cardiomyopathy, end-stage renal disease, coronary artery disease, hypertension, type 2 diabetes, who presented to the emergency room with substernal chest pain. The patient developed some chest pain last night, but to ok some Tylenol and it was relieved. The patient today developed more chest pain described as pressu re this morning. Tylenol did not help his pain and the patient had associated shortness of breath wi th the pain. The patient denies any pleuritic component to the chest pain. The patient denies any p alpitations and no fevers, chills, night sweats or cough. The patient is currently comfortable now w ith his chest pain has been resolved since he got to the emergency room. REVIEW OF SYSTEMS: Unremarkable. No nausea, vomiting, diarrhea. No constipation. No fever, chills or night sweats. No headache. No change in vision. No urinary discharge, burning. PAST MEDICAL HISTORY: End-stage renal disease on dialysis 3 days a week, coronary artery disease wit h ischemic cardiomyopathy, type 2 diabetes, diabetic polyneuropathy, hypertension, gastroesophageal r eflux disease, history of cerebrovascular accident with right hemiparesis, history of pacemaker and A ICD placement, history of coronary artery bypass graft surgery, history of renal dialysis shunt place ment, history of temporal arteritis, history of cervical spondylosis and benign prostatic hypertrophy . PAST SURGICAL HISTORY: As above. FAMILY HISTORY: Noncontributory. MEDICATIONS: 1. Eliquis 2.5 mg b.i.d. 2. Amlodipine 2.5 mg b.i.d. 3. Repaglinide 0.5 mg t.i.d. with meals. 4. Aspirin 81 mg daily. 5. PhosLo 667 mg b.i.d. 6. Famotidine 20 mg b.i.d. 7. Flomax 0.4 mg at bedtime. 8. Coreg 3.125 mg b.i.d. SOCIAL HISTORY: The patient is , lives with his kids. No tobacco or alcohol use. PHYSICAL EXAMINATION: VITAL SIGNS: Temperature 98.7, pulse 94 and regular, respirations were 18, blood pressure 162/75, ox ygen saturation 95% on 2-liter nasal cannula oxygen. GENERAL: Well-developed, thin male in no acute distress, lying in bed, with mild dyspnea. HEENT: EOMI, PERRLA. Oropharynx with decreased mucus pooling. NECK: No obvious jugular venous distention. A 2+ carotid upstroke. Decreased range of motion of ne ck in all directions. CHEST: Bilateral crackles approximately 1/4 to 1/3 up. HEART: Tachycardic but regular. ABDOMEN: Soft, nontender, nondistended. No obvious hepatojugular reflux. GENITOURINARY: Normal male. No masses. EXTREMITIES: No cyanosis, clubbing or edema. NEUROLOGIC: There is right hemiparesis throughout; otherwise nonfocal. LABORATORY EXAMINATION: White blood cell count 7.7, hemoglobin of 11.2, hematocrit 35.1, platelets 2 70. Sodium 144, potassium 5.5, chloride 104, bicarbonate 29, BUN 51, creatinine 5.06. Alkaline phos phatase is 159. Creatine kinase 21, creatine kinase index 2.2. Troponin of 0.036. INR of 1.15, PT of 14.8. DIAGNOSTIC DATA: Chest x-ray shows cardiomegaly with ongoing CHF and persistent small bilateral pleu ral effusions, atherosclerotic aortic calcifications, AICD in place and status post coronary artery b ypass graft surgery. ASSESSMENT AND PLAN: The patient is an 83-year-old male with history of congestive heart fail ure, recently discharged from the hospital on 05/21/2018. The patient is currently in mild congestiv e heart failure and had episode of chest pain, presenting to the emergency room. The patient is curr ently chest pain-free. We will do serial troponins. 1. Chest pain. We will admit the patient to telemetry and monitor. We will do serial troponins, bu t I doubt acute coronary syndrome at this time. The patient does have congestive heart failure and w e will treat as listed below. 2. Congestive heart failure, acute, combined systolic, diastolic heart failure, acute on chronic/isc hemic cardiomyopathy/hypertension. The patient has mild congestive heart failure. The patient will be admitted to telemetry for further evaluation and will need hemodialysis today with ultrafiltration in order to remove some of the fluid. We will consult with Dr. Schneider from nephrology to assist and we will follow the patient's fluid status. 3. Diabetes. We will continue with repaglinide 0.5 mg with meals and sliding scale of NovoLog. 4. End-stage renal disease on dialysis. The patient will receive dialysis today and as needed in . 5. Gastroesophageal reflux disease. We will continue with patient's famotidine. 6. Benign prostatic hypertrophy. We will continue the patient's Flomax. Dictated By: HAI CHRISTIANSON MD SR/NTS Conf#: [id number] DID#: [id number] CC: JAMILA NICHOLS MD; NATASHA SCHNEIDER MD;*EndCC*
--- NOTE | 2018-06-03 14:17 | CONS ---
DATE OF ADMISSION: 06/03/2018 DATE OF CONSULTATION: 06/03/2018 TYPE OF CONSULTATION: NEPHROLOGY Thank you, Dr. Shea, for asking me to participate in the medical management of this patient. REASON FOR CONSULTATION: End-stage renal disease. HISTORY OF PRESENT ILLNESS: This 83-year-old man who is well known to me, started having chest pain and shortness of breath last evening. The patient has end-stage renal disease and is on maintenance hemodialysis Thursday, and Thursday at the [facility] dialysis unit. He missed his dialysi s treatment which was due today, being . The patient came to the Emergency Room. He was hav ing intermittent chest pain. He was also having some shortness of breath. The patient is not having chest pain at this time. He is awake and alert and responsive. His daughter is in the room with hi m to translate. The patient is [place] speaking. I have known this patient for years. I have follo wed him because of his chronic kidney disease which is due to diabetic nephropathy. He has started h emodialysis over the past year. He has a right upper arm AV fistula. He was admitted to the [facility] on 04/25/2018 for shortness of breath. He was found at that time to be in congestive heart failure and had pneumonia. He was treated and then was transferred to the acute rehab unit in the hospital where he stayed from 05/07/2018 until 05/21/2018. The patient was then discharged home on 05/21/2018 . He was having generalized weakness, but was much stronger than when he entered the acute rehab [facility]. He has been on outpatient dialysis since discharge. PAST MEDICAL HISTORY: End-stage renal disease on maintenance hemodialysis, diabetic nephropathy, cor onary artery disease, ischemic cardiomyopathy, previous myocardial infarction, pacemaker and AICD darline cement, history of temporal arteritis, hypertension, type 2 diabetes mellitus, cervical spondylosis, history of CVA, peripheral neuropathy, benign prostatic hypertrophy and orthostatic hypotension. MEDICATIONS: Includes the followin. Tamsulosin 0.4 mg a day. 2. Apixaban 2.5 mg twice a day. 3. Carvedilol 3.125 mg twice a day. 4. Aspirin 81 mg a day. 5. Calcium carbonate. 6. Furosemide 40 mg twice a day. 7. Famotidine 20 mg a day. 8. Pioglitazone 15 mg a day. PHYSICAL EXAMINATION: GENERAL: At this time reveals a well-developed, frail, elderly man in no apparent distress. VITAL SIGNS: Temperature 98.7, pulse of 94, respirations 18, blood pressure 162/75, O2 saturation of 95% on room air. HEENT: Head normocephalic. Eyes: Extraocular muscles intact. NOSE AND MOUTH: Normal. NECK: Supple. No neck vein distention. LUNGS: Diminished breath sounds bilaterally with bilateral fine rales at both bases, radiating up in to the upper lungs. HEART: Regular rhythm. No murmurs, gallops or rubs. There is a pacemaker AICD in the left upper ch est. ABDOMEN: Soft, nontender, no masses or megaly. EXTREMITIES: No peripheral edema. There is a right upper arm AV fistula for hemodialysis. NEUROLOGIC: He is diffusely weak. No new obvious focal neurologic deficits. IMPRESSION: 1. End-stage renal disease on maintenance hemodialysis. He is due for dialysis today. 2. Chronic lung disease, previous pneumonia and congestive heart failure and was admitted here for a long hospitalization late last month and early this month. 3. Congestive heart failure. 4. Coronary artery disease. 5. Type 2 diabetes mellitus. 6. Diabetic nephropathy. PLAN: 1. Hemodialysis has been ordered for today. 2. Admit patient to telemetry so we can start dialysis as soon as possible. 3. Resume routine medications. 4. I will follow the patient along with you. Dictated By: NATASHA SCHNEIDER MD, ND/ALLISON Conf#: [id number] DID#: [id number]
[2018-06-03] MEDS: INSULIN ASPART [NOVOLOG] 3 ML PEN SC SCH ×2 (17:25→21:00)
[2018-06-03] MEDS: CALCIUM/VITAMIN D (500/200) TAB PO SCH ×2 (17:30→22:12)
[2018-06-03] MEDS ORDERED: REPAGLINIDE 1 MG TAB PO SCH (18:00)
[2018-06-03] MEDS ORDERED: REPA0.5T3 PO (19:38)
[2018-06-03] MEDS ORDERED: ATOR-2 PO (19:44)
[2018-06-03] MEDS ORDERED: AMLO2.5T78 PO (19:44)
[2018-06-03] MEDS ORDERED: LATA5DRO OP (19:44)
[2018-06-03] MEDS: AMLODIPINE 2.5 MG TAB PO SCH (20:22)
[2018-06-03] MEDS ORDERED: hydrALAzine 20 MG INJ IV PRN (20:30)
[2018-06-03] MEDS ORDERED: LATANOPROSTENE BUNOD OP SCH (21:00)
[2018-06-03] MEDS: FAMOTIDINE 20 MG TAB PO SCH (22:11)
[2018-06-03] MEDS: NYSTATIN SUSP 5 ML CUP PO SCH (22:11)
[2018-06-03] MEDS: APIXABAN 5 MG TABLET PO SCH (22:12)
[2018-06-03] MEDS: ATORVASTATIN 80 MG TAB PO SCH (22:12)
[2018-06-03] MEDS: VYZULTA EYE BOTH EYES SCH (23:15)
[2018-06-04] VITALS (14 sets, daily range): BP systolic 101–161; BP diastolic 58–78; PULSE 76–107; RESP 18
[2018-06-04] MEDS: INSULIN ASPART [NOVOLOG] 3 ML PEN SC SCH ×4 (08:00→21:18)
[2018-06-04] MEDS: REPAGLINIDE 1 MG TAB PO SCH ×3 (08:22→18:12)
--- NOTE | 2018-06-04 09:13 | CONS ---
Assessment/Plan Assessment/Plan Hospital Course (Demo Recall) 1. End-stage renal disease on maintenance hemodialysis. He is due for dialysis tomorrow , which I will order. 2. Chronic lung disease and congestive heart failure. He is overall much better today. He had 2500 cc of fluid removed with dialysis yesterday. He has not had any chest pain today. 3. Congestive heart failure. Improved after dialysis. 4. Coronary artery disease. Denies chest pain 5. Type 2 diabetes mellitus. 6. Diabetic nephropathy. Consultation Date/Type/Reason Admit Date/Time Jun 03, 2018 at 11:03 Initial Consult Date Date/Time of Note DATE: 06/04/18 TIME: 09:07 24 HR Interval Summary Free Text/Dictation Gera is sitting up in the chair eating breakfast. He is feeling better. He has no new complaints. He has had no chest pain or shortness of breath today. He had dialysis yesterday. 2500 cc of fluid was removed yesterday with dialysis. Constitutional: no complaints, improved Exam/Review of Systems Exam Vitals Vital Signs Date Temp Pulse Resp B/P (MAP) Pulse Ox O2 O2 Flow FiO2 Time Delivery Rate 06/04/18 85 08:26 06/04/18 97.6 18 159/74 98 Room Air 07:15 (102) 06/03/18 2 08:45 Intake and Output 06/03/18 06/03/18 06/04/18 1414:59 22:59 06:59 IntakeIntake Total 100 ml OutputOutput Total 3000 ml BalanceBalance -2900 ml Constitutional: oriented, frail Respiratory: crackles/rales, diminished breath sounds Cardiovascular: regular rate and rhythm Gastrointestinal: soft, non-tender Musculoskeletal: nl extremities to inspection Results Result Diagram: 06/03/18 0840 06/03/18 0936 Results 24hrs Laboratory Tests Test 06/03/18 09:36 06/03/18 09:40 06/03/18 17:23 06/03/18 18:05 Sodium Level 144 Potassium Level 5.5 H Chloride Level 104 Carbon Dioxide Level 29 Anion Gap 11 Blood Urea Nitrogen 51 H Creatinine 5.06 H Est Glomerular Filtrat Rate mL/min Glucose Level 127 Calcium Level 9.9 Total Bilirubin 0.2 Direct Bilirubin 0.00 Indirect Bilirubin 0.2 Aspartate Amino 28 Transf (AST/SGOT) Alanine 28 Aminotransferase (AL T/SGPT) Alkaline Phosphatase 159 H Creatine Kinase 21 L Creatine Kinase 2.2 Index Creatinine Kinase MB 0.47 (Mass) Troponin I 0.036 0.032 Total Protein 8.0 Albumin 3.6 Globulin 4.40 H Albumin/Globulin 0.81 Ratio Prothrombin Time 14.8 Prothrombin Time 1.2 Ratio INR International 1.15 Normalized Ratio Activated 29.6 Partial Thromboplast Time Bedside Glucose 109 Test 06/03/18 20:17 06/03/18 22:09 06/04/18 05:39 06/04/18 08:16 Hepatitis B Surface NEGATIVE Antigen Bedside Glucose 120 134 Troponin I 0.042 Medications Medication Current Medications Aspirin (Halfprin) 81 mg DAILY PO ; Start 06/04/18 at 09:00 Calcium/Vitamin D (Oyster Shell/ Vit-D (500/200)) 1 tab TID PO Last administered on 06/03/18at 22:12; Admin Dose 1 TAB; Start 06/03/18 at 13:00 Carvedilol (Coreg) 3.125 mg BID PO ; Start 06/03/18 at 21:00 Famotidine (Pepcid) 20 mg HS PO Last administered on 06/03/18at 22:11; Admin Dose 20 MG; Start 06/03/18 at 21:00 Tamsulosin HCl (Flomax) 0.4 mg DAILY PO ; Start 06/04/18 at 09:00 Apixaban (Eliquis) 2.5 mg BID PO Last administered on 06/03/18at 22:12; Admin Dose 2.5 MG; Start 06/03/18 at 21:00 Amlodipine Besylate (Norvasc) 2.5 mg BID PO ; Start 06/03/18 at 21:00 Insulin Aspart (Novolog Insulin Pen) NOVOLOG *MILD* ALGORITHM WITH MEALS BEDTIME SC ; Start 06/03/18 at 18:00 Acetaminophen (Tylenol Tab) 650 mg Q6 PRN PO MILD PAIN(1-3)OR ELEVATED TEMP; Start 06/03/18 at 13:30 Miscellaneous Information 1 ea NOTE XX ; Start 06/03/18 at 13:30 Glucose (Glutose) 15 gm Q15M PRN PO DECREASED GLUCOSE; Start 06/03/18 at 13:30 Glucose (Glutose) 22.5 gm Q15M PRN PO DECREASED GLUCOSE; Start 06/03/18 at 13:30 Dextrose (D50w Syringe) 25 ml Q15M PRN IV DECREASED GLUCOSE; Start 06/03/18 at 13:30 Dextrose (D50w Syringe) 50 ml Q15M PRN IV DECREASED GLUCOSE; Start 06/03/18 at 13:30 Glucagon (Glucagen) 1 mg Q15M PRN IM DECREASED GLUCOSE; Start 06/03/18 at 13:30 Glucose (Glutose) 15 gm Q15M PRN BUCCAL DECREASED GLUCOSE; Start 06/03/18 at 13:30 Atorvastatin Calcium (Lipitor) 80 mg QHS PO Last administered on 06/03/18at 22:12; Admin Dose 80 MG; Start 06/03/18 at 21:00 Repaglinide (Prandin) 0.5 mg AC MEALS PO Last administered on 06/04/18at 08:22; Admin Dose 0.5 MG; Start 06/04/18 at 07:00 Nystatin (Nystatin Susp) 5 ml QID PO Last administered on 06/03/18at 22:11; Admin Dose 5 ML; Start 06/03/18 at 21:00 Hydralazine HCl (Apresoline) 5 mg Q6H PRN IV ELEVATED BLOOD PRESSURE; Start 06/03/18 at 20:30 Patient Own Medication 1 ea QHS BOTH EYES Last administered on 06/03/18at 23:15; Admin Dose 1 EA; Start 06/03/18 at 22:00 NATASHA SCHNEIDER MD Jun 04, 2018 09:13
[2018-06-04] MEDS: APIXABAN 5 MG TABLET PO SCH ×2 (09:47→21:09)
[2018-06-04] MEDS: AMLODIPINE 2.5 MG TAB PO SCH ×2 (09:47→21:09)
[2018-06-04] MEDS: TAMSULOSIN (SR) 0.4 MG CAP PO SCH (09:47)
[2018-06-04] MEDS: NYSTATIN SUSP 5 ML CUP PO SCH ×4 (09:48→21:00)
[2018-06-04] MEDS: ASPIRIN (EC) 81 MG TAB PO SCH (09:48)
[2018-06-04] MEDS: CALCIUM/VITAMIN D (500/200) TAB PO SCH ×3 (09:48→21:08)
--- NOTE | 2018-06-04 09:49 | PN ---
DATE: 06/04/2018 SUBJECTIVE: Patient is feeling better. No chest pain, no shortness of breath. OBJECTIVE: VITAL SIGNS: Temperature 97.6, pulse of 81, respirations 18, blood pressure 159/74, oxygen saturatio n 98% on room air. The patient had 2500 mL removed by ultrafiltration. Current weight 64.5 kilos. GENERAL: Well-developed, thin male in no acute distress, sitting up in chair. CHEST: Bibasilar crackles approximately 1/4 to 1/3 up bilaterally. HEART: Regular rate and rhythm. ABDOMEN: Soft, nontender. EXTREMITIES: No cyanosis, clubbing or edema. LABORATORY DATA: Troponins 0.036, 0.032, 0.042. IMPRESSION AND PLAN: 1. Acute on chronic combined heart failure/ischemic cardiomyopathy/coronary disease/hypertension, im proved after ultrafiltration with dialysis. We will continue with telemetry monitoring and patient w ill likely be stable for discharge after dialysis tomorrow. 2. End-stage renal disease, improved after dialysis tomorrow. We will continue with telemetry monit oring and likely be able to discharge the patient after dialysis tomorrow with further ultrafiltratio n. 3. Diabetes, stable. Continue with medications and sliding scale. 4. Glaucoma, stable. Continue the patient's eyedrops. 5. Debility. We will continue with physical therapy. Dictated By: HAI CHRISTIANSON MD SR/NTS Conf#: [id number] DID#: [id number]
[2018-06-04] MEDS: FAMOTIDINE 20 MG TAB PO SCH (21:08)
[2018-06-04] MEDS: ATORVASTATIN 80 MG TAB PO SCH (21:09)
[2018-06-04] MEDS: VYZULTA EYE BOTH EYES SCH (21:10)
[2018-06-05] VITALS (25 sets, daily range): BP systolic 130–161; BP diastolic 63–78; PULSE 70–88; RESP 18–20
[2018-06-05] MEDS: INSULIN ASPART [NOVOLOG] 3 ML PEN SC SCH ×3 (07:32→17:08)
[2018-06-05] MEDS: REPAGLINIDE 1 MG TAB PO SCH ×3 (07:32→17:08)
[2018-06-05] MEDS: TAMSULOSIN (SR) 0.4 MG CAP PO SCH (08:45)
[2018-06-05] MEDS: NYSTATIN SUSP 5 ML CUP PO SCH ×3 (08:45→17:08)
[2018-06-05] MEDS: APIXABAN 5 MG TABLET PO SCH (08:45)
[2018-06-05] MEDS: CALCIUM/VITAMIN D (500/200) TAB PO SCH ×2 (08:45→12:40)
[2018-06-05] MEDS: ASPIRIN (EC) 81 MG TAB PO SCH (08:46)
[2018-06-05] MEDS: AMLODIPINE 2.5 MG TAB PO SCH ×2 (08:47→17:08)
--- NOTE | 2018-06-05 14:48 | CONS ---
Assessment/Plan Assessment/Plan Assessment/Plan (Daily) 1. End-stage renal disease on maintenance hemodialysis. HD today, tolerating well. 2. Chronic lung disease Clinically improved 3. Congestive heart failure. Improved after dialysis. 4. Coronary artery disease. Asymptomatic 5. Type 2 diabetes mellitus. Controlled Disposition per PCP Consultation Date/Type/Reason Admit Date/Time Jun 03, 2018 at 11:03 Initial Consult Date Type of Consult Nephrology Date/Time of Note DATE: 06/05/18 TIME: 14:44 24 HR Interval Summary Free Text/Dictation Seen on dialysis. Comfortable, no SOB or CP. Family at bedside. Exam/Review of Systems Exam Vitals Vital Signs Date Temp Pulse Resp B/P (MAP) Pulse Ox O2 O2 Flow FiO2 Time Delivery Rate 06/05/18 80 20 145/69 Room Air 12:50 (94) 06/05/18 97.9 98 11:21 06/03/18 2 08:45 Intake and Output 06/04/18 06/04/18 06/05/18 1414:59 22:59 06:59 IntakeIntake Total 850 ml 750 ml OutputOutput Total 750 ml BalanceBalance 100 ml 750 ml Constitutional: alert Head: normocephalic, atraumatic Neck: supple; No jvd Respiratory: clear to auscultation Cardiovascular: regular rate and rhythm Gastrointestinal: soft, non-tender Extremities: No edema Results Result Diagram: 06/05/18 0552 06/05/18 0552 Results 24hrs Laboratory Tests Test 06/04/18 18:09 06/04/18 21:05 06/05/18 05:52 06/05/18 07:31 Bedside Glucose 123 190 115 White Blood Count 7.1 Red Blood Count 3.55 L Hemoglobin 10.5 L Hematocrit 32.6 L Mean Corpuscular 91.8 Volume Mean Corpuscular 29.6 Hemoglobin Mean Corpuscular 32.2 Hemoglobin Concent Red Cell 15.9 H Distribution Width Platelet Count 259 Mean Platelet Volume 11.1 H Immature 0.300 Granulocytes % Neutrophils % 51.6 Lymphocytes % 22.1 Monocytes % 15.0 H Eosinophils % 10.0 H Basophils % 1.0 Nucleated Red Blood 0.0 Cells % Immature 0.020 Granulocytes # Neutrophils # 3.7 Lymphocytes # 1.6 Monocytes # 1.1 H Eosinophils # 0.7 H Basophils # 0.1 Nucleated Red Blood 0.0 Cells # Sodium Level 144 Potassium Level 5.0 Chloride Level 105 Carbon Dioxide Level 30 Anion Gap 9 Blood Urea Nitrogen 54 H Creatinine 4.71 H Est Glomerular Filtrat Rate mL/min Glucose Level 136 Calcium Level 9.7 Phosphorus Level 2.9 Magnesium Level 2.2 Test 06/05/18 11:28 Bedside Glucose 101 Medications Medication Current Medications Aspirin (Halfprin) 81 mg DAILY PO Last administered on 06/05/18 08:46; Admin Dose 81 MG; Start 06/04/18 at 09:00 Calcium/Vitamin D (Oyster Shell/ Vit-D (500/200)) 1 tab TID PO Last administe red on 06/05/18 12:40; Admin Dose 1 TAB; Start 06/03/18 at 13:00 Carvedilol (Coreg) 3.125 mg BID PO Last administered on 06/05/18 08:45; Admin Dose 3.125 MG; Start 06/03/18 at 21:00 Famotidine (Pepcid) 20 mg HS PO Last administered on 06/04/18 21:08; Admin Dose 20 MG; Start 06/03/18 at 21:00 Tamsulosin HCl (Flomax) 0.4 mg DAILY PO Last administered on 06/05/18 08:45; Admin Dose 0.4 MG; Start 06/04/18 at 09:00 Apixaban (Eliquis) 2.5 mg BID PO Last administered on 06/05/18 08:45; Admin Do se 2.5 MG; Start 06/03/18 at 21:00 Amlodipine Besylate (Norvasc) 2.5 mg BID PO Last administered on 06/04/18 21:09; Admin Dose 2.5 MG; Start 06/03/18 at 21:00 Insulin Aspart (Novolog Insulin Pen) NOVOLOG *MILD* ALGORITHM WITH MEALS BEDTIME SC Last administered on 06/04/18 21:18; Admin Dose 1 UNIT; Start 06/03/18 at 18:00 Acetaminophen (Tylenol Tab) 650 mg Q6 PRN PO MILD PAIN(1-3)OR ELEVATED TEMP; Start 06/03/18 at 13:30 Miscellaneous Information 1 ea NOTE XX ; Start 06/03/18 at 13:30 Glucose (Glutose) 15 gm Q15M PRN PO DECREASED GLUCOSE; Start 06/03/18 at 13:30 Glucose (Glutose) 22.5 gm Q15M PRN PO DECREASED GLUCOSE; Start 06/03/18 at 13:30 Dextrose (D50w Syringe) 25 ml Q15M PRN IV DECREASED GLUCOSE; Start 06/03/18 at 13:30 Dextrose (D50w Syringe) 50 ml Q15M PRN IV DECREASED GLUCOSE; Start 06/03/18 at 13:30 Glucagon (Glucagen) 1 mg Q15M PRN IM DECREASED GLUCOSE; Start 06/03/18 at 13:30 Glucose (Glutose) 15 gm Q15M PRN BUCCAL DECREASED GLUCOSE; Start 06/03/18 at 13:30 Atorvastatin Calcium (Lipitor) 80 mg QHS PO Last administered on 06/04/18at 21:09; Admin Dose 80 MG; Start 06/03/18 at 21:00 Repaglinide (Prandin) 0.5 mg AC MEALS PO Last administered on 06/05/18at 11:40; Admin Dose 0.5 MG; Start 06/04/18 at 07:00 Nystatin (Nystatin Susp) 5 ml QID PO Last administered on 06/05/18at 12:40; Admin Dose 5 ML; Start 06/03/18 at 21:00 Hydralazine HCl (Apresoline) 5 mg Q6H PRN IV ELEVATED BLOOD PRESSURE; Start 06/03/18 at 20:30 Patient Own Medication 1 ea QHS BOTH EYES Last administered on 06/04/18at 21:10; Admin Dose 1 EA; Start 06/03/18 at 22:00 FAHAD DUBOSE MD Jun 05, 2018 14:48
--- NOTE | 2018-06-05 15:29 | DS ---
Date/Time of Note Date/Time of Note DATE: 06/05/18 TIME: 15:19 Discharge Summary Admission/Discharge Info Admit Date/Time Jun 03, 2018 at 11:03 Discharge Date/Time June 05, 2018 Discharge Diagnosis 1. Chest pain. 2. Congestive heart failure, acute on chronic 3. Diabetes. 4. End-stage renal disease on dialysis. 5. Gastroesophageal reflux disease. 6. Benign prostatic hypertrophy. 7. Coronary artery disease 8. Hypertension. Patient Condition: Fair Consults Nephrology. Procedures Hemodialysis and ultrafiltration. Hx of Present Illness The patient is an 83-year-old male with history of congestive heart failure, recently discharged from the hospital on 05/21/2018 who presented with mild congestive heart failure and chest pain. Patient was admitted to telemetry for rule out NV and monitor. Hospital Course Patient was ruled out for NV with serial troponins. He was found to be in congestive heart failure, acute on chronic. Patient underwent hemodialysis with ultrafiltration. Bishop better and is discharged to home with continued outpatient hemodialysis. Home Meds Reported Medications Amlodipine Besylate* (Amlodipine Besylate*) 2.5 Mg Tablet, 5 MG PO DAILY, #30 TAB 06/03/18 Latanoprostene Bunod (Vyzulta) 5 Ml Drops, 5 ML OP QHS, BOTTLE 06/03/18 Atorvastatin* (Atorvastatin*) 80 Mg Tablet, 80 MG PO DAILY, #30 TAB 06/03/18 Repaglinide* (Repaglinide*) 0.5 Mg Tablet, PO AC MEALS, TAB 06/03/18 Calcium Carbonate/Vitamin D3 (Os-Nelson 500-Vit D3 200 Caplet) 1 Each Tablet, 1 CAP PO TID, TAB 06/03/18 Tamsulosin Hcl* (Tamsulosin Hcl*) 0.4 Mg Cap.er.24h, 0.4 MG PO DAILY, CAP 04/25/18 Famotidine* (Famotidine*) 20 Mg Tablet, 20 MG PO BID, #60 TAB 04/25/18 Aspirin (Low Dose Aspirin) 81 Mg Tablet.dr, 81 MG PO DAILY, #30 TAB 04/25/18 Carvedilol* (Carvedilol*) 3.125 Mg Tablet, 3.125 MG PO BID, #60 TAB 04/25/18 Apixaban* (Eliquis*) 2.5 Mg Tablet, 2.5 MG PO BID, TAB 3/17/19 Discontinued Reported Medications Pioglitazone Hcl* (Pioglitazone Hcl*) 15 Mg Tablet, 15 MG PO DAILY, TAB 06/03/18 Amlodipine Besylate* (Norvasc*) 5 Mg Tablet, 5 MG PO DAILY, TAB 06/03/18 Insulin Glargine,Hum.rec.anlog (Basaglar Kwikpen U-100) 100 Unit/1 Ml Insuln.pen, 0 SC QHS, EA SLIDING SCALE 04/25/18 Furosemide* (Furosemide*) 40 Mg Tablet, 40 MG PO BID, TAB 04/25/18 Follow-up Plan Follow up with Dr. Shea in 1 week Primary Care Provider Wicho Shea Time spent on discharge: > 30 minutes Pending Labs Laboratory Tests Test 06/04/18 18:09 06/04/18 21:05 06/05/18 05:52 06/05/18 07:31 Bedside 123 190 115 Glucose mg/dL (70-220) mg/dL (70-220) mg/dL (70-220) White Blood 7.1 Count 10^3/ul (4.8-1 0.8) Red Blood 3.55 Count 10^6/ul (4.70- 6.10) Hemoglobin 10.5 g/dl (14.0-18. 0) Hematocrit 32.6 % (42.0-52.0) Mean 91.8 Corpuscular fl (82.0-101.0 Volume ) Mean 29.6 Corpuscular pg (29.0-33.0) Hemoglobin Mean 32.2 Corpuscular g/dl (32.0-37. Hemoglobin Conc 0) ent Red Cell 15.9 Distribution % (11.5-14.5) Width Platelet Count 259 10^3/UL (140-4 15) Mean Platelet 11.1 Volume fl (7.4-10.4) Immature 0.300 Granulocytes % % (0.001-0.429 ) Neutrophils % 51.6 % (39.0-77.0) Lymphocytes % 22.1 % (15.0-51.0) Monocytes % 15.0 % (0.0-11.0) Eosinophils % 10.0 % (0.0-7.0) Basophils % 1.0 % (0.0-2.0) Nucleated Red 0.0 Blood Cells % /100WBC (0.0-0 .0) Immature 0.020 Granulocytes # 10^3/ul (0.0-0 .031) Neutrophils # 3.7 10^3/ul (1.6-7 .5) Lymphocytes # 1.6 10^3/ul (0.8-2 .9) Monocytes # 1.1 10^3/ul (0.3-0 .9) Eosinophils # 0.7 10^3/ul (0.0-0 .5) Basophils # 0.1 10^3/ul (0.0-0 .1) Nucleated Red 0.0 Blood Cells # 10^3/ul (0.0-0 .0) Sodium Level 144 mmol/L (135-14 4) Potassium 5.0 Level mmol/L (3.5-5. 1) Chloride Level 105 mmol/L (97-110 ) Carbon Dioxide 30 Level mmol/L (21-31) Anion Gap 9 (5-13) Blood Urea 54 Nitrogen mg/dl (7-20) Creatinine 4.71 mg/dl (0.61-1. 24) Est Glomerular mL/min (>60) Filtrat Rate mL/min Glucose Level 136 mg/dl (70-220) Calcium Level 9.7 mg/dl (8.4-10. 2) Phosphorus 2.9 Level mg/dl (2.5-4.9 ) Magnesium 2.2 Level mg/dl (1.7-2.5 ) Test 06/05/18 11:28 Bedside 101 Glucose mg/dL (70-220) SHREE HAYES MD Jun 05, 2018 15:29
== END 2018-06-05 17:30 | disposition home or self-care (01) ==
LOC: E/R 07:57 → 6WM 11:03 → CANRESERV 14:23
PROVIDERS: ADMIT Internal Medicine; ATTEND Internal Medicine
DX: R07.9 Chest pain, unspecified (principal); I13.2 Hypertensive heart and chronic kidney disease with heart failure and with stage 5 chronic kidney disease, or end stage renal disease; E11.22 Type 2 diabetes mellitus with diabetic chronic kidney disease; N18.6 End stage renal disease; I50.9 Heart failure, unspecified; I25.5 Ischemic cardiomyopathy; Z99.2 Dependence on renal dialysis; Z79.4 Long term (current) use of insulin; K21.9 Gastro-esophageal reflux disease without esophagitis; N40.0 Benign prostatic hyperplasia without lower urinary tract symptoms; I25.10 Atherosclerotic heart disease of native coronary artery without angina pectoris; Z95.1 Presence of aortocoronary bypass graft; H40.9 Unspecified glaucoma; R53.81 Other malaise; J98.4 Other disorders of lung; Z79.01 Long term (current) use of anticoagulants
CPT/HCPCS: 36415; 71045; 80048; 80053; 82550; 82553; 82962; 83735; 84100; 84484; 85025; 85610; 85730; 87340; 90935; 93005; 99285; G0378; J1815

== ENCOUNTER 2018-07-12 22:30 | Inpatient (IN) | payer MEDICARE, OTHER ==
[~2018-07-12] VITALS: Ht 175.3 cm; Wt 68.0 kg
[~2018-07-12 22:30] MED LIST changes: +AMLO2.5T78 PO; +ATOR-2 PO; +CALC1TAB32 PO; -FURO40TA4 PO; -INSU100I33 SC; +LATA5DRO OP; +REPA0.5T3 PO
[2018-07-13] VITALS (25 sets, daily range): BP systolic 125–152; BP diastolic 60–74; PULSE 74–80; RESP 18–19; Ht 175.3 cm; Wt 68.0 kg
--- NOTE | 2018-07-13 01:30 | ERD ---
ER Documentation Chief Complaint Chief Complaint sob last 3 wks. worse tonight. increase feet swelling hx chf. denies cp HPI This is a 83-year-old male comes her shortness of breath for last 3 weeks getting progressively worse. Apparently tonight he was unable to lie flat because of shortness of breath. Patient is a dialysis patient but does have a history of ischemic cardiomyopathy. Reviewing EMR, patient's been in multiple t imes for this in the past. Primary care physician is Dr. Hickman. ROS All systems reviewed and are negative except as per history of present illness. Medications Home Meds Reported Medications Amlodipine Besylate* (Amlodipine Besylate*) 2.5 Mg Tablet, 5 MG PO DAILY, #30 TAB 06/03/18 Latanoprostene Bunod (Vyzulta) 5 Ml Drops, 5 ML OP QHS, BOTTLE 06/03/18 Atorvastatin* (Atorvastatin*) 80 Mg Tablet, 80 MG PO DAILY, #30 TAB 06/03/18 Repaglinide* (Repaglinide*) 0.5 Mg Tablet, PO AC MEALS, TAB 06/03/18 Calcium Carbonate/Vitamin D3 (Os-Nelson 500-Vit D3 200 Caplet) 1 Each Tablet, 1 CAP PO TID, TAB 06/03/18 Tamsulosin Hcl* (Tamsulosin Hcl*) 0.4 Mg Cap.er.24h, 0.4 MG PO DAILY, CAP 04/25/18 Famotidine* (Famotidine*) 20 Mg Tablet, 20 MG PO BID, #60 TAB 04/25/18 Aspirin (Low Dose Aspirin) 81 Mg Tablet.dr, 81 MG PO DAILY, #30 TAB 04/25/18 Carvedilol* (Carvedilol*) 3.125 Mg Tablet, 3.125 MG PO BID, #60 TAB 04/25/18 Apixaban* (Eliquis*) 2.5 Mg Tablet, 2.5 MG PO BID, TAB 04/25/18 Allergies Allergies: Coded Allergies: No Known Allergy (Verified , 07/12/18) PMhx/Soc History of Surgery: Yes (CABG, HERNIA REPAIR) Anesthesia Reaction: No Hx Neurological Disorder: Yes (CVA, NEUROPATHY) Hx Respiratory Disorders: No Hx Cardiac Disorders: Yes (AMI, PACEMAKER, CHF, HTN) Hx Psychiatric Problems: No Hx Miscellaneous Medical Probl: No Hx Alcohol Use: Yes Hx Substance Use: No Hx Tobacco Use: Yes (2008) Smoking Status: Former smoker Physical Exam Vitals Vital Signs Date Temp Pulse Resp B/P (MAP) Pulse Ox O2 O2 Flow FiO2 Time Delivery Rate 07/12/18 Nasal 2.0 23:50 Cannula 07/12/18 Nasal 2 23:50 Cannula 07/12/18 97.7 68 20 159/75 93 22:39 (103) Physical Exam Const: No acute distress Head: Atraumatic Eyes: Normal Conjunctiva ENT: Normal External Ears, Nose and Mouth. Neck: Full range of motion. No meningismus. Resp: Clear to auscultation bilaterally Cardio: Regular rate and rhythm, no murmurs Abd: Soft, non tender, non distended. Normal bowel sounds Skin: No petechiae or rashes Back: No midline or flank tenderness Ext: No cyanosis, or edema Neur: Awake and alert Psych: Normal Mood and Affect Result Diagram: 07/12/18 2350 07/12/18 2350 Results 24 hrs Laboratory Tests Test 07/12/18 23:50 White Blood Count 5.5 10^3/ul Red Blood Count 3.17 10^6/ul Hemoglobin 9.9 g/dl Hematocrit 30.4 % Mean Corpuscular Volume 95.9 fl Mean Corpuscular Hemoglobin 31.2 pg Mean Corpuscular Hemoglobin Concent 32.6 g/dl Red Cell Distribution Width 17.7 % Platelet Count 183 10^3/UL Mean Platelet Volume 11.4 fl Immature Granulocytes % 0.200 % Neutrophils % 52.4 % Lymphocytes % 23.3 % Monocytes % 11.4 % Eosinophils % 11.6 % Basophils % 1.1 % Nucleated Red Blood Cells % 0.0 /100WBC Immature Granulocytes # 0.010 10^3/ul Neutrophils # 2.9 10^3/ul Lymphocytes # 1.3 10^3/ul Monocytes # 0.6 10^3/ul Eosinophils # 0.6 10^3/ul Basophils # 0.1 10^3/ul Nucleated Red Blood Cells # 0.0 10^3/ul Sodium Level 141 mmol/L Potassium Level 4.4 mmol/L Chloride Level 101 mmol/L Carbon Dioxide Level 31 mmol/L Anion Gap 9 Blood Urea Nitrogen 50 mg/dl Creatinine 3.80 mg/dl Est Glomerular Filtrat Rate mL/min mL/min Glucose Level 107 mg/dl Calcium Level 9.1 mg/dl Total Bilirubin 0.4 mg/dl Direct Bilirubin 0.00 mg/dl Indirect Bilirubin 0.4 mg/dl Aspartate Amino Transf (AST/SGOT) 19 IU/L Alanine Aminotransferase (ALT/SGPT) 16 IU/L Alkaline Phosphatase 198 IU/L Troponin I 0.027 ng/ml B-Type Natriuretic Peptide 61068 PG/ML Total Protein 7.4 g/dl Albumin 3.5 g/dl Globulin 3.90 g/dl Albumin/Globulin Ratio 0.89 Procedures/MDM EKG: Rate/Rhythm: Normal Sinus Rhythm QRS, ST, T-waves: No changes consistent w/ acute ischemia Impression: No evidence of ischemia or arrhythmia Chest X-ray 1V Interpreted by me: Soft Tissue: No acute abnorm alities Bones: No acute abnormalities Mediastinum/Cardiac Silhouette/Lungs: Increased interstitial fluid markings. Cardiomegaly. Medical decision making: Patient's heart failure symptoms is concerning for acute decompensation and will require inpatient workup and monitoring. Further w/u for ischemia, arrhythmia, PE or dissection will be deferred to the inpatient team. Accepting Care Team: Current data and ongoing care discussed. Time: 1:30 AM Primary Provider: Dr. Porsche Rea who is on-call Consulting: Deferred to inpatient team Outstanding Data: none Departure Diagnosis: Primary Impression: Congestive heart failure (CHF) Heart failure type: unspecified Heart failure chronicity: unspecified Qualified Codes: I50.9 - Heart failure, unspecified Condition: Serious PEÑA BEAUCHAMP Jul 13, 2018 01:30
[2018-07-13] MEDS ORDERED: GLUCOSE GEL 15 GRAM TUBE BUCCAL PRN (08:30)
[2018-07-13] MEDS ORDERED: DEXTROSE 50% 50 ML SYRINGE IV PRN ×2 (08:30)
[2018-07-13] MEDS ORDERED: GLUCOSE GEL 15 GRAM TUBE PO PRN ×2 (08:30)
[2018-07-13] MEDS ORDERED: hydrALAzine 20 MG INJ IV PRN (08:30)
[2018-07-13] MEDS ORDERED: GLUCAGON 1 MG INJ IM PRN (08:30)
[2018-07-13] MEDS ORDERED: ASPIRIN (EC) 81 MG TAB PO SCH (09:00)
[2018-07-13] MEDS: ATORVASTATIN 80 MG TAB PO SCH (09:06)
[2018-07-13] MEDS: FAMOTIDINE 20 MG TAB PO SCH ×2 (09:07→20:33)
[2018-07-13] MEDS: CALCIUM/VITAMIN D (500/200) TAB PO SCH ×3 (09:07→20:33)
[2018-07-13] MEDS: AMLODIPINE 2.5 MG TAB PO SCH (09:07)
[2018-07-13] MEDS: ASPIRIN (EC) 81 MG TAB PO SCH (09:07)
[2018-07-13] MEDS: TAMSULOSIN (SR) 0.4 MG CAP PO SCH (09:07)
--- NOTE | 2018-07-13 09:44 | HP ---
DATE OF ADMISSION: 07/13/2018 ADMITTING DIAGNOSIS: Congestive heart failure. HISTORY OF PRESENT ILLNESS: The patient is an 83-year-old male with ischemic cardiomyopathy, end-stage renal disease, diabetes, coronary artery disease, hypertension, who presented to the emergency room with increasing shortness of breath over the last several days. The patient has been having on and off breathing problems over the last couple weeks, but became worse over the last several days with increasing orthopnea as well as swelling in the ankles. The patient developed a cough starting yesterday, but minimally productive. The patient denies any fevers, chills or night sweats, but the patient's family says he has been warm over the last day or so. The patient denies any nausea, vomiting, diarrhea, no constipation, no chest pain. Otherwise unremarkable. PAST MEDICAL HISTORY: Coronary artery disease with ischemic cardiomyopathy, hypertension, end-stage renal disease, history of cerebrovascular accident with right hemiparesis, history of pacemaker with AICD placement, status post coronary artery bypass, history of temporal arteritis, cervical spondylosis and benign prostatic hypertrophy and gastroesophageal reflux disease as well as anemia of chronic kidney disease. PAST SURGICAL HISTORY: Shunt placement with recent instrumentation due to clot, AICD placement, coronary artery bypass surgery. FAMILY HISTORY: Noncontributory. MEDICATIONS: 1. Eliquis 2.5 mg b.i.d. 2. Amlodipine 2.5 mg b.i.d. 3. Repaglinide 0.5 mg t.i.d. 4. Aspirin 81 mg daily. 5. PhosLo 667 mg b.i.d. 6. Famotidine 20 mg b.i.d. 7. Flomax 0.4 mg at bedtime. 8. Coreg 3.125 mg b.i.d. SOCIAL HISTORY: The patient is , lives with his children. No tobacco or alcohol use. PHYSICAL EXAMINATION: VITAL SIGNS: Initially in the emergency room, temperature is 97.7, pulse 68, respirations 20, blood pressure 159/75, oxygen saturation 93%. Currently, the patient's temperature is 98.4, pulse 77, respirations 18, blood pressure 152/71, oxygen saturation 97% on 2 liter nasal cannula oxygen. GENERAL: Well-developed, thin male, in no acute distress, sitting up in bed. HEENT: EOMI, PERRLA. Oropharynx clear. NECK: Elevated jugular venous pressure, 2+ carotid upstroke, no lymphadenopathy. LUNGS: Bilateral crackles approximately half up with decreased breath sounds at bilateral bases, right greater than left. HEART: Regular rate and rhythm. ABDOMEN: Soft, nontender. No hepatosplenomegaly. EXTREMITIES: 1 to 2+ bilateral lower extremity edema, left greater than right. NEUROLOGIC: Nonfocal except for decreased pinprick, fine touch, and bilateral lower extremities in a stocking distribution. The patient also has right hemiparesis of the right upper extremity and right lower extremity. SKIN:right sacrococcygeal stage 3 pressure ulcer; no evid of infection IMAGING STUDIES: Chest x-ray shows stable moderate failure with pleural effusions. There is a new 24 mm cavitary lesion at the medial right lung base. LABORATORY DATA: White blood cell count 5.5, hemoglobin 9.9, hematocrit 30.4, platelets of 183. Sodium 141, potassium 4.4, chloride 101, bicarbonate is 31, BUN of 50, creatinine 3.8, alkaline phosphatase 198, AST of 19, ALT of 16, creatinine kinase less than 20, troponin #1, 0.027. Troponin #2, 0.029. Brain natriuretic peptide is 38,600. Albumin of 3.5. ASSESSMENT AND PLAN: The patient is an 83-year-old male with end-stage renal disease, ischemic cardiomyopathy, diabetes, hypertension, coronary artery disease who was admitted with increasing shortness of breath and exam and chest x-ray consistent with congestive heart failure. The patient is being admitted to telemetry for further evaluation and treatment. 1. Congestive heart failure/ischemic cardiomyopathy/coronary artery disease. The patient will need dialysis today with ultrafiltration and nephrology has been consulted to help arrange this. We will continue with the patient's routine blood pressure medications as well as p.r.n. hydralazine for elevated blood pressure. We will continue the patient's Eliquis and aspirin. 2. End-stage renal disease. We will have nephrology evaluate the patient and order dialysis with ultrafiltration to remove fluid. 3. Diabetes. We will continue Repaglinide 0.5 mg with meals as well as a sliding scale of NovoLog and mild algorithm. 4. Gastroesophageal reflux disease. We will continue with the patient's Famotidine. 5. Benign prostatic hypertrophy. We will continue with the patient's tamsulosin. 6. Hyperlipidemia. Continue with patient's atorvastatin as well as diet. 7. Cavitary lesion of the lung. This is new since his last chest x-ray was done. We will do CT scan of the chest without contrast also have infectious disease evaluate the patient to assist with workup and treatment as this could be fungal versus bacterial infection. Dictated By: HAI CHRISTIANSON MD SR/NTS Conf#: [id number] DID#: [id number] CC: SHREE HAYES MD;*EndCC* MTDD
--- NOTE | 2018-07-13 11:04 | CONS ---
Assessment/Plan Assessment/Plan Hospital Course (Demo Recall) 1) CHF with ryanne pleural effusions and ground glass opacities prior CT last year had similar findings but the are currently worse pt is improving with dialysis and no antibiotics no systemic symptoms and CT chest does not show a cavitary lesion I will check procalcitonin now and in a.m. and if around 0.5 or less will hold off an antibiotics doubt he has pneumonia no work up for cavitary lesion suggested on CXR is needed at this time 2) ESRD 3) HTN 4) DM 5) hx of CVA 6) CAD with AICD and CABG initial troponin was neg Consultation Date/Type/Reason Admit Date/Time Jul 13, 2018 at 01:04 Date of Consultation: Jul 13, 2018 Type of Consult ID Date/Time of Note DATE: 07/13/18 TIME: 10:56 Hx of Present Illness pt states he got SOB and came to the hospital he denies F, C, NS no cough, sore throat, muscle aches no sick contacts Past Medical History ESRD, temporal arteritis, HTN, DM, diverticulosis, BPH, [place], CAD, CVA with R sided weakness Home Meds Reported Medications Amlodipine Besylate* (Amlodipine Besylate*) 2.5 Mg Tablet, 5 MG PO DAILY, #30 TAB 06/03/18 Latanoprostene Bunod (Vyzulta) 5 Ml Drops, 5 ML OP QHS, BOTTLE 06/03/18 Atorvastatin* (Atorvastatin*) 80 Mg Tablet, 80 MG PO DAILY, #30 TAB 06/03/18 Repaglinide* (Repaglinide*) 0.5 Mg Tablet, PO AC MEALS, TAB 06/03/18 Calcium Carbonate/Vitamin D3 (Os-Nelson 500-Vit D3 200 Caplet) 1 Each Tablet, 1 CAP PO TID, TAB 06/03/18 Tamsulosin Hcl* (Tamsulosin Hcl*) 0.4 Mg Cap.er.24h, 0.4 MG PO DAILY, CAP 04/25/18 Famotidine* (Famotidine*) 20 Mg Tablet, 20 MG PO BID, #60 TAB 04/25/18 Aspirin (Low Dose Aspirin) 81 Mg Tablet.dr, 81 MG PO DAILY, #30 TAB 04/25/18 Carvedilol* (Carvedilol*) 3.125 Mg Tablet, 3.125 MG PO BID, #60 TAB 04/25/18 Apixaban* (Eliquis*) 2.5 Mg Tablet, 2.5 MG PO BID, TAB 04/25/18 Medications Current Medications Amlodipine Besylate (Norvasc) 5 mg DAILY PO Last administered on 07/13/18at 09:07; Admin Dose 5 MG; Start 07/13/18 at 09:00 Aspirin (Halfprin) 81 mg DAILY PO Last administered on 07/13/18at 09:07; Admin Dose 81 MG; Start 07/13/18 at 09:00 Atorvastatin Calcium (Lipitor) 80 mg DAILY PO Last administered on 07/13/18 09:06; Admin Dose 80 MG; Start 07/13/18 at 09:00 Calcium/Vitamin D (Oyster Shell/ Vit-D (500/200)) 1 tab TID PO Last administered on 07/13/18at 09:07; Admin Dose 1 TAB; Start 07/13/18 at 09:00 Carvedilol (Coreg) 3.125 mg BID PO Last administered on 07/13/18at 09:07; Admin Dose 3.125 MG; Start 07/13/18 at 09:00 Famotidine (Pepcid) 20 mg BID PO Last administered on 07/13/18at 09:07; Admin Dose 20 MG; Start 07/13/18 at 09:00 Tamsulosin HCl (Flomax) 0.4 mg DAILY PO Last administered on 07/13/18 09:07; Admin Dose 0.4 MG; Start 07/13/18 at 09:00 Miscellaneous Information 5 ml QHS OP ; Start 07/13/18 at 21:00; Status UNV Insulin Aspart (Novolog Insulin Pen) NOVOLOG *MILD* ALGORITHM WITH MEALS BEDTIME SC ; Start 07/13/18 at 11:50 Hydralazine HCl (Apresoline) 5 mg Q6H PRN IV sbp>180 or dbp>100; Start 07/13/18 at 08:30 Miscellaneous Information 1 ea NOTE XX ; Start 07/13/18 at 08:30 Glucose (Glutose) 15 gm Q15M PRN PO DECREASED GLUCOSE; Start 07/13/18 at 08:30 Glucose (Glutose) 22.5 gm Q15M PRN PO DECREASED GLUCOSE; Start 07/13/18 at 08:30 Dextrose (D50w Syringe) 25 ml Q15M PRN IV DECREASED GLUCOSE; Start 07/13/18 at 08:30 Dextrose (D50w Syringe) 50 ml Q15M PRN IV DECREASED GLUCOSE; Start 07/13/18 at 08:30 Glucagon (Glucagen) 1 mg Q15M PRN IM DECREASED GLUCOSE; Start 07/13/18 at 08:30 Glucose (Glutose) 15 gm Q15M PRN BUCCAL DECREASED GLUCOSE; Start 07/13/18 at 08:30 Gabapentin (Neurontin) 100 mg HS PO ; Start 07/13/18 at 21:00 Allergies: Coded Allergies: No Known Allergy (Verified , 07/12/18) Past Surgical History AICD, CABG, hernia repair Past Surgical Hx: coronary bypass surgery, other Social History Smoking Status: Former smoker Exam/Review of Systems Exam Vitals Vital Signs Date Temp Pulse Resp B/P (MAP) Pulse Ox O2 O2 Flow FiO2 Time Delivery Rate 07/13/18 77 08:06 07/13/18 98.4 18 152/71 97 07:21 (98) 07/13/18 Nasal 2.0 03:00 Cannula Intake and Output 07/12/18 07/12/18 07/13/18 1515:00 23:00 07:00 IntakeIntake Total 50 ml BalanceBalance 50 ml Constitutional: alert, oriented Eyes: nl sclera ENMT: mucosa pink and moist Respiratory: other (bibasilar crackles) Cardiovascular: regular rate and rhythm Gastrointestinal: soft, non-tender Extremities: other (no edema) Results Result Diagram: 07/12/18 2350 07/12/18 2350 Results 24hrs Laboratory Tests Test 07/12/18 23:50 07/13/18 06:45 White Blood Count 5.5 # Red Blood Count 3.17 L Hemoglobin 9.9 L Hematocrit 30.4 L Mean Corpuscular Volume 95.9 Mean Corpuscular Hemoglobin 31.2 Mean Corpuscular Hemoglobin Concent 32.6 Red Cell Distribution Width 17.7 H Platelet Count 183 # Mean Platelet Volume 11.4 H Immature Granulocytes % 0.200 Neutrophils % 52.4 Lymphocytes % 23.3 Monocytes % 11.4 H Eosinophils % 11.6 H Basophils % 1.1 Nucleated Red Blood Cells % 0.0 Immature Granulocytes # 0.010 Neutrophils # 2.9 Lymphocytes # 1.3 Monocytes # 0.6 Eosinophils # 0.6 H Basophils # 0.1 Nucleated Red Blood Cells # 0.0 Sodium Level 141 Potassium Level 4.4 Chloride Level 101 Carbon Dioxide Level 31 Anion Gap 9 Blood Urea Nitrogen 50 H Creatinine 3.80 H Est Glomerular Filtrat Rate mL/min Glucose Level 107 Calcium Level 9.1 Total Bilirubin 0.4 Direct Bilirubin 0.00 Indirect Bilirubin 0.4 Aspartate Amino Transf (AST/SGOT) 19 Alanine Aminotransferase (ALT/SGPT) 16 Alkaline Phosphatase 198 H Troponin I 0.027 0.029 B-Type Natriuretic Peptide 57350 H Total Protein 7.4 Albumin 3.5 Globulin 3.90 H Albumin/Globulin Ratio 0.89 Creatine Kinase < 20 L Creatine Kinase Index Creatinine Kinase MB (Mass) 0.56 Hepatitis B Surface Antigen NEGATIVE Medications Medication Current Medications Amlodipine Besylate (Norvasc) 5 mg DAILY PO Last administered on 07/13/18 09:07; Admin Dose 5 MG; Start 07/13/18 at 09:00 Aspirin (Halfprin) 81 mg DAILY PO Last administered on 07/13/18 09:07; Admin Dose 81 MG; Start 07/13/18 at 09:00 Atorvastatin Calcium (Lipitor) 80 mg DAILY PO Last administered on 07/13/18 09:06; Admin Dose 80 MG; Start 07/13/18 at 09:00 Calcium/Vitamin D (Oyster Shell/ Vit-D (500/200)) 1 tab TID PO Last administered on 07/13/18 09:07; Admin Dose 1 TAB; Start 07/13/18 at 09:00 Carvedilol (Coreg) 3.125 mg BID PO Last administered on 07/13/18 09:07; Admin Dose 3.125 MG; Start 07/13/18 at 09:00 Famotidine (Pepcid) 20 mg BID PO Last administered on 07/13/18 09:07; Admin Dose 20 MG; Start 07/13/18 at 09:00 Tamsulosin HCl (Flomax) 0.4 mg DAILY PO Last administered on 07/13/18 09:07; Admin Dose 0.4 MG; Start 07/13/18 at 09:00 Miscellaneous Information 5 ml QHS OP ; Start 07/13/18 at 21:00; Status UNV Insulin Aspart (Novolog Insulin Pen) NOVOLOG *MILD* ALGORITHM WITH MEALS BEDTIME SC ; Start 07/13/18 at 11:50 Hydralazine HCl (Apresoline) 5 mg Q6H PRN IV sbp>180 or dbp>100; Start 07/13/18 at 08:30 Miscellaneous Information 1 ea NOTE XX ; Start 07/13/18 at 08:30 Glucose (Glutose) 15 gm Q15M PRN PO DECREASED GLUCOSE; Start 07/13/18 at 08:30 Glucose (Glutose) 22.5 gm Q15M PRN PO DECREASED GLUCOSE; Start 07/13/18 at 08:30 Dextrose (D50w Syringe) 25 ml Q15M PRN IV DECREASED GLUCOSE; Start 07/13/18 at 08:30 Dextrose (D50w Syringe) 50 ml Q15M PRN IV DECREASED GLUCOSE; Start 07/13/18 at 08:30 Glucagon (Glucagen) 1 mg Q15M PRN IM DECREASED GLUCOSE; Start 07/13/18 at 08:30 Glucose (Glutose) 15 gm Q15M PRN BUCCAL DECREASED GLUCOSE; Start 07/13/18 at 08:30 Gabapentin (Neurontin) 100 mg HS PO ; Start 07/13/18 at 21:00 MADISON JENKINS MD Jul 13, 2018 11:04
[2018-07-13] MEDS ORDERED: REPAGLINIDE 1 MG TAB PO SCH (11:20)
[2018-07-13] MEDS: INSULIN ASPART [NOVOLOG] 3 ML PEN SC SCH ×3 (11:50→20:40)
--- NOTE | 2018-07-13 14:56 | CONS ---
DATE OF ADMISSION: 07/13/2018 DATE OF CONSULTATION: TYPE OF CONSULTATION: Nephrology. REASON FOR CONSULTATION: End-stage renal disease on maintenance hemodialysis. HISTORY OF PRESENT ILLNESS: This 83-year-old man developed shortness of breath yesterday and came in to the hospital through the emergency room. He is now on the telemetry floor. The patient is feelin g a little bit better now since being on oxygen. He is about to have a hemodialysis treatment. The patient has end-stage renal disease and is usually dialyzed Thursday, , and Thursday and was l ast dialyzed 3 days ago. He was due for dialysis today. I did see the patient last week in the dial ysis unit and at that time, he had no shortness of breath. He had very slight swelling in his lower extremities. The patient has been admitted to the hospital with recurrent shortness of breath recent ly. The patient denies any chest pain, nausea, vomiting. PAST MEDICAL HISTORY: 1. End-stage renal disease on maintenance hemodialysis. 2. Diabetic nephropathy. 3. Coronary artery disease. 4. Ischemic cardiomyopathy. 5. Previous myocardial infarction, pacemaker and AICD placement. 6. History of temporal arteritis. 7. Hypertension. 8. Type 2 diabetes mellitus. 9. Cervical spondylosis. 10. History of CVA. 11. Peripheral neuropathy. 12. Benign prostatic hypertrophy. 13. Orthostatic hypotension. PAST SURGICAL HISTORY: He has a right upper arm AV fistula for hemodialysis which functions well. CURRENT MEDICATIONS: Include the followin. Tamsulosin 0.4 mg a day. 2. Apixaban 2.5 mg twice a day. 3. Carvedilol 3.125 mg twice a day. 4. Aspirin 81 mg a day. 5. Calcium carbonate. 6. Furosemide 40 mg twice a day. 7. Famotidine 20 mg a day. 8. Pioglitazone 15 mg a day. 9. Repaglinide 0.5 mg before meals and t.i.d. PHYSICAL EXAMINATION: GENERAL: At this time reveals a well-developed, frail gentleman in no apparent distress. VITAL SIGNS: Temperature 98.4, pulse is 75, respirations 18, blood pressure 152/71, O2 saturation of 97%. HEENT: Head is normocephalic. Eyes: Extraocular muscles are intact. Nose and mouth are normal. NECK: Supple. No neck vein distention. LUNGS: There were diminished breath sounds bilaterally. HEART: Regular rhythm. No murmurs, gallops or rubs. ABDOMEN: Soft, nontender. No masses or megaly. EXTREMITIES: Trace pretibial edema. NEUROLOGIC: Grossly intact except for some left arm weakness. He does have difficulty ambulating. IMPRESSION: 1. End-stage renal disease on maintenance hemodialysis. He is due for his routine hemodialysis franchesca tment today. 2. Congestive heart failure. He denies chest pain. He is short of breath. 3. Type 2 diabetes mellitus. 4. Previous cerebrovascular accident. PLAN 1. Emergent hemodialysis ordered to remove fluid as tolerated. 2. Continue current treatment on telemetry floor. 3. Resume routine medications. 4. We will follow the patient along with you medically. Dictated By: NATASHA SCHNEIDER MD, ND/NTS Conf#: [id number] DID#: [id number] CC: SHREE HAYES MD;*EndCC*
--- NOTE | 2018-07-13 16:55 | QN ---
Documentation Comment As Physician Advisor I have reviewed the chart and have determined that as of today, this patient continues to receive medically necessary care required for the diagnosis and treatment of illness or injury. There has been no unreasonable delay in the rendering of medically necessary services, and this medically necessary care requires a length of stay expected to be greater than two midnights. Additional information gained during the stay now suggests this patient should have been classified as an inpatient at the time of admission, and I will change the status to inpatient to reflect that medical judgment. Besides the notes from the medical providers, the following information was used in this determination: Ischemic cardiomyopathy, heart failure with effusions and shortness of breath, new cavitary lung lesion requiring further workup and therapy, age >80 years, ESRD requiring dialysis, DM type II. Please call me at [phone] with questions. JUNIOR WHITE MD Jul 13, 2018 16:55
[2018-07-13] MEDS: GABAPENTIN 100 MG CAP PO SCH (20:33)
[2018-07-14] VITALS (18 sets, daily range): BP systolic 121–150; BP diastolic 62–69; PULSE 65–88; RESP 9–20
--- NOTE | 2018-07-14 07:31 | CONS ---
Assessment/Plan Assessment/Plan Hospital Course (Demo Recall) 1) CHF with ryanne pleural effusions and ground glass opacities prior CT last year had similar findings but the are currently worse pt is improving with dialysis and no antibiotics no systemic symptoms and CT chest does not show a cavitary lesion I will check procalcitonin now and in a.m. and if around 0.5 or less will hold off an antibiotics doubt he has pneumonia no work up for cavitary lesion suggested on CXR is needed at this time 07/14 - procalcitonin was neg no evidence for lung infection continue off antibiotics, I will sign off on case, thank you 2) ESRD 3) HTN 4) DM 5) hx of CVA 6) CAD with AICD and CABG initial troponin was neg Consultation Date/Type/Reason Admit Date/Time Jul 13, 2018 at 16:52 Initial Consult Date 07/13/18 Type of Consult ID Date/Time of Note DATE: 07/14/18 TIME: 07:30 24 HR Interval Summary Free Text/Dictation pt resting comfortable spoke to no V, D Exam/Review of Systems Exam Vitals Vital Signs Date Temp Pulse Resp B/P (MAP) Pulse Ox O2 O2 Flow FiO2 Time Delivery Rate 07/14/18 97.7 70 16 138/66 98 Nasal 07:17 (90) Cannula 07/13/18 3.0 20:00 Intake and Output 07/13/18 07/13/18 07/14/18 1515:00 23:00 07:00 IntakeIntake Total 500 ml 300 ml OutputOutput Total 200 ml 200 ml BalanceBalance -200 ml 300 ml 300 ml Constitutional: alert Eyes: nl sclera ENMT: mucosa pink and moist Respiratory: other (bibasilar rales) Cardiovascular: regular rate and rhythm Gastrointestinal: soft, non-tender Results Result Diagram: 07/12/18 2350 07/12/18 2350 Results 24hrs Laboratory Tests Test 07/13/18 11:15 07/13/18 12:28 07/13/18 17:17 07/13/18 20:24 Creatine Kinase < 20 L Creatine Kinase Index Creatinine Kinase MB 0.71 (Mass) Troponin I 0.030 Procalcitonin 0.09 Bedside Glucose 100 141 197 Medications Medication Current Medications Amlodipine Besylate (Norvasc) 5 mg DAILY PO Last administered on 07/13/18at 09:07; Admin Dose 5 MG; Start 07/13/18 at 09:00 Aspirin (Halfprin) 81 mg DAILY PO Last administered on 07/13/18 09:07; Admin Dose 81 MG; Start 07/13/18 at 09:00 Atorvastatin Calcium (Lipitor) 80 mg DAILY PO Last administered on 07/13/18 09:06; Admin Dose 80 MG; Start 07/13/18 at 09:00 Calcium/Vitamin D (Oyster Shell/ Vit-D (500/200)) 1 tab TID PO Last administered on 07/13/18 20:33; Admin Dose 1 TAB; Start 07/13/18 at 09:00 Carvedilol (Coreg) 3.125 mg BID PO Last administered on 07/13/18 20:33; Admin Dose 3.125 MG; Start 07/13/18 at 09:00 Famotidine (Pepcid) 20 mg BID PO Last administered on 07/13/18 20:33; Admin Dose 20 MG; Start 07/13/18 at 09:00 Tamsulosin HCl (Flomax) 0.4 mg DAILY PO Last administered on 07/13/18at 09:07; Admin Dose 0.4 MG; Start 07/13/18 at 09:00 Miscellaneous Information 5 ml QHS OP ; Start 07/13/18 at 21:00; Status UNV Insulin Aspart (Novolog Insulin Pen) NOVOLOG *MILD* ALGORITHM WITH MEALS BEDTIME SC Last administered on 07/13/18at 20:40; Admin Dose 1 UNIT; Start 07/13/18 at 11:50 Hydralazine HCl (Apresoline) 5 mg Q6H PRN IV sbp>180 or dbp>100; Start 07/13/18 at 08:30 Miscellaneous Information 1 ea NOTE XX ; Start 07/13/18 at 08:30 Glucose (Glutose) 15 gm Q15M PRN PO DECREASED GLUCOSE; Start 07/13/18 at 08:30 Glucose (Glutose) 22.5 gm Q15M PRN PO DECREASED GLUCOSE; Start 07/13/18 at 08:30 Dextrose (D50w Syringe) 25 ml Q15M PRN IV DECREASED GLUCOSE; Start 07/13/18 at 08:30 Dextrose (D50w Syringe) 50 ml Q15M PRN IV DECREASED GLUCOSE; Start 07/13/18 at 08:30 Glucagon (Glucagen) 1 mg Q15M PRN IM DECREASED GLUCOSE; Start 07/13/18 at 08:30 Glucose (Glutose) 15 gm Q15M PRN BUCCAL DECREASED GLUCOSE; Start 07/13/18 at 08:30 Gabapentin (Neurontin) 100 mg HS PO Last administered on 07/13/18at 20:33; Admin Dose 100 MG; Start 07/13/18 at 21:00 MADISON JENKINS MD Jul 14, 2018 07:31
[2018-07-14] MEDS: INSULIN ASPART [NOVOLOG] 3 ML PEN SC SCH ×4 (07:41→21:00)
--- NOTE | 2018-07-14 08:09 | CONS ---
Assessment/Plan Assessment/Plan Hospital Course (Demo Recall) 1. End-stage renal disease on maintenance hemodialysis. He was dialyzed yesterday and 2.5 L of fluid was removed. He still has some coughing and his lungs sound congested on physical exam. I will order 2 hours of dry ultrafiltration today and then his routine hemodialysis treatment for tomorrow. 2. Congestive heart failure 3. Chronic lung disease 4. Hypertension 5. Postural hypotension 6. History of CVA 7. Anemia of chronic kidney disease. Consultation Date/Type/Reason Admit Date/Time Jul 13, 2018 at 16:52 Initial Consult Date 07/13/18 Type of Consult Nephrology Date/Time of Note DATE: 07/14/18 TIME: 08:01 24 HR Interval Summary Constitutional: no complaints, improved Exam/Review of Systems Exam Vitals Vital Signs Date Temp Pulse Resp B/P (MAP) Pulse Ox O2 O2 Flow FiO2 Time Delivery Rate 07/14/18 97.7 70 16 138/66 98 Nasal 07:17 (90) Cannula 07/13/18 3.0 20:00 Intake and Output 07/13/18 07/13/18 07/14/18 1515:00 23:00 07:00 IntakeIntake Total 500 ml 300 ml OutputOutput Total 200 ml 200 ml BalanceBalance -200 ml 300 ml 300 ml Constitutional: alert, oriented, frail Respiratory: crackles/rales, diminished breath sounds Cardiovascular: regular rate and rhythm, edema Gastrointestinal: soft, non-tender Extremities: edema Results Result Diagram: 07/12/18 2350 07/12/18 2350 Results 24hrs Laboratory Tests Test 07/13/18 11:15 07/13/18 12:28 07/13/18 17:17 07/13/18 20:24 Creatine Kinase < 20 L Creatine Kinase Index Creatinine Kinase MB 0.71 (Mass) Troponin I 0.030 Procalcitonin 0.09 Bedside Glucose 100 141 197 Test 07/14/18 07:40 Bedside Glucose 102 Medications Medication Current Medications Amlodipine Besylate (Norvasc) 5 mg DAILY PO Last administered on 07/13/18at 09:07; Admin Dose 5 MG; Start 07/13/18 at 09:00 Aspirin (Halfprin) 81 mg DAILY PO Last administered on 07/13/18at 09:07; Admin Dose 81 MG; Start 07/13/18 at 09:00 Atorvastatin Calcium (Lipitor) 80 mg DAILY PO Last administered on 07/13/18 09:06; Admin Dose 80 MG; Start 07/13/18 at 09:00 Calcium/Vitamin D (Oyster Shell/ Vit-D (500/200)) 1 tab TID PO Last administered on 07/13/18at 20:33; Admin Dose 1 TAB; Start 07/13/18 at 09:00 Carvedilol (Coreg) 3.125 mg BID PO Last administered on 07/13/18 20:33; Admin Dose 3.125 MG; Start 07/13/18 at 09:00 Famotidine (Pepcid) 20 mg BID PO Last administered on 07/13/18 20:33; Admin Dose 20 MG; Start 07/13/18 at 09:00 Tamsulosin HCl (Flomax) 0.4 mg DAILY PO Last administered on 07/13/18 09:07; Admin Dose 0.4 MG; Start 07/13/18 at 09:00 Miscellaneous Information 5 ml QHS OP ; Start 07/13/18 at 21:00; Status UNV Insulin Aspart (Novolog Insulin Pen) NOVOLOG *MILD* ALGORITHM WITH MEALS BEDTIME SC Last administered on 07/13/18at 20:40; Admin Dose 1 UNIT; Start 07/13/18 at 11:50 Hydralazine HCl (Apresoline) 5 mg Q6H PRN IV sbp>180 or dbp>100; Start 07/13/18 at 08:30 Miscellaneous Information 1 ea NOTE XX ; Start 07/13/18 at 08:30 Glucose (Glutose) 15 gm Q15M PRN PO DECREASED GLUCOSE; Start 07/13/18 at 08:30 Glucose (Glutose) 22.5 gm Q15M PRN PO DECREASED GLUCOSE; Start 07/13/18 at 08:30 Dextrose (D50w Syringe) 25 ml Q15M PRN IV DECREASED GLUCOSE; Start 07/13/18 at 08:30 Dextrose (D50w Syringe) 50 ml Q15M PRN IV DECREASED GLUCOSE; Start 07/13/18 at 08:30 Glucagon (Glucagen) 1 mg Q15M PRN IM DECREASED GLUCOSE; Start 07/13/18 at 08:30 Glucose (Glutose) 15 gm Q15M PRN BUCCAL DECREASED GLUCOSE; Start 07/13/18 at 08:30 Gabapentin (Neurontin) 100 mg HS PO Last administered on 07/13/18at 20:33; Admin Dose 100 MG; Start 07/13/18 at 21:00 NATASHA SCHNEIDER MD Jul 14, 2018 08:09
[2018-07-14] MEDS: [UNRECOGNIZED DRUG - OTHER] XX SCH ×2 (08:30→16:30)
[2018-07-14] MEDS: CALCIUM/VITAMIN D (500/200) TAB PO SCH ×3 (09:06→21:07)
[2018-07-14] MEDS: ATORVASTATIN 80 MG TAB PO SCH (09:06)
[2018-07-14] MEDS: AMLODIPINE 2.5 MG TAB PO SCH (09:06)
[2018-07-14] MEDS: FAMOTIDINE 20 MG TAB PO SCH ×2 (09:07→21:07)
[2018-07-14] MEDS: ASPIRIN (EC) 81 MG TAB PO SCH (09:07)
[2018-07-14] MEDS: TAMSULOSIN (SR) 0.4 MG CAP PO SCH (09:07)
--- NOTE | 2018-07-14 13:25 | PN ---
DATE: 07/14/2018 SUBJECTIVE: The patient is feeling better, less shortness of breath, able to lie in bed. No chest p ain. OBJECTIVE VITAL SIGNS: Temperature 97.7, pulse 70 and regular, respirations 16, blood pressure 138/66, oxygen saturation 98% on 3-liter nasal cannula oxygen. GENERAL: Well-developed, thin male in no acute distress, lying in bed. LUNGS: Bilateral crackles approximately 1/3 to 1/2 up with decreased breath sounds in the bases. HEART: Regular rate and rhythm. ABDOMEN: Soft, nontender. EXTREMITIES: A 1+ bilateral lower extremity edema. LABORATORY EXAMINATION: Procalcitonin 0.09. DIAGNOSTIC DATA: CT scan of the chest: No cavitary lesions. There are ground glass opacities, bila teral lower bases with interstitial fibrotic lung disease with honeycombing, large right pleural effu clarita and small to moderate left pleural effusion. ASSESSMENT AND PLAN: 1. Congestive heart failure/ischemic cardiomyopathy/coronary disease/hypertension, improved. The pa tient is status post removal of 2.5 liters ultrafiltration yesterday by dialysis and improved exam as well as symptoms. We will continue with telemetry monitoring as well as more dialysis with ultrafil tration. 2. End-stage renal disease, improved, status post ultrafiltration and dialysis yesterday and to get more today. 3. Diabetes, stable. Continue with medications, diet and sliding scale. 4. Anemia. Continue with monitoring as well as Procrit. 5. Debility/hemiparesis. We will have physical therapy work with the patient to improve gait streng thening. Dictated By: HAI CHRISTIANSON MD SR/NTS Conf#: [id number] DID#: [id number] CC: SHREE HAYES MD;*EndCC*
[2018-07-14] MEDS: GABAPENTIN 100 MG CAP PO SCH (21:07)
[2018-07-14] MEDS: BALSAM PERU/CASTOR OIL 60 GM TUBE TOP SCH (21:07)
[2018-07-14] MEDS: VYZULTA BOTH EYES SCH (21:08)
[2018-07-15] VITALS (19 sets, daily range): BP systolic 117–177; BP diastolic 50–82; PULSE 74–84; RESP 18–20
[2018-07-15] MEDS: [UNRECOGNIZED DRUG - OTHER] XX SCH (00:30)
[2018-07-15] MEDS: INSULIN ASPART [NOVOLOG] 3 ML PEN SC SCH ×4 (07:55→20:53)
[2018-07-15] MEDS: ATORVASTATIN 80 MG TAB PO SCH ×2 (08:08→20:41)
[2018-07-15] MEDS: AMLODIPINE 2.5 MG TAB PO SCH (08:08)
[2018-07-15] MEDS: ASPIRIN (EC) 81 MG TAB PO SCH (08:08)
[2018-07-15] MEDS: TAMSULOSIN (SR) 0.4 MG CAP PO SCH (08:08)
[2018-07-15] MEDS: CALCIUM/VITAMIN D (500/200) TAB PO SCH ×3 (08:08→20:40)
[2018-07-15] MEDS: FAMOTIDINE 20 MG TAB PO SCH ×2 (08:09→20:40)
[2018-07-15] MEDS: BALSAM PERU/CASTOR OIL 60 GM TUBE TOP SCH ×2 (08:09→20:41)
--- NOTE | 2018-07-15 08:45 | PN ---
DATE: 07/15/2018 SUBJECTIVE: Patient is feeling better. No shortness of breath, no cough. The patient is feeling st ronger. OBJECTIVE: VITAL SIGNS: Temperature 98.0, pulse 75 and regular, respirations 18, blood pressure 147/66, oxygen saturation 98% on 2 liter nasal cannula oxygen. GENERAL: Well-developed, thin male in no acute distress, sitting up in bed. LUNGS: Bilateral crackles with decreased breath sounds bilateral bases. HEART: Regular rate and rhythm. ABDOMEN: Soft, nontender. EXTREMITIES: Trace bilateral lower extremity edema. LABORATORY DATA: Hemoglobin of 9.9, hematocrit 31.1, white blood cell count 5.1, platelets 184. [facility] x-ray dated 07/14/2018 shows CHF with bilateral pleural effusions, basilar atelectasis. ASSESSMENT AND PLAN 1. Congestive heart failure, combined systolic and diastolic/ischemic cardiomyopathy/coronary diseas e/hypertension. The patient has improved with dialysis with ultrafiltration and an initial 2 liters was removed yesterday. We will continue with current treatment plan, and the patient may get dialysi s again today for further removal of fluid. We will continue with routine blood pressure medications , diet, and monitoring in telemetry. 2. End-stage renal disease. Continue with dialysis with ultrafiltration and the patient may require another session today. 3. Diabetes, stable with current medications and diet. 4. Anemia, stable. Continue to monitor. 5. Stage III pressure ulcer right sacrococcygeal area present on admission. We will continue with c urrent wound care and nutrition. 6. Debility. Patient still has not been seen by physical therapy and will have physical therapy ara luate the patient and start therapy, but patient does feel stronger today. Dictated By: HAI CHRISTIANSON MD SR/NTS Conf#: [id number] DID#: [id number] CC: SHREE HAYES MD;*EndCC*
--- NOTE | 2018-07-15 13:42 | CONS ---
Assessment/Plan Assessment/Plan Hospital Course (Demo Recall) 1. End-stage renal disease on maintenance hemodialysis. He had a 2-hour session of dry ultrafiltration yesterday and 2 L of fluid was removed. His chest x-ray done last evening continues to show evidence of congestive heart failure with bilateral pleural effusions. He is scheduled for hemodialysis today. We will continue to try and remove as much fluid to improve his symptoms and compensate for congestive heart failure. 3. Chronic lung disease 4. Hypertension 5. Postural hypotension 6. History of CVA 7. Anemia of chronic kidney disease. Consultation Date/Type/Reason Admit Date/Time Jul 13, 2018 at 16:52 Initial Consult Date 07/13/18 Type of Consult Nephrology Date/Time of Note DATE: 07/15/18 TIME: 13:38 24 HR Interval Summary Free Text/Dictation Gera is being seen today in nephrologic follow-up. He is lying in bed. He is awake and alert. His daughter is in the room with him. He says that he feels better. Constitutional: no complaints, improved Exam/Review of Systems Exam Vitals Vital Signs Date Temp Pulse Resp B/P (MAP) Pulse Ox O2 O2 Flow FiO2 Time Delivery Rate 07/15/18 75 12:00 07/15/18 97.2 20 118/50 97 Nasal 10:54 (72) Cannula 07/15/18 2.0 08:11 Intake and Output 07/14/18 07/14/18 07/15/18 1515:00 23:00 07:00 IntakeIntake Total 720 ml 300 ml OutputOutput Total 2400 ml BalanceBalance -1680 ml 300 ml Constitutional: alert, oriented, frail Respiratory: crackles/rales, diminished breath sounds Cardiovascular: regular rate and rhythm, edema Gastrointestinal: soft, non-tender Extremities: edema Results Result Diagram: 07/15/18 0626 07/12/18 2350 Results 24hrs Laboratory Tests Test 07/14/18 17:15 07/14/18 21:06 07/15/18 06:26 07/15/18 07:54 Bedside Glucose 157 169 96 White Blood Count 5.1 Red Blood Count 3.24 L Hemoglobin 9.9 L Hematocrit 31.1 L Mean Corpuscular Volume 96.0 Mean Corpuscular 30.6 Hemoglobin Mean Corpuscular 31.8 L Hemoglobin Concent Red Cell Distribution 16.8 H Width Platelet Count 184 Mean Platelet Volume 11.3 H Immature Granulocytes % 0.200 Neutrophils % 41.6 Lymphocytes % 29.3 Monocytes % 12.9 H Eosinophils % 14.8 H Basophils % 1.2 Nucleated Red Blood 0.0 Cells % Immature Granulocytes # 0.010 Neutrophils # 2.1 Lymphocytes # 1.5 Monocytes # 0.7 Eosinophils # 0.8 H Basophils # 0.1 Nucleated Red Blood 0.0 Cells # Phosphorus Level 4.1 Magnesium Level 2.1 Test 07/15/18 11:47 Bedside Glucose 201 Medications Medication Current Medications Amlodipine Besylate (Norvasc) 5 mg DAILY PO Last administered on 07/14/18 09:06; Admin Dose 5 MG; Start 07/13/18 at 09:00 Aspirin (Halfprin) 81 mg DAILY PO Last administered on 07/15/18 08:08; Admin Dose 81 MG; Start 07/13/18 at 09:00 Atorvastatin Calcium (Lipitor) 80 mg DAILY PO Last administered on 07/15/18 08:08; Admin Dose 80 MG; Start 07/13/18 at 09:00 Calcium/Vitamin D (Oyster Shell/ Vit-D (500/200)) 1 tab TID PO Last administered on 07/15/18 12:53; Admin Dose 1 TAB; Start 07/13/18 at 09:00 Carvedilol (Coreg) 3.125 mg BID PO Last administered on 07/14/18 21:07; Admin Dose 3.125 MG; Start 07/13/18 at 09:00 Famotidine (Pepcid) 20 mg BID PO Last administered on 07/15/18 08:09; Admin Dose 20 MG; Start 07/13/18 at 09:00 Tamsulosin HCl (Flomax) 0.4 mg DAILY PO Last administered on 07/15/18 08:08; Admin Dose 0.4 MG; Start 07/13/18 at 09:00 Patient Own Medication 1 DROP TO EACH EYE HS BOTH EYES Last administered on 07/14/18 21:08; Admin Dose 1 EA; Start 07/14/18 at 21:00 Insulin Aspart (Novolog Insulin Pen) NOVOLOG *MILD* ALGORITHM WITH MEALS BEDTIME SC Last administered on 07/15/18 12:17; Admin Dose 2 UNIT; Start 07/13/18 at 11:50 Hydralazine HCl (Apresoline) 5 mg Q6H PRN IV sbp>180 or dbp>100; Start 07/13/18 at 08:30 Miscellaneous Information 1 ea NOTE XX ; Start 07/13/18 at 08:30 Glucose (Glutose) 15 gm Q15M PRN PO DECREASED GLUCOSE; Start 07/13/18 at 08:30 Glucose (Glutose) 22.5 gm Q15M PRN PO DECREASED GLUCOSE; Start 07/13/18 at 08:30 Dextrose (D50w Syringe) 25 ml Q15M PRN IV DECREASED GLUCOSE; Start 07/13/18 at 08:30 Dextrose (D50w Syringe) 50 ml Q15M PRN IV DECREASED GLUCOSE; Start 07/13/18 at 08:30 Glucagon (Glucagen) 1 mg Q15M PRN IM DECREASED GLUCOSE; Start 07/13/18 at 08:30 Glucose (Glutose) 15 gm Q15M PRN BUCCAL DECREASED GLUCOSE; Start 07/13/18 at 08:30 Gabapentin (Neurontin) 100 mg HS PO Last administered on 07/14/18at 21:07; Admin Dose 100 MG; Start 07/13/18 at 21:00 NATASHA SCHNEIDER MD Jul 15, 2018 13:42
[2018-07-15] MEDS: GABAPENTIN 100 MG CAP PO SCH (20:40)
[2018-07-15] MEDS: VYZULTA BOTH EYES SCH (20:55)
[2018-07-16] VITALS (10 sets, daily range): BP systolic 108–142; BP diastolic 51–67; PULSE 74–75; RESP 18–20
[2018-07-16] MEDS: INSULIN ASPART [NOVOLOG] 3 ML PEN SC SCH (07:55)
--- NOTE | 2018-07-16 08:19 | PDOCDIS ---
Discharge Instructions DIAGNOSIS Discharge Diagnosis CHF CONDITION [id number] Patient Condition: [id number] Good HOME CARE INSTRUCTIONS: [id number] Special Diet: [id number] renal ACTIVITY: Nujon2Rh Activity Restrictions: [id number] No Restrictions FOLLOW UP/APPOINTMENTS Follow-up Plan Follow up as scheduled 07/[address] Shea and Hemodialysis 07/17 HAI SHEA MD- Jul 16, 2018 08:19
[2018-07-16] MEDS ORDERED: GABA100C14 PO (08:20)
[2018-07-16] MEDS: ASPIRIN (EC) 81 MG TAB PO SCH (09:08)
[2018-07-16] MEDS: AMLODIPINE 2.5 MG TAB PO SCH (09:08)
[2018-07-16] MEDS: TAMSULOSIN (SR) 0.4 MG CAP PO SCH (09:08)
[2018-07-16] MEDS: FAMOTIDINE 20 MG TAB PO SCH (09:08)
--- NOTE | 2018-07-16 09:08 | CONS ---
Assessment/Plan Assessment/Plan Hospital Course (Demo Recall) 1. End-stage renal disease on maintenance hemodialysis , he had hemodialysis yesterday and 2 L of fluid was removed. He is being discharged today to home. I reinforced to him that he will need to go to have his hemodialysis treatment tomorrow at the [facility] dialysis unit. He understands and agrees. I will follow him in the dialysis unit as an outpatient. 3. Chronic lung disease 4. Hypertension 5. Postural hypotension 6. History of CVA 7. Anemia of chronic kidney disease. Consultation Date/Type/Reason Admit Date/Time Jul 13, 2018 at 16:52 Initial Consult Date 07/13/18 Type of Consult Nephrology Date/Time of Note DATE: 07/16/18 TIME: 08:57 24 HR Interval Summary Free Text/Dictation Gera is awake and alert. He is sitting up in a chair. He says that he feels better and less short of breath. Constitutional: no complaints, improved Exam/Review of Systems Exam Vitals Vital Signs Date Temp Pulse Resp B/P (MAP) Pulse Ox O2 O2 Flow FiO2 Time Delivery Rate 07/16/18 75 08:22 07/16/18 97.5 20 108/51 98 Nasal 07:18 (70) Cannula 07/15/18 2.0 22:41 Intake and Output 07/15/18 07/15/18 07/16/18 1515:00 23:00 07:00 IntakeIntake Total 720 ml 500 ml OutputOutput Total 2400 ml BalanceBalance 720 ml -1900 ml Constitutional: alert, oriented, frail Respiratory: crackles/rales, diminished breath sounds Cardiovascular: regular rate and rhythm, edema Gastrointestinal: soft, non-tender Extremities: edema Results Result Diagram: 07/15/18 0626 07/12/18 0440 Results 24hrs Laboratory Tests Test 07/15/18 11:47 07/15/18 17:26 07/15/18 20:39 Bedside Glucose 201 169 225 H Medications Medication Current Medications Amlodipine Besylate (Norvasc) 5 mg DAILY PO Last administered on 07/14/18at 09:0 6; Admin Dose 5 MG; Start 07/13/18 at 09:00 Aspirin (Halfprin) 81 mg DAILY PO Last administered on 07/15/18at 08:08; Admin Dose 81 MG; Start 07/13/18 at 09:00 Atorvastatin Calcium (Lipitor) 80 mg DAILY PO Last administered on 07/15/18 20:41; Admin Dose 80 MG; Start 07/13/18 at 09:00 Calcium/Vitamin D (Oyster Shell/ Vit-D (500/200)) 1 tab TID PO Last administered on 07/15/18 20:40; Admin Dose 1 TAB; Start 07/13/18 at 09:00 Carvedilol (Coreg) 3.125 mg BID PO Last administered on 07/15/18 20:40; Admin Dose 3.125 MG; Start 07/13/18 at 09:00 Famotidine (Pepcid) 20 mg BID PO Last administered on 07/15/18 20:40; Admin Dose 20 MG; Start 07/13/18 at 09:00 Tamsulosin HCl (Flomax) 0.4 mg DAILY PO Last administered on 07/15/18 08:08; Admin Dose 0.4 MG; Start 07/13/18 at 09:00 Patient Own Medication 1 DROP TO EACH EYE HS BOTH EYES Last administered on 07/15/18 20:55; Admin Dose 1 EA; Start 07/14/18 at 21:00 Insulin Aspart (Novolog Insulin Pen) NOVOLOG *MILD* ALGORITHM WITH MEALS BEDTIME SC Last administered on 07/15/18 20:53; Admin Dose 2 UNIT; Start 07/13/18 at 11:50 Hydralazine HCl (Apresoline) 5 mg Q6H PRN IV sbp>180 or dbp>100; Start 07/13/18 at 08:30 Miscellaneous Information 1 ea NOTE XX ; Start 07/13/18 at 08:30 Glucose (Glutose) 15 gm Q15M PRN PO DECREASED GLUCOSE; Start 07/13/18 at 08:30 Glucose (Glutose) 22.5 gm Q15M PRN PO DECREASED GLUCOSE; Start 07/13/18 at 08:30 Dextrose (D50w Syringe) 25 ml Q15M PRN IV DECREASED GLUCOSE; Start 07/13/18 at 08:30 Dextrose (D50w Syringe) 50 ml Q15M PRN IV DECREASED GLUCOSE; Start 07/13/18 at 08:30 Glucagon (Glucagen) 1 mg Q15M PRN IM DECREASED GLUCOSE; Start 07/13/18 at 08:30 Glucose (Glutose) 15 gm Q15M PRN BUCCAL DECREASED GLUCOSE; Start 07/13/18 at 08:30 Gabapentin (Neurontin) 100 mg HS PO Last administered on 07/15/18at 20:40; Admin Dose 100 MG; Start 07/13/18 at 21:00 NATASHA SCHNEIDER MD Jul 16, 2018 09:07
[2018-07-16] MEDS: BALSAM PERU/CASTOR OIL 60 GM TUBE TOP SCH (09:09)
[2018-07-16] MEDS: CALCIUM/VITAMIN D (500/200) TAB PO SCH (09:09)
--- NOTE | 2018-07-16 11:30 | PN ---
DATE: 07/16/2018 SUBJECTIVE: The patient feeling better. No shortness of breath, no cough, still a little weak but f eels alright. OBJECTIVE: VITAL SIGNS: Temperature 97.5, pulse 75, respirations 20, blood pressure 108/51, oxygen saturation 9 8% on room air. GENERAL: Well-developed, thin male in no acute distress. LUNGS: Decreased breath sounds bilaterally lateral bases with scant crackles bilaterally. HEART: Regular rate and rhythm. ABDOMEN: Soft, nontender. EXTREMITIES: Trace bilateral lower extremity edema. LABORATORY DATA: Pending at the time of this dictation. IMPRESSION AND PLAN: 1. Congestive heart failure with combined systolic diastolic/ischemic cardiomyopathy/hypertension. The patient is status post ultrafiltration x3 days with improvement in his overall symptoms, exam, an d patient is stable for discharge to home. We will continue with current cardiac medications, diet, and patient is to have dialysis tomorrow. 2. End-stage renal disease, improved status post ultrafiltration over the last 3 days. No need for dialysis today as patient is going to be having dialysis tomorrow. 3. Diabetes, stable. Continue with medications, diet. 4. Anemia, stable. Continue with routine Epogen shots while at dialysis and follow up there. 5. Discharge planning. The patient is stable for discharge to home and the patient has dialysis alr helder set up for tomorrow and he has a followup appointment with me on the . We will continue wit h these as scheduled. Dictated By: HAI CHRISTIANSON MD SR/NTS Conf#: [id number] DID#: [id number]
== END 2018-07-16 11:30 | disposition home or self-care (01) | DRG 291 ==
LOC: E/R 22:30 → TEL 07-13 01:04 → OBSVTOIN 07-13 16:52 → TEL 07-13 19:43
PROVIDERS: ADMIT Internal Medicine; ATTEND Internal Medicine
PROC: 5A1D70Z Performance of Urinary Filtration, Intermittent, Less than 6 Hours Per Day (ICD-10-PCS; principal; 2018-07-13)
PROC: 5A1D70Z Performance of Urinary Filtration, Intermittent, Less than 6 Hours Per Day (ICD-10-PCS; 2018-07-14)
PROC: 5A1D70Z Performance of Urinary Filtration, Intermittent, Less than 6 Hours Per Day (ICD-10-PCS; 2018-07-15)
DX: I13.2 Hypertensive heart and chronic kidney disease with heart failure and with stage 5 chronic kidney disease, or end stage renal disease (principal); L89.153 Pressure ulcer of sacral region, stage 3; N18.6 End stage renal disease; I50.43 Acute on chronic combined systolic (congestive) and diastolic (congestive) heart failure; I69.951 Hemiplegia and hemiparesis following unspecified cerebrovascular disease affecting right dominant side; E11.22 Type 2 diabetes mellitus with diabetic chronic kidney disease; I25.5 Ischemic cardiomyopathy; I25.10 Atherosclerotic heart disease of native coronary artery without angina pectoris; K21.9 Gastro-esophageal reflux disease without esophagitis; N40.0 Benign prostatic hyperplasia without lower urinary tract symptoms; E78.5 Hyperlipidemia, unspecified; R91.8 Other nonspecific abnormal finding of lung field; E11.40 Type 2 diabetes mellitus with diabetic neuropathy, unspecified; Z95.0 Presence of cardiac pacemaker; Z95.1 Presence of aortocoronary bypass graft; E11.21 Type 2 diabetes mellitus with diabetic nephropathy; I25.2 Old myocardial infarction; D63.1 Anemia in chronic kidney disease; R53.81 Other malaise
CPT/HCPCS: 36415; 71045; 71250; 80048; 80053; 82550; 82553; 82962; 83735; 83880; 84100; 84145; 84484; 85025; 87081; 87340; 90935; 93005; 97116; 97162; 97530; G0378; J1815

== ENCOUNTER 2018-07-29 18:37 | Inpatient (IN) | payer MEDICARE, OTHER ==
[~2018-07-29] VITALS: Ht 177.8 cm; Wt 63.0 kg
[~2018-07-29 18:37] MED LIST changes: +GABA100C14 PO
[2018-07-29] MEDS ORDERED: ALBUTEROL 0.5% (NEB) 2.5 MG/0.5 ML AMP INH STA (19:50)
[2018-07-29] MEDS ORDERED: IPRATROPIUM (NEB) 0.5 MG/2.5 ML AMP INH STA (19:50)
[2018-07-29] MEDS ORDERED: ALBUTEROL 0.5% (NEB) 2.5 MG/0.5 ML AMP NEB STA (23:11)
[2018-07-29] MEDS ORDERED: IPRATROPIUM (NEB) 0.5 MG/2.5 ML AMP NEB STA (23:11)
[2018-07-30] VITALS (21 sets, daily range): BP systolic 91–161; BP diastolic 54–78; PULSE 72–89; RESP 16–22; Ht 177.8 cm; Wt 63.0 kg
[2018-07-30] MEDS ORDERED: ONDANSETRON 4 MG INJ IV PRN
--- NOTE | 2018-07-30 00:25 | ERD ---
ER Documentation Chief Complaint Chief Complaint bib , cc: sob x 3 days, history of chf, and pneumonia, dialysis pt HPI This is a very pleasant 83-year-old male with a past medical history of end- stage renal disease on hemodialysis every Thursday and Thursday who presented to the emergency department with shortness of breath. He was brought in by his family who indicates that he has been experiencing shortness of breath for the past 3 days. He also has a history of congestive heart failure. The patient has not had a productive or nonproductive cough. He did have a full run of dialysis today. He felt comfortable at dialysis however several hours after returning home the patient said he felt very short of breath. He did not utilize his nebulizer inhaler. His symptoms worsened and therefore he was brought to the emergency department to be further evaluated. He said no fevers or shaking or chills. He denies any chest pain. He denies any swelling of his lower extremities. ROS All systems reviewed and are negative except as per history of present illness. Medications Home Meds Active Scripts Gabapentin* (Gabapentin*) 100 Mg Capsule, 100 MG PO HS for 30 Days, #30 CAP Prov:HAI CHRISTIANSON MD- 07/16/18 Reported Medications Amlodipine Besylate* (Amlodipine Besylate*) 2.5 Mg Tablet, 5 MG PO DAILY, #30 TAB 06/03/18 Latanoprostene Bunod (Vyzulta) 5 Ml Drops, 5 ML OP QHS, BOTTLE 06/03/18 Atorvastatin* (Atorvastatin*) 80 Mg Tablet, 80 MG PO DAILY, #30 TAB 06/03/18 Repaglinide* (Repaglinide*) 0.5 Mg Tablet, PO AC MEALS, TAB 06/03/18 Calcium Carbonate/Vitamin D3 (Os-[place] 500-Vit D3 200 Caplet) 1 Each Tablet, 1 CAP PO TID, TAB 06/03/18 Tamsulosin Hcl* (Tamsulosin Hcl*) 0.4 Mg Cap.er.24h, 0.4 MG PO DAILY, CAP 04/25/18 Famotidine* (Famotidine*) 20 Mg Tablet, 20 MG PO BID, #60 TAB 04/25/18 Aspirin (Low Dose Aspirin) 81 Mg Tablet.dr, 81 MG PO DAILY, #30 TAB 04/25/18 Carvedilol* (Carvedilol*) 3.125 Mg Tablet, 3.125 MG PO BID, #60 TAB 04/25/18 Apixaban* (Eliquis*) 2.5 Mg Tablet, 2.5 MG PO BID, TAB 04/25/18 Allergies Allergies: Coded Allergies: No Known Allergy (Verified , 07/12/18) PMhx/Soc History of Surgery: Yes (PACEMAKER 5YRS, RIGHT AV FISTULA 9 MONTHS, CABG) Anesthesia Reaction: No Hx Neurological Disorder: Yes (STROKE LAST YEAR, RIGHT SIDE MILD WEAKNESS) Hx Respiratory Disorders: No Hx Cardiac Disorders: Yes (HEART ATTACK, PACEMAKER, CABG) Hx Psychiatric Problems: No Hx Miscellaneous Medical Probl: Yes (coronary artery disease with ischemic cardiomyopathy, HTN, end-stage renal ) Hx Alcohol Use: Yes (2 BEERS EVERY WEEKEND, STOPPED 20YRS AGO) Hx Substance Use: No Hx Tobacco Use: Yes (1 PACKOF CIGARETTE/DAY, QUIT 10YRS) Smoking Status: Former smoker Physical Exam Vitals Vital Signs Date Temp Pulse Resp B/P (MAP) Pulse Ox O2 O2 Flow FiO2 Time Delivery Rate 07/30/18 78 23 100 Nasal 2.0 00:04 Cannula 07/29/18 74 20 138/63 100 Nasal 2.0 23:18 (88) Cannula 07/29/18 100 2.0 20:07 07/29/18 75 19 100 Nasal 2.0 20:07 Cannula 07/29/18 Nasal 2 19:14 Cannula 07/29/18 Nasal 2.0 19:14 Cannula 07/29/18 98.8 77 19 136/65 100 18:51 (88) Physical Exam Constitutional:Well-developed. Well-nourished. Mild respiratory distress HEENT:Normocephalic. Atraumatic.Pupils were equal round reactive to light. Moist mucous membranes.No tonsillar exudates. Neck: No nuchal rigidity. No lymphadenopathy. No posterior cervical spine tenderness or step-offs. Respiratory: Using accessory muscles of respiration. Bilateral rhonchi. Tachypnea Cardiovascular: Regular rate regular rhythm.No murmurs. No rubs were appreciated.S1, S2 normal. Distal pulses are palpable 2+ bilaterally. GI: Abdomen was soft. Nontender. Non Distended. No pulsatile abdominal masses or bruits. No rebound. No guarding. Bowel sounds were present and normal. Muscle skeletal: Full range of motion of both the upper and lower extremities bilaterally.Normal muscle tone.No assymetrical calf tenderness or swelling. Positive thrill and bruit of the right upper extremity Skin: No petechia, no purpura. No lesions on the palms or the soles of the feet. No maculopapular rash. NEURO: Patient was alert, awake, orientated x3.No facial droop. Gait observed and normal with no ataxia.Speech had regular rate and rhythm. No focal neurological deficits. Result Diagram: 07/29/18191007/29/181910 Results 24 hrs Laboratory Tests Test 07/29/18 19:11 07/29/18 19:12 White Blood Count 5.3 10^3/ul Red Blood Count 3.16 10^6/ul Hemoglobin 10.0 g/dl Hematocrit 30.7 % Mean Corpuscular Volume 97.2 fl Mean Corpuscular Hemoglobin 31.6 pg Mean Corpuscular Hemoglobin Concent 32.6 g/dl Red Cell Distribution Width 16.4 % Platelet Count 176 10^3/UL Mean Platelet Volume 10.8 fl Immature Granulocytes % 0.200 % Neutrophils % 54.9 % Lymphocytes % 23.5 % Monocytes % 13.0 % Eosinophils % 7.3 % Basophils % 1.1 % Nucleated Red Blood Cells % 0.0 /100WBC Immature Granulocytes # 0.010 10^3/ul Neutrophils # 2.9 10^3/ul Lymphocytes # 1.3 10^3/ul Monocytes # 0.7 10^3/ul Eosinophils # 0.4 10^3/ul Basophils # 0.1 10^3/ul Nucleated Red Blood Cells # 0.0 10^3/ul Prothrombin Time 16.5 Sec Prothrombin Time Ratio 1.3 INR International Normalized Ratio 1.32 Activated Partial Thromboplast Time 30.1 Sec Sodium Level 139 mmol/L Potassium Level 4.3 mmol/L Chloride Level 99 mmol/L Carbon Dioxide Level 32 mmol/L Anion Gap 8 Blood Urea Nitrogen 25 mg/dl Creatinine 2.76 mg/dl Est Glomerular Filtrat Rate mL/min mL/min Glucose Level 144 mg/dl Calcium Level 9.0 mg/dl Total Bilirubin 0.4 mg/dl Direct Bilirubin 0.00 mg/dl Indirect Bilirubin 0.4 mg/dl Aspartate Amino Transf (AST/SGOT) 15 IU/L Alanine Aminotransferase (ALT/SGPT) 24 IU/L Alkaline Phosphatase 206 IU/L Creatine Kinase 22 IU/L Creatine Kinase Index 2.1 Creatinine Kinase MB (Mass) 0.47 ng/ml Troponin I < 0.012 ng/ml B-Type Natriuretic Peptide 89214 PG/ML Total Protein 7.9 g/dl Albumin 3.6 g/dl Globulin 4.30 g/dl Albumin/Globulin Ratio 0.83 POC Venous Lactate 1.7 mmol/L Current Medications Medications Dose Sig/Lurdes Start Time Status Last (Trade) Ordered Route PRN Stop Time Admin Dose Reason Admin Albuterol 10 mg ONCE STAT 07/29/18 DC 07/29/18 (Proventil INH 19:50 20:06 0.5% (Neb)) 07/29/18 19:51 Ipratropium 1 mg ONCE STAT 07/29/18 DC 07/29/18 [place] INH 19:50 20:06 (Atrovent 07/29/18 19:51 0.02% (Neb)) Albuterol 10 mg ONCE STAT 07/29/18 DC 07/30/18 (Proventil NEB 23:11 00:04 0.5% (Neb)) 07/29/18 23:12 Ipratropium 0.5 mg ONCE STAT 07/29/18 DC 07/30/18 [place] NEB 23:11 00:04 (Atrovent 07/29/18 23:12 0.02% (Neb)) Ondansetron 4 mg ER BRIDGE 07/30/18 HCl (Zofran PRN IV 00:00 Inj) NAUSEA/VOMITI 07/30/18 23:59 NG 650 mg ER BRIDGE 07/30/18 Acetaminophen PRN PO 00:00 (Tylenol .MILD PAIN 07/30/18 23:59 Tab) 1-3 OR TEMP Procedures/MDM The patient presented to the emergency department with shortness of breath. My differential diagnosis included but was not limited to upper airway obstruction, CHF, pulmonary embolism, cardiac ischemia, pneumonia, pneumothorax, anemia, drug overdose, pulmonary edema, COPD or asthma. The patient was hypoxic and using accessory muscles of respiration. He has known history of congestive heart failure and end-stage renal disease on hemodialysis. The patient immediately was placed on a front desk monitor continuous pulse oximetry and IV access was established by nursing staff. The patient received continuous nebulizer treatments of albuterol and Atrovent. Afterwards the patient attempted to ambulate and would experience desaturation to the high 80s and low 90s. He again with developed rhonchi. I did not feel that the patient was stable to be discharged home due to the severity of his respiratory distress. He was placed on low flow continuous supplemental oxygen of 2 to 4 L of nasal cannula. 12 Lead EKG tracing ordered and reviewed by myself showed: Normal sinus rhythm of 76 bpm and no arrhythmia. MD interval normal. QRS duration widened at 120 ms with a ventricular paced rhythm No ST segment elevation No ST segment depression. No changes consistent with acute ischemia. BNP was significantly elevated however this was most likely result of the patient's chronic renal failure. Therefore obtained a chest radiograph due to the persistent respiratory distress. This was reviewed by the radiologist myself and indicate the followin. Cardiomegaly is present. 2. Increased pulmonary vascularity and increased interstitial markings noted. Bilateral air space infiltrates. The findings are consistent with pulmonary edema/CHF. 3. Small bilateral pleural effusions. 4. Findings are similar to 07/14/2018. The patient no leukocytosis, was afebrile did not have a productive or nonproductive cough. My clinical suspicion was low for pneumonia. However I did obtain blood cultures. I felt the patient's symptoms were more likely a result of mild from congestive heart failure exacerbation. The patient will be admitted for observation under the care of his primary care physician Dr. Harris. Departure Diagnosis: Primary Impression: Acute exacerbation of CHF (congestive heart failure) Heart failure type: unspecified Qualified Codes: I50.9 - Heart failure, u nspecified Condition: Serious JAMILA NICHOLS MD Jul 30, 2018 00:25
[2018-07-30] MEDS ORDERED: ACETAMINOPHEN 325 MG TAB PO PRN ×2 (03:00)
[2018-07-30] MEDS ORDERED: DEXTROSE 50% 50 ML SYRINGE IV PRN ×2 (03:30)
[2018-07-30] MEDS ORDERED: GLUCAGON 1 MG INJ IM PRN (03:30)
[2018-07-30] MEDS ORDERED: GLUCOSE GEL 15 GRAM TUBE PO PRN ×2 (03:30)
[2018-07-30] MEDS ORDERED: GLUCOSE GEL 15 GRAM TUBE BUCCAL PRN (03:30)
[2018-07-30] MEDS: ACCU-CHEK XX SCH ×4 (07:00→21:00)
[2018-07-30] MEDS: INSULIN ASPART [NOVOLOG] 3 ML PEN SC SCH ×4 (07:39→20:16)
[2018-07-30] MEDS: REPAGLINIDE 1 MG TAB PO SCH ×3 (07:39→16:49)
[2018-07-30] MEDS: ASPIRIN 81 MG TAB PO SCH (08:12)
[2018-07-30] MEDS: FAMOTIDINE 20 MG TAB PO SCH (08:12)
[2018-07-30] MEDS ORDERED: AMLODIPINE 2.5 MG TAB PO SCH (09:00)
--- NOTE | 2018-07-30 09:47 | HP ---
DATE OF ADMISSION: 07/30/2018 ADMITTING DIAGNOSIS: Congestive heart failure. HISTORY OF PRESENT ILLNESS: The patient is an 83-year-old male with chronic congestive heart failure/ischemic cardiomyopathy/end-stage renal disease, diabetes who presented to the emergency room yesterday with acute shortness of breath. The patient had gone to dialysis yesterday and was doing well, but afterwards developed shortness of breath, slight cough and weakness. The patient was seen in the emergency room and found to be hypoxic with oxygen saturations in the 80s on initial presentation. The patient was placed on Ventimask and nonrebreather and given breathing treatments with some improvement, but the patient continued to be short of breath and desaturated and was admitted for further care. REVIEW OF SYSTEMS: Otherwise unremarkable. Blood sugars have been good, intermittent constipation. Good appetite. No cough. Some orthopnea. PAST MEDICAL HISTORY: Ischemic cardiomyopathy/coronary artery disease/hypertension, end-stage renal disease on dialysis 3 days a week, type 2 diabetes, hyperlipidemia, history of multiple strokes, history of temporal arteritis, cervical spondylosis, benign prostatic hypertrophy, gastroesophageal reflux disease and anemia of chronic disease. PAST SURGICAL HISTORY: Shunt placement with recent repair due to clot, AICD placement, coronary bypass surgery. FAMILY HISTORY: Noncontributory. MEDICATIONS: 1. Eliquis 25 mg b.i.d. 2. Amlodipine 25 mg daily. Repaglinide 0.5 mg t.i.d. with meals. 3. Aspirin 81 mg daily. 4. PhosLo 667 mg b.i.d. 5. Famotidine 20 mg b.i.d. 6. Flomax 0.4 mg at bedtime. 7. Coreg 3.125 mg b.i.d. SOCIAL HISTORY: The patient is a , lives with his children. No tobacco or alcohol use. PHYSICAL EXAMINATION: VITAL SIGNS: Currently, oxygen saturation 96% on Ventimask, blood pressure 147/65, pulse of 88, respirations 21, temperature is 97.8. GENERAL: Well-developed, thin male in no acute distress, sitting up in bed. HEENT: EOMI, PERRLA. Oropharynx clear. NECK: 2+ carotid upstroke, no lymphadenopathy, no thyromegaly. CHEST: Decreased breath sounds at bilateral bases with scant crackles. HEART: Regular rate and rhythm. No murmurs, gallops or rub. ABDOMEN: Soft, nontender, nondistended. There is positive hepatojugular reflux. Normoactive bowel sounds. GENITOURINARY: Normal male. No masses. EXTREMITIES: No cyanosis, clubbing or edema. NEUROLOGIC: Right hemiparesis. Otherwise, nonfocal. LABORATORY EXAMINATION: White blood cell count 5.3, hemoglobin 10.0, hematocrit 30.7, platelets 176. Sodium 139, potassium 4.3, chloride 99, bicarbonate 32, BUN of 25, creatinine 2.76. Lactate level is 1.7, glucose 144, total bilirubin 0.4, AST of 15, ALT of 24, alkaline phosphatase 206. Creatinine kinase 22. Troponin less than 0.012. Brain natriuretic peptide of 37,300. Chest x-ray shows cardiomegaly with increased pulmonary vascularity and increased interstitial markings, bilateral airspace infiltrates consistent with pulmonary edema, small bilateral pleural effusions similar to x-ray from 07/14/2018. IMPRESSION: The patient is an 83-year-old male with ischemic cardiomyopathy, chronic congestive heart failure, coronary artery disease, end-stage renal disease, diabetes who presented to the emergency room with shortness of breath, hypoxemia and is admitted to telemetry for further evaluation and care of congestive heart failure. 1. Congestive heart failure/ischemic cardiomyopathy/chronic combined diastolic systolic heart failure. The patient will likely need dialysis and will have Dr. Schneider from nephrology and Dr. Carmichael from Cardiology evaluate the patient to assist with this. We will continue with the patient's blood pressure medications. Will make further adjustments as needed. We will continue on telemetry monitoring. 2. End-stage renal disease. Will likely have dialysis today and admit him tomorrow as he is normally scheduled. We will make further adjustments. 3. Diabetes. We will continue with oral medications as well as sliding scale. 4. Hyperlipidemia. Will continue with diet and medications. Dictated By: HAI CHRISTIANSON MD SR/NTS Conf#: [id number] DID#: [id number] CC: NATASHA SCHNEIDER MD;*EndCC* MTDD
--- NOTE | 2018-07-30 10:42 | CONS ---
Assessment/Plan Assessment/Plan Hospital Course (Demo Recall) ASSESSMENT: 1. Known ischemic cardiomyopathy ejection fraction 25-30% with prior bypass shaver rgery 1997 2. ESRD on iHD via RUE AVF 3. Hypertension. 4. Hyperlipidemia. 5. Type 2 diabetes. 6. History of paroxysmal atrial fibrillation on apixaban 7. 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 8. Right carotid endarterectomy cerebrovascular disease 2014. 9. Acute on chronic systolic heart failure. PLAN: 1. Fluid mgmt with iHD 2. Pulm support with o2 3. cont coreg 4. cont apixaban renal dose 5. cont statin. ok to cont h/h stable 6. d/c amlodipine given not recommended in advanced CHF 7. cont tele monitoring Consultation Date/Type/Reason Admit Date/Time Jul 30, 2018 at 08:02 Date of Consultation: Jul 30, 2018 Type of Consult cardiology Reason for Consultation chf Requesting Provider: HAI CHRISTIANSON MD- Date/Time of Note DATE: 07/30/18 TIME: 10:38 Hx of Present Illness Mr. Cavazos is a pleasant 83 y.o. man y.o. man with h/o of ischemic cardiomyopathy, s/p CABG 1997 with patent PRESTON-LAD, SVG-RCA and occluded SVG-OM/SVG-Diag, s/p BiV ICD, stroke, afib on anticoag. ESRD on iHD PVD. Pt presented with worsening shortness of breath, cough, congestion and weakness. Pt at dialysis yesterday and was doing well, but afterwards developed shortness of breath, slight cough and weakness. The patient was seen in the emergency room and found to be hypoxic with oxygen saturations in the 80s on initial presentation. The patient was found to be in congestive heart failure by chest x-ray. no cp jaw/neck/n/v/diaphoresis or syncope. does have some sob with laying flat he states. denies icd shocks. all other systems negative Past Medical History Temporal arteritis diagnosed March 2014, coronary artery disease with ischemic cardiomyopathy status post DC, status post pacemaker and AICD placement, hypertension, type 2 diabetes, chronic kidney disease, cervical spondylosis, history of cerebrovascular accident, peripheral neuropathy, chronic rhinitis and benign prostatic hypertrophy Past Surgical History Status post pacemaker placement and AICD placement, coronary bypass grafting x4 vessel, status post temporal artery biopsy. Family History Significant Family History: other (cancer, liver disease) Social History Alcohol Use: none Smoking Status: Former smoker Home Meds Active Scripts Gabapentin* (Gabapentin*) 100 Mg Capsule, 100 MG PO HS for 30 Days, #30 CAP Prov:HAI CHRISTIANSON MD- 07/16/18 Reported Medications Amlodipine Besylate* (Amlodipine Besylate*) 2.5 Mg Tablet, 5 MG PO DAILY, #30 TAB 06/03/18 Latanoprostene Bunod (Vyzulta) 5 Ml Drops, 5 ML OP QHS, BOTTLE 06/03/18 Atorvastatin* (Atorvastatin*) 80 Mg Tablet, 80 MG PO DAILY, #30 TAB 06/03/18 Repaglinide* (Repaglinide*) 0.5 Mg Tablet, PO AC MEALS, TAB 06/03/18 Calcium Carbonate/Vitamin D3 (Os-Nelson 500-Vit D3 200 Caplet) 1 Each Tablet, 1 CAP PO TID, TAB 06/03/18 Tamsulosin Hcl* (Tamsulosin Hcl*) 0.4 Mg Cap.er.24h, 0.4 MG PO DAILY, CAP 04/25/18 Famotidine* (Famotidine*) 20 Mg Tablet, 20 MG PO BID, #60 TAB 04/25/18 Aspirin (Low Dose Aspirin) 81 Mg Tablet.dr, 81 MG PO DAILY, #30 TAB 04/25/18 Carvedilol* (Carvedilol*) 3.125 Mg Tablet, 3.125 MG PO BID, #60 TAB 04/25/18 Apixaban* (Eliquis*) 2.5 Mg Tablet, 2.5 MG PO BID, TAB 04/25/18 Medications Current Medications Ondansetron HCl (Zofran Inj) 4 mg ER BRIDGE PRN IV NAUSEA/VOMITING; Start 07/30/18 at 00:00; Stop 07/30/18 at 23:59 Acetaminophen (Tylenol Tab) 650 mg ER BRIDGE PRN PO .MILD PAIN 1-3 OR TEMP; Start 07/30/18 at 00:00; Stop 07/30/18 at 23:59 Diagnostic Test (Pha) (Accu-Chek) 1 ea 02 XX ; Start 07/31/18 at 02:00 Insulin Aspart (Novolog Insulin Pen) NOVOLOG *MILD* ALGORITHM WITH MEALS BEDTIME SC ; Start 07/30/18 at 08:00 Acetaminophen (Tylenol Tab) 650 mg Q6H PRN PO MILD PAIN(1-3)OR ELEVATED TEMP; Start 07/30/18 at 03:00 Amlodipine Besylate (Norvasc) 2.5 mg BID PO Last administered on 07/30/18at 08:12; Admin Dose 2.5 MG; Start 07/30/18 at 09:00 Aspirin (Aspirin) 81 mg DAILY PO Last administered on 07/30/18at 08:12; Admin Dose 81 MG; Start 07/30/18 at 09:00 Atorvastatin Calcium (Lipitor) 80 mg HS PO ; Start 07/30/18 at 21:00 Carvedilol (Coreg) 3.125 mg BID PO Last administered on 07/30/18at 08:12; Admin Dose 3.125 MG; Start 07/30/18 at 09:00 Famotidine (Pepcid) 20 mg DAILY PO Last administered on 07/30/18at 08:12; Admin Dose 20 MG; Start 07/30/18 at 09:00 Gabapentin (Neurontin) 100 mg QHS PO ; Start 07/30/18 at 21:00 Latanoprost (Xalatan) 1 drop HS RIGHT EYE ; Start 07/30/18 at 21:00 Repaglinide (Prandin) 0.5 mg WITH MEALS PO Last administered on 07/30/18at 07:39; Admin Dose 0.5 MG; Start 07/30/18 at 08:00 Diagnostic Test (Pha) (Accu-Chek) 1 ea AC MEALS AND BEDTIME XX ; Start 07/30/18 at 07:00 Tamsulosin HCl (Flomax) 0.4 mg DAILY@2100 PO ; Start 07/30/18 at 21:00 Miscellaneous Information 1 ea NOTE XX ; Start 07/30/18 at 03:30 Glucose (Glutose) 15 gm Q15M PRN PO DECREASED GLUCOSE; Start 07/30/18 at 03:30 Glucose (Glutose) 22.5 gm Q15M PRN PO DECREASED GLUCOSE; Start 07/30/18 at 03:30 Dextrose (D50w Syringe) 25 ml Q15M PRN IV DECREASED GLUCOSE; Start 07/30/18 at 03:30 Dextrose (D50w Syringe) 50 ml Q15M PRN IV DECREASED GLUCOSE; Start 07/30/18 at 03:30 Glucagon (Glucagen) 1 mg Q15M PRN IM DECREASED GLUCOSE; Start 07/30/18 at 03:30 Glucose (Glutose) 15 gm Q15M PRN BUCCAL DECREASED GLUCOSE; Start 07/30/18 at 03:30 Allergies: Coded Allergies: No Known Allergy (Verified , 07/12/18) Past Surgical History Past Surgical Hx: coronary bypass surgery, other Social History Smoking Status: Former smoker Exam/Review of Systems Exam Vitals Vital Signs Date Temp Pulse Resp B/P (MAP) Pulse Ox O2 O2 Flow FiO2 Time Delivery Rate 07/30/18 88 08:31 07/30/18 Venti Mask 07:40 07/30/18 97.8 21 147/65 96 07:15 (92) 07/30/18 2.0 00:44 Intake and Output 07/29/18 07/29/18 07/30/18 1515:00 23:00 07:00 IntakeIntake Total 250 ml BalanceBalance 250 ml Exam Constitutional: alert, oriented, distress Psych: no complaints Head: normocephalic, atraumatic Eyes: nl conjunctiva ENMT: nl external ears & nose Neck: other (no jvd) Respiratory: clear to auscultation Cardiovascular: regular rate and rhythm, other (ii/vi systolic LLSB, no jvd, no edema.) Gastrointestinal: soft, distended, other (non tender) Musculoskeletal: muscle tone, other (2+ ble edema to lovell ) Extremities: normal pulses Neurological: STOCK CLIPPER II-XII intact Skin: nl turgor Results Result Diagram: 07/29/18191007/29/181910 Results 24hrs Laboratory Tests Test 07/29/18 19:11 07/29/18 19:12 07/30/18 07:39 White Blood Count 5.3 Red Blood Count 3.16 L Hemoglobin 10.0 L Hematocrit 30.7 L Mean Corpuscular Volume 97.2 Mean Corpuscular Hemoglobin 31.6 Mean Corpuscular Hemoglobin Concent 32.6 Red Cell Distribution Width 16.4 H Platelet Count 176 Mean Platelet Volume 10.8 H Immature Granulocytes % 0.200 Neutrophils % 54.9 Lymphocytes % 23.5 Monocytes % 13.0 H Eosinophils % 7.3 H Basophils % 1.1 Nucleated Red Blood Cells % 0.0 Immature Granulocytes # 0.010 Neutrophils # 2.9 Lymphocytes # 1.3 Monocytes # 0.7 Eosinophils # 0.4 Basophils # 0.1 Nucleated Red Blood Cells # 0.0 Prothrombin Time 16.5 H Prothrombin Time Ratio 1.3 INR International Normalized Ratio 1.32 Activated Partial Thromboplast Time 30.1 Sodium Level 139 Potassium Level 4.3 Chloride Level 99 Carbon Dioxide Level 32 H Anion Gap 8 Blood Urea Nitrogen 25 H Creatinine 2.76 H Est Glomerular Filtrat Rate mL/min Glucose Level 144 Calcium Level 9.0 Total Bilirubin 0.4 Direct Bilirubin 0.00 Indirect Bilirubin 0.4 Aspartate Amino Transf (AST/SGOT) 15 Alanine Aminotransferase (ALT/SGPT) 24 Alkaline Phosphatase 206 H Creatine Kinase 22 L Creatine Kinase Index 2.1 Creatinine Kinase MB (Mass) 0.47 Troponin I < 0.012 B-Type Natriuretic Peptide 88199 H Total Protein 7.9 Albumin 3.6 Globulin 4.30 H Albumin/Globulin Ratio 0.83 POC Venous Lactate 1.7 Bedside Glucose 117 Imaging Imaging cxr report reviewed in emr ekg reviewed unchanged from baseline Medications Medication Current Medications Ondansetron HCl (Zofran Inj) 4 mg ER BRIDGE PRN IV NAUSEA/VOMITING; Start 07/30/18 at 00:00; Stop 07/30/18 at 23:59 Acetaminophen (Tylenol Tab) 650 mg ER BRIDGE PRN PO .MILD PAIN 1-3 OR TEMP; Start 07/30/18 at 00:00; Stop 07/30/18 at 23:59 Diagnostic Test (Pha) (Accu-Chek) 1 ea 02 XX ; Start 07/31/18 at 02:00 Insulin Aspart (Novolog Insulin Pen) NOVOLOG *MILD* ALGORITHM WITH MEALS BEDTIME SC ; Start 07/30/18 at 08:00 Acetaminophen (Tylenol Tab) 650 mg Q6H PRN PO MILD PAIN(1-3)OR ELEVATED TEMP; Start 07/30/18 at 03:00 Amlodipine Besylate (Norvasc) 2.5 mg BID PO Last administered on 07/30/18at 08:12; Admin Dose 2.5 MG; Start 07/30/18 at 09:00 Aspirin (Aspirin) 81 mg DAILY PO Last administered on 07/30/18at 08:12; Admin Dose 81 MG; Start 07/30/18 at 09:00 Atorvastatin Calcium (Lipitor) 80 mg HS PO ; Start 07/30/18 at 21:00 Carvedilol (Coreg) 3.125 mg BID PO Last administered on 07/30/18at 08:12; Admin Dose 3.125 MG; Start 07/30/18 at 09:00 Famotidine (Pepcid) 20 mg DAILY PO Last administered on 07/30/18at 08:12; Admin Dose 20 MG; Start 07/30/18 at 09:00 Gabapentin (Neurontin) 100 mg QHS PO ; Start 07/30/18 at 21:00 Latanoprost (Xalatan) 1 drop HS RIGHT EYE ; Start 07/30/18 at 21:00 Repaglinide (Prandin) 0.5 mg WITH MEALS PO Last administered on 07/30/18at 07:39; Admin Dose 0.5 MG; Start 07/30/18 at 08:00 Diagnostic Test (Pha) (Accu-Chek) 1 ea AC MEALS AND BEDTIME XX ; Start 07/30/18 at 07:00 Tamsulosin HCl (Flomax) 0.4 mg DAILY@2100 PO ; Start 07/30/18 at 21:00 Miscellaneous Information 1 ea NOTE XX ; Start 07/30/18 at 03:30 Glucose (Glutose) 15 gm Q15M PRN PO DECREASED GLUCOSE; Start 07/30/18 at 03:30 Glucose (Glutose) 22.5 gm Q15M PRN PO DECREASED GLUCOSE; Start 07/30/18 at 03:30 Dextrose (D50w Syringe) 25 ml Q15M PRN IV DECREASED GLUCOSE; Start 07/30/18 at 03:30 Dextrose (D50w Syringe) 50 ml Q15M PRN IV DECREASED GLUCOSE; Start 07/30/18 at 03:30 Glucagon (Glucagen) 1 mg Q15M PRN IM DECREASED GLUCOSE; Start 07/30/18 at 03:30 Glucose (Glutose) 15 gm Q15M PRN BUCCAL DECREASED GLUCOSE; Start 07/30/18 at 03:30 ANGELA DELGADO Jul 30, 2018 10:42
[2018-07-30] MEDS: GABAPENTIN 100 MG CAP PO SCH (20:12)
[2018-07-30] MEDS: TAMSULOSIN (SR) 0.4 MG CAP PO SCH (20:12)
[2018-07-30] MEDS: ATORVASTATIN 80 MG TAB PO SCH (20:12)
--- NOTE | 2018-07-30 20:24 | CONS ---
DATE OF ADMISSION: 07/30/2018 DATE OF CONSULTATION: 07/30/2018 TYPE OF CONSULTATION: Renal. Thank you, Dr. Shea, for asking me to participate in medical management of this patient. REASON FOR CONSULTATION: End-stage renal disease. HISTORY OF PRESENT ILLNESS: This 83-year-old man who was well known to me, came in through the [facility] last evening complaining of shortness of breath. He had hemodialysis yesterday in the [facility] [place]. I did see him in the dialysis unit yesterday morning at around 8:00 a.m. At that time, he was feeling well without any chest pain, shortness of breath, or cough. The patient h ad sudden onset of shortness of breath yesterday evening and was brought to the emergency room by his family. He had no fever or chills. He has had no ankle swelling. The dialysis treatments have bee n going well and they have been getting 2 liters of fluid off with each dialysis. The patient has be en admitted to this hospital several times for very similar episodes of shortness of breath. PAST MEDICAL HISTORY: Remarkable for end-stage renal disease on maintenance hemodialysis Thursday, and Thursday, diabetic nephropathy, coronary artery disease, ischemic cardiomyopathy, previous myocardial infarction, pacemaker and AICD placement, history of temporal arteritis, hypertension, ty pe 2 diabetes mellitus, cervical spondylosis, history of CVA, peripheral neuropathy, benign prostatic hypertrophy and orthostatic hypotension. PAST SURGICAL HISTORY: Right upper arm AV fistula for hemodialysis which functions well, AICD placem ent and coronary artery bypass surgery. CURRENT MEDICATIONS: Include the followin. Tamsulosin 0.4 mg a day. 2. Apixaban 2.5 mg twice a day. 3. Carvedilol 3.125 mg twice a day. 4. Aspirin 81 mg a day. 5. Calcium carbonate. 6. Furosemide 40 mg twice a day. 7. Famotidine 20 mg a day. 8. Pioglitazone 15 mg a day. 9. Repaglinide 0.5 mg before meals t.i.d. PHYSICAL EXAMINATION: GENERAL: At this time reveals a well-developed elderly man who is short of breath, but in no acute d istress. VITAL SIGNS: His blood pressure is 154/75 and O2 saturation 96% on 2 liter nasal cannula. He is afe brile. HEENT: Head normocephalic. Eyes: Extraocular muscles intact. Nose and mouth: Normal. NECK: Supple. No neck vein distention. LUNGS: He has bilateral rales at the bases with some inspiratory wheezes. HEART: Regular rhythm. No murmurs, gallops or rubs. ABDOMEN: Soft, nontender, no masses or megaly. EXTREMITIES: No peripheral edema. NEUROLOGIC: Grossly intact. He does have a right upper arm AV fistula, which is working well. SOCIAL HISTORY: The patient is , lives with his children. He does not smoke or drink alcohol . IMPRESSION: 1. End-stage renal disease on maintenance hemodialysis. The patient was dialyzed yesterday morning and seemed to be doing well when I saw him yesterday. I will order a 2-hour dialysis of dry ultrafil tration to remove fluid. I will order hemodialysis for tomorrow. 2. Acute pulmonary edema. I am concerned that the patient may be having episodes of cardiac ischemi a causing his pulmonary edema. He was very comfortable yesterday when I saw him, he was dialyzed and then this happened acutely last night. 3. Type 2 diabetes mellitus. 4. Coronary artery disease status post CABG. 5. Pacemaker with AICD. PLAN: 1. Order emergent dialysis with dry ultrafiltration. Hemodialysis for tomorrow. 2. Agree with cardiology consultation for further evaluation about these episodes of flash pulmonary edema. 3. Resume routine medications. 4. I will follow the patient along with you medically. Dictated By: NATASHA SCHNEIDER MD ND/ALLISON Conf#: [id number] DID#: [id number] CC: HAI SHEA MD;*End*
[2018-07-30] MEDS: LATANOPROST 0.005% 2.5 ML OPH RIGHT EYE SCH (20:55)
[2018-07-31] VITALS (23 sets, daily range): BP systolic 106–150; BP diastolic 56–78; PULSE 74–81; RESP 16–20
[2018-07-31] MEDS: ACCU-CHEK XX SCH ×5 (02:00→21:44)
[2018-07-31] MEDS: INSULIN ASPART [NOVOLOG] 3 ML PEN SC SCH ×4 (07:47→20:57)
[2018-07-31] MEDS: REPAGLINIDE 1 MG TAB PO SCH ×3 (07:48→17:00)
[2018-07-31] MEDS: FAMOTIDINE 20 MG TAB PO SCH (07:48)
[2018-07-31] MEDS: ASPIRIN 81 MG TAB PO SCH (07:48)
--- NOTE | 2018-07-31 08:54 | CONS ---
Assessment/Plan Assessment/Plan Problems: (1) Dyspnea Status: Acute Comment: resolved... currently with nl RA O2 sats (2) ESRD (end stage renal disease) on dialysis Comment: for dialysis today, w UF as sary...? d/c post HD today? (3) Congestive heart failure (CHF) Status: Chronic Comment: resolved, with nl O2 sats on RA currently.. for repeat dialysis today..? then home?... he hopes so Consultation Date/Type/Reason Admit Date/Time Jul 30, 2018 at 08:02 Type of Consult Nephrology Date/Time of Note DATE: 07/31/18 TIME: 08:50 Hx of Present Illness looks well... feels well... no sob currently on RA Exam/Review of Systems Vital Signs Vitals Vital Signs Date Temp Pulse Resp B/P (MAP) Pulse Ox O2 O2 Flow FiO2 Time Delivery Rate 07/31/18 75 08:00 07/31/18 98.2 16 150/67 93 07:26 (94) 07/31/18 Room Air 04:00 07/30/18 7.0 10:45 Intake and Output 07/30/18 07/30/18 07/31/18 1515:00 23:00 07:00 IntakeIntake Total 120 ml 730 ml 480 ml OutputOutput Total 2400 ml 1 ml BalanceBalance -2280 ml 729 ml 480 ml Exam Constitutional: alert, oriented Psych: no complaints Head: normocephalic Eyes: nl conjunctiva Neck: supple Respiratory: crackles/rales (few at the bases) Cardiovascular: regular rate and rhythm, murmurs/extra sounds (2-3/6 patrice) Gastrointestinal: soft, nl liver, spleen Extremities: edema (none... fxn AVF in LUE) Labs Result Diagram: 07/31/18 0513 07/31/18 0512 Results 24hrs Laboratory Tests Test 07/30/18 11:56 07/30/18 16:49 07/30/18 20:15 07/31/18 05:12 Bedside Glucose 129 178 137 Sodium Level 142 Potassium Level 4.3 Chloride Level 100 Carbon Dioxide Level 30 Anion Gap 12 Blood Urea Nitrogen 37 #H Creatinine 3.99 #H Est Glomerular Filtrat Rate mL/min Glucose Level 81 # Calcium Level 9.3 Phosphorus Level 3.5 Magnesium Level 2.0 Test 07/31/18 05:13 07/31/18 07:47 White Blood Count 5.6 Red Blood Count 3.39 L Hemoglobin 10.5 L Hematocrit 32.3 L Mean Corpuscular 95.3 Volume Mean Corpuscular 31.0 Hemoglobin Mean Corpuscular 32.5 Hemoglobin Concent Red Cell 16.4 H Distribution Width Platelet Count 201 Mean Platelet Volume 11.1 H Immature 0.400 Granulocytes % Neutrophils % 47.7 Lymphocytes % 24.6 Monocytes % 14.4 H Eosinophils % 11.7 H Basophils % 1.2 Nucleated Red Blood 0.0 Cells % Immature 0.020 Granulocytes # Neutrophils # 2.7 Lymphocytes # 1.4 Monocytes # 0.8 Eosinophils # 0.7 H Basophils # 0.1 Nucleated Red Blood 0.0 Cells # Bedside Glucose 85 Medications Medications Current Medications Diagnostic Test (Pha) (Accu-Chek) 1 ea 02 XX ; Start 07/31/18 at 02:00 Insulin Aspart (Novolog Insulin Pen) NOVOLOG *MILD* ALGORITHM WITH MEALS BEDTIME SC Last administered on 07/30/18at 16:54; Admin Dose 1 UNIT; Start 07/30/18 at 08:00 Acetaminophen (Tylenol Tab) 650 mg Q6H PRN PO MILD PAIN(1-3)OR ELEVATED TEMP; Start 07/30/18 at 03:00 Aspirin (Aspirin) 81 mg DAILY PO Last administered on 07/31/18at 07:48; Admin Dose 81 MG; Start 07/30/18 at 09:00 Atorvastatin Calcium (Lipitor) 80 mg HS PO Last administered on 07/30/18at 20:12; Admin Dose 80 MG; Start 07/30/18 at 21:00 Carvedilol (Coreg) 3.125 mg BID PO Last administered on 07/30/18at 20:12; Admin Dose 3.125 MG; Start 07/30/18 at 09:00 Famotidine (Pepcid) 20 mg DAILY PO Last administered on 07/31/18at 07:48; Admin Dose 20 MG; Start 07/30/18 at 09:00 Gabapentin (Neurontin) 100 mg QHS PO Last administered on 07/30/18at 20:12; Admin Dose 100 MG; Start 07/30/18 at 21:00 Latanoprost (Xalatan) 1 drop HS RIGHT EYE Last administered on 07/30/18at 20:55; Admin Dose 1 DROP; Start 07/30/18 at 21:00 Repaglinide (Prandin) 0.5 mg WITH MEALS PO Last administered on 07/31/18at 07:48; Admin Dose 0.5 MG; Start 07/30/18 at 08:00 Diagnostic Test (Pha) (Accu-Chek) 1 ea AC MEALS AND BEDTIME XX ; Start 07/30/18 at 07:00 Tamsulosin HCl (Flomax) 0.4 mg DAILY@2100 PO Last administered on 07/30/18at 20:12; Admin Dose 0.4 MG; Start 07/30/18 at 21:00 Miscellaneous Information 1 ea NOTE XX ; Start 07/30/18 at 03:30 Glucose (Glutose) 15 gm Q15M PRN PO DECREASED GLUCOSE; Start 07/30/18 at 03:30 Glucose (Glutose) 22.5 gm Q15M PRN PO DECREASED GLUCOSE; Start 07/30/18 at 03:30 Dextrose (D50w Syringe) 25 ml Q15M PRN IV DECREASED GLUCOSE; Start 07/30/18 at 03:30 Dextrose (D50w Syringe) 50 ml Q15M PRN IV DECREASED GLUCOSE; Start 07/30/18 at 03:30 Glucagon (Glucagen) 1 mg Q15M PRN IM DECREASED GLUCOSE; Start 07/30/18 at 03:30 Glucose (Glutose) 15 gm Q15M PRN BUCCAL DECREASED GLUCOSE; Start 07/30/18 at 03:30 DAVONTE MIKE MD Jul 31, 2018 08:54
--- NOTE | 2018-07-31 12:05 | PN ---
Date/Time of Note Date/Time of Note DATE: 07/31/18 TIME: 12:00 Assessment/Plan VTE Prophylaxis Risk score (from Nsg)>0 risk: 5 SCD applied (from Nsg): No Lines/Catheters IV Catheter Type (from Nrsg): Saline Lock Urinary Cath still in place: No Assessment/Plan Assessment/Plan The patient is an 83-year-old male with ischemic cardiomyopathy, chronic congestive heart failure, coronary artery disease, end-stage renal disease, diabetes who presented to the emergency room with shortness of breath, hypoxemia and is admitted to telemetry for further evaluation and care of congestive heart failure. 1. Congestive heart failure/ischemic cardiomyopathy/chronic combined diastolic systolic heart failure. Dr. Carmichael from Cardiology evaluated and reports pt is not to be on amlodipine. Will make further adjustments as needed. We will continue on telemetry monitoring. 2. End-stage renal disease. Will likely have dialysis today and admit him tomorrow as he is normally scheduled. We will make further adjustments. -currently receiving dialysis. doing well. has no current c/o. -renal reports possible home tomorrow? 3. Diabetes. We will continue with oral medications as well as sliding scale. 4. Hyperlipidemia. Will continue with diet and medications. Result Diagram: 07/31/18 0513 07/31/18 0512 Results 24hrs Laboratory Tests Test 07/30/18 16:49 07/30/18 20:15 07/31/18 05:12 07/31/18 05:13 Bedside Glucose 178 137 Sodium Level 142 Potassium Level 4.3 Chloride Level 100 Carbon Dioxide Level 30 Anion Gap 12 Blood Urea Nitrogen 37 #H Creatinine 3.99 #H Est Glomerular Filtrat Rate mL/min Glucose Level 81 # Calcium Level 9.3 Phosphorus Level 3.5 Magnesium Level 2.0 White Blood Count 5.6 Red Blood Count 3.39 L Hemoglobin 10.5 L Hematocrit 32.3 L Mean Corpuscular 95.3 Volume Mean Corpuscular 31.0 Hemoglobin Mean Corpuscular 32.5 Hemoglobin Concent Red Cell 16.4 H Distribution Width Platelet Count 201 Mean Platelet Volume 11.1 H Immature 0.400 Granulocytes % Neutrophils % 47.7 Lymphocytes % 24.6 Monocytes % 14.4 H Eosinophils % 11.7 H Basophils % 1.2 Nucleated Red Blood 0.0 Cells % Immature 0.020 Granulocytes # Neutrophils # 2.7 Lymphocytes # 1.4 Monocytes # 0.8 Eosinophils # 0.7 H Basophils # 0.1 Nucleated Red Blood 0.0 Cells # Test 07/31/18 07:47 07/31/18 11:57 Bedside Glucose 85 109 Subjective 24 Hr Interval Summary Free Text/Dictation recieving dialysis and has no c/o. family at bedside. reports he is doing well. pt requesting to go home. Exam/Review of Systems Exam Vitals Vital Signs Date Temp Pulse Resp B/P (MAP) Pulse Ox O2 O2 Flow FiO2 Time Delivery Rate 07/31/18 98.0 75 16 139/64 99 11:43 (89) 07/31/18 Room Air 10:30 07/30/18 7.0 10:45 Intake and Output 07/30/18 07/30/18 07/31/18 1515:00 23:00 07:00 IntakeIntake Total 120 ml 730 ml 480 ml OutputOutput Total 2400 ml 1 ml BalanceBalance -2280 ml 729 ml 480 ml Exam LE no pitting edema. Head: normocephalic Neck: supple Respiratory: normal air movement Results Results 24hrs Laboratory Tests Test 07/30/18 16:49 07/30/18 20:15 07/31/18 05:12 07/31/18 05:13 Bedside Glucose 178 137 Sodium Level 142 Potassium Level 4.3 Chloride Level 100 Carbon Dioxide Level 30 Anion Gap 12 Blood Urea Nitrogen 37 #H Creatinine 3.99 #H Est Glomerular Filtrat Rate mL/min Glucose Level 81 # Calcium Level 9.3 Phosphorus Level 3.5 Magnesium Level 2.0 White Blood Count 5.6 Red Blood Count 3.39 L Hemoglobin 10.5 L Hematocrit 32.3 L Mean Corpuscular 95.3 Volume Mean Corpuscular 31.0 Hemoglobin Mean Corpuscular 32.5 Hemoglobin Concent Red Cell 16.4 H Distribution Width Platelet Count 201 Mean Platelet Volume 11.1 H Immature 0.400 Granulocytes % Neutrophils % 47.7 Lymphocytes % 24.6 Monocytes % 14.4 H Eosinophils % 11.7 H Basophils % 1.2 Nucleated Red Blood 0.0 Cells % Immature 0.020 Granulocytes # Neutrophils # 2.7 Lymphocytes # 1.4 Monocytes # 0.8 Eosinophils # 0.7 H Basophils # 0.1 Nucleated Red Blood 0.0 Cells # Test 07/31/18 07:47 07/31/18 11:57 Bedside Glucose 85 109 Medications Medication Current Medications Diagnostic Test (Pha) (Accu-Chek) 1 ea 02 XX ; Start 07/31/18 at 02:00 Insulin Aspart (Novolog Insulin Pen) NOVOLOG *MILD* ALGORITHM WITH MEALS BEDTIME SC Last administered on 07/30/18at 16:54; Admin Dose 1 UNIT; Start 07/30/18 at 08:00 Acetaminophen (Tylenol Tab) 650 mg Q6H PRN PO MILD PAIN(1-3)OR ELEVATED TEMP; Start 07/30/18 at 03:00 Aspirin (Aspirin) 81 mg DAILY PO Last administered on 07/31/18 07:48; Admin Dose 81 MG; Start 07/30/18 at 09:00 Atorvastatin Calcium (Lipitor) 80 mg HS PO Last administered on 07/30/18at 20:12; Admin Dose 80 MG; Start 07/30/18 at 21:00 Carvedilol (Coreg) 3.125 mg BID PO Last administered on 07/30/18at 20:12; Admin Dose 3.125 MG; Start 07/30/18 at 09:00 Famotidine (Pepcid) 20 mg DAILY PO Last administered on 07/31/18at 07:48; Admin Dose 20 MG; Start 07/30/18 at 09:00 Gabapentin (Neurontin) 100 mg QHS PO Last administered on 07/30/18at 20:12; Admin Dose 100 MG; Start 07/30/18 at 21:00 Latanoprost (Xalatan) 1 drop HS RIGHT EYE Last administered on 07/30/18at 20:55; Admin Dose 1 DROP; Start 07/30/18 at 21:00 Repaglinide (Prandin) 0.5 mg WITH MEALS PO Last administered on 07/31/18at 11:58; Admin Dose 0.5 MG; Start 07/30/18 at 08:00 Diagnostic Test (Pha) (Accu-Chek) 1 ea AC MEALS AND BEDTIME XX ; Start 07/30/18 at 07:00 Tamsulosin HCl (Flomax) 0.4 mg DAILY@2100 PO Last administered on 07/30/18at 20:12; Admin Dose 0.4 MG; Start 07/30/18 at 21:00 Miscellaneous Information 1 ea NOTE XX ; Start 07/30/18 at 03:30 Glucose (Glutose) 15 gm Q15M PRN PO DECREASED GLUCOSE; Start 07/30/18 at 03:30 Glucose (Glutose) 22.5 gm Q15M PRN PO DECREASED GLUCOSE; Start 07/30/18 at 03:30 Dextrose (D50w Syringe) 25 ml Q15M PRN IV DECREASED GLUCOSE; Start 07/30/18 at 03:30 Dextrose (D50w Syringe) 50 ml Q15M PRN IV DECREASED GLUCOSE; Start 07/30/18 at 03:30 Glucagon (Glucagen) 1 mg Q15M PRN IM DECREASED GLUCOSE; Start 07/30/18 at 03:30 Glucose (Glutose) 15 gm Q15M PRN BUCCAL DECREASED GLUCOSE; Start 07/30/18 at 03:30 FAHAD PATTERSON MD Jul 31, 2018 12:05
--- NOTE | 2018-07-31 17:07 | CONS ---
Assessment/Plan Assessment/Plan Hospital Course (Demo Recall) ASSESSMENT: 83 yom w/ ICM (EF 25-30%), s/p CABG, ESRD on HD, htn,hld, DM, PAF, CVA s/p R. C EA who presented with dyspnea and volume overload. Improving with dialysis. Appears close to euvolemic on exam today. PLAN: - dialysis per renal - continue coreg, apixaban, statin Consultation Date/Type/Reason Admit Date/Time Jul 30, 2018 at 08:02 Initial Consult Date Type of Consult Cardiology Date/Time of Note DATE: 07/31/18 TIME: 17:07 24 HR Interval Summary Free Text/Dictation Feeling alittle better. Though daughter mentions pt was coughing after jannet lysis. Exam/Review of Systems Vital Signs Vitals Vital Signs Date Temp Pulse Resp B/P (MAP) Pulse Ox O2 O2 Flow FiO2 Time Delivery Rate 07/31/18 75 16:00 07/31/18 98.2 16 149/72 100 15:18 (97) 07/31/18 Room Air 10:30 07/30/18 7.0 10:45 Intake and Output 07/30/18 07/30/18 07/31/18 1414:59 22:59 06:59 IntakeIntake Total 120 ml 490 ml 720 ml OutputOutput Total 2400 ml 1 ml BalanceBalance -2280 ml 489 ml 720 ml Exam Constitutional: alert, frail; No distress Neck: No jvd Respiratory: other (mostly clear with crackles with base) Cardiovascular: regular rate and rhythm; No systolic murmur Extremities: No edema Labs Result Diagram: 07/31/18 0513 07/31/18 0512 Results 24hrs Laboratory Tests Test 07/30/18 20:15 07/31/18 05:12 07/31/18 05:13 07/31/18 07:47 Bedside Glucose 137 85 Sodium Level 142 Potassium Level 4.3 Chloride Level 100 Carbon Dioxide Level 30 Anion Gap 12 Blood Urea Nitrogen 37 #H Creatinine 3.99 #H Est Glomerular Filtrat Rate mL/min Glucose Level 81 # Calcium Level 9.3 Phosphorus Level 3.5 Magnesium Level 2.0 White Blood Count 5.6 Red Blood Count 3.39 L Hemoglobin 10.5 L Hematocrit 32.3 L Mean Corpuscular 95.3 Volume Mean Corpuscular 31.0 Hemoglobin Mean Corpuscular 32.5 Hemoglobin Concent Red Cell 16.4 H Distribution Width Platelet Count 201 Mean Platelet Volume 11.1 H Immature 0.400 Granulocytes % Neutrophils % 47.7 Lymphocytes % 24.6 Monocytes % 14.4 H Eosinophils % 11.7 H Basophils % 1.2 Nucleated Red Blood 0.0 Cells % Immature 0.020 Granulocytes # Neutrophils # 2.7 Lymphocytes # 1.4 Monocytes # 0.8 Eosinophils # 0.7 H Basophils # 0.1 Nucleated Red Blood 0.0 Cells # Test 07/31/18 11:57 07/31/18 17:00 Bedside Glucose 109 84 Medications Medications Current Medications Diagnostic Test (Pha) (Accu-Chek) 1 ea 02 XX ; Start 07/31/18 at 02:00 Insulin Aspart (Novolog Insulin Pen) NOVOLOG *MILD* ALGORITHM WITH MEALS BEDTIME SC Last administered on 07/30/18at 16:54; Admin Dose 1 UNIT; Start 07/30/18 at 08:00 Acetaminophen (Tylenol Tab) 650 mg Q6H PRN PO MILD PAIN(1-3)OR ELEVATED TEMP; Start 07/30/18 at 03:00 Aspirin (Aspirin) 81 mg DAILY PO Last administered on 07/31/18at 07:48; Admin Dose 81 MG; Start 07/30/18 at 09:00 Atorvastatin Calcium (Lipitor) 80 mg HS PO Last administered on 07/30/18at 20:12; Admin Dose 80 MG; Start 07/30/18 at 21:00 Carvedilol (Coreg) 3.125 mg BID PO Last administered on 07/30/18at 20:12; Admin Dose 3.125 MG; Start 07/30/18 at 09:00 Famotidine (Pepcid) 20 mg DAILY PO Last administered on 07/31/18 07:48; Admin Dose 20 MG; Start 07/30/18 at 09:00 Gabapentin (Neurontin) 100 mg QHS PO Last administered on 07/30/18at 20:12; Admin Dose 100 MG; Start 07/30/18 at 21:00 Latanoprost (Xalatan) 1 drop HS RIGHT EYE Last administered on 07/30/18at 20:55; Admin Dose 1 DROP; Start 07/30/18 at 21:00 Repaglinide (Prandin) 0.5 mg WITH MEALS PO Last administered on 07/31/18at 11:58; Admin Dose 0.5 MG; Start 07/30/18 at 08:00 Diagnostic Test (Pha) (Accu-Chek) 1 ea AC MEALS AND BEDTIME XX ; Start 07/30/18 at 07:00 Tamsulosin HCl (Flomax) 0.4 mg DAILY@2100 PO Last administered on 07/30/18at 20:12; Admin Dose 0.4 MG; Start 07/30/18 at 21:00 Miscellaneous Information 1 ea NOTE XX ; Start 07/30/18 at 03:30 Glucose (Glutose) 15 gm Q15M PRN PO DECREASED GLUCOSE; Start 07/30/18 at 03:30 Glucose (Glutose) 22.5 gm Q15M PRN PO DECREASED GLUCOSE; Start 07/30/18 at 03:30 Dextrose (D50w Syringe) 25 ml Q15M PRN IV DECREASED GLUCOSE; Start 07/30/18 at 03:30 Dextrose (D50w Syringe) 50 ml Q15M PRN IV DECREASED GLUCOSE; Start 07/30/18 at 03:30 Glucagon (Glucagen) 1 mg Q15M PRN IM DECREASED GLUCOSE; Start 07/30/18 at 03:30 Glucose (Glutose) 15 gm Q15M PRN BUCCAL DECREASED GLUCOSE; Start 07/30/18 at 03 :30 ANABEL CHERY Jul 31, 2018 17:07
[2018-07-31] MEDS: ATORVASTATIN 80 MG TAB PO SCH (20:52)
[2018-07-31] MEDS: TAMSULOSIN (SR) 0.4 MG CAP PO SCH (20:52)
[2018-07-31] MEDS: LATANOPROST 0.005% 2.5 ML OPH RIGHT EYE SCH (20:52)
[2018-07-31] MEDS: GABAPENTIN 100 MG CAP PO SCH (20:52)
[2018-07-31] MEDS: BALSAM PERU/CASTOR OIL 60 GM TUBE TOP SCH (21:44)
[2018-08-01] VITALS (8 sets, daily range): BP systolic 122–147; BP diastolic 58–75; PULSE 75–84; RESP 18–19
[2018-08-01] MEDS: ACCU-CHEK XX SCH ×3 (02:21→11:30)
[2018-08-01] MEDS: INSULIN ASPART [NOVOLOG] 3 ML PEN SC SCH ×2 (08:00→12:00)
[2018-08-01] MEDS: BALSAM PERU/CASTOR OIL 60 GM TUBE TOP SCH (08:11)
[2018-08-01] MEDS: ASPIRIN 81 MG TAB PO SCH (08:11)
[2018-08-01] MEDS: FAMOTIDINE 20 MG TAB PO SCH (08:11)
[2018-08-01] MEDS: REPAGLINIDE 1 MG TAB PO SCH ×2 (08:11→12:52)
--- NOTE | 2018-08-01 08:20 | CONS ---
Assessment/Plan Assessment/Plan Problems: (1) ESRD (end stage renal disease) on dialysis Comment: tolerated HD Fri and Sat... appears euvolemic now... next HD to be Tues... d/c as per IM (2) Congestive heart failure (CHF) Status: Chronic Comment: resolved (3) Dyspnea Status: Acute Comment: now with normal RA O2 sats (4) Hypertension Status: Chronic Comment: controlled Consultation Date/Type/Reason Admit Date/Time Jul 30, 2018 at 08:02 Type of Consult Nephrology Date/Time of Note DATE: 08/01/18 TIME: 08:17 Hx of Present Illness looks well.. feels well... tolerated another 2.5 Liters out w HD yesterday Exam/Review of Systems Vital Signs Vitals Vital Signs Date Temp Pulse Resp B/P (MAP) Pulse Ox O2 O2 Flow FiO2 Time Delivery Rate 08/01/18 98.4 77 18 122/58 100 07:38 (79) 08/01/18 Nasal 2.0 02:00 Cannula Intake and Output 07/31/18 07/31/18 08/01/18 1515:00 23:00 07:00 IntakeIntake Total 590 ml 200 ml 440 ml OutputOutput Total 2600 ml BalanceBalance -2010 ml 200 ml 440 ml Exam Constitutional: alert, oriented Psych: no complaints Eyes: nl conjunctiva Neck: supple Respiratory: clear to auscultation Cardiovascular: regular rate and rhythm Gastrointestinal: soft Extremities: edema (none) Labs Result Diagram: 07/31/18 0513 07/31/18 0512 Results 24hrs Laboratory Tests Test 07/31/18 11:57 07/31/18 17:00 07/31/18 20:50 08/01/18 02:18 Bedside Glucose 109 84 239 H 112 Medications Medications Current Medications Diagnostic Test (Pha) (Accu-Chek) 1 ea 02 XX Last administered on 08/01/18at 02:21; Admin Dose 1 EA; Start 07/31/18 at 02:00 Insulin Aspart (Novolog Insulin Pen) NOVOLOG *MILD* ALGORITHM WITH MEALS BEDTIME SC Last administered on 07/31/18at 20:57; Admin Dose 2 UNIT; Start 07/30/18 at 08:00 Acetaminophen (Tylenol Tab) 650 mg Q6H PRN PO MILD PAIN(1-3)OR ELEVATED TEMP; Start 07/30/18 at 03:00 Aspirin (Aspirin) 81 mg DAILY PO Last administered on 08/01/18 08:11; Admin Dose 81 MG; Start 07/30/18 at 09:00 Atorvastatin Calcium (Lipitor) 80 mg HS PO Last administered on 07/31/18 20:52; Admin Dose 80 MG; Start 07/30/18 at 21:00 Carvedilol (Coreg) 3.125 mg BID PO Last administered on 08/01/18 08:11; Admin Dose 3.125 MG; Start 07/30/18 at 09:00 Famotidine (Pepcid) 20 mg DAILY PO Last administered on 08/01/18 08:11; Admin Dose 20 MG; Start 07/30/18 at 09:00 Gabapentin (Neurontin) 100 mg QHS PO Last administered on 07/31/18 20:52; Admin Dose 100 MG; Start 07/30/18 at 21:00 Latanoprost (Xalatan) 1 drop HS RIGHT EYE Last administered on 07/31/18 20:52; Admin Dose 1 DROP; Start 07/30/18 at 21:00 Repaglinide (Prandin) 0.5 mg WITH MEALS PO Last administered on 08/01/18 08:11; Admin Dose 0.5 MG; Start 07/30/18 at 08:00 Diagnostic Test (Pha) (Accu-Chek) 1 ea AC MEALS AND BEDTIME XX Last administered on 07/31/18 21:44; Admin Dose 1 EA; Start 07/30/18 at 07:00 Tamsulosin HCl (Flomax) 0.4 mg DAILY@2100 PO Last administered on 07/31/18 20:52; Admin Dose 0.4 MG; Start 07/30/18 at 21:00 Miscellaneous Information 1 ea NOTE XX ; Start 07/30/18 at 03:30 Glucose (Glutose) 15 gm Q15M PRN PO DECREASED GLUCOSE; Start 07/30/18 at 03:30 Glucose (Glutose) 22.5 gm Q15M PRN PO DECREASED GLUCOSE; Start 07/30/18 at 03:30 Dextrose (D50w Syringe) 25 ml Q15M PRN IV DECREASED GLUCOSE; Start 07/30/18 at 03:30 Dextrose (D50w Syringe) 50 ml Q15M PRN IV DECREASED GLUCOSE; Start 07/30/18 at 03:30 Glucagon (Glucagen) 1 mg Q15M PRN IM DECREASED GLUCOSE; Start 07/30/18 at 03:30 Glucose (Glutose) 15 gm Q15M PRN BUCCAL DECREASED GLUCOSE; Start 07/30/18 at 0 3:30 DAVONTE MIKE MD Aug 01, 2018 08:20
--- NOTE | 2018-08-01 14:28 | DS ---
Date/Time of Note Date/Time of Note DATE: 08/01/18 TIME: 14:26 Discharge Summary Admission/Discharge Info Admit Date/Time Jul 30, 2018 at 08:02 Discharge Date/Time Patient Condition: Good Hospital Course The patient is an 83-year-old male with ischemic cardiomyopathy, chronic congestive heart failure, coronary artery disease, end-stage renal disease, diabetes who presented to the emergency room with shortness of breath, hypoxemia and is admitted to telemetry for further evaluation and care of congestive heart failure. 1. Congestive heart failure/ischemic cardiomyopathy/chronic combined diastolic systolic heart failure. Dr. Carmichael from Cardiology evaluated and reports pt is not to be on amlodipine. Will make further adjustments as needed. We will continue on telemetry monitoring. pt had home oxygen provided, currently pt has not needed oxygen in the past 24 hours. 2. End-stage renal disease. Will likely have dialysis today and admit him tomorrow as he is normally scheduled. We will make further adjustments. -currently receiving dialysis. doing well. has no current c/o. -renal reports after having dialysis yesterday , he is stable to be discharged home. cont regular med. pt has dialysis scheduled for . 3. Diabetes. We will continue with oral medications as well as sliding scale. 4. Hyperlipidemia. Will continue with diet and medications. d/c home. no new meds. Home Meds Active Scripts Gabapentin* (Gabapentin*) 100 Mg Capsule, 100 MG PO HS for 30 Days, #30 CAP Prov:WICHO SHEA MD- 07/16/18 Reported Medications Amlodipine Besylate* (Amlodipine Besylate*) 2.5 Mg Tablet, 5 MG PO DAILY, #30 TAB 06/03/18 Latanoprostene Bunod (Vyzulta) 5 Ml Drops, 5 ML OP QHS, BOTTLE 06/03/18 Atorvastatin* (Atorvastatin*) 80 Mg Tablet, 80 MG PO DAILY, #30 TAB 06/03/18 Repaglinide* (Repaglinide*) 0.5 Mg Tablet, PO AC MEALS, TAB 06/03/18 Calcium Carbonate/Vitamin D3 (Os-[place] 500-Vit D3 200 Caplet) 1 Each Tablet, 1 CAP PO TID, TAB 06/03/18 Tamsulosin Hcl* (Tamsulosin Hcl*) 0.4 Mg Cap.er.24h, 0.4 MG PO DAILY, CAP 3/17/19 Famotidine* (Famotidine*) 20 Mg Tablet, 20 MG PO BID, #60 TAB 04/25/18 Aspirin (Low Dose Aspirin) 81 Mg Tablet.dr, 81 MG PO DAILY, #30 TAB 04/25/18 Carvedilol* (Carvedilol*) 3.125 Mg Tablet, 3.125 MG PO BID, #60 TAB 04/25/18 Apixaban* (Eliquis*) 2.5 Mg Tablet, 2.5 MG PO BID, TAB 04/25/18 Primary Care Provider Wicho Shea Time spent on discharge: > 30 minutes Pending Labs Laboratory Tests Test 07/31/18 17:00 07/31/18 20:50 08/01/18 02:18 08/01/18 08:08 Bedside 84 239 112 137 Glucose mg/dL (70-220) mg/dL (70-220) mg/dL (70-220) mg/dL (70-220) Test 08/01/18 12:49 Bedside 104 Glucose mg/dL (70-220) FAHAD PATTERSON MD Aug 01, 2018 14:28
== END 2018-08-01 14:40 | disposition home or self-care (01) | DRG 291 ==
LOC: E/R 18:37 → 6WM 07-30 01:02 → OBSVTOIN 07-30 08:02
PROVIDERS: ADMIT Internal Medicine; ATTEND Internal Medicine
PROC: 5A1D70Z Performance of Urinary Filtration, Intermittent, Less than 6 Hours Per Day (ICD-10-PCS; principal; 2018-07-30)
DX: I13.2 Hypertensive heart and chronic kidney disease with heart failure and with stage 5 chronic kidney disease, or end stage renal disease (principal); N18.6 End stage renal disease; J81.0 Acute pulmonary edema; I50.32 Chronic diastolic (congestive) heart failure; I69.959 Hemiplegia and hemiparesis following unspecified cerebrovascular disease affecting unspecified side; E11.22 Type 2 diabetes mellitus with diabetic chronic kidney disease; Z99.2 Dependence on renal dialysis; Z95.810 Presence of automatic (implantable) cardiac defibrillator; N40.0 Benign prostatic hyperplasia without lower urinary tract symptoms; Z95.1 Presence of aortocoronary bypass graft; E78.5 Hyperlipidemia, unspecified; I69.920 Aphasia following unspecified cerebrovascular disease
CPT/HCPCS: 71045; 80048; 80053; 82550; 82553; 82962; 83605; 83735; 83880; 84100; 84484; 85025; 85610; 85730; 87081; 90935; 93005; 94644; 94645; G0378; J1815